=== PATIENT | male | born 1965 | race Caucasian/White ===

== ENCOUNTER → 2016-11-12 | Outpatient (CLI) | payer MEDICARE, MEDICAID ==
[2016-11-12 10:13] LABS: CHOLESTEROL 205.62 mg/dL (0-200); Direct HDL 66 mg/dL (>40); TRIGLYCERIDES 181 mg/dL (<150)
[2016-11-12 10:24] LABS: DIRECT LDL 100 mg/dL (<100)
[2016-11-12 10:28] LABS: VLDL CHOLESTEROL 36.2 mg/dL (10-31)
== END ==
LOC: OD 09:08
PROVIDERS: ATTEND Obstetrics & Gynecology
DX: E78.5 Hyperlipidemia, unspecified (principal)
CPT/HCPCS: 36415; 80061

== ENCOUNTER → 2017-02-04 | Outpatient (CLI) | payer MEDICARE, MEDICAID ==
[2017-02-04 09:42] LABS: ALANINE AMINOTRANSFERASE 53 U/L (21-72); ALBUMIN 3.6 g/dL (3.5-5.0); ALKALINE PHOSPHATASE 121 U/L (38-126); ANION GAP 9 (5-19); ASPARTATE AMINO TRANSFERASE 32 U/L (17-59); BILIRUBIN,DIRECT 0.4 mg/dL (0.0-0.4); BILIRUBIN,TOTAL 0.7 mg/dL (0.2-1.3); BLOOD UREA NITROGEN 11 mg/dL (7-20); CARBON DIOXIDE 28 mmol/L (22-30); CHLORIDE 101 mmol/L (98-107); CREATINE KINASE 86 U/L (55-170); CREATININE RESULT 0.68 mg/dL (0.52-1.25); Direct HDL 67 mg/dL (>40); GLUCOSE 136 mg/dL (75-110); POTASSIUM 4.2 mmol/L (3.6-5.0); SODIUM 138.4 mmol/L (137-145); TOTAL PROTEIN 6.5 g/dL (6.3-8.2); TRIGLYCERIDES 131 mg/dL (<150)
[2017-02-04 09:53] LABS: DIRECT LDL 135 mg/dL (<100)
== END ==
LOC: OD 08:15
PROVIDERS: ATTEND Obstetrics & Gynecology
DX: E11.40 Type 2 diabetes mellitus with diabetic neuropathy, unspecified (principal); E78.5 Hyperlipidemia, unspecified; I10 Essential (primary) hypertension; Z79.891 Long term (current) use of opiate analgesic; Z86.39 Personal history of other endocrine, nutritional and metabolic disease; J44.1 Chronic obstructive pulmonary disease with (acute) exacerbation
CPT/HCPCS: 36415; 80053; 80061; 82550; 83036

== ENCOUNTER → 2017-03-05 | Outpatient (CLI) | payer MEDICARE, MEDICAID ==
[2017-03-05 10:21] LABS: ALANINE AMINOTRANSFERASE 50 U/L (21-72); ALKALINE PHOSPHATASE 151 U/L (38-126); ANION GAP 13 (5-19); ASPARTATE AMINO TRANSFERASE 31 U/L (17-59); BILIRUBIN,DIRECT 0.5 mg/dL (0.0-0.4); BILIRUBIN,TOTAL 0.7 mg/dL (0.2-1.3); BLOOD UREA NITROGEN 13 mg/dL (7-20); CALCIUM 9.7 mg/dL (8.4-10.2); CARBON DIOXIDE 29 mmol/L (22-30); CHLORIDE 98 mmol/L (98-107); CHOLESTEROL 182.94 mg/dL (0-200); CREATINE KINASE 68 U/L (55-170); CREATININE RESULT 0.82 mg/dL (0.52-1.25); Direct HDL 55 mg/dL (>40); GLUCOSE 122 mg/dL (75-110); POTASSIUM 4.9 mmol/L (3.6-5.0); SODIUM 139.6 mmol/L (137-145); TOTAL PROTEIN 6.9 g/dL (6.3-8.2); TRIGLYCERIDES 145 mg/dL (<150)
[2017-03-05 10:34] LABS: DIRECT LDL 99 mg/dL (<100)
== END ==
LOC: OD 08:47
PROVIDERS: ATTEND Obstetrics & Gynecology
DX: E11.9 Type 2 diabetes mellitus without complications (principal); I10 Essential (primary) hypertension; E78.5 Hyperlipidemia, unspecified
CPT/HCPCS: 36415; 80053; 80061; 82550; 83036

== ENCOUNTER 2017-05-03 05:59 | Observation (INO) | payer MEDICARE, MEDICAID ==
[2017-04-30 09:06] LABS: ABSOLUTE EOSINOPHILS # (AUTO) 0.3 10^3/uL (0.0-0.6); ABSOLUTE LYMPHOCYTES (AUTO) 1.1 10^3/uL (0.5-4.7); ABSOLUTE MONOCYTES (AUTO) 0.6 10^3/uL (0.1-1.4); ABSOLUTE NEUT (AUTO) 7.2 10^3/uL (1.7-8.2); BASOPHILS % (AUTO) 0.4 % (0-2); HEMATOCRIT 38.4 % (37.9-51.0); HEMOGLOBIN 13.1 g/dL (13.5-17.0); HGB HCT DIFFERENCE 0.9; LYMPHOCYTES % (AUTO) 12.1 % (13-45); MEAN CORPUSCULAR HEMOGLOBIN 30.1 pg (27.0-33.4); MEAN CORPUSCULAR HGB CONC 34.2 g/dL (32.0-36.0); MEAN CORPUSCULAR VOLUME 88 fl (80-97); MONOCYTES % (AUTO) 6.7 % (3-13); RED BLOOD COUNT 4.35 10^6/uL (4.35-5.55); RED CELL DISTRIBUTION WIDTH 13.4 % (11.5-14.0); SEGMENTED NEUTROPHILS % (AUTO) 77.8 % (42-78); WHITE BLOOD COUNT 9.2 10^3/uL (4.0-10.5)
[2017-04-30 09:36] LABS: ANION GAP 11 (5-19); BLOOD UREA NITROGEN 13 mg/dL (7-20); CARBON DIOXIDE 30 mmol/L (22-30); CHLORIDE 99 mmol/L (98-107); CREATININE RESULT 0.76 mg/dL (0.52-1.25); GLUCOSE 119 mg/dL (75-110); POTASSIUM 4.1 mmol/L (3.6-5.0); SODIUM 139.8 mmol/L (137-145)
--- NOTE | 2017-04-30 09:48 | RADIOLOGY REPORT (SQ) ---
EXAM DESCRIPTION: CHEST PA/LATERAL COMPLETED DATE/TIME: 04/30/2017 9:31 am REASON FOR STUDY: PRE OP COMPARISON: Two-view chest 07/06/2014 EXAM PARAMETERS: NUMBER OF VIEWS: two views TECHNIQUE: Digital Frontal and Lateral radiographic views of the chest acquired. RADIATION DOSE: NA LIMITATIONS: none FINDINGS: LUNGS AND PLEURA: No opacities, masses or pneumothorax. No pleural effusion. MEDIASTINUM AND HILAR STRUCTURES: No masses or contour abnormalities. HEART AND VASCULAR STRUCTURES: Heart normal size. No evidence for failure. BONES: No acute findings. HARDWARE: None in the chest. OTHER: No other significant finding. IMPRESSION: NO SIGNIFICANT RADIOGRAPHIC FINDING IN THE CHEST. TECHNICAL DOCUMENTATION: JOB ID: [id number] [email or web address]- All Rights Reserved
[2017-04-30 10:11] LABS: APPEARANCE,URINE CLEAR; BILIRUBIN,URINE NEGATIVE (NEGATIVE); GLUCOSE, URINE NEGATIVE (NEGATIVE); KETONES,URINE NEGATIVE (NEGATIVE); LEUKOCYTE ESTERASE,URINE NEGATIVE (NEGATIVE); NITRITE,URINE NEGATIVE (NEGATIVE); PROTEIN,URINE NEGATIVE (NEGATIVE); URINE SPECIFIC GRAVITY 1.006; UROBILINOGEN,URINE NEGATIVE mg/dL (<2.0)
--- NOTE | 2017-04-30 13:02 | EKG REPORT ---
SEVERITY:- NORMAL ECG - SINUS RHYTHM : Confirmed by: Parviz Devi MD 30-Apr-2017 13:01:18
[~2017-05-03 05:59] MED LIST: CEFAZOLIN 2 GM/D5W RTU 2 GM/50 ML RTUPB IV PRN; LACTATED RINGERS 1000 ML IV PRN; LIDOCAINE 0.5% INJ-PF (5 MG/ML) 50 ML SDV SUBCUT PRN
[2017-05-03] MEDS ORDERED: BUPIVACAINE HCL 0.5 % INJ/PF 30 ML SDV ONE (07:46)
[2017-05-03] MEDS ORDERED: FENTANYL CITRATE INJ/PF 100 MCG/2 ML AMPUL ONE (09:20)
[2017-05-03] MEDS ORDERED: TRANEXAMIC ACID INJ/PF 1,000 MG/10 ML SDV IV ONE (09:21)
[2017-05-03] MEDS ORDERED: PROPOFOL INJ 200 MG/20 ML VIAL IV ONE (09:21)
[2017-05-03] MEDS ORDERED: MIDAZOLAM 2 MG/2 ML INJ ONE (09:21)
[2017-05-03] MEDS ORDERED: IBUPROFEN INJ 800 MG/8 ML VIAL IV ONE (09:50)
[2017-05-03] MEDS ORDERED: HYDROMORPHONE HCL INJ/PF 2 MG/ML AMPULE ONE (09:50)
[2017-05-03] MEDS ORDERED: BUPIVACAINE HCL 0.5%-EPI 1:200000 INJ/PF 30 ML VIAL ONE (10:31)
[2017-05-03] MEDS ORDERED: DIPHENHYDRAMINE HCL 50 MG/ML VIAL IV PRN ×2 (10:38→11:16)
[2017-05-03] MEDS ORDERED: OXYCODONE-ACETAMINOPHEN 5-325 MG TABLET PO PRN ×2 (10:38)
[2017-05-03] MEDS ORDERED: FENTANYL CITRATE INJ/PF 100 MCG/2 ML AMPUL IV PRN ×3 (10:38)
[2017-05-03] MEDS ORDERED: MEPERIDINE HCL/PF INJ 25 MG/1 ML DISP.SYRIN IV PRN (10:38)
[2017-05-03] MEDS ORDERED: MORPHINE SULFATE 10 MG/ML INJ IV PRN ×4 (10:38→11:16)
[2017-05-03] MEDS ORDERED: PROMETHAZINE HCL INJ 25 MG/1 ML VIAL IV PRN ×2 (10:38)
--- NOTE | 2017-05-03 10:59 | Operative Report ---
Operative Report DATE OF SURGERY: 05/03/17 PREOPERATIVE DIAGNOSIS: Right quadriceps tear OPERATION: Scar revision. Right quadriceps tendon repair SURGEON: MINOO BLANCO 1ST ANIMAL TRAINER: FLORENCIA CM ANESTHESIA: Spinal TISSUE REMOVED OR ALTERED: Cultures to microbiology ESTIMATED BLOOD LOSS: Minimal PROCEDURE: With the patient supine the operating table the right lower extremities prepped and draped in sterile fashion. The limb was elevated but for exsanguination tourniquet inflated to 350 torr. The existing incision which was serpentine to avoid previous tattoos has spread considerably. The patient's request revision of the scar. This is elliptically excised. Sent to pathology for gross description. The incision and carried down to the quadriceps tendon. The quadriceps tendon disruption right at the proximal pole of the patella. The superior aspect of the patellar polyethylene is visible. Cultures are taken. My initial surgical plan was to use a bone anchor. However is concerned about the anterior posterior dimensions of the existing patella and whether or not this would disrupt the underlying patella cement mantle. Therefore I opted to put 2 tunnels through the proximal patella using a drill and then a #5 FiberWire was passed through each of these holes. The tendon disruption was then repaired using the FiberWire in a Krakw pattern. The tourniquet was deflated. Hemostasis obtained. The wound was then reapproximated with interrupted Vicryl followed by mg. A sterile compressive dressing was applied and the patient's return to the PACU in satisfactory condition.
[2017-05-03] MEDS ORDERED: (PENDING PHARMACY ID) (Diclofenac Sodium [Voltaren] 4 GM) TOP PRN (11:15)
[2017-05-03] MEDS ORDERED: DIAZEPAM 5 MG TABLET PO PRN (11:15)
[2017-05-03] MEDS ORDERED: ALBUTEROL SULFATE HFA (90 MCG/PUFF) 200 PUFF/8.5 GM MDI IH PRN (11:15)
[2017-05-03] MEDS ORDERED: ONDANSETRON 4 MG TAB.RAPDIS PO PRN ×2 (11:16→12:30)
[2017-05-03] MEDS ORDERED: ZOLPIDEM TARTRATE 5 MG TABLET PO PRN ×2 (11:17→12:30)
[2017-05-03] MEDS ORDERED: ACETAMINOPHEN 325 MG TABLET PO PRN (11:17)
[2017-05-03] MEDS ORDERED: EPHEDRINE SULFATE INJ 50 MG/1 ML AMPULE ONE (11:29)
--- NOTE | 2017-05-03 12:58 | RADIOLOGY REPORT (SQ) ---
EXAM DESCRIPTION: KNEE RIGHT 2 VIEWS COMPLETED DATE/TIME: 05/03/2017 12:44 pm REASON FOR STUDY: Post OP -Long Cassette in PACU S76.191A INJ RIGHT QUADRICEPS MUSCLE, FASCIA AND T ENDON, INI COMPARISON: None. NUMBER OF VIEWS: Four views. TECHNIQUE: AP, lateral, and both oblique radiographic images acquired of the right knee. LIMITATIONS: None. FINDINGS: MINERALIZATION: Normal. BONES: Right knee arthroplasty in good position. JOINT: See above. SOFT TISSUES: No soft tissue swelling. No radio-opaque foreign body. OTHER: No other significant finding. IMPRESSION: Right knee arthroplasty. TECHNICAL DOCUMENTATION: JOB ID: [id number] [employer]- All Rights Reserved
[2017-05-03] MEDS: GABAPENTIN 300 MG CAPSULE PO SCH ×2 (13:22→19:33)
[2017-05-03] MEDS: BACLOFEN 10 MG TABLET PO SCH ×2 (13:22→16:14)
[2017-05-03] MEDS: OXYCODONE HCL IR 5 MG TABLET PO PRN ×2 (13:23→19:33)
[2017-05-03] MEDS: MORPHINE SULFATE 10 MG/ML INJ IM PRN ×3 (16:10→22:39)
[2017-05-03] MEDS: METFORMIN HCL 500 MG TABLET PO SCH (16:13)
[2017-05-03] MEDS ORDERED: ACETAMINOPHEN 100 ML IV ONE (17:00)
[2017-05-03] MEDS ORDERED: IBUPROFEN 800 MG in NORMAL SALINE 250 ML IV SCH (18:00)
[2017-05-03] MEDS: SENNOSIDES/DOCUSATE 8.6-50 MG 1 EACH TABLET PO SCH (18:02)
[2017-05-03] MEDS: OXYCODONE HCL SR 10 MG TABLET PO SCH (21:31)
[2017-05-03] MEDS: TOLTERODINE TARTRATE 1 MG TABLET PO SCH (21:31)
[2017-05-03] MEDS ORDERED: ATORVASTATIN CALCIUM 80 MG TABLET PO SCH (22:00)
[2017-05-03] MEDS ORDERED: RIVAROXABAN 10 MG TABLET PO SCH (22:00)
[2017-05-03] MEDS ORDERED: MONTELUKAST SODIUM 10 MG TABLET PO SCH (22:00)
[2017-05-03] MEDS ORDERED: VANCOMYCIN HCL 1,000 MG in DEXTROSE 5%-WATER 250 ML IV ONE (23:00)
[2017-05-04] MEDS: MORPHINE SULFATE 10 MG/ML INJ IM PRN ×3 (04:39→14:12)
[2017-05-04] MEDS: OXYCODONE HCL IR 5 MG TABLET PO PRN ×2 (05:00→12:14)
[2017-05-04] MEDS: GABAPENTIN 300 MG CAPSULE PO SCH ×2 (05:00→14:13)
[2017-05-04] MEDS ORDERED: LANSOPRAZOLE 15 MG TAB.RAP.DR PO SCH (06:00)
[2017-05-04] MEDS ORDERED: LANSOPRAZOLE 30 MG TAB.RAP.DR PO SCH (06:00)
[2017-05-04 06:53] LABS: HEMATOCRIT 40.5 % (37.9-51.0); HEMOGLOBIN 13.7 g/dL (13.5-17.0); HGB HCT DIFFERENCE 0.6; MEAN CORPUSCULAR HGB CONC 33.9 g/dL (32.0-36.0); MEAN CORPUSCULAR VOLUME 89 fl (80-97); RED BLOOD COUNT 4.58 10^6/uL (4.35-5.55); RED CELL DISTRIBUTION WIDTH 13.3 % (11.5-14.0); WHITE BLOOD COUNT 10.3 10^3/uL (4.0-10.5)
--- NOTE | 2017-05-04 07:06 | PDOC DISCHARGE SUMMARY ---
Discharge Summary (SDC) - Discharge Final Diagnosis: Right quadriceps tendon tear Date of Surgery: 05/03/17 Condition: Good Referrals: MINOO BLANCO MD [ACTIVE STAFF] - 05/18/17 10:50 am Discharge Diet: As Tolerated, Regular Respiratory Treatments at Home: Deep Breathing/Coughing, Incentive Spirometer Discharge Activity: Activity As Tolerated, Balance Activity w/Rest, No Driving, No tub bath Home Care Assistance: None Needed Report the Following to Your Physician Immediately: Shortness of Breath, Fever over 101 Degrees, Drainage-Foul Smelling - Patient under pain management consult preoperatively. He is going to return to his pain medicine facility for ongoing prescriptions. Return to see Dr. Blanco in 2 weeks for staple removal.
[2017-05-04] MEDS: BACLOFEN 10 MG TABLET PO SCH ×2 (07:19→12:14)
[2017-05-04] MEDS: METFORMIN HCL 500 MG TABLET PO SCH (07:19)
[2017-05-04 07:27] LABS: ANION GAP 12 (5-19); BLOOD UREA NITROGEN 8 mg/dL (7-20); CALCIUM 9.5 mg/dL (8.4-10.2); CARBON DIOXIDE 28 mmol/L (22-30); CHLORIDE 96 mmol/L (98-107); CREATININE RESULT 0.76 mg/dL (0.52-1.25); GLUCOSE 151 mg/dL (75-110); POTASSIUM 5.4 mmol/L (3.6-5.0)
[2017-05-04] MEDS: TOLTERODINE TARTRATE 1 MG TABLET PO SCH (09:07)
[2017-05-04] MEDS: OXYCODONE HCL SR 10 MG TABLET PO SCH (09:07)
[2017-05-04] MEDS: SENNOSIDES/DOCUSATE 8.6-50 MG 1 EACH TABLET PO SCH (09:08)
[2017-05-04] MEDS ORDERED: (PENDING PHARMACY ID) (Telmisartan [Micardis 80 Mg Tablet] 80 MG) PO SCH (10:00)
[2017-05-04] MEDS ORDERED: (PENDING PHARMACY ID) (Metformin Hcl [Metformin Hcl Er] 500 MG) PO SCH (10:00)
[2017-05-04] MEDS ORDERED: (PENDING PHARMACY ID) (Solifenacin Succinate [Vesicare] 10 MG) PO SCH (10:00)
[2017-05-04] MEDS ORDERED: LOSARTAN POTASSIUM 50 MG TABLET PO SCH (10:00)
--- NOTE | 2017-05-04 11:56 | Physician Advisory Note ---
Physician Advisor ProgressNote .: [facility] medical [facility] for this patient. Physician Advisor Statement: Please document: 1. "obesity with BMI 48.4" 2. "traumatic Rt quad tendon tear" (vs nontraumatic), - & state whether a "laceration" (vs. "strain") 3. DCSummary needs info on pt's history of present illness, chronic co- morbidities, and hospital course. 4. H&P Status: Not an Inpt only procedure per certified medical records coder. Severity of illness/intensity of service not high enough for Inpatient status. Appropriate for Obs status. Co-morbidities: COPD, DM type 2, HTN, sleep apnea, opioid dependence (morphine ER 30mg q12h at baseline), obesity CK
[2017-05-04 13:13] VITALS: BP 146/83
== END 2017-05-04 15:55 | disposition home health service (06) ==
LOC: INTOOBSV 05:59 → INOR 05:59 → 4S 12:59
PROVIDERS: ADMIT Orthopaedic Surgery; ATTEND Orthopaedic Surgery
PROC: 0LQL0ZZ Repair Right Upper Leg Tendon, Open Approach (ICD-10-PCS; principal; 2017-05-03 10:00)
DX: S76.191A Other specified injury of right quadriceps muscle, fascia and tendon, initial encounter (principal); X58.XXXA Exposure to other specified factors, initial encounter; Z96.653 Presence of artificial knee joint, bilateral; E11.9 Type 2 diabetes mellitus without complications; Z79.899 Other long term (current) drug therapy; Z79.84 Long term (current) use of oral hypoglycemic drugs; Z86.14 Personal history of Methicillin resistant Staphylococcus aureus infection
CPT/HCPCS: 93005; 36415 ×2; 87070; 87205; 82962; 85025; 85027; 87075; 80048 ×2; 81001; 83036; 88304 ×2; 71020; 73560; 94799; 93010; 97163; 27385; G0378 ×2; J2250; A9270 ×18; J3490 ×2; J3010; J2270 ×2; J7060; J7050; J2704; J3370; J0690; J1741; G8978; G8979; G8980; 01320; J1170

== ENCOUNTER 2017-05-07 12:52 | Inpatient (IN) | payer MEDICARE, MEDICAID ==
[2017-05-07 13:41] LABS: ABSOLUTE LYMPHOCYTES (AUTO) 1.3 10^3/uL (0.5-4.7); ABSOLUTE MONOCYTES (AUTO) 1.7 10^3/uL (0.1-1.4); ABSOLUTE NEUT (AUTO) 11.9 10^3/uL (1.7-8.2); BASOPHILS % (AUTO) 0.1 % (0-2); EOSINOPHILS % (AUTO) 0.1 % (0-6); HEMATOCRIT 35.6 % (37.9-51.0); HEMOGLOBIN 12.2 g/dL (13.5-17.0); LYMPHOCYTES % (AUTO) 8.7 % (13-45); MEAN CORPUSCULAR HEMOGLOBIN 29.8 pg (27.0-33.4); MEAN CORPUSCULAR HGB CONC 34.2 g/dL (32.0-36.0); MEAN CORPUSCULAR VOLUME 87 fl (80-97); MONOCYTES % (AUTO) 11.2 % (3-13); RED BLOOD COUNT 4.08 10^6/uL (4.35-5.55); RED CELL DISTRIBUTION WIDTH 13.4 % (11.5-14.0); SEGMENTED NEUTROPHILS % (AUTO) 79.9 % (42-78); WHITE BLOOD COUNT 14.9 10^3/uL (4.0-10.5)
[2017-05-07 13:44] LABS: VENOUS BLOOD BASE EXCESS 0.4 mmol/L; VENOUS BLOOD HCO3 28.4 mmol/L (20-32); VENOUS BLOOD PCO2 59.9 mmHg (35-63); VENOUS BLOOD PH 7.29 (7.30-7.42)
[2017-05-07 14:09] LABS: ALANINE AMINOTRANSFERASE 54 U/L (21-72); ALBUMIN 3.7 g/dL (3.5-5.0); ALKALINE PHOSPHATASE 147 U/L (38-126); ANION GAP 13 (5-19); ASPARTATE AMINO TRANSFERASE 63 U/L (17-59); BILIRUBIN,DIRECT 0.4 mg/dL (0.0-0.4); BILIRUBIN,TOTAL 0.6 mg/dL (0.2-1.3); BLOOD UREA NITROGEN 76 mg/dL (7-20); CALCIUM 9.3 mg/dL (8.4-10.2); CARBON DIOXIDE 28 mmol/L (22-30); CHLORIDE 94 mmol/L (98-107); CREATININE RESULT 3.02 mg/dL (0.52-1.25); GLUCOSE 146 mg/dL (75-110); POTASSIUM 5.6 mmol/L (3.6-5.0); SODIUM 135.1 mmol/L (137-145); TOTAL PROTEIN 6.4 g/dL (6.3-8.2)
--- NOTE | 2017-05-07 14:09 | RADIOLOGY REPORT (SQ) ---
EXAM DESCRIPTION: CHEST SINGLE VIEW COMPLETED DATE/TIME: 05/07/2017 2:02 pm REASON FOR STUDY: Postop confusion COMPARISON: Two-view chest 04/30/2017, 07/06/2014 EXAM PARAMETERS: NUMBER OF VIEWS: One view. TECHNIQUE: Single frontal radiographic view of the chest acquired. RADIATION DOSE: NA LIMITATIONS: None. FINDINGS: LUNGS AND PLEURA: No opacities, masses or pneumothorax. No pleural effusion. MEDIASTINUM AND HILAR STRUCTURES: No masses. Contour normal. HEART AND VASCULAR STRUCTURES: Heart normal in size. Normal vasculature. BONES: No acute findings. HARDWARE: None in the chest. OTHER: No other significant finding. IMPRESSION: NO ACUTE RADIOGRAPHIC FINDING IN THE CHEST. TECHNICAL DOCUMENTATION: JOB ID: [id number] [employer]- All Rights Reserved
[2017-05-07 14:21] LABS: CREATINE KINASE MB 11.9 ng/mL (<4.55); TROPONIN I 0.102 ng/mL
--- NOTE | 2017-05-07 14:40 | RADIOLOGY REPORT (SQ) ---
EXAM DESCRIPTION: CT HEAD WITHOUT COMPLETED DATE/TIME: 05/07/2017 2:22 pm REASON FOR STUDY: Confused, altered mental status COMPARISON: None. TECHNIQUE: Axial images acquired through the brain without intravenous contrast. Images reviewed wi th bone, brain and subdural windows. Images stored on PACS. All CT scanners at this facility use dose modulation, iterative reconstruction, and/or weight based d osing when appropriate to reduce radiation dose to as low as reasonably achievable (ALARA). [facility]: Dose Right [facility]: CareDose [facility]: Dose Right [facility]: Teradose 4D [facility]: [employer] RADIATION DOSE: Up-to-date CT equipment and radiation dose reduction techniques were employed. CTDIv ol: 64.6 mGy. DLP: 1163 mGy-cm. mGy. LIMITATIONS: Motion artifact throughout the study FINDINGS: Motion artifact throughout the study. On images without motion artifact, no gross acute i ntracranial hemorrhage, mass effect or midline shift. No CT evidence of large territory infarct. No gross evidence of sinusitis or skull fracture. IMPRESSION: Very limited negative study EVIDENCE OF ACUTE STROKE: NO. COMMENT: Quality ID # [id number]: Final reports with documentation of one or more dose reduction techniques (e.g., Automated exposure control, adjustment of the mA and/or kV according to patient size, use of iterative reconstruction technique) TECHNICAL DOCUMENTATION: JOB ID: [id number] [employer]- All Rights Reserved
[2017-05-07] MEDS ORDERED: LIDOCAINE 2% URO-JET 5 ML KIT MM ONE (14:46)
[2017-05-07] MEDS ORDERED: RINGERS SOLUTION,LACTATED 1,000 ML IV ONE (14:47)
[2017-05-07 15:28] LABS: ADD ON TESTING BLD IN LAB ACKNOWLEDGE
[2017-05-07 15:34] LABS: APPEARANCE,URINE SLIGHTLY-CLOUDY; BILIRUBIN,URINE NEGATIVE (NEGATIVE); GLUCOSE, URINE NEGATIVE (NEGATIVE); KETONES,URINE NEGATIVE (NEGATIVE); LEUKOCYTE ESTERASE,URINE TRACE (NEGATIVE); NITRITE,URINE NEGATIVE (NEGATIVE); PROTEIN,URINE NEGATIVE (NEGATIVE); URINE SPECIFIC GRAVITY 1.015; UROBILINOGEN,URINE NEGATIVE mg/dL (<2.0)
--- NOTE | 2017-05-07 15:46 | ER Document Report ---
ED General - General Chief Complaint: General Weakness Stated Complaint: WEAKNESS Time Seen by Provider: 05/07/17 13:26 Notes: Patient was brought in by EMS for generalized weakness. He also has right knee pain. Patient is somewhat confused at times and the history is somewhat sketchy and also perhaps not very reliable. Patient apparently had knee surgery just 4 days ago here at this hospital. Patient says that he has previously had both knees replaced and this was a repair of the right knee. Patient surgery was on Wednesday, May 04, and he went home the next morning, Wednesday, the . Patient tells me that he lives alone and there is no one with him there at home and he has been unable to get up, fix any food or drink, etc. Patient says he has been having shaking episodes and feeling very dry, especially his mouth today. Patient denies vomiting or diarrhea. Has a history of chronic pain and has listed morphine, Percocet, and Valium medications. Patient also says that he has been a little bit short of breath and has a history of lung disease, asthma and COPD. Denies any significant cough. Unaware of any fever. No UTI symptoms. Says he has had some chest pressure, but no pain. Denies abdominal pain. Patient's brother is visiting the patient at this time and he says that the patient's not acting his usual self. He seems confused. He verifies that there apparently were no healthcare workers her home nurses to check on the patient after he was sent home Wednesday. TRAVEL OUTSIDE OF THE [place] IN LAST 30 DAYS: No - Related Data Allergies/Adverse Reactions: No Known Allergies Allergy (Unverified 04/06/14 09:16) Past Medical History - Social History Smoking Status: Former Smoker Cigarette use (# per day): No Chew tobacco use (# tins/day): No Frequency of alcohol use: Occasional Drug Abuse: None Family History: Reviewed & Not Pertinent Patient has suicidal ideation: No Patient has homicidal ideation: No - Past Medical History Cardiac Medical History: Reports: Hx Hypercholesterolemia, Hx Hypertension Pulmonary Medical History: Reports: Hx Asthma, Hx COPD, Hx Pneumonia, Hx Sleep Apnea Endocrine Medical History: Reports: Hx Diabetes Mellitus Type 2 Renal/ Medical History: Reports: Hx Benign Prostatic Hyperplasia - nocturia x 2-3/night GI Medical History: Reports: Hx Gastroesophageal Reflux Disease Musculoskeltal Medical History: Reports Hx Arthritis Infectious Medical History: Denies: Hx HIV Past Surgical History: Reports: Hx Abdominal Surgery - hernia, Hx Orthopedic Surgery - Bilateral knee replacements. Recent repair of right knee - Immunizations Hx Diphtheria, Pertussis, Tetanus Vaccination: Yes Review of Systems - Review of Systems -: Yes ROS unobtainable due to patient's medical condition - Patient is intermittently too confused to give a reliable ROS Constitutional: denies: Fever Cardiovascular: denies: Chest pain Gastrointestinal: denies: Abdominal pain, Diarrhea, Vomiting Neurological/Psychological: Confusion Physical Exam - Vital signs Vitals: Pulse Ox 83 L 05/07/17 13:07 Interpretation: Normal - Notes Notes: PHYSICAL EXAMINATION: GENERAL: Well-appearing, in no acute distress. Head and face diaphoretic. Seems confused at times. Grunting respirations and her mentally. HEAD: Atraumatic, normocephalic. EYES: Pupils equal round and reactive to light, extraocular movements intact. ENT: oropharynx clear without exudates. Moist mucous membranes. NECK: Normal range of motion, supple. LUNGS: Breath sounds clear and equal bilaterally. HEART: Regular rate and rhythm without murmurs. ABDOMEN: Soft, nontender. No guarding or rebound. BACK: No tenderness throughout entire back. EXTREMITIES: Right knee with recent surgery and mg. Does not appear to be infected. A small amount of bleeding has been noted. Normal range of motion without pain. NEUROLOGICAL: Normal speech, normal gait. Normal sensory, motor, and reflex exams. Awake, alert, and oriented x3. Cranial nerves normal. PSYCH: Normal mood, normal affect. SKIN: Warm, dry, no rashes. Course - Re-evaluation Re-evalutation: 05/07/17 16:09 Lab studies show patient to have significant elevation of his creatinine and BUN , 3.02 and 76, compared to the values just 3 days ago before his surgery when those functions were normal. His CPK was 1093. White count was 14,300. Discussed patient with hospitalist on-call, who will admit the patient for hydration and further evaluation. - Vital Signs Vital signs: Temp Pulse Resp BP Pulse Ox 97.7 F 14 106/68 96 05/07/17 13:28 05/07/17 14:08 05/07/17 15:25 05/07/17 15:25 - Laboratory Result Diagrams: 05/07/17 13:20 05/07/17 13:20 Laboratory results interpreted by me: 05/07/17 05/07/17 05/07/17 13:20 13:20 13:20 WBC 14.9 H RBC 4.08 L Hgb 12.2 L Hct 35.6 L Seg Neutrophils % 79.9 H Lymphocytes % 8.7 L Absolute Neutrophils 11.9 H Absolute Monocytes 1.7 H VBG pH Sodium 135.1 L Potassium 5.6 H Chloride 94 L BUN 76 H Creatinine 3.02 H Est GFR ( Amer) 26 L Est GFR (Non-Af Amer) 22 L Glucose 146 H AST 63 H Alkaline Phosphatase 147 H Creatine Kinase CK-MB (CK-2) 11.90 H Urine Blood Ur Leukocyte Esterase 05/07/17 05/07/17 05/07/17 13:20 15:01 15:10 WBC RBC Hgb Hct Seg Neutrophils % Lymphocytes % Absolute Neutrophils Absolute Monocytes VBG pH 7.29 L Sodium Potassium Chloride BUN Creatinine Est GFR ( Amer) Est GFR (Non-Af Amer) Glucose AST Alkaline Phosphatase Creatine Kinase 1093 H CK-MB (CK-2) Urine Blood SMALL H Ur Leukocyte Esterase TRACE H - Diagnostic Test Radiology reviewed: Image reviewed, Reports reviewed - CT scan of the patient's brain shows no abnormality. Radiology results interpreted by me: 05/07/17 16:09 Chest x-ray is normal. - EKG Interpretation by Ms EKG shows normal: Sinus rhythm Rate: Normal Rhythm: NSR - At 73 Additional EKG results interpreted by me: 05/07/17 16:12 EKG is without any acute changes. Critical Care Note - Critical Care Note Total time excluding time spent on procedures (mins): 45 Discharge - Discharge Clinical Impression: Acute prerenal azotemia Condition: Stable Disposition: ADMITTED INPATIENT Admitting Provider: Hospitalist Unit Admitted: [facility]
[2017-05-07 15:58] LABS: CREATINE KINASE 1093 U/L (55-170)
[2017-05-07] MEDS ORDERED: ALBUTEROL SULFATE 0.083% NEB 2.5 MG/3 ML AMPUL NEB PRN (17:11)
[2017-05-07] MEDS ORDERED: ONDANSETRON HCL INJ/PF 4 MG/2 ML SDV IV PRN (17:11)
[2017-05-07] MEDS ORDERED: OXYCODONE-ACETAMINOPHEN 5-325 MG TABLET PO PRN (17:11)
[2017-05-07] MEDS ORDERED: LORAZEPAM INJ 2 MG/1 ML VIAL IV ONE (17:28)
[2017-05-07] MEDS ORDERED: DEXTROSE 40% GEL 15 GM TUBE PO PRN ×2 (17:32)
[2017-05-07] MEDS ORDERED: DEXTROSE 50%-WATER 25 GM/50 ML DISP.SYRIN IV PRN ×2 (17:32)
[2017-05-07] MEDS ORDERED: INSULIN REG, HUMAN 100 UNIT/ML 3 ML VIAL (PYX) SUBCUT PRN (17:32)
[2017-05-07] MEDS ORDERED: GLUCAGON,HUMAN RECOMB 1 MG INJ IM PRN (17:32)
[2017-05-07 17:42] LABS: ARTERIAL BLOOD BASE EXCESS 1.2 mmol/L; ARTERIAL BLOOD O2 SATURATION 97.8 % (94-98)
[2017-05-07] MEDS: NORMAL SALINE 1000 ML 1,000 ML IV PRN ×2 (17:55→21:05)
[2017-05-07] MEDS ORDERED: SODIUM POLYSTYRENE SULFONATE 15 GM/60 ML PO ONE (18:22)
[2017-05-07] MEDS ORDERED: HALOPERIDOL LACTATE INJ 5 MG/1 ML VIAL IV PRN (18:28)
--- NOTE | 2017-05-07 18:29 | PDOC H&P ---
History of Present Illness Admission Date/PCP: 05/07/17 16:50 Patient complains of: Confusion and agitation. Pt found down at home. History of Present Illness: DONNIE LEE SR is a 52 year old male presents from home after being found down. Pt was brought to the ER. Pt best friend states that he drinks about 10 beers a day and on a light day 6-8 beers. Pt's friend states that he does not think pt is withdrawing from Alcohol because he has never withdrawn. Pt states that the drink everyday but sometimes may miss a day or two. Pt states that pt is aggressive normally but not this aggressive. Past Medical History Cardiac Medical History: Reports: Hyperlipidema, Hypertension Denies: Atrial Fibrillation, Congestive Heart Failure, Coronary Artery Disease, Myocardial Infarction, Peripheral Vascular Disease, Pulmonary Embolism , Heart Murmur Pulmonary Medical History: Reports: Asthma, Chronic Obstructive Pulmonary Disease (COPD), Pneumonia, Sleep Apnea Denies: Bronchitis, Respiratory Failure, Tuberculosis Neurological Medical History: Denies: Seizures Endocrine Medical History: Reports: Diabetes Mellitus Type 2 Denies: Hyperthyroidism, Hypothyroidism Renal/ Medical History: Denies: End Stage Renal Disease Malignancy Medical History: Denies: Breast Cancer, Cervical Cancer, Leukemia, Lung Cancer, Ovarian Cancer GI Medical History: Reports: Gastroesophageal Reflux Disease Denies: Crohn's Disease, Hiatal Hernia Musculoskeltal Medical History: Reports: Arthritis Denies: Fibromyalgia Psychiatric Medical History: Reports: Alcohol Dependency Denies: Bipolar Disorder, Dementia, Depression, Post Traumatic Stress Disorder Hematology: Denies: Anemia, Hemophilia, Sickle Cell Disease Infectious Medical History: Denies: HIV Past Surgical History Past Surgical History: Reports: Orthopedic Surgery - Bilateral knee replacements. Recent repair of right knee Denies: Appendectomy, Cholecystectomy, Colostomy, Coronary Artery Bypass Graft, Gastric Bypass Surgery, Herniorrhaphy, Pacemaker, Tonsillectomy Social History Smoking Status: Former Smoker Frequency of Alcohol Use: Occasional Hx Recreational Drug Use: No Hx Prescription Drug Abuse: No - Advance Directive Resuscitation Status: Full Code Family History Family History: Reviewed & Not Pertinent Parental Family History Reviewed: Yes Children Family History Reviewed: Yes Sibling(s) Family History Reviewed.: Yes Medication/Allergy Home Medications: Albuterol Sulfate [Proair Hfa Inhalation Aerosol 8.5 gm Mdi] 2 puff IH Q4 PRN Atorvastatin Calcium [Lipitor] 80 mg PO QHS 05/07/17 Baclofen [Baclofen 10 mg Tablet] 10 mg PO MEALS 05/07/17 Diazepam [Valium 5 mg Tablet] 5 mg PO TIDP PRN 05/07/17 Diclofenac Sodium [Voltaren] 1 applic TP DAILYP PRN 05/07/17 Gabapentin [Neurontin] 600 mg PO Q8 05/07/17 Metformin HCl [Metformin HCl ER] 500 mg PO DAILY 05/07/17 Montelukast Sodium [Singulair 10 mg Tablet] 10 mg PO QHS 05/07/17 Morphine Sulfate [Morphine Sulfate ER] 30 mg PO Q12 05/07/17 Omeprazole 20 mg PO DAILY 05/07/17 Oxycodone HCl 15 mg PO Q6HP PRN 05/07/17 Solifenacin Succinate [Vesicare] 10 mg PO DAILY 05/07/17 Telmisartan [Micardis 80 mg Tablet] 80 mg PO DAILY 05/07/17 Allergies/Adverse Reactions: No Known Allergies Allergy (Unverified 04/06/14 09:16) Review of Systems ROS unobtainable: Other - Limited due to mental status Constitutional: ABSENT: chills, fever(s), headache(s), weight gain, weight loss Eyes: ABSENT: visual disturbances Ears: ABSENT: hearing changes Respiratory: ABSENT: cough, hemoptysis Gastrointestinal: ABSENT: abdominal pain, constipation, diarrhea, hematemesis, hematochezia, nausea, vomiting Physical Exam Vital Signs: Temp Pulse Resp BP Pulse Ox 97.7 F 82 18 110/62 93 05/07/17 13:28 05/07/17 17:16 05/07/17 17:16 05/07/17 17:32 05/07/17 17:26 General appearance: PRESENT: well-developed, well-nourished, other - agitated, Pt keep saying what are you talking about. Head exam: PRESENT: atraumatic, normocephalic Eye exam: PRESENT: conjunctiva pink, EOMI, PERRLA. ABSENT: scleral icterus Ear exam: PRESENT: normal external ear exam Mouth exam: PRESENT: dry mucosa, tongue midline Neck exam: ABSENT: carotid bruit, JVD, lymphadenopathy, thyromegaly Respiratory exam: PRESENT: clear to auscultation savita, other - diminished at bases. ABSENT: rales, rhonchi, wheezes Cardiovascular exam: PRESENT: RRR. ABSENT: diastolic murmur, rubs, systolic murmur Pulses: PRESENT: normal dorsalis pedis pul Vascular exam: PRESENT: normal capillary refill GI/Abdominal exam: PRESENT: normal bowel sounds, soft, other - obese. ABSENT: distended, guarding, mass, organolmegaly, rebound, tenderness Rectal exam: PRESENT: deferred Extremities exam: PRESENT: other - right knee with closed incision. No signs of infection Neurological exam: PRESENT: alert, awake, oriented to person, oriented to time, other - tremous hand Psychiatric exam: PRESENT: agitated, anxious, other - + paranoid Focused psych exam: PRESENT: paranoid, psychomotor agitation, restlessness Skin exam: PRESENT: other - right knee closed incision Results Laboratory Results: 05/07/17 17:20 Carbonic Acid 1.44 H HCO3/H2CO3 Ratio 18:1 ABG pH 7.37 ABG pCO2 47.8 H ABG pO2 107.7 H ABG HCO3 27.0 H ABG O2 Saturation 97.8 ABG Base Excess 1.2 FiO2 3L Impressions: Chest X-Ray 05/07/17 13:29 IMPRESSION: NO ACUTE RADIOGRAPHIC FINDING IN THE CHEST. Head CT 05/07/17 14:08 IMPRESSION: Very limited negative study EVIDENCE OF ACUTE STROKE: NO. Assessment & Plan - Diagnosis (1) Acute renal failure Is this a current diagnosis for this admission?: Yes Plan: Secondary to Dehydration and Rhabdomylosis: Will continue IVFs. Will have yip. (2) Delirium Is this a current diagnosis for this admission?: Yes Plan: Most likely secondary to ETOH withdrawal: Will place on Ativan and klonopin. Will check V/Q scan for PE and U/S of lower ext. Pt just had surgery. (3) Rhabdomyolysis Is this a current diagnosis for this admission?: Yes Plan: Will give IVFs. Will check CPK. (4) EtOH dependence Qualifiers: Substance use status: in withdrawal Is this a current diagnosis for this admission?: Yes Plan: Will give Folate, Thiamine, and MVI. Will place on scheduled Klonopin and PRN ativan. (5) Hyponatremia Is this a current diagnosis for this admission?: Yes Plan: in setting of Hypovolemia: Will place on IVFs. Will check BMP in am (6) ETOH withdrawal Is this a current diagnosis for this admission?: Yes Plan: Will place on Klonopin and PRN Ativan. Will write for PRN Haldol. (7) Morbid obesity Is this a current diagnosis for this admission?: Yes Plan: Encourage dietary changes. (8) Elevated troponin Is this a current diagnosis for this admission?: Yes Plan: In setting of Acute Renal Failure: Supportive care. (9) Hyperkalemia Is this a current diagnosis for this admission?: Yes Plan: will give Kayexlate X 1 (10) DM type 2 (diabetes mellitus, type 2) Is this a current diagnosis for this admission?: Yes Plan: HbgA1c 6.8. Will place on SSI (11) DVT prophylaxis Is this a current diagnosis for this admission?: Yes Plan: Heparin
--- NOTE | 2017-05-07 19:53 | RADIOLOGY REPORT (SQ) ---
EXAM DESCRIPTION: [employer] COMPLETED DATE/TIME: 05/07/2017 7:45 pm REASON FOR STUDY: acute renal failure. COMPARISON: None. TECHNIQUE: Dynamic and static grayscale images acquired of the kidneys and recorded on PACS. Additio nal selected color Doppler and spectral images recorded. LIMITATIONS: None. FINDINGS: RIGHT KIDNEY: Normal size. Normal echogenicity. No solid or suspicious masses. No h ydronephrosis. No calcifications. LEFT KIDNEY: Normal size. Normal echogenicity. No solid or suspicious masses. No hydronephrosi s. No calcifications. BLADDER: NOT IMAGED. OTHER FINDINGS: No other significant finding. IMPRESSION: NORMAL RENAL ULTRASOUND. TECHNICAL DOCUMENTATION: JOB ID: [id number] [employer]- All Rights Reserved
[2017-05-07] MEDS ORDERED: THIAMINE HCL 100 MG TABLET PO ONE (20:00)
[2017-05-07] MEDS ORDERED: NORMAL SALINE 1000 ML 1,000 ML IV ONE (20:15)
[2017-05-07] MEDS ORDERED: HALOPERIDOL LACTATE INJ 5 MG/1 ML VIAL ONE (20:37)
[2017-05-07] MEDS ORDERED: NALOXONE HCL INJ/PF 0.4 MG/1 ML SDV IV ONE (20:40)
[2017-05-07] MEDS: HALOPERIDOL LACTATE INJ 5 MG/1 ML VIAL IV PRN (20:42)
[2017-05-07] MEDS: LORAZEPAM INJ 2 MG/1 ML VIAL IV PRN ×2 (21:03→23:12)
[2017-05-07] MEDS ORDERED: HEPARIN SOD (PORCINE) 5,000 UNIT/ML 1 ML SYRINGE SUBCUT SCH (22:00)
[2017-05-07 22:13] LABS: VENOUS BLOOD BASE EXCESS -0.2 mmol/L; VENOUS BLOOD HCO3 27.5 mmol/L (20-32); VENOUS BLOOD PCO2 58.4 mmHg (35-63); VENOUS BLOOD PH 7.29 (7.30-7.42)
[2017-05-07] MEDS: HEPARIN SOD (PORCINE) 5,000 UNIT/ML 1 ML SYRINGE SUBCUT SCH (22:26)
[2017-05-07] MEDS: CLONAZEPAM 1 MG TABLET PO SCH (22:27)
--- NOTE | 2017-05-07 22:52 | EKG REPORT ---
SEVERITY:- NORMAL ECG - SINUS RHYTHM : Confirmed by: Zheng Martinez 07-May-2017 22:51:53
--- NOTE | 2017-05-07 22:52 | EKG REPORT ---
SEVERITY:- BORDERLINE ECG - SINUS RHYTHM BORDERLINE INFERIOR Q WAVES : Confirmed by: Zheng Martinez 07-May-2017 22:52:10
[2017-05-08] MEDS: NORMAL SALINE 1000 ML 1,000 ML IV PRN (02:53)
[2017-05-08] MEDS: LORAZEPAM INJ 2 MG/1 ML VIAL IV PRN ×6 (03:35→20:34)
[2017-05-08] MEDS: HALOPERIDOL LACTATE INJ 5 MG/1 ML VIAL IV PRN ×3 (04:38→23:35)
[2017-05-08] MEDS: LANSOPRAZOLE 30 MG TAB.RAP.DR PO SCH (05:05)
[2017-05-08] MEDS: CLONAZEPAM 1 MG TABLET PO SCH ×3 (05:05→21:07)
[2017-05-08 06:28] LABS: ABSOLUTE MONOCYTES (AUTO) 1.2 10^3/uL (0.1-1.4); ABSOLUTE NEUT (AUTO) 8.1 10^3/uL (1.7-8.2); BASOPHILS % (AUTO) 0.2 % (0-2); EOSINOPHILS % (AUTO) 0.2 % (0-6); HEMOGLOBIN 11.4 g/dL (13.5-17.0); HGB HCT DIFFERENCE 0.2; LYMPHOCYTES % (AUTO) 9.6 % (13-45); MEAN CORPUSCULAR HEMOGLOBIN 29.8 pg (27.0-33.4); MEAN CORPUSCULAR HGB CONC 33.6 g/dL (32.0-36.0); MEAN CORPUSCULAR VOLUME 89 fl (80-97); MONOCYTES % (AUTO) 11.6 % (3-13); RED BLOOD COUNT 3.84 10^6/uL (4.35-5.55); RED CELL DISTRIBUTION WIDTH 13.5 % (11.5-14.0); SEGMENTED NEUTROPHILS % (AUTO) 78.4 % (42-78); WHITE BLOOD COUNT 10.3 10^3/uL (4.0-10.5)
[2017-05-08 07:11] LABS: ANION GAP 9 (5-19); CALCIUM 8.9 mg/dL (8.4-10.2); CARBON DIOXIDE 26 mmol/L (22-30); CHLORIDE 105 mmol/L (98-107); CREATINE KINASE 873 U/L (55-170); CREATININE RESULT 1.16 mg/dL (0.52-1.25); GLUCOSE 128 mg/dL (75-110); SODIUM 140.4 mmol/L (137-145)
[2017-05-08 07:18] LABS: BLOOD UREA NITROGEN 56 mg/dL (7-20)
[2017-05-08 07:36] LABS: THYROID STIMULATING HORMONE 1.47 uIU/mL (0.47-4.68)
[2017-05-08] MEDS: FOLIC ACID 1 MG TABLET PO SCH (11:28)
[2017-05-08] MEDS: THIAMINE HCL 100 MG TABLET PO SCH (11:29)
[2017-05-08] MEDS: MULTIVITAMIN TABLET PO SCH (11:29)
[2017-05-08] MEDS: HEPARIN SOD (PORCINE) 5,000 UNIT/ML 1 ML SYRINGE SUBCUT SCH ×2 (11:30→21:06)
[2017-05-08] MEDS ORDERED: NORMAL SALINE 1000 ML 1,000 ML IV PRN (14:44)
--- NOTE | 2017-05-08 14:55 | PDOC PROGRESS REPORT ---
Subjective Progress Note for:: 05/08/17 Subjective:: Nursing states that pt did ok overnight. Nursing states that pt was given haldol overnight. Physical Exam Vital Signs: Temp Pulse Resp BP Pulse Ox 99.6 F 105 H 20 104/62 91 L 05/08/17 11:28 05/08/17 11:28 05/08/17 11:28 05/08/17 11:28 05/08/17 11:28 Intake & Output 05/07/17 05/08/17 05/09/17 06:59 06:59 06:59 Intake Total 2941 Output Total 2700 Balance 241 Weight 135.5 kg 135.5 kg General appearance: PRESENT: no acute distress, well-developed, well-nourished Head exam: PRESENT: atraumatic, normocephalic Eye exam: PRESENT: conjunctiva pink, EOMI. ABSENT: scleral icterus Ear exam: PRESENT: normal external ear exam Mouth exam: PRESENT: moist, tongue midline Neck exam: ABSENT: carotid bruit, JVD, lymphadenopathy, thyromegaly Respiratory exam: PRESENT: clear to auscultation savita. ABSENT: rales, rhonchi, wheezes Cardiovascular exam: PRESENT: RRR. ABSENT: diastolic murmur, rubs, systolic murmur Pulses: PRESENT: normal dorsalis pedis pul Vascular exam: PRESENT: normal capillary refill GI/Abdominal exam: PRESENT: normal bowel sounds, soft. ABSENT: distended, guarding, mass, organolmegaly, rebound, tenderness Rectal exam: PRESENT: deferred Extremities exam: PRESENT: full ROM. ABSENT: calf tenderness, clubbing, pedal edema Neurological exam: PRESENT: other - sleeping Psychiatric exam: PRESENT: other - sleeping. ABSENT: homicidal ideation, suicidal ideation Skin exam: PRESENT: dry, intact, warm. ABSENT: cyanosis, rash Results Laboratory Results: 05/08/17 05:49 05/08/17 05:49 05/07/17 05/07/17 05/08/17 17:20 21:12 05:49 WBC RBC Hgb Hct MCV MCH MCHC RDW Plt Count Seg Neutrophils % Lymphocytes % Monocytes % Eosinophils % Basophils % Absolute Neutrophils Absolute Lymphocytes Absolute Monocytes Absolute Eosinophils Absolute Basophils Carbonic Acid 1.44 H HCO3/H2CO3 Ratio 18:1 ABG pH 7.37 ABG pCO2 47.8 H ABG pO2 107.7 H ABG HCO3 27.0 H ABG O2 Saturation 97.8 ABG Base Excess 1.2 VBG pH 7.29 L VBG pCO2 58.4 VBG HCO3 27.5 VBG Base Excess -0.2 FiO2 3L Sodium 140.4 Potassium 5.0 Chloride 105 Carbon Dioxide 26 Anion Gap 9 BUN 56 H D Creatinine 1.16 Est GFR ( Amer) > 60 Est GFR (Non-Af Amer) > 60 Glucose 128 H Calcium 8.9 TSH Free T4 05/08/17 05/08/17 05:49 05:49 WBC 10.3 RBC 3.84 L Hgb 11.4 L Hct 34.0 L MCV 89 MCH 29.8 MCHC 33.6 RDW 13.5 Plt Count 386 Seg Neutrophils % 78.4 H Lymphocytes % 9.6 L Monocytes % 11.6 Eosinophils % 0.2 Basophils % 0.2 Absolute Neutrophils 8.1 Absolute Lymphocytes 1.0 Absolute Monocytes 1.2 Absolute Eosinophils 0.0 Absolute Basophils 0.0 Carbonic Acid HCO3/H2CO3 Ratio ABG pH ABG pCO2 ABG pO2 ABG HCO3 ABG O2 Saturation ABG Base Excess VBG pH VBG pCO2 VBG HCO3 VBG Base Excess FiO2 Sodium Potassium Chloride Carbon Dioxide Anion Gap BUN Creatinine Est GFR ( Amer) Est GFR (Non-Af Amer) Glucose Calcium TSH 1.47 Free T4 1.43 05/07/17 05/07/17 05/07/17 17:25 17:25 23:36 Creatine Kinase 1142 H 928 H Troponin I 0.114 05/07/17 05/08/17 05/08/17 23:36 05:49 05:49 Creatine Kinase 873 H Troponin I 0.092 0.062 Impressions: Renal Ultrasound 05/07/17 00:00 IMPRESSION: NORMAL RENAL ULTRASOUND. Chest X-Ray 05/07/17 13:29 IMPRESSION: NO ACUTE RADIOGRAPHIC FINDING IN THE CHEST. Head CT 05/07/17 14:08 IMPRESSION: Very limited negative study EVIDENCE OF ACUTE STROKE: NO. Assessment & Plan - Diagnosis (1) Acute renal failure Is this a current diagnosis for this admission?: Yes Plan: Secondary to Dehydration and Rhabdomylosis: Resolved. (2) Delirium Is this a current diagnosis for this admission?: Yes Plan: Most likely secondary to ETOH withdrawal: Will place on Ativan and klonopin. Will continue to monitor. Pt was never unresponsive or sedated. Pt was agitated with tremors. (3) Rhabdomyolysis Is this a current diagnosis for this admission?: Yes Plan: Will give IVFs. Improving. Will check CPK in am. (4) EtOH dependence Qualifiers: Substance use status: in withdrawal Is this a current diagnosis for this admission?: Yes Plan: Will give banana bag. Pt drinks 10 to 12 beers a day. Will place on scheduled Klonopin and PRN ativan. (5) Hyponatremia Is this a current diagnosis for this admission?: Yes Plan: in setting of Hypovolemia: Resolved. (6) ETOH withdrawal Is this a current diagnosis for this admission?: Yes Plan: Will place on Klonopin and PRN Ativan. Will write for PRN Haldol. (7) Morbid obesity Is this a current diagnosis for this admission?: Yes Plan: Encourage dietary changes. (8) Elevated troponin Is this a current diagnosis for this admission?: Yes Plan: In setting of Acute Renal Failure: Supportive care. (9) Hyperkalemia Is this a current diagnosis for this admission?: Yes Plan: Resolved. (10) DM type 2 (diabetes mellitus, type 2) Is this a current diagnosis for this admission?: Yes Plan: HbgA1c 6.8. Will place on SSI (11) DVT prophylaxis Is this a current diagnosis for this admission?: Yes Plan: Heparin
[2017-05-08] MEDS: NORMAL SALINE 1000 ML 1,000 ML with POTASSIUM CHLORIDE 20 MEQ, MAGNESIUM SULFATE 8 MEQ,... IV SCH ×5 (17:01)
[2017-05-08] MEDS ORDERED: LORAZEPAM INJ 2 MG/1 ML VIAL IV ONE (21:28)
[2017-05-08] MEDS ORDERED: MORPHINE SULFATE 10 MG/ML INJ IV ONE (21:32)
[2017-05-08] MEDS ORDERED: CLONIDINE 0.1 MG/24 HR PATCH.TDWK TD ONE (21:34)
[2017-05-08] MEDS ORDERED: LIDOCAINE 2% URO-JET 5 ML KIT MM ONE (21:35)
--- NOTE | 2017-05-08 21:43 | Progress Note ---
Provider Note Provider Note: Called by nursing staff for agitation and left eye swelling. Patient pulled out his yip with an intact balloon. Patient is unable to answer any questions and is thrashing around agitated, diaphoretic, hypertensive and tachycardic. Review of patient on NCCSRS reveals regular fills of oxycodone 15mg and Morphine extended release 30mg. Patient apparently drink excessively as well. VSS Gen: agitation, diaphoresis, awake and not oriented HEENT: Left eye with abrasion, erythema, and periorbital swelling Neck: No JVD Chest: Tachypnea, CTAB CV: tachycardic, RRR, nl s1, s2 Abd: soft, NTTP, ND, active bowel sounds Ext: No c/c/e; RLE with waffle dressing intact A/P: 1. Concern for preseptal cellulitis: initiate patient on unasyn 2. AMS: give additional dose of ativan and one time dose of morphine. Concern for hypercapnea. Obtain abg and place on bipap. 3. Morbid obesity 4. Continue to monitor and expectant management
[2017-05-08] MEDS ORDERED: AMPICILLIN SODIUM/SULBACTAM NA 3 GM in NORMAL SALINE 100 ML IV ONE (22:00)
[2017-05-08] MEDS ORDERED: AMPICILLIN SOD/SULBACTAM 3 GM VIAL ONE (22:36)
[2017-05-08] MEDS ORDERED: CLONIDINE 0.1 MG/24 HR PATCH.TDWK ONE (22:36)
[2017-05-08] MEDS ORDERED: LIDOCAINE 2% URO-JET 5 ML KIT ONE (22:37)
[2017-05-08 22:48] LABS: ARTERIAL BLOOD BASE EXCESS 5.5 mmol/L; ARTERIAL BLOOD O2 SATURATION 95.6 % (94-98)
[2017-05-09] MEDS: LORAZEPAM INJ 2 MG/1 ML VIAL IV PRN ×8 (00:07→22:51)
[2017-05-09] MEDS ORDERED: MORPHINE SULFATE 10 MG/ML INJ IV ONE ×2 (01:02→13:54)
[2017-05-09] MEDS: LANSOPRAZOLE 30 MG TAB.RAP.DR PO SCH (05:06)
[2017-05-09] MEDS: CLONAZEPAM 1 MG TABLET PO SCH ×3 (05:06→21:11)
[2017-05-09] MEDS ORDERED: AMPICILLIN SOD/SULBACTAM 3 GM VIAL ONE (05:09)
[2017-05-09] MEDS: AMPICILLIN SODIUM/SULBACTAM NA 3 GM in NORMAL SALINE 100 ML IV SCH ×2 (05:24→11:59)
[2017-05-09] MEDS: HALOPERIDOL LACTATE INJ 5 MG/1 ML VIAL IV PRN ×2 (06:10→20:48)
[2017-05-09 08:09] LABS: ANION GAP 10 (5-19); BLOOD UREA NITROGEN 18 mg/dL (7-20); CALCIUM 9.5 mg/dL (8.4-10.2); CARBON DIOXIDE 32 mmol/L (22-30); CHLORIDE 107 mmol/L (98-107); GLUCOSE 127 mg/dL (75-110); POTASSIUM 5.2 mmol/L (3.6-5.0); SODIUM 148.9 mmol/L (137-145)
[2017-05-09 08:17] LABS: CREATINE KINASE 2165 U/L (55-170)
[2017-05-09 09:21] LABS: ALANINE AMINOTRANSFERASE 71 U/L (21-72); ALBUMIN 3.2 g/dL (3.5-5.0); ALKALINE PHOSPHATASE 137 U/L (38-126); ASPARTATE AMINO TRANSFERASE 122 U/L (17-59); BILIRUBIN,DIRECT 0.7 mg/dL (0.0-0.4); BILIRUBIN,TOTAL 0.7 mg/dL (0.2-1.3); TOTAL PROTEIN 6.1 g/dL (6.3-8.2)
[2017-05-09] MEDS: HEPARIN SOD (PORCINE) 5,000 UNIT/ML 1 ML SYRINGE SUBCUT SCH ×2 (10:25→21:10)
[2017-05-09] MEDS: FOLIC ACID 1 MG TABLET PO SCH (10:34)
[2017-05-09] MEDS: THIAMINE HCL 100 MG TABLET PO SCH (10:34)
[2017-05-09] MEDS: MULTIVITAMIN TABLET PO SCH (10:34)
--- NOTE | 2017-05-09 16:01 | PDOC PROGRESS REPORT ---
Subjective Progress Note for:: 05/09/17 Subjective:: Pt still agitated and requiring haldol. Family once again states that pt drinks a lot of beer but reports that he has never gone though withdrawal. Family reports that pt did not drink for 3 days. Nursing states that pt is constantly fight against the restraints. Nursing states that left eye is bruised but does not appear to be infected. Physical Exam Vital Signs: Temp Pulse Resp BP Pulse Ox 99.6 F 87 33 H 130/107 H 97 05/09/17 11:04 05/09/17 14:00 05/09/17 12:35 05/09/17 11:04 05/09/17 12:35 Intake & Output 05/08/17 05/09/17 05/10/17 06:59 06:59 06:59 Intake Total 2941 3030 Output Total 2700 4200 Balance 241 -1170 Weight 135.5 kg 131.8 kg General appearance: PRESENT: disheveled, morbidly obese, other - in restraints Head exam: PRESENT: other - left eye with abrasion no signs of infection. Eye exam: PRESENT: conjunctiva pink, EOMI. ABSENT: scleral icterus Ear exam: PRESENT: normal external ear exam Mouth exam: PRESENT: moist, tongue midline Neck exam: ABSENT: carotid bruit, JVD, lymphadenopathy, thyromegaly Respiratory exam: PRESENT: clear to auscultation savita. ABSENT: rales, rhonchi, wheezes Cardiovascular exam: PRESENT: tachycardia Pulses: PRESENT: normal dorsalis pedis pul Vascular exam: PRESENT: normal capillary refill GI/Abdominal exam: PRESENT: normal bowel sounds, soft, other - obese. ABSENT: distended, guarding, mass, organolmegaly, rebound, tenderness Rectal exam: PRESENT: deferred Extremities exam: PRESENT: full ROM. ABSENT: calf tenderness, clubbing, pedal edema Neurological exam: PRESENT: altered, oriented to person Psychiatric exam: PRESENT: agitated, other - aggressive, restraints in place. Skin exam: PRESENT: other - left eyelid with abrasion no signs of infection Results Laboratory Results: 05/08/17 05:49 05/09/17 07:35 05/08/17 05/09/17 05/09/17 22:30 07:35 07:35 Carbonic Acid 1.41 H HCO3/H2CO3 Ratio 21:1 ABG pH 7.43 ABG pCO2 47.0 H ABG pO2 77.2 L ABG HCO3 30.6 H ABG O2 Saturation 95.6 ABG Base Excess 5.5 FiO2 FLOW RATE 2 Sodium 148.9 H Cancelled Potassium 5.2 H Cancelled Chloride 107 Cancelled Carbon Dioxide 32 H Cancelled Anion Gap 10 Cancelled BUN 18 Cancelled Creatinine 0.70 Cancelled Est GFR ( Amer) > 60 Cancelled Est GFR (Non-Af Amer) > 60 Cancelled Glucose 127 H Cancelled Calcium 9.5 Cancelled Total Bilirubin Cancelled AST Cancelled ALT Cancelled Alkaline Phosphatase Cancelled Total Protein Cancelled Albumin Cancelled 05/09/17 07:35 Carbonic Acid HCO3/H2CO3 Ratio ABG pH ABG pCO2 ABG pO2 ABG HCO3 ABG O2 Saturation ABG Base Excess FiO2 Sodium Potassium Chloride Carbon Dioxide Anion Gap BUN Creatinine Est GFR ( Amer) Est GFR (Non-Af Amer) Glucose Calcium Total Bilirubin 0.7 AST 122 H ALT 71 Alkaline Phosphatase 137 H Total Protein 6.1 L Albumin 3.2 L 05/07/17 05/07/17 05/07/17 17:25 17:25 23:36 Creatine Kinase 1142 H 928 H Troponin I 0.114 05/07/17 05/08/17 05/08/17 23:36 05:49 05:49 Creatine Kinase 873 H Troponin I 0.092 0.062 05/09/17 07:35 Creatine Kinase 2165 H Troponin I Impressions: Renal Ultrasound 05/07/17 00:00 IMPRESSION: NORMAL RENAL ULTRASOUND. Chest X-Ray 05/07/17 13:29 IMPRESSION: NO ACUTE RADIOGRAPHIC FINDING IN THE CHEST. Head CT 05/07/17 14:08 IMPRESSION: Very limited negative study EVIDENCE OF ACUTE STROKE: NO. Assessment & Plan - Diagnosis (1) Aspiration pneumonia Is this a current diagnosis for this admission?: Yes Plan: Will check CXR. Concern for possible aspiration due to presentation and fever of 100.2. Will place on Doxycycline for now. Will escalate if necessary. (2) Acute renal failure Is this a current diagnosis for this admission?: Yes Plan: Secondary to Dehydration and Rhabdomylosis: Resolved. (3) Delirium Is this a current diagnosis for this admission?: Yes Plan: Most likely secondary to ETOH withdrawal: Will continue Ativan and Haldol. Will continue to monitor. Pt was never unresponsive or sedated. Pt was agitated with tremors. (4) Rhabdomyolysis Is this a current diagnosis for this admission?: Yes Plan: Will give IVFs. Improving. CPK elevated to due pt fight restraints. Will continue IVFs (5) EtOH dependence Qualifiers: Substance use status: in withdrawal Is this a current diagnosis for this admission?: Yes (6) Hyponatremia Is this a current diagnosis for this admission?: Yes (7) ETOH withdrawal Is this a current diagnosis for this admission?: Yes (8) Opioid dependence Is this a current diagnosis for this admission?: Yes Plan: Nursing reports that pt's family reports that pt used pain medication on regular bases. (9) Morbid obesity Is this a current diagnosis for this admission?: Yes Plan: Encourage dietary changes. (10) Elevated troponin Is this a current diagnosis for this admission?: Yes Plan: In setting of Acute Renal Failure: Supportive care. (11) Fall Is this a current diagnosis for this admission?: Yes Plan: Most likely related to withdrawal: Will obtain CTA with contrast tomorrow if behavior has improved. Due to lack of information feel that this should be evaluated do not expect that pt has PE resulting in pt having to be admitted. (12) Acute hypernatremia Is this a current diagnosis for this admission?: Yes Plan: Will place on D51/2 at 100cc/hour. BMP in am. (13) Hyperkalemia Is this a current diagnosis for this admission?: Yes Plan: Resolved. (14) DM type 2 (diabetes mellitus, type 2) Is this a current diagnosis for this admission?: Yes Plan: HbgA1c 6.8. Will place on SSI (15) DVT prophylaxis Is this a current diagnosis for this admission?: Yes Plan: Heparin - Time Time Spent with patient: 15-24 minutes Anticipated discharge: Home
[2017-05-09] MEDS: MUPIROCIN 2% OINTMENT 22 GM TP SCH (17:39)
[2017-05-09] MEDS: NORMAL SALINE 1000 ML 1,000 ML with POTASSIUM CHLORIDE 20 MEQ, MAGNESIUM SULFATE 8 MEQ,... IV SCH ×5 (17:41)
[2017-05-09] MEDS: MORPHINE SULFATE 10 MG/ML INJ IV PRN (20:20)
[2017-05-09] MEDS: DOXYCYCLINE HYCLATE 100 MG in DEXTROSE 5%-WATER 250 ML IV SCH (21:08)
[2017-05-10] MEDS: MORPHINE SULFATE 10 MG/ML INJ IV PRN ×4 (01:23→20:07)
[2017-05-10] MEDS: LORAZEPAM INJ 2 MG/1 ML VIAL IV PRN ×9 (02:45→23:57)
[2017-05-10] MEDS: DEXTROSE 5%-1/2 NORMAL SALINE 1,000 ML IV PRN ×2 (04:25→15:37)
[2017-05-10] MEDS: HALOPERIDOL LACTATE INJ 5 MG/1 ML VIAL IV PRN ×2 (04:57→22:27)
[2017-05-10] MEDS: LANSOPRAZOLE 30 MG TAB.RAP.DR PO SCH (05:12)
[2017-05-10] MEDS: CLONAZEPAM 1 MG TABLET PO SCH ×3 (05:12→21:52)
[2017-05-10 07:04] LABS: ABSOLUTE EOSINOPHILS # (AUTO) 0.1 10^3/uL (0.0-0.6); ABSOLUTE LYMPHOCYTES (AUTO) 1.3 10^3/uL (0.5-4.7); ABSOLUTE MONOCYTES (AUTO) 0.9 10^3/uL (0.1-1.4); ABSOLUTE NEUT (AUTO) 6.7 10^3/uL (1.7-8.2); BASOPHILS % (AUTO) 0.3 % (0-2); EOSINOPHILS % (AUTO) 0.7 % (0-6); HEMATOCRIT 33.4 % (37.9-51.0); HEMOGLOBIN 11.1 g/dL (13.5-17.0); HGB HCT DIFFERENCE -0.1; LYMPHOCYTES % (AUTO) 14.4 % (13-45); MEAN CORPUSCULAR HEMOGLOBIN 29.5 pg (27.0-33.4); MEAN CORPUSCULAR HGB CONC 33.2 g/dL (32.0-36.0); MEAN CORPUSCULAR VOLUME 89 fl (80-97); MONOCYTES % (AUTO) 9.8 % (3-13); RED BLOOD COUNT 3.76 10^6/uL (4.35-5.55); RED CELL DISTRIBUTION WIDTH 13.6 % (11.5-14.0); SEGMENTED NEUTROPHILS % (AUTO) 74.8 % (42-78)
[2017-05-10 07:30] LABS: ANION GAP 10 (5-19); BLOOD UREA NITROGEN 17 mg/dL (7-20); CALCIUM 9.5 mg/dL (8.4-10.2); CARBON DIOXIDE 30 mmol/L (22-30); CHLORIDE 108 mmol/L (98-107); GLUCOSE 126 mg/dL (75-110); POTASSIUM 4.9 mmol/L (3.6-5.0); SODIUM 148.2 mmol/L (137-145)
--- NOTE | 2017-05-10 09:17 | EKG REPORT ---
SEVERITY:- BORDERLINE ECG - SINUS RHYTHM BORDERLINE T ABNORMALITIES, ANT-LAT LEADS : Confirmed by: Zheng Martinez 10-May-2017 09:17:06
[2017-05-10] MEDS: HEPARIN SOD (PORCINE) 5,000 UNIT/ML 1 ML SYRINGE SUBCUT SCH ×2 (11:12→21:35)
[2017-05-10] MEDS: DOXYCYCLINE HYCLATE 100 MG in DEXTROSE 5%-WATER 250 ML IV SCH ×2 (11:14→21:36)
[2017-05-10] MEDS: MULTIVITAMIN TABLET PO SCH (11:27)
[2017-05-10] MEDS: MUPIROCIN 2% OINTMENT 22 GM TP SCH ×2 (11:28→18:25)
[2017-05-10] MEDS: THIAMINE HCL 100 MG TABLET PO SCH (11:28)
[2017-05-10] MEDS: FOLIC ACID 1 MG TABLET PO SCH (11:28)
[2017-05-10] MEDS ORDERED: ERYTHROMYCIN 0.5% OPH OINT 1 GM UNIT DOSE OU ONE (13:04)
--- NOTE | 2017-05-10 13:40 | PDOC PROGRESS REPORT ---
Subjective Progress Note for:: 05/10/17 Subjective:: Nursing state that pt is requiring ativan almost Q2 hours. Nursing states that pt is scoring high. Pt this morning able to follow commands and answer simple questions. Physical Exam Vital Signs: Temp Pulse Resp BP Pulse Ox 98.3 F 61 21 H 177/79 H 100 05/10/17 07:28 05/10/17 07:28 05/10/17 12:00 05/10/17 07:28 05/10/17 12:00 Intake & Output 05/09/17 05/10/17 05/11/17 06:59 06:59 06:59 Intake Total 3030 3690 Output Total 4200 3100 Balance -1170 590 Weight 131.8 kg 134.2 kg General appearance: PRESENT: no acute distress, disheveled, well-developed, well -nourished Head exam: PRESENT: normocephalic, other - left upper eyelid with abrasion. Eye exam: PRESENT: conjunctiva pink, EOMI, PERRLA, other - Pt with greenish discharge from both eyes. ABSENT: scleral icterus Ear exam: PRESENT: normal external ear exam Mouth exam: PRESENT: moist, tongue midline Neck exam: ABSENT: carotid bruit, JVD, lymphadenopathy, thyromegaly Respiratory exam: PRESENT: clear to auscultation savita, other - +diminished at base. ABSENT: rales, rhonchi, wheezes Cardiovascular exam: PRESENT: RRR. ABSENT: diastolic murmur, rubs, systolic murmur Pulses: PRESENT: normal dorsalis pedis pul Vascular exam: PRESENT: normal capillary refill GI/Abdominal exam: PRESENT: normal bowel sounds, soft. ABSENT: distended, guarding, mass, organolmegaly, rebound, tenderness Rectal exam: PRESENT: deferred Extremities exam: PRESENT: full ROM. ABSENT: calf tenderness, clubbing, pedal edema Neurological exam: PRESENT: other - lightly sedated pt able to answer questions. Psychiatric exam: PRESENT: agitated Skin exam: PRESENT: other - +left upper eyelid abrasion Results Laboratory Results: 05/10/17 06:45 05/10/17 06:45 05/10/17 05/10/17 06:45 06:45 WBC 9.0 RBC 3.76 L Hgb 11.1 L Hct 33.4 L MCV 89 MCH 29.5 MCHC 33.2 RDW 13.6 Plt Count 398 Seg Neutrophils % 74.8 Lymphocytes % 14.4 Monocytes % 9.8 Eosinophils % 0.7 Basophils % 0.3 Absolute Neutrophils 6.7 Absolute Lymphocytes 1.3 Absolute Monocytes 0.9 Absolute Eosinophils 0.1 Absolute Basophils 0.0 Sodium 148.2 H Potassium 4.9 Chloride 108 H Carbon Dioxide 30 Anion Gap 10 BUN 17 Creatinine 0.70 Est GFR ( Amer) > 60 Est GFR (Non-Af Amer) > 60 Glucose 126 H Calcium 9.5 05/07/17 05/07/17 05/07/17 17:25 17:25 23:36 Creatine Kinase 1142 H 928 H Troponin I 0.114 05/07/17 05/08/17 05/08/17 23:36 05:49 05:49 Creatine Kinase 873 H Troponin I 0.092 0.062 05/09/17 07:35 Creatine Kinase 2165 H Troponin I Impressions: Renal Ultrasound 05/07/17 00:00 IMPRESSION: NORMAL RENAL ULTRASOUND. Chest X-Ray 05/07/17 13:29 IMPRESSION: NO ACUTE RADIOGRAPHIC FINDING IN THE CHEST. Head CT 05/07/17 14:08 IMPRESSION: Very limited negative study EVIDENCE OF ACUTE STROKE: NO. Assessment & Plan - Diagnosis (1) Aspiration pneumonia Is this a current diagnosis for this admission?: Yes Plan: Will order for CT of chest today. Concern for possible aspiration due to presentation and fever of 100.2. Will continue Doxycycline for now. Will escalate if necessary. (2) Acute renal failure Is this a current diagnosis for this admission?: Yes Plan: Secondary to Dehydration and Rhabdomylosis: Resolved. (3) Delirium Is this a current diagnosis for this admission?: Yes Plan: Most likely secondary to ETOH withdrawal: Will continue Ativan and Haldol. Will continue to monitor. Pt was never unresponsive or sedated. Pt was agitated with tremors. (4) Rhabdomyolysis Is this a current diagnosis for this admission?: Yes Plan: Will give IVFs. Improving. CPK elevated to due pt fight restraints. Will continue IVFs (5) EtOH dependence Qualifiers: Substance use status: in withdrawal Is this a current diagnosis for this admission?: Yes Plan: Pt drinks 10 to 12 beers a day. Will continue scheduled Klonopin and PRN ativan. (6) Hyponatremia Is this a current diagnosis for this admission?: Yes Plan: in setting of Hypovolemia: Resolved. (7) ETOH withdrawal Is this a current diagnosis for this admission?: Yes Plan: Will continue Klonopin and PRN Ativan. Will continue PRN Haldol. (8) Opioid dependence Is this a current diagnosis for this admission?: Yes Plan: Nursing reports that pt's family reports that pt used pain medication on regular bases. (9) Morbid obesity Is this a current diagnosis for this admission?: Yes Plan: Encourage dietary changes. (10) Elevated troponin Is this a current diagnosis for this admission?: Yes Plan: In setting of Acute Renal Failure: Supportive care. (11) Fall Is this a current diagnosis for this admission?: Yes Plan: Most likely related to withdrawal: Will obtain CTA with contrast tomorrow. Due to lack of information feel that this should be evaluated do not expect that pt has PE resulting in pt having to be admitted. (12) Acute hypernatremia Is this a current diagnosis for this admission?: Yes Plan: Will continue D51/2 at 100cc/hour. Will give D5W 500 cc bolus. BMP in am. (13) Hyperkalemia Is this a current diagnosis for this admission?: Yes Plan: Resolved. (14) DM type 2 (diabetes mellitus, type 2) Is this a current diagnosis for this admission?: Yes Plan: HbgA1c 6.8. Will place on SSI (15) DVT prophylaxis Is this a current diagnosis for this admission?: Yes Plan: Heparin - Time Time Spent with patient: 15-24 minutes
[2017-05-10] MEDS ORDERED: DEXTROSE 5%-WATER 500 ML IV ONE (14:00)
[2017-05-10] MEDS: ERYTHROMYCIN 0.5% OPH OINTMENT 3.5 GM TUBE OD SCH ×3 (15:06→21:35)
[2017-05-10] MEDS ORDERED: AMIODARONE HCL INJ 150 MG/3 ML VIAL IV ONE ×2 (16:35→16:41)
[2017-05-10 17:57] LABS: CREATINE KINASE MB 0.82 ng/mL (<4.55); TROPONIN I 0.053 ng/mL
[2017-05-10 18:01] LABS: ARTERIAL BLOOD O2 SATURATION 97.4 % (94-98)
[2017-05-10 18:30] LABS: MAGNESIUM 1.9 mg/dL (1.6-2.3); POTASSIUM 4.5 mmol/L (3.6-5.0)
[2017-05-10] MEDS ORDERED: ENALAPRILAT DIHYDRATE INJ/PF 1.25 MG/1 ML SDV IV PRN (21:08)
--- NOTE | 2017-05-10 21:33 | CONSULTATION REPORT E ---
Consultation Report NAME: DONNIE LEE : 1965 AGE: 52Y DATE: 605 A TO: VALERY NEWELL M.D. FROM: MIKEY BUTT M.D. Requesting Physician DATE OF ADMISSION: 05/07/2017 DATE OF CONSULTATION: 05/10/2017 REASON FOR CONSULTATION: Wide-complex tachycardia, most likely Vtach. HISTORY OF PRESENT ILLNESS: Patient is a 52-year-old man who was admitted on 05/07/17 with agitation and confusion. Was found down at home. The patient has a history of chronic alcohol use. Initially, he had rhabdomyolysis, acute renal failure, hyperkalemia and hypernatremia. These have improved. The patient also required Ativan every 2 hours to keep him sedated. He is also very combative and he is in 3-point restraints. Unable to get any history from him, but today, he was found to have runs of wide-complex tachycardia, most likely ventricular tachycardia. He was transferred to the ICU and was given a bolus of amiodarone and was buspirone 0.5 mL/min later on. Also, there was suspicion that the patient has aspiration pneumonia and will be needing a CT scan of the chest. No other information is available from the patient. PAST MEDICAL HISTORY: As per the chart, his past medical history is positive for hyperlipidemia and hypertension. He also has a history of asthma, COPD, history of pneumonia and sleep apnea. He has no history of TIA, CVA or seizures. He has diabetes mellitus type 2. He has no thyroid disease. No prior renal failure. The patient is moderately obese and has sleep apnea. It is not known whether he uses CPAP or not. He does have a history of alcohol dependency. There is no history of anemia, hemophilia or sickle cell disease. PAST SURGICAL HISTORY: Positive for orthopedic surgery, bilateral knee replacements and recent repair of right knee. SOCIAL HISTORY: He is a former smoker. CODE STATUS: The patient is a FULL CODE, but he is not able to say who his surrogate medical power of commonwealth attorney is. FAMILY HISTORY: Negative for hypertension or COPD. MEDICATIONS: Include: 1. Albuterol 2.5 mg per nebulizer q.3 to 6 hours p.r.n. 2. Amiodarone 160 mg IV x1. 3. Clonazepam 1 p.o. q.8 hours. 4. Dextrose; he is on hypoglycemic protocol with glucose 15 grams p.o. and 30 grams p.o. p.r.n. hypoglycemia. 5. Dextrose 50% 12.5 grams IV and *------* grams IV p.r.n. hypoglycemia. 6. Erythromycin paste 1 application to right eye q.4 hours because of an eye infection. 7. Folic acid 1 mg p.o. daily. 8. Glucagon 1 mg IM p.r.n. hypoglycemia. 9. Haldol 5 mg IV q.6 hours p.r.n. 10. Heparin 5000 units subcutaneously q.8 hours. 11. Accu-Cheks q.6 hours. Will try Regular insulin, as the patient is confused and cannot take by mouth. 12. Doxycycline 100 mg IV q.12 hours. 13. Dextrose 5% IV continuous at 150 mL/hr/L. 14. Liter of D5 half-normal saline at 100 mL/hr. 15. Prevacid 30 mg p.o. q.6 hours. 16. Ativan 2 mg IV q.2 hours p.r.n. 17. Morphine sulfate 3 mg IV q.4 hours p.r.n. 18. Multivitamin tablets 1 tablet p.o. daily. 19. Bactroban 1 application topically b.i.d. 20. Zofran 4 mg IV q.6 hours p.r.n. 21. Oxycodone 1 tablet p.o. q.6 hours p.r.n. 22. Thiamine hydrochloride 100 mg daily. ALLERGIES: NO KNOWN ALLERGIES. REVIEW OF SYSTEMS: Not obtainable because of patient's state. PHYSICAL EXAMINATION: VITAL SIGNS: Earlier, he had a temperature of 100.2, but now he is afebrile. His pulse is 65 beats per minute. Blood pressure 125/97, respirations 18 per minute. O2 sats are 94% on BiPAP. GENERAL: The patient is moderately obese. He is very confused and agitated. HEAD: Head is atraumatic, normocephalic. EYES: Pupils are equal, round, regular, reactive to light and accommodation. Extraocular movements are normal. There is no conjunctival pallor. There is no scleral icterus. EARS: Tympanic membranes are intact. External auditory canals are clear. NOSE: There is no deviated nasal septum. There is no inflammation of the nasal mucosa. MOUTH: Mucous membranes of the mouth are moist. Tongue is moist. There are no ulcers in the mouth. THROAT: Not examined since the patient is not cooperative. SKIN: The patient has a lot of scratches on his skin, but no petechiae or ecchymosis. LUNGS: Show a few crackles at the bases. HEART: S1, S2 heard. There is no S3 gallop. There is no S4 gallop. There is a systolic murmur at the left sternal border at the apex. There is no rub. ABDOMEN: Soft. Morbidly obese. There is no hepatosplenomegaly. Bowel sounds are heard. There are no tender areas or masses. EXTREMITIES: There is no pedal edema. Femorals were deep and diminished. Leg pulses were diminished. There is no cyanosis or clubbing. PSYCHIATRIC: Not examined, since the patient is not cooperative. He is leather restraints and is very agitated and confused. LABORATORY DATA: The patient's sodium is 148.2, potassium 4.9, chloride is 108, CO2 is 30. The patient's BUN is 17, creatinine is 0.70. GFR is greater than 60. When he came in on the , his sodium was 135.1, potassium 5.6, chloride 94, CO2 is 28. The patient's BUN was 76, creatinine was 3.02 and GFR reduced to 22 mL. His CPK and CK-MB were elevated, and the troponin I was marginally elevated at 0.102, and subsequently went up to 0.114. His CPK was 1093 and went up to 11,142. His CK-MB was elevated at 11.9. Subsequently, his troponin I has come down to 0.092. Patient's CPK came down to 928 and 873, and subsequently 0.62. His TSH is 1.47 and free T4 1.3. His hemoglobin A1c is 6.7. His glucose was 126 and 143. His potassium was 9.5. His CPK came down then subsequently went up to 2195. His total bilirubin was 0.7. Direct bilirubin was high at 0.7. His AST was elevated at 172. His ALT was 71. Alk phos was 137. Total protein was 6.1, albumin was 3.2. His ABGs showed a pH of 7.49, pCO2 of 43.4, pO2 of 9.8, and his O2 sats were 94% on flow rate of 30 via BiPAP. His white count is 9000; when he came in, it was 14,900. His WBC is 11.1 and his hematocrit is 33.4. His platelet count is 398,000. IMPRESSION: 1. Acute renal failure, resolved. The patient's renal function is back to normal. The reason most likely is alcohol withdrawal, and the patient is in restraints. The patient is also on Ativan and Klonopin. 2. Rhabdomyolysis. The CPK has gone up a little; that is because of the patient is fighting his restraints. 3. Elevated troponin I, most likely secondary to acute renal failure and probably aspiration pneumonia; it now has come down. 4. ETOH dependence. 5. Alcohol withdrawal. 6. Morbid obesity. 7. COPD. 8. Sleep apnea. 9. Hyperkalemia, resolved. Potassium now normal. 10. Diabetes mellitus, type 2. Patient on sliding scale insulin. 11. Wide complex tachycardia, most likely ventricular tachycardia. 12. Abnormal liver function tests. RECOMMENDATIONS: Patient has received a bolus of amiodarone. Since his heart rate is 65, I would put him on 0.5 mL/min of amiodarone infusion drip. Continue alcohol withdrawal treatment. Will watch for any further renal failure. Would recheck the patient's CPKs, since it has gone up, and recheck the patient's liver function tests. Dr. Thompson will follow the patient in the a.m. Note that the patient was seen around 6:00 p.m., and 40 minutes were spent on this patient, with more than 50% of the time spent on direct patient care and reviewing the patient's record, although the patient was not able to give a history. His medications were reviewed and suggestions made to alter them, to add amiodarone. Decision-making on this case was of high complexity, since the patient had Vtach and the patient is having alcohol withdrawal. DICTATING PHYSICIAN: VALERY NEWELL M.D. [id number] PHY#: [id number] ID: [id number] JOB#: [id number] ACCT: [id number] cc:VALERY NEWELL M.D. >
[2017-05-11] MEDS ORDERED: HYDRALAZINE HCL INJ/PF 20 MG/1 ML SDV ONE (01:28)
[2017-05-11] MEDS: ERYTHROMYCIN 0.5% OPH OINTMENT 3.5 GM TUBE OD SCH ×5 (01:32→17:04)
[2017-05-11] MEDS ORDERED: HYDRALAZINE HCL INJ/PF 20 MG/1 ML SDV IV ONE (01:45)
--- NOTE | 2017-05-11 02:05 | RADIOLOGY REPORT (SQ) ---
EXAM DESCRIPTION: CTA CHEST COMPLETED DATE/TIME: 05/10/2017 8:56 pm REASON FOR STUDY: found down and recent surgery COMPARISON: None. TECHNIQUE: CT scan of the chest performed using helical scanning technique with dynamic intravenous contrast injection. Images reviewed with lung, soft tissue and bone windows. Reconstructed coronal and sagittal MPR images reviewed. Additional 3 dimensional post-processing performed to develop Maximal Intensity Projection images (MA P). All images stored on PACS. All CT scanners at this facility use dose modulation, iterative reconstruction, and/or weight based d osing when appropriate to reduce radiation dose to as low as reasonably achievable (ALARA). [facility]: Dose Right [facility]: CareDose [facility]: Dose Right [facility]: Teradose 4D [facility]: [employer] Software CONTRAST TYPE AND DOSE: contrast/concentration: Isovue 370.00 mg/ml; Total Contrast Delivered: 80.0 ml; Total Saline Delivered: 45.0 ml Contrast bolus optimized for the pulmonary arteries. Not diagnostic for the aorta. RENAL FUNCTION: Creatinine 0.7 RADIATION DOSE: Up-to-date CT equipment and radiation dose reduction techniques were employed. CTDIv ol: 15.6 - 37.6 mGy. DLP: 670 mGy-cm. . LIMITATIONS: None. FINDINGS: LUNGS AND PLEURA: No masses, infiltrates, pneumothorax. No pleural effusions, calcificati ons. Small bibasilar atelectasis or scar. AORTA AND GREAT VESSELS: No aneurysm. Contrast bolus not optimized for the aorta. HEART: No pericardial effusion. No significant coronary artery calcifications. Mild cardiac enlargem ent. PULMONARY ARTERIES: No emboli visualized in the main pulmonary arteries or the segmental branches. 3 .3 cm diameter of the right main pulmonary artery. 2.7 cm diameter the left main pulmonary artery. HILAR AND MEDIASTINAL STRUCTURES: No identified masses or abnormal nodes. HARDWARE: None in the chest. UPPER ABDOMEN: No significant findings. Limited exam. THYROID AND OTHER SOFT TISSUES: No masses. No adenopathy. BONES: No acute or significant finding. 3D MIPS: Confirm above findings. OTHER: No other significant finding. IMPRESSION: Mild pulmonary arterial hypertension pattern. Otherwise, no acute cardiopulmonary findi ngs. No pulmonary emboli. COMMENT: Quality ID # [id number]: Final reports with documentation of one or more dose reduction techniques (e.g., Automated exposure control, adjustment of the mA and/or kV according to patient size, use of iterative reconstruction technique) TECHNICAL DOCUMENTATION: JOB ID: [id number] [employer]- All Rights Reserved
[2017-05-11] MEDS: LORAZEPAM INJ 2 MG/1 ML VIAL IV PRN ×5 (03:07→15:46)
[2017-05-11] MEDS: MORPHINE SULFATE 10 MG/ML INJ IV PRN (03:25)
[2017-05-11 04:19] LABS: ABSOLUTE BASOPHILS # (AUTO) 0.1 10^3/uL (0.0-0.2); ABSOLUTE EOSINOPHILS # (AUTO) 0.2 10^3/uL (0.0-0.6); ABSOLUTE LYMPHOCYTES (AUTO) 1.3 10^3/uL (0.5-4.7); ABSOLUTE MONOCYTES (AUTO) 0.8 10^3/uL (0.1-1.4); ABSOLUTE NEUT (AUTO) 8.5 10^3/uL (1.7-8.2); BASOPHILS % (AUTO) 0.5 % (0-2); EOSINOPHILS % (AUTO) 1.7 % (0-6); HEMATOCRIT 34.2 % (37.9-51.0); HEMOGLOBIN 11.5 g/dL (13.5-17.0); HGB HCT DIFFERENCE 0.3; LYMPHOCYTES % (AUTO) 11.6 % (13-45); MEAN CORPUSCULAR HEMOGLOBIN 29.5 pg (27.0-33.4); MEAN CORPUSCULAR HGB CONC 33.6 g/dL (32.0-36.0); MEAN CORPUSCULAR VOLUME 88 fl (80-97); MONOCYTES % (AUTO) 7.7 % (3-13); RED CELL DISTRIBUTION WIDTH 13.6 % (11.5-14.0); SEGMENTED NEUTROPHILS % (AUTO) 78.5 % (42-78); WHITE BLOOD COUNT 10.8 10^3/uL (4.0-10.5)
[2017-05-11 04:36] LABS: ANION GAP 8 (5-19); BLOOD UREA NITROGEN 13 mg/dL (7-20); CALCIUM 9.5 mg/dL (8.4-10.2); CARBON DIOXIDE 32 mmol/L (22-30); CHLORIDE 104 mmol/L (98-107); CREATINE KINASE 325 U/L (55-170); CREATININE RESULT 0.67 mg/dL (0.52-1.25); GLUCOSE 136 mg/dL (75-110); MAGNESIUM 1.7 mg/dL (1.6-2.3); POTASSIUM 4.1 mmol/L (3.6-5.0); SODIUM 143.8 mmol/L (137-145)
[2017-05-11] MEDS: DEXTROSE 5%-1/2 NORMAL SALINE 1,000 ML IV PRN ×2 (05:18→12:46)
[2017-05-11] MEDS: CLONAZEPAM 1 MG TABLET PO SCH ×2 (05:19→12:46)
[2017-05-11] MEDS: LANSOPRAZOLE 30 MG TAB.RAP.DR PO SCH (05:19)
[2017-05-11] MEDS ORDERED: SUCCINYLCHOLINE CHLORIDE INJ 200 MG/10 ML VIAL ONE (07:52)
--- NOTE | 2017-05-11 08:18 | XCELERA REPORT ---
[address] [address] Lower Extremity Venous Evaluation Name: DONNIE LEE SR Age: 52 yrs Gender: Male : 1965 Patient Status: Inpatient Patient Location: [address] [place] [address] Study Date: 05/10/2017 11:40 AM Procedure: Color flow and duplex imaging bilaterally of the veins of the lower extremities as well as the Common Femoral veins. Reason For Study: concern for DVT Ordering Physician: MIKEY BUTT Performed By: Bailee Zaldivar Right Sided Venous Evaluation Normal vessel filling wall to wall, compression and augmentation as well as Colour flow down to the infrageniculate veins. Left Sided Venous Evaluation Normal vessel filling wall to wall, compression and augmentation as well as Colour flow down to the infrageniculate veins. Interpretation Summary No duplex evidence of DVT or obstruction in the bilateral lower extremities. : MIKEY BUTT [place]
[2017-05-11] MEDS: MULTIVITAMIN TABLET PO SCH (09:23)
[2017-05-11] MEDS: HALOPERIDOL LACTATE INJ 5 MG/1 ML VIAL IV PRN ×2 (09:23→15:46)
[2017-05-11] MEDS: THIAMINE HCL 100 MG TABLET PO SCH (09:23)
[2017-05-11] MEDS: MUPIROCIN 2% OINTMENT 22 GM TP SCH ×2 (09:24→17:04)
[2017-05-11] MEDS: DOXYCYCLINE HYCLATE 100 MG in DEXTROSE 5%-WATER 250 ML IV SCH (09:24)
[2017-05-11] MEDS: FOLIC ACID 1 MG TABLET PO SCH (09:24)
[2017-05-11] MEDS: HEPARIN SOD (PORCINE) 5,000 UNIT/ML 1 ML SYRINGE SUBCUT SCH ×2 (09:25→22:18)
[2017-05-11] MEDS ORDERED: ATROPINE SULFATE INJ 1 MG/1 ML VIAL IV ONE (17:49)
[2017-05-11] MEDS ORDERED: PHARMACY COMMUNICATION ORDER MC NR ×2 (18:00)
[2017-05-11] MEDS ORDERED: PROPOFOL 100 ML IV ONE (18:02)
[2017-05-11] MEDS ORDERED: ALBUTEROL SULFATE 0.042% NEB (1.25 MG/3 ML) AMPUL NEB PRN (18:08)
[2017-05-11 18:12] LABS: ARTERIAL BLOOD BASE EXCESS 4.4 mmol/L; ARTERIAL BLOOD O2 SATURATION 97.2 % (94-98)
[2017-05-11] MEDS ORDERED: VANCOMYCIN HCL 0 MG in DEXTROSE 5%-WATER 250 ML IV NR (18:15)
[2017-05-11] MEDS ORDERED: PROPOFOL INJ 200 MG/20 ML VIAL IV ONE (18:16)
[2017-05-11 19:00] LABS: ANION GAP 9 (5-19); BLOOD UREA NITROGEN 10 mg/dL (7-20); CALCIUM 9.4 mg/dL (8.4-10.2); CARBON DIOXIDE 32 mmol/L (22-30); CHLORIDE 100 mmol/L (98-107); CREATININE RESULT 0.69 mg/dL (0.52-1.25); GLUCOSE 187 mg/dL (75-110); MAGNESIUM 1.6 mg/dL (1.6-2.3); SODIUM 141.2 mmol/L (137-145)
[2017-05-11 19:11] LABS: ABSOLUTE EOSINOPHILS # (AUTO) 0.2 10^3/uL (0.0-0.6); ABSOLUTE MONOCYTES (AUTO) 0.5 10^3/uL (0.1-1.4); ABSOLUTE NEUT (AUTO) 11.1 10^3/uL (1.7-8.2); BASOPHILS % (AUTO) 0.3 % (0-2); EOSINOPHILS % (AUTO) 1.6 % (0-6); HEMATOCRIT 35.5 % (37.9-51.0); HEMOGLOBIN 12.1 g/dL (13.5-17.0); HGB HCT DIFFERENCE 0.8; LYMPHOCYTES % (AUTO) 7.9 % (13-45); MEAN CORPUSCULAR HEMOGLOBIN 29.9 pg (27.0-33.4); MEAN CORPUSCULAR VOLUME 88 fl (80-97); RED BLOOD COUNT 4.03 10^6/uL (4.35-5.55); RED CELL DISTRIBUTION WIDTH 13.4 % (11.5-14.0); SEGMENTED NEUTROPHILS % (AUTO) 86.2 % (42-78); WHITE BLOOD COUNT 12.8 10^3/uL (4.0-10.5)
--- NOTE | 2017-05-11 19:23 | RADIOLOGY REPORT (SQ) ---
EXAM DESCRIPTION: CHEST SINGLE VIEW COMPLETED DATE/TIME: 05/11/2017 7:15 pm REASON FOR STUDY: intubation COMPARISON: 05/07/2017 EXAM PARAMETERS: NUMBER OF VIEWS: One view. TECHNIQUE: Single frontal radiographic view of the chest acquired. RADIATION DOSE: NA LIMITATIONS: None. FINDINGS: LUNGS AND PLEURA: No opacities, masses or pneumothorax. No pleural effusion. MEDIASTINUM AND HILAR STRUCTURES: No masses. Contour normal. HEART AND VASCULAR STRUCTURES: The configuration of the heart mediastinal structures is unchanged. BONES: No acute findings. HARDWARE: Endotracheal tube is seen with its tip just above the level of the aortic arch in good posi tion. NG tube is seen in course to the abdomen. OTHER: No other significant finding. IMPRESSION: No acute consolidations or pleural effusions. Support apparatus is noted above. Other findings as noted above TECHNICAL DOCUMENTATION: JOB ID: [id number] [employer]- All Rights Reserved
--- NOTE | 2017-05-11 19:27 | XCELERA REPORT ---
[address] [address] Transthoracic Echocardiogram Report Name: DONNIE LEE SR Age: 52 yrs Gender: Male : 1965 Patient Status: Inpatient Patient Location: ICU^605^A Study Date: 05/11/2017 02:00 PM Height: 66 in Weight: 285 lb BSA: 2.3 m2 Procedure: A complete two-dimensional transthoracic echocardiogram was performed (2D, M-mode, spectral and color flow Doppler). The study was technically limited with all images being suboptimal in quality. The study was technically difficult with many images being suboptimal in quality. Reason For Study: V-Tach Ordering Physician: ZHENG VALERIO Performed By: Bailee Zaldivar Interpretation Summary The study was technically difficult with many images being suboptimal in quality. The study was technically limited with all images being suboptimal in quality. The left ventricular ejection fraction is normal. There is mild concentric left ventricular hypertrophy. The left ventricle is grossly normal size. LV diastolic function could not be adequately assessed. Regional wall motion abnormalities cannot be excluded due to limited visualization. The right ventricle is moderately dilated. The left atrium is mildly dilated. The right atrium is mildly dilated. There is a trace amount of mitral regurgitation There is no mitral valve stenosis. No aortic regurgitation is present. There is no aortic valve stenosis There is a trace or physiologic amount of tricuspid regurgitation Tricuspid regurgitation jet envelope not well defined to measure RV systolic pressure accurately. The aortic root is not well visualized but is probably normal size. The inferior vena cava was not well visualized There is no pericardial effusion. MMode/2D Measurements & Calculations RVDd: 3.8 cm LVIDd: 5.9 cm FS: 49.5 % Ao root diam: 3.7 cm IVSd: 1.1 cm LVIDs: 3.0 cm EDV(Teich): 170.9 ml LVPWd: 1.1 cm ESV(Teich): 34.0 ml Ao root area: 11.0 cm2 EF(Teich): 80.1 % LA dimension: 3.5 cm Doppler Measurements & Calculations MV E max randy: MV P1/2t max randy: Ao V2 max: LV V1 max P.6 cm/sec 71.6 cm/sec 147.8 cm/sec 4.8 mmHg MV A max randy: MV P1/2t: 49.1 msec Ao max PG: LV V1 max: 75.0 cm/sec 8.7 mmHg 109.1 cm/sec MV E/A: 0.97 MVA(P1/2t): 4.5 cm2 MV dec slope: 426.5 cm/sec2 PA V2 max: TR max randy: 113.0 cm/sec 262.8 cm/sec PA max PG: TR max P.6 mmHg 5.1 mmHg Left Ventricle The left ventricle is grossly normal size. There is mild concentric left ventricular hypertrophy. The left ventricular ejection fraction is normal. LV diastolic function could not be adequately assessed. Regional wall motion abnormalities cannot be excluded due to limited visualization. Right Ventricle The right ventricle is moderately dilated. Right ventricular function cannot be assessed due to poor image quality. Atria The right atrium is mildly dilated. The left atrium is mildly dilated. Interarterial septum not well visualized and not well dopplered. Cannot comment on ASD/PFO presence. Mitral Valve The mitral valve is grossly normal. There is no mitral valve stenosis. There is a trace amount of mitral regurgitation. Aortic Valve The aortic valve is grossly normal. There is no aortic valve stenosis. No aortic regurgitation is present. Tricuspid Valve The tricuspid valve is not well visualized, but is grossly normal. There is no tricuspid stenosis. There is a trace or physiologic amount of tricuspid regurgitation. Tricuspid regurgitation jet envelope not well defined to measure RV systolic pressure accurately. Pulmonic Valve The pulmonic valve is not well visualized. Great Vessels The aortic root is not well visualized but is probably normal size. The inferior vena cava was not well visualized. Effusions There is no pericardial effusion. : ZHENG VALERIO > Zheng Valerio
[2017-05-11 19:40] LABS: ARTERIAL BLOOD BASE EXCESS 4.4 mmol/L; ARTERIAL BLOOD O2 SATURATION 99.3 % (94-98)
--- NOTE | 2017-05-11 19:50 | PDOC PROGRESS REPORT ---
Subjective Progress Note for:: 05/11/17 Subjective:: Patient seen in the morning. Telemetry strips were reviewed. It seems patient was seen by Dr. Vick but I could not find a consult report. I believe this is pending. Patient was monitored overnight and no significant arrhythmias were noted. On my review, patient felt to have artifacts rather than any significant arrhythmias. However would recommend a 2D echo.. Physical Exam Vital Signs: Temp Pulse Resp BP Pulse Ox 98.2 F 87 20 120/74 98 05/11/17 18:00 05/11/17 19:39 05/11/17 18:19 05/11/17 18:19 05/11/17 18:19 Intake & Output 05/10/17 05/11/17 05/12/17 06:59 06:59 06:59 Intake Total 3690 1229 1319 Output Total 3100 2560 1505 Balance 590 -0861 -186 Weight 134.2 kg 129.6 kg Exam: GENERAL: well-nourished and in no acute distress. Alert and oriented x3 HEAD: Atraumatic, normocephalic. EYES: Pupils equal round and reactive to light, extraocular movements intact, sclera anicteric, conjunctiva are normal. ENT: TMs normal, nares patent, oropharynx clear without exudates. Moist mucous membranes. No oral ulcerations or bleeding gums noted NECK: supple without lymphadenopathy. Trachea is central. No cervical or axillary lymphadenopathy noted. Carotids are 2+, JVD WNL LUNGS: Respiration seems nonlabored, no significant accessory muscle action noted. Breath sounds clear to auscultation bilaterally and equal noted. No wheezes rales or rhonchi noted. No significant dullness noted on percussion. CHEST: Palpation of the chest wall shows no significant chest wall tenderness. No other significant abnormalities noted. HEART: Anita [employer] DEVELOPMENT CONSULTANT, No PSH, 1/6 LISBET aortic area, 1/6 phelps systolic murmur mitral area, no rubs, no gallops. ABDOMEN: Soft, no significant tenderness appreciated, normoactive bowel sounds. No guarding, no rebound. No rigidity noted . No masses appreciated. EXTREMITIES: Pedal pulses are 1-2+, no calf tenderness noted. No clubbing or cyanosis.trace to 1+ pedal edema noted NEUROLOGICAL: Focused neurological exam showed no significant neurologic deficit. Normal speech, no focal weakness appreciated. PSYCH: Normal mood, normal affect. Judgment and insight within normal limits. SKIN: No significant ecchymosis, rash, ulcerations or signs of pruritus noted. MUSCULOSKELETAL EXAM: No significant joint swelling noted. Results Laboratory Results: 05/11/17 18:56 05/11/17 18:17 05/11/17 05/11/17 05/11/17 04:03 04:03 17:55 WBC 10.8 H RBC 3.90 L Hgb 11.5 L Hct 34.2 L MCV 88 MCH 29.5 MCHC 33.6 RDW 13.6 Plt Count 410 Seg Neutrophils % 78.5 H Lymphocytes % 11.6 L Monocytes % 7.7 Eosinophils % 1.7 Basophils % 0.5 Absolute Neutrophils 8.5 H Absolute Lymphocytes 1.3 Absolute Monocytes 0.8 Absolute Eosinophils 0.2 Absolute Basophils 0.1 Carbonic Acid 3.77 H HCO3/H2CO3 Ratio 10:1 ABG pH 7.11 L* ABG pCO2 125.3 H* ABG pO2 131.2 H ABG HCO3 38.5 H ABG O2 Saturation 97.2 ABG Base Excess 4.4 FiO2 100% Sodium 143.8 Potassium 4.1 Chloride 104 Carbon Dioxide 32 H Anion Gap 8 BUN 13 Creatinine 0.67 Est GFR ( Amer) > 60 Est GFR (Non-Af Amer) > 60 Glucose 136 H Calcium 9.5 Magnesium 1.7 05/11/17 05/11/17 05/11/17 18:17 18:56 19:25 WBC 12.8 H RBC 4.03 L Hgb 12.1 L Hct 35.5 L MCV 88 MCH 29.9 MCHC 34.0 RDW 13.4 Plt Count 461 H Seg Neutrophils % 86.2 H Lymphocytes % 7.9 L Monocytes % 4.0 Eosinophils % 1.6 Basophils % 0.3 Absolute Neutrophils 11.1 H Absolute Lymphocytes 1.0 Absolute Monocytes 0.5 Absolute Eosinophils 0.2 Absolute Basophils 0.0 Carbonic Acid 1.48 H HCO3/H2CO3 Ratio 20:1 ABG pH 7.40 ABG pCO2 49.2 H ABG pO2 191.8 H ABG HCO3 30.1 H ABG O2 Saturation 99.3 H ABG Base Excess 4.4 FiO2 80% Sodium 141.2 Potassium 5.0 Chloride 100 Carbon Dioxide 32 H Anion Gap 9 BUN 10 Creatinine 0.69 Est GFR ( Amer) > 60 Est GFR (Non-Af Amer) > 60 Glucose 187 H Calcium 9.4 Magnesium 1.6 05/07/17 05/07/17 05/07/17 17:25 17:25 23:36 Creatine Kinase 1142 H 928 H CK-MB (CK-2) Troponin I 0.114 05/07/17 05/08/17 05/08/17 23:36 05:49 05:49 Creatine Kinase 873 H CK-MB (CK-2) Troponin I 0.092 0.062 05/09/17 05/10/17 05/10/17 07:35 17:12 17:12 Creatine Kinase 2165 H 524 H CK-MB (CK-2) 0.82 Troponin I 0.053 05/11/17 05/11/17 04:03 18:17 Creatine Kinase 325 H CK-MB (CK-2) Troponin I 0.014 Impressions: Renal Ultrasound 05/07/17 00:00 IMPRESSION: NORMAL RENAL ULTRASOUND. Head CT 05/07/17 14:08 IMPRESSION: Very limited negative study EVIDENCE OF ACUTE STROKE: NO. Chest/Abdomen CTA 05/10/17 13:03 IMPRESSION: Mild pulmonary arterial hypertension pattern. Otherwise, no acute cardiopulmonary findings. No pulmonary emboli. Chest X-Ray 05/11/17 00:00 IMPRESSION: No acute consolidations or pleural effusions. Support apparatus is noted above. Other findings as noted above Assessment & Plan - Diagnosis (1) Cardiac dysrhythmia Qualifiers: Arrhythmia type: unspecified cardiac arrhythmia Qualified Code(s): I49.9 - Cardiac arrhythmia, unspecified Is this a current diagnosis for this admission?: Yes (2) Morbid obesity Is this a current diagnosis for this admission?: Yes (3) Aspiration pneumonia Qualifiers: Laterality: unspecified laterality Lung location: unspecified part of lung Is this a current diagnosis for this admission?: Yes (4) Elevated troponin Is this a current diagnosis for this admission?: Yes (5) EtOH dependence Qualifiers: Substance use status: in withdrawal Is this a current diagnosis for this admission?: Yes (6) Opioid dependence Qualifiers: Complication of substance-induced condition: with unspecified complication Is this a current diagnosis for this admission?: Yes - Notes Notes: Review of rhythm strip shows that patient had artifact rather true ventricular tachycardia. I could march out the QRSs to some extent. 2D echo was obtained. It showed LVEF to be relatively well preserved. RV seems dilated and enlarged. RV EF could not be calculated.A lot of the echo is to me because the floor was asking for the results Troponin I level was noted to be elevated. I feel this is related to metabolic problem rather than acute coronary syndrome. It may be worthwhile to consider a nuclear stress test prior to discharge when patient's other metabolic disorder has subsided on has been under good control. At this point other problems are relatively stable. Will continue to follow as there is increased risk of deterioration. At this point will recommend maintaining electrolytes and maintaining oxygenation within normal limits. Will continue to follow patient. - Time Time with patient: Greater than 35 minutes - More than 50% of the time spent coordinating care, discussing management plans with involved caregivers. Management plans discussed with involved personnels. Medical decision making was of moderate to high complexity, patient's has multiple comorbidities. Medications reviewed and adjusted accordingly: Yes
[2017-05-11] MEDS: PROPOFOL 100 ML IV PRN ×2 (20:04→22:17)
[2017-05-11] MEDS: CEFEPIME 2 GM/D5W RTU 2 GM/50 ML RTUPB IV SCH (20:04)
[2017-05-11] MEDS: IPRATROPIUM/ALBUTEROL 0.5-2.5 MG/3 ML AMPUL NEB SCH (20:10)
[2017-05-11] MEDS ORDERED: MAGNESIUM SULFATE/D5W 1 GM/100 ML RTUPB IV ONE (20:30)
[2017-05-11] MEDS ORDERED: METHYLPREDNISOLONE INJ 40 MG/1 ML SDV IV SCH (22:00)
[2017-05-11] MEDS: VANCOMYCIN HCL 1,500 MG in DEXTROSE 5%-WATER 250 ML IV SCH (22:17)
[2017-05-11] MEDS: METHYLPREDNISOLONE INJ 125 MG/2 ML SDV IV SCH (22:18)
[2017-05-12 00:38] LABS: ARTERIAL BLOOD BASE EXCESS 6.7 mmol/L; ARTERIAL BLOOD O2 SATURATION 95.6 % (94-98)
[2017-05-12] MEDS: LORAZEPAM INJ 2 MG/1 ML VIAL IV PRN ×2 (00:38→22:10)
[2017-05-12] MEDS: IPRATROPIUM/ALBUTEROL 0.5-2.5 MG/3 ML AMPUL NEB SCH ×4 (01:25→20:37)
[2017-05-12] MEDS: PROPOFOL 100 ML IV PRN ×8 (01:50→22:15)
[2017-05-12 04:54] LABS: ARTERIAL BLOOD BASE EXCESS 5.2 mmol/L; ARTERIAL BLOOD O2 SATURATION 94.9 % (94-98)
[2017-05-12] MEDS: DEXTROSE 5%-1/2 NORMAL SALINE 1,000 ML IV PRN ×2 (04:56→17:16)
[2017-05-12] MEDS: METHYLPREDNISOLONE INJ 125 MG/2 ML SDV IV SCH ×3 (05:28→21:13)
[2017-05-12] MEDS: LANSOPRAZOLE 30 MG TAB.RAP.DR NG SCH (05:28)
[2017-05-12] MEDS: CEFEPIME 2 GM/D5W RTU 2 GM/50 ML RTUPB IV SCH ×2 (05:28→17:13)
[2017-05-12 06:02] LABS: ABSOLUTE LYMPHOCYTES (AUTO) 0.7 10^3/uL (0.5-4.7); ABSOLUTE MONOCYTES (AUTO) 0.1 10^3/uL (0.1-1.4); ABSOLUTE NEUT (AUTO) 9.2 10^3/uL (1.7-8.2); BASOPHILS % (AUTO) 0.2 % (0-2); HEMATOCRIT 36.2 % (37.9-51.0); HEMOGLOBIN 12.3 g/dL (13.5-17.0); HGB HCT DIFFERENCE 0.7; LYMPHOCYTES % (AUTO) 6.6 % (13-45); MEAN CORPUSCULAR HEMOGLOBIN 29.6 pg (27.0-33.4); MEAN CORPUSCULAR HGB CONC 34.1 g/dL (32.0-36.0); MEAN CORPUSCULAR VOLUME 87 fl (80-97); MONOCYTES % (AUTO) 1.4 % (3-13); RED BLOOD COUNT 4.16 10^6/uL (4.35-5.55); RED CELL DISTRIBUTION WIDTH 13.2 % (11.5-14.0); SEGMENTED NEUTROPHILS % (AUTO) 91.8 % (42-78)
[2017-05-12] MEDS: VANCOMYCIN HCL 1,500 MG in DEXTROSE 5%-WATER 250 ML IV SCH ×3 (06:09→22:10)
[2017-05-12 06:19] LABS: ALANINE AMINOTRANSFERASE 86 U/L (21-72); ALBUMIN 3.2 g/dL (3.5-5.0); ALKALINE PHOSPHATASE 141 U/L (38-126); ANION GAP 11 (5-19); ASPARTATE AMINO TRANSFERASE 72 U/L (17-59); BILIRUBIN,DIRECT 0.5 mg/dL (0.0-0.4); BILIRUBIN,TOTAL 0.5 mg/dL (0.2-1.3); BLOOD UREA NITROGEN 12 mg/dL (7-20); CALCIUM 9.6 mg/dL (8.4-10.2); CARBON DIOXIDE 26 mmol/L (22-30); CHLORIDE 102 mmol/L (98-107); CREATININE RESULT 0.61 mg/dL (0.52-1.25); GLUCOSE 203 mg/dL (75-110); SODIUM 138.6 mmol/L (137-145); TOTAL PROTEIN 6.1 g/dL (6.3-8.2)
--- NOTE | 2017-05-12 07:49 | RADIOLOGY REPORT (SQ) ---
EXAM DESCRIPTION: CHEST SINGLE VIEW COMPLETED DATE/TIME: 05/12/2017 6:13 am REASON FOR STUDY: intubation COMPARISON: 05/11/2017. EXAM PARAMETERS: NUMBER OF VIEWS: One view. TECHNIQUE: Single frontal radiographic view of the chest acquired. RADIATION DOSE: NA LIMITATIONS: None. FINDINGS: LUNGS AND PLEURA: Small left lower lobar consolidate with. Small left basilar opacity -ef fusion. Mild interstitial markings. MEDIASTINUM AND HILAR STRUCTURES: No masses. Contour normal. HEART AND VASCULAR STRUCTURES: Heart normal in size. Normal vasculature. BONES: No acute findings. HARDWARE: Adequate appearing endotracheal tube tip 1.7 cm from the sigrid ; consider 1.5 cm retractio n. Likely adequate NG tube obscured distally. OTHER: No other significant finding. IMPRESSION: 1. New small left basilar pneumonia/atelectasis. 2. Adequate appearing endotracheal t ube tip 1.7 cm from the sigrid ; consider 1.5 cm retraction. TECHNICAL DOCUMENTATION: JOB ID: [id number] [employer]- All Rights Reserved
[2017-05-12] MEDS: THIAMINE HCL 100 MG TABLET NG SCH (09:14)
[2017-05-12] MEDS: FOLIC ACID 1 MG TABLET NG SCH (09:14)
[2017-05-12] MEDS: LEVOFLOXACIN 750 MG/D5W RTU 750 MG/150 ML RTUPB IV SCH (09:14)
[2017-05-12] MEDS: MULTIVITAMIN TABLET PO SCH (09:14)
[2017-05-12] MEDS: HEPARIN SOD (PORCINE) 5,000 UNIT/ML 1 ML SYRINGE SUBCUT SCH ×2 (09:14→21:13)
[2017-05-12] MEDS: MUPIROCIN 2% OINTMENT 22 GM TP SCH ×2 (09:14→17:13)
--- NOTE | 2017-05-12 13:21 | PDOC CONSULTATION ---
Consultation Consult Date: 05/11/17 Attending physician:: HALINA OVERTON Consult reason:: acute/chronic resp failure History of Present Illness Admission Date/PCP: 05/07/17 16:50 History of Present Illness: DONNIE LEE SR is a 52 year old male Presented to the emergency room with confusion states that he has not eaten in approximately a week since he was discharged from the hospital on May 05 complains of pain myalgias and arthralgias per chart he currently is intubated and sedated and no family members are at the bedside is a long history of tobacco and alcohol abuse. Patient appear to be slightly improved however he acutely decompensated became hypotensive and hypoxic he was subsequently intubated as stated above. Past Medical History Cardiac Medical History: Reports: Hyperlipidema, Hypertension Denies: Atrial Fibrillation, Congestive Heart Failure, Coronary Artery Disease, Myocardial Infarction, Peripheral Vascular Disease, Pulmonary Embolism , Heart Murmur Pulmonary Medical History: Reports: Asthma, Chronic Obstructive Pulmonary Disease (COPD), Pneumonia, Sleep Apnea Denies: Bronchitis, Respiratory Failure, Tuberculosis EENT Medical History: Denies: Ears, Throat Neurological Medical History: Denies: Seizures Endocrine Medical History: Reports: Diabetes Mellitus Type 2 Denies: Hyperthyroidism, Hypothyroidism Renal/ Medical History: Denies: End Stage Renal Disease Malignancy Medical History: Denies: Breast Cancer, Cervical Cancer, Leukemia, Lung Cancer, Ovarian Cancer GI Medical History: Reports: Gastroesophageal Reflux Disease Denies: Crohn's Disease, Hiatal Hernia Musculoskeltal Medical History: Reports: Arthritis Denies: Fibromyalgia Skin Medical History: Reports: Other - Multiple tattoos over entire body Psychiatric Medical History: Reports: Alcohol Dependency, Tobacco Dependency Denies: Bipolar Disorder, Dementia, Depression, Post Traumatic Stress Disorder Hematology: Denies: Anemia, Hemophilia, Sickle Cell Disease Infectious Medical History: Denies: HIV Past Surgical History Past Surgical History: Reports: Orthopedic Surgery - Bilateral knee replacements. Recent repair of right knee Denies: Appendectomy, Cholecystectomy, Colostomy, Coronary Artery Bypass Graft, Gastric Bypass Surgery, Herniorrhaphy, Pacemaker, Tonsillectomy Social History Information Source: [facility] Records Lives with: Alone Smoking Status: Former Smoker Cigarettes Packs Per Day: 1.5 Passive smoke exposure as: Both Frequency of Alcohol Use: Occasional Hx Recreational Drug Use: No Hx Prescription Drug Abuse: No Do you have pets?: No Have you had any respiratory illnesses as a child?: No Have you been exposed to any sick contacts recently?: No Have you had any recent respiratory illnesses?: No Have you travelled outside of [place] in the past 12 months?: No - Advance Directive Resuscitation Status: Full Code Family History Parental Family History Reviewed: No Children Family History Reviewed: No Sibling(s) Family History Reviewed.: No Medication/Allergy Home Medications: Albuterol Sulfate [Proair Hfa Inhalation Aerosol 8.5 gm Mdi] 2 puff IH Q4 PRN Atorvastatin Calcium [Lipitor] 80 mg PO QHS 05/07/17 Baclofen [Baclofen 10 mg Tablet] 10 mg PO MEALS 05/07/17 Diazepam [Valium 5 mg Tablet] 5 mg PO TIDP PRN 05/07/17 Diclofenac Sodium [Voltaren] 1 applic TP DAILYP PRN 05/07/17 Gabapentin [Neurontin] 600 mg PO Q8 05/07/17 Metformin HCl [Metformin HCl ER] 500 mg PO DAILY 05/07/17 Montelukast Sodium [Singulair 10 mg Tablet] 10 mg PO QHS 05/07/17 Morphine Sulfate [Morphine Sulfate ER] 30 mg PO Q12 05/07/17 Omeprazole 20 mg PO DAILY 05/07/17 Oxycodone HCl 15 mg PO Q6HP PRN 05/07/17 Solifenacin Succinate [Vesicare] 10 mg PO DAILY 05/07/17 Telmisartan [Micardis 80 mg Tablet] 80 mg PO DAILY 05/07/17 Allergies/Adverse Reactions: No Known Allergies Allergy (Unverified 04/06/14 09:16) Review of Systems ROS unobtainable: Due to endotracheal tube, Due to mental status Physical Exam Vital Signs: Temp Pulse Resp BP Pulse Ox 98.8 F 53 L 20 140/82 H 92 05/12/17 05:41 05/12/17 08:00 05/12/17 06:00 05/12/17 05:51 05/12/17 06:00 Intake & Output 05/11/17 05/12/17 05/13/17 06:59 06:59 06:59 Intake Total 1229 3079 Output Total 8020 2240 Balance -1331 839 Weight 129.6 kg 128.8 kg General appearance: PRESENT: no acute distress, disheveled, morbidly obese, well -developed Head exam: PRESENT: atraumatic, normocephalic Eye exam: PRESENT: conjunctiva pale, EOMI Mouth exam: PRESENT: dry mucosa, neck supple, tongue midline, other - ET tube in place Teeth exam: PRESENT: poor dentation Neck exam: ABSENT: carotid bruit, JVD, lymphadenopathy, thyromegaly Respiratory exam: PRESENT: decreased breath sounds, prolonged expiratory phas, rales, rhonchi, symmetrical, unlabored. ABSENT: accessory muscle use, chest wall tenderness, clear to auscultation savita, crackles, retraction, stridor, tachypnea, wheezes Cardiovascular exam: PRESENT: RRR, +S1, +S2. ABSENT: irregular rhythm Pulses: PRESENT: normal radial pulses GI/Abdominal exam: PRESENT: normal bowel sounds, soft. ABSENT: distended, guarding, mass, organolmegaly, rebound, tenderness Gentrourinary exam: PRESENT: indwelling catheter Extremities exam: ABSENT: calf tenderness, clubbing, joint swelling, pedal edema Musculoskeletal exam: ABSENT: deformity, dislocation Neurological exam: PRESENT: altered Skin exam: PRESENT: dry, pallor, warm Results Laboratory Results: 05/12/17 05:39 05/12/17 05:39 05/11/17 05/11/17 05/11/17 17:55 18:17 18:56 WBC 12.8 H RBC 4.03 L Hgb 12.1 L Hct 35.5 L MCV 88 MCH 29.9 MCHC 34.0 RDW 13.4 Plt Count 461 H Seg Neutrophils % 86.2 H Lymphocytes % 7.9 L Monocytes % 4.0 Eosinophils % 1.6 Basophils % 0.3 Absolute Neutrophils 11.1 H Absolute Lymphocytes 1.0 Absolute Monocytes 0.5 Absolute Eosinophils 0.2 Absolute Basophils 0.0 Carbonic Acid 3.77 H HCO3/H2CO3 Ratio 10:1 ABG pH 7.11 L* ABG pCO2 125.3 H* ABG pO2 131.2 H ABG HCO3 38.5 H ABG O2 Saturation 97.2 ABG Base Excess 4.4 FiO2 100% Sodium 141.2 Potassium 5.0 Chloride 100 Carbon Dioxide 32 H Anion Gap 9 BUN 10 Creatinine 0.69 Est GFR ( Amer) > 60 Est GFR (Non-Af Amer) > 60 Glucose 187 H Calcium 9.4 Magnesium 1.6 Total Bilirubin AST ALT Alkaline Phosphatase Total Protein Albumin 05/11/17 05/12/17 05/12/17 19:25 00:25 04:35 WBC RBC Hgb Hct MCV MCH MCHC RDW Plt Count Seg Neutrophils % Lymphocytes % Monocytes % Eosinophils % Basophils % Absolute Neutrophils Absolute Lymphocytes Absolute Monocytes Absolute Eosinophils Absolute Basophils Carbonic Acid 1.48 H 1.22 1.18 HCO3/H2CO3 Ratio 20:1 25:1 24:1 ABG pH 7.40 7.50 H 7.49 H ABG pCO2 49.2 H 40.4 39.2 ABG pO2 191.8 H 71.8 L 68.6 L ABG HCO3 30.1 H 30.5 H 28.9 H ABG O2 Saturation 99.3 H 95.6 94.9 ABG Base Excess 4.4 6.7 5.2 FiO2 80% 40% 40% Sodium Potassium Chloride Carbon Dioxide Anion Gap BUN Creatinine Est GFR ( Amer) Est GFR (Non-Af Amer) Glucose Calcium Magnesium Total Bilirubin AST ALT Alkaline Phosphatase Total Protein Albumin 05/12/17 05/12/17 05/12/17 05:39 05:39 05:39 WBC 10.0 RBC 4.16 L Hgb 12.3 L Hct 36.2 L MCV 87 MCH 29.6 MCHC 34.1 RDW 13.2 Plt Count 420 Seg Neutrophils % 91.8 H Lymphocytes % 6.6 L Monocytes % 1.4 L Eosinophils % 0.0 Basophils % 0.2 Absolute Neutrophils 9.2 H Absolute Lymphocytes 0.7 Absolute Monocytes 0.1 Absolute Eosinophils 0.0 Absolute Basophils 0.0 Carbonic Acid HCO3/H2CO3 Ratio ABG pH ABG pCO2 ABG pO2 ABG HCO3 ABG O2 Saturation ABG Base Excess FiO2 Sodium 138.6 Potassium 5.0 Chloride 102 Carbon Dioxide 26 Anion Gap 11 BUN 12 Creatinine 0.61 Est GFR ( Amer) > 60 Est GFR (Non-Af Amer) > 60 Glucose 203 H Calcium 9.6 Magnesium 1.9 Total Bilirubin 0.5 AST 72 H ALT 86 H Alkaline Phosphatase 141 H Total Protein 6.1 L Albumin 3.2 L 05/07/17 05/07/17 05/07/17 17:25 17:25 23:36 Creatine Kinase 1142 H 928 H CK-MB (CK-2) Troponin I 0.114 1105/08/17 05/08/17 23:36 05:49 05:49 Creatine Kinase 873 H CK-MB (CK-2) Troponin I 0.092 0.062 05/09/17 05/10/17 05/10/17 07:35 17:12 17:12 Creatine Kinase 2165 H 524 H CK-MB (CK-2) 0.82 Troponin I 0.053 05/11/17 05/11/17 05/12/17 04:03 18:17 00:19 Creatine Kinase 325 H CK-MB (CK-2) Troponin I 0.014 0.036 Impressions: Renal Ultrasound 05/07/17 00:00 IMPRESSION: NORMAL RENAL ULTRASOUND. Head CT 05/07/17 14:08 IMPRESSION: Very limited negative study EVIDENCE OF ACUTE STROKE: NO. Chest/Abdomen CTA 05/10/17 13:03 IMPRESSION: Mild pulmonary arterial hypertension pattern. Otherwise, no acute cardiopulmonary findings. No pulmonary emboli. Chest X-Ray 05/12/17 06:00 IMPRESSION: 1. New small left basilar pneumonia/atelectasis. 2. Adequate appearing endotracheal tube tip 1.7 cm from the sigrid ; consider 1.5 cm retraction. Assessment & Plan - Diagnosis (1) Respiratory failure Qualifiers: Chronicity: acute Is this a current diagnosis for this admission?: Yes Plan: Lethargic aspirated subsequently intubated requirement mechanical ventilation ventilatory to maintain pH oxygenation to keep saturation above 90% (2) Aspiration pneumonia Is this a current diagnosis for this admission?: Yes Plan: Sputum sent for Gram stain C&S (3) Delirium Is this a current diagnosis for this admission?: Yes (4) ETOH withdrawal Is this a current diagnosis for this admission?: Yes (5) Morbid obesity Is this a current diagnosis for this admission?: Yes Plan: consider DALILA or obesity hypoventilation,Nutritional consult - Time Time Spent with patient: 50 minutes ICU time
--- NOTE | 2017-05-12 19:42 | PDOC PROGRESS REPORT ---
Subjective Progress Note for:: 05/12/17 Subjective:: Patient seen in the morning. Telemetry strips were reviewed. Patient got sedated and intubated yesterday after he was noted to have shortness of breath and the diaphoretic spells. Patient had cardiac enzymes drawn which were noted to be negative. Physical Exam Vital Signs: Temp Pulse Resp BP Pulse Ox 98.6 F 72 20 148/78 H 96 05/12/17 16:00 05/12/17 18:00 05/12/17 18:21 05/12/17 18:21 05/12/17 18:21 Intake & Output 05/11/17 05/12/17 05/13/17 06:59 06:59 06:59 Intake Total 1229 3079 1786 Output Total 2560 2240 1175 Balance -1331 839 611 Weight 129.6 kg 128.8 kg Exam: GENERAL: well-nourished and in no acute distress. Patient is intubated and sedated. Orientation cannot be checked HEAD: Atraumatic, normocephalic. EYES: Pupils equal round and reactive to light, extraocular movements could not be checked, sclera anicteric, conjunctiva are normal. ENT: TMs normal, nares patent, oropharynx clear without exudates. Moist mucous membranes. No oral ulcerations or bleeding gums noted NECK: supple without lymphadenopathy or JVD. Trachea is central. No cervical or axillary lymphadenopathy noted. Carotids are 2+ LUNGS: Breath sounds mostly clear to auscultation patient is noted to have bibasal crackles at the extreme bases CHEST: Palpation of the chest wall shows no significant chest wall tenderness or abnormalities. 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 ABDOMEN: Soft, no significant tenderness appreciated, normoactive bowel sounds. No guarding, no rebound. No rigidity noted . No masses appreciated. EXTREMITIES: Pedal pulses are 1-2+, no calf tenderness noted, 1+ pedal edema noted. No clubbing or cyanosis. NEUROLOGICAL: The patient cannot participate in the neurological exam but no facial asymmetry noted. Extremities slightly hypotonic PSYCH: This cannot be evaluated. Patient cannot participate. SKIN: No significant ecchymosis, rash, or signs of pruritus noted. MUSCULOSKELETAL EXAM: No significant joint swelling noted. Patient cannot participate in musculoskeletal exam. There is scar of recent knee surgery noted on the right knee side. Results Laboratory Results: 05/12/17 05:39 05/12/17 05:39 05/11/17 05/12/17 05/12/17 19:25 00:25 04:35 WBC RBC Hgb Hct MCV MCH MCHC RDW Plt Count Seg Neutrophils % Lymphocytes % Monocytes % Eosinophils % Basophils % Absolute Neutrophils Absolute Lymphocytes Absolute Monocytes Absolute Eosinophils Absolute Basophils Carbonic Acid 1.48 H 1.22 1.18 HCO3/H2CO3 Ratio 20:1 25:1 24:1 ABG pH 7.40 7.50 H 7.49 H ABG pCO2 49.2 H 40.4 39.2 ABG pO2 191.8 H 71.8 L 68.6 L ABG HCO3 30.1 H 30.5 H 28.9 H ABG O2 Saturation 99.3 H 95.6 94.9 ABG Base Excess 4.4 6.7 5.2 FiO2 80% 40% 40% Sodium Potassium Chloride Carbon Dioxide Anion Gap BUN Creatinine Est GFR ( Amer) Est GFR (Non-Af Amer) Glucose Calcium Magnesium Total Bilirubin AST ALT Alkaline Phosphatase Total Protein Albumin 05/12/17 05/12/17 05/12/17 05:39 05:39 05:39 WBC 10.0 RBC 4.16 L Hgb 12.3 L Hct 36.2 L MCV 87 MCH 29.6 MCHC 34.1 RDW 13.2 Plt Count 420 Seg Neutrophils % 91.8 H Lymphocytes % 6.6 L Monocytes % 1.4 L Eosinophils % 0.0 Basophils % 0.2 Absolute Neutrophils 9.2 H Absolute Lymphocytes 0.7 Absolute Monocytes 0.1 Absolute Eosinophils 0.0 Absolute Basophils 0.0 Carbonic Acid HCO3/H2CO3 Ratio ABG pH ABG pCO2 ABG pO2 ABG HCO3 ABG O2 Saturation ABG Base Excess FiO2 Sodium 138.6 Potassium 5.0 Chloride 102 Carbon Dioxide 26 Anion Gap 11 BUN 12 Creatinine 0.61 Est GFR ( Amer) > 60 Est GFR (Non-Af Amer) > 60 Glucose 203 H Calcium 9.6 Magnesium 1.9 Total Bilirubin 0.5 AST 72 H ALT 86 H Alkaline Phosphatase 141 H Total Protein 6.1 L Albumin 3.2 L 05/07/17 05/07/17 05/07/17 17:25 17:25 23:36 Creatine Kinase 1142 H 928 H CK-MB (CK-2) Troponin I 0.114 05/07/17 05/08/17 05/08/17 23:36 05:49 05:49 Creatine Kinase 873 H CK-MB (CK-2) Troponin I 0.092 0.062 05/09/17 05/10/17 05/10/17 07:35 17:12 17:12 Creatine Kinase 2165 H 524 H CK-MB (CK-2) 0.82 Troponin I 0.053 05/11/17 05/11/17 05/12/17 04:03 18:17 00:19 Creatine Kinase 325 H CK-MB (CK-2) Troponin I 0.014 0.036 Impressions: Renal Ultrasound 05/07/17 00:00 IMPRESSION: NORMAL RENAL ULTRASOUND. Head CT 05/07/17 14:08 IMPRESSION: Very limited negative study EVIDENCE OF ACUTE STROKE: NO. Chest/Abdomen CTA 05/10/17 13:03 IMPRESSION: Mild pulmonary arterial hypertension pattern. Otherwise, no acute cardiopulmonary findings. No pulmonary emboli. Chest X-Ray 05/12/17 06:00 IMPRESSION: 1. New small left basilar pneumonia/atelectasis. 2. Adequate appearing endotracheal tube tip 1.7 cm from the sigrid ; consider 1.5 cm retraction. Assessment & Plan - Diagnosis (1) Cardiac dysrhythmia Qualifiers: Arrhythmia type: unspecified cardiac arrhythmia Qualified Code(s): I49.9 - Cardiac arrhythmia, unspecified Is this a current diagnosis for this admission?: Yes (2) Morbid obesity Is this a current diagnosis for this admission?: Yes (3) Aspiration pneumonia Qualifiers: Laterality: unspecified laterality Lung location: unspecified part of lung Is this a current diagnosis for this admission?: Yes (4) DM type 2 (diabetes mellitus, type 2) Qualifiers: Diabetes mellitus complication status: with unspecified complications Diabetes mellitus [facility] insulin use: 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 Most likely related to acute respiratory distress. Possible aspiration. Cannot rule out pulmonary embolism but I am told is recent CTA was negative. At this point will continue to monitor patient for any cardiac dysrhythmia or any myocardial ischemia. Patient otherwise seemed generally stable from cardiac standpoint. 2D echo was reviewed. - Time Time with patient: 15-25 minutes - More than 50% of the time spent coordinating care, discussing management plans with involved caregivers. Management plans discussed with involved personnels. Medical decision making was of moderate to high complexity, patient's has multiple comorbidities. Medications reviewed and adjusted accordingly: Yes
[2017-05-12] MEDS: MORPHINE SULFATE 10 MG/ML INJ IV PRN (19:50)
[2017-05-13] MEDS: PROPOFOL 100 ML IV PRN ×10 (01:19→23:20)
[2017-05-13] MEDS: IPRATROPIUM/ALBUTEROL 0.5-2.5 MG/3 ML AMPUL NEB SCH ×4 (02:18→19:50)
[2017-05-13 04:19] LABS: ABSOLUTE LYMPHOCYTES (AUTO) 0.8 10^3/uL (0.5-4.7); ABSOLUTE MONOCYTES (AUTO) 0.4 10^3/uL (0.1-1.4); ABSOLUTE NEUT (AUTO) 12.8 10^3/uL (1.7-8.2); BASOPHILS % (AUTO) 0.2 % (0-2); HEMATOCRIT 36.3 % (37.9-51.0); HEMOGLOBIN 12.2 g/dL (13.5-17.0); HGB HCT DIFFERENCE 0.3; LYMPHOCYTES % (AUTO) 5.6 % (13-45); MEAN CORPUSCULAR HGB CONC 33.6 g/dL (32.0-36.0); MEAN CORPUSCULAR VOLUME 86 fl (80-97); MONOCYTES % (AUTO) 3.1 % (3-13); RED CELL DISTRIBUTION WIDTH 13.2 % (11.5-14.0); SEGMENTED NEUTROPHILS % (AUTO) 91.1 % (42-78); WHITE BLOOD COUNT 14.1 10^3/uL (4.0-10.5)
[2017-05-13 04:39] LABS: ANION GAP 9 (5-19); BLOOD UREA NITROGEN 16 mg/dL (7-20); CALCIUM 9.4 mg/dL (8.4-10.2); CARBON DIOXIDE 26 mmol/L (22-30); CHLORIDE 103 mmol/L (98-107); CREATININE RESULT 0.63 mg/dL (0.52-1.25); GLUCOSE 241 mg/dL (75-110); POTASSIUM 4.7 mmol/L (3.6-5.0); SODIUM 137.6 mmol/L (137-145)
[2017-05-13 04:52] LABS: ARTERIAL BLOOD BASE EXCESS 4.5 mmol/L; ARTERIAL BLOOD O2 SATURATION 97.1 % (94-98)
[2017-05-13] MEDS: CEFEPIME 2 GM/D5W RTU 2 GM/50 ML RTUPB IV SCH ×2 (05:08→17:36)
[2017-05-13] MEDS: LANSOPRAZOLE 30 MG TAB.RAP.DR NG SCH (05:09)
[2017-05-13] MEDS: METHYLPREDNISOLONE INJ 125 MG/2 ML SDV IV SCH ×3 (05:09→21:39)
[2017-05-13] MEDS: VANCOMYCIN HCL 1,500 MG in DEXTROSE 5%-WATER 250 ML IV SCH ×3 (05:09→21:39)
[2017-05-13] MEDS: DEXTROSE 5%-1/2 NORMAL SALINE 1,000 ML IV PRN (05:27)
--- NOTE | 2017-05-13 07:56 | RADIOLOGY REPORT (SQ) ---
EXAM DESCRIPTION: CHEST SINGLE VIEW COMPLETED DATE/TIME: 05/13/2017 6:09 am REASON FOR STUDY: resp failure/pna COMPARISON: 05/12/2017. EXAM PARAMETERS: NUMBER OF VIEWS: One view. TECHNIQUE: Single frontal radiographic view of the chest acquired. RADIATION DOSE: NA LIMITATIONS: None. FINDINGS: LUNGS AND PLEURA: Small to moderate left lower lobar opacity-effusion. Moderate lung volu me. MEDIASTINUM AND HILAR STRUCTURES: No masses. Contour normal. HEART AND VASCULAR STRUCTURES: Heart normal in size. Normal vasculature. BONES: No acute findings. HARDWARE: Adequate appearing endotracheal tube. Likely adequate enteric tube obscured distally. OTHER: No other significant finding. IMPRESSION: No significant interval change. TECHNICAL DOCUMENTATION: JOB ID: [id number] [employer]- All Rights Reserved
[2017-05-13] MEDS: MULTIVITAMIN TABLET PO SCH (09:51)
[2017-05-13] MEDS: LEVOFLOXACIN 750 MG/D5W RTU 750 MG/150 ML RTUPB IV SCH (09:54)
[2017-05-13] MEDS: FOLIC ACID 1 MG TABLET NG SCH (09:54)
[2017-05-13] MEDS: THIAMINE HCL 100 MG TABLET NG SCH (09:54)
[2017-05-13] MEDS: MUPIROCIN 2% OINTMENT 22 GM TP SCH ×2 (09:55→17:37)
[2017-05-13] MEDS: HEPARIN SOD (PORCINE) 5,000 UNIT/ML 1 ML SYRINGE SUBCUT SCH ×2 (09:55→21:38)
[2017-05-13] MEDS: INSULIN REG, HUMAN 100 UNIT/ML 3 ML VIAL (PYX) SUBCUT PRN ×2 (13:46→17:45)
--- NOTE | 2017-05-13 13:54 | PDOC PROGRESS REPORT ---
Subjective Progress Note for:: 05/13/17 Subjective:: Patient seen in the morning. Telemetry strips were reviewed. Patient remains intubated and sedated. Telemetry strips shows no significant arrhythmias. Patient remains in sinus rhythm. Physical Exam Vital Signs: Temp Pulse Resp BP Pulse Ox 99.5 F 65 18 150/87 H 95 05/13/17 12:00 05/13/17 12:00 05/13/17 12:00 05/13/17 12:00 05/13/17 12:00 Intake & Output 05/12/17 05/13/17 05/14/17 06:59 06:59 06:59 Intake Total 3079 5291 Output Total 2240 2750 1050 Balance 839 2541 -1050 Weight 128.8 kg 127.9 kg Exam: GENERAL: well-nourished and in no acute distress. Patient is intubated and sedated. Orientation cannot be checked HEAD: Atraumatic, normocephalic. EYES: Pupils equal round and reactive to light, extraocular movements could not be checked, sclera anicteric, conjunctiva are normal. ENT: TMs normal, nares patent, oropharynx clear without exudates. Moist mucous membranes. No oral ulcerations or bleeding gums noted NECK: supple without lymphadenopathy or JVD. Trachea is central. No cervical or axillary lymphadenopathy noted. Carotids are 2+ LUNGS: Breath sounds mostly clear to auscultation patient is noted to have bibasal crackles at the extreme bases CHEST: Palpation of the chest wall shows no significant chest wall tenderness or abnormalities. 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 ABDOMEN: Soft, no significant tenderness appreciated, normoactive bowel sounds. No guarding, no rebound. No rigidity noted . No masses appreciated. EXTREMITIES: Pedal pulses are 1-2+, no calf tenderness noted, 1+ pedal edema noted. No clubbing or cyanosis. NEUROLOGICAL: The patient cannot participate in the neurological exam but no facial asymmetry noted. Extremities slightly hypotonic PSYCH: This cannot be evaluated. Patient cannot participate. SKIN: No significant ecchymosis, rash, or signs of pruritus noted. MUSCULOSKELETAL EXAM: No significant joint swelling noted. Patient cannot participate in musculoskeletal exam. Scar of recent knee surgery noted on the right side. Results Laboratory Results: 05/13/17 04:10 05/13/17 04:10 05/13/17 05/13/17 05/13/17 04:10 04:10 04:35 WBC 14.1 H RBC 4.20 L Hgb 12.2 L Hct 36.3 L MCV 86 MCH 29.0 MCHC 33.6 RDW 13.2 Plt Count 430 Seg Neutrophils % 91.1 H Lymphocytes % 5.6 L Monocytes % 3.1 Eosinophils % 0.0 Basophils % 0.2 Absolute Neutrophils 12.8 H Absolute Lymphocytes 0.8 Absolute Monocytes 0.4 Absolute Eosinophils 0.0 Absolute Basophils 0.0 Carbonic Acid 1.17 HCO3/H2CO3 Ratio 24:1 ABG pH 7.48 H ABG pCO2 38.8 ABG pO2 85.6 ABG HCO3 28.2 H ABG O2 Saturation 97.1 ABG Base Excess 4.5 FiO2 50% Sodium 137.6 Potassium 4.7 Chloride 103 Carbon Dioxide 26 Anion Gap 9 BUN 16 Creatinine 0.63 Est GFR ( Amer) > 60 Est GFR (Non-Af Amer) > 60 Glucose 241 H Calcium 9.4 Magnesium 2.0 05/11/17 18:35 Tracheal Aspirate Gram Stain - Final 05/07/17 05/07/17 05/07/17 17:25 17:25 23:36 Creatine Kinase 1142 H 928 H CK-MB (CK-2) Troponin I 0.114 05/07/17 05/08/17 05/08/17 23:36 05:49 05:49 Creatine Kinase 873 H CK-MB (CK-2) Troponin I 0.092 0.062 05/09/17 05/10/17 05/10/17 07:35 17:12 17:12 Creatine Kinase 2165 H 524 H CK-MB (CK-2) 0.82 Troponin I 0.053 05/11/17 05/11/17 05/12/17 04:03 18:17 00:19 Creatine Kinase 325 H CK-MB (CK-2) Troponin I 0.014 0.036 EKG Comments: Telemetry strips shows sinus rhythm. No sustained tachycardia or bradycardia arrhythmias noted. Impressions: Renal Ultrasound 05/07/17 00:00 IMPRESSION: NORMAL RENAL ULTRASOUND. Head CT 05/07/17 14:08 IMPRESSION: Very limited negative study EVIDENCE OF ACUTE STROKE: NO. Chest/Abdomen CTA 05/10/17 13:03 IMPRESSION: Mild pulmonary arterial hypertension pattern. Otherwise, no acute cardiopulmonary findings. No pulmonary emboli. Chest X-Ray 05/13/17 06:00 IMPRESSION: No significant interval change. Assessment & Plan - Diagnosis (1) Cardiac dysrhythmia Qualifiers: Arrhythmia type: unspecified cardiac arrhythmia Qualified Code(s): I49.9 - Cardiac arrhythmia, unspecified Is this a current diagnosis for this admission?: Yes (2) Morbid obesity Is this a current diagnosis for this admission?: Yes (3) Aspiration pneumonia Qualifiers: Laterality: unspecified laterality Lung location: unspecified part of lung Is this a current diagnosis for this admission?: Yes (4) DM type 2 (diabetes mellitus, type 2) Qualifiers: Diabetes mellitus complication status: with unspecified complications Diabetes mellitus senior care insulin use: unspecified senior care insulin use status Qualified Code(s): E11.8 - Type 2 diabetes mellitus with unspecified complications Is this a current diagnosis for this admission?: Yes (5) ETOH withdrawal Is this a current diagnosis for this admission?: Yes (6) Respiratory failure Qualifiers: Chronicity: acute Is this a current diagnosis for this admission?: Yes - Notes Notes: Patient remains intubated and sedated but in stable cardiac status. At this point continue to maintain respiratory status. Cardiac harris he seems stable and maintaining a stable rhythm and blood pressure. This seems to be adequate peripheral perfusion. Will continue to follow patient. Please call if there are any further changes in cardiac status. - Time Time with patient: 15-25 minutes
[2017-05-13] MEDS: LORAZEPAM INJ 2 MG/1 ML VIAL IV PRN (14:06)
[2017-05-13] MEDS: MORPHINE SULFATE 10 MG/ML INJ IV PRN ×2 (15:40→20:41)
[2017-05-14] MEDS: INSULIN REG, HUMAN 100 UNIT/ML 3 ML VIAL (PYX) SUBCUT PRN ×3 (00:30→18:00)
[2017-05-14] MEDS: LORAZEPAM INJ 2 MG/1 ML VIAL IV PRN ×3 (00:33→08:59)
[2017-05-14] MEDS: IPRATROPIUM/ALBUTEROL 0.5-2.5 MG/3 ML AMPUL NEB SCH ×4 (01:10→19:11)
[2017-05-14] MEDS: MORPHINE SULFATE 10 MG/ML INJ IV PRN (01:48)
[2017-05-14] MEDS: PROPOFOL 100 ML IV PRN ×8 (02:58→22:36)
[2017-05-14] MEDS: NORMAL SALINE 1000 ML 1,000 ML IV PRN ×2 (02:58→18:50)
[2017-05-14] MEDS: VANCOMYCIN HCL 1,500 MG in DEXTROSE 5%-WATER 250 ML IV SCH ×2 (02:59→08:59)
[2017-05-14 04:19] LABS: WHITE BLOOD COUNT 14.9 10^3/uL (4.0-10.5)
[2017-05-14 04:20] LABS: ABSOLUTE LYMPHOCYTES (AUTO) 0.8 10^3/uL (0.5-4.7); ABSOLUTE MONOCYTES (AUTO) 0.4 10^3/uL (0.1-1.4); ABSOLUTE NEUT (AUTO) 13.7 10^3/uL (1.7-8.2); HEMATOCRIT 35.3 % (37.9-51.0); HEMOGLOBIN 11.9 g/dL (13.5-17.0); HGB HCT DIFFERENCE 0.4; LYMPHOCYTES % (AUTO) 5.1 % (13-45); MEAN CORPUSCULAR HEMOGLOBIN 29.5 pg (27.0-33.4); MEAN CORPUSCULAR HGB CONC 33.7 g/dL (32.0-36.0); MEAN CORPUSCULAR VOLUME 88 fl (80-97); MONOCYTES % (AUTO) 2.9 % (3-13); RED BLOOD COUNT 4.04 10^6/uL (4.35-5.55); RED CELL DISTRIBUTION WIDTH 13.4 % (11.5-14.0)
[2017-05-14 04:41] LABS: ANION GAP 10 (5-19); BLOOD UREA NITROGEN 22 mg/dL (7-20); CALCIUM 9.3 mg/dL (8.4-10.2); CARBON DIOXIDE 24 mmol/L (22-30); CHLORIDE 103 mmol/L (98-107); GLUCOSE 259 mg/dL (75-110); MAGNESIUM 1.9 mg/dL (1.6-2.3); POTASSIUM 5.1 mmol/L (3.6-5.0); SODIUM 136.5 mmol/L (137-145)
[2017-05-14] MEDS ORDERED: METHYLPREDNISOLONE INJ 125 MG/2 ML SDV IV SCH (04:56)
[2017-05-14 05:05] LABS: ARTERIAL BLOOD BASE EXCESS 0.1 mmol/L; ARTERIAL BLOOD O2 SATURATION 97.3 % (94-98)
[2017-05-14] MEDS: LANSOPRAZOLE 30 MG TAB.RAP.DR NG SCH (05:08)
[2017-05-14] MEDS: CEFEPIME 2 GM/D5W RTU 2 GM/50 ML RTUPB IV SCH (05:08)
--- NOTE | 2017-05-14 05:16 | PDOC PROGRESS REPORT ---
Subjective Progress Note for:: 05/11/17 Subjective:: Patient admitted for DTs and possible aspiration. Patient was transferred to the ICU for possible V tach now thought to be artifact. Cardiology still following. Patient was still very agitated all day on bipap. Patient would desat into the 80s whenever the mast was removed. Patient later on in the afternoon was found to be singh and not breathing well. Patient began to [place] down. Patient was bagged and intubated. Antibiotic coverage broadened and patient started on steroids. ABG shows hypercapnea. Patient now sedated and intubated. Pulmonary consulted. Physical Exam Vital Signs: Temp Pulse Resp BP Pulse Ox 98.2 F 87 20 120/74 98 05/11/17 18:00 05/11/17 19:39 05/11/17 18:19 05/11/17 18:19 05/11/17 18:19 Intake & Output 05/10/17 05/11/17 05/12/17 06:59 06:59 06:59 Intake Total 3690 1229 1319 Output Total 3100 2560 1505 Balance 590 -1331 -186 Weight 134.2 kg 129.6 kg General appearance: PRESENT: no acute distress, morbidly obese Head exam: PRESENT: normocephalic Eye exam: PRESENT: other - laceration on left eye lid Throat exam: PRESENT: other - ET tube in place Respiratory exam: PRESENT: decreased breath sounds, unlabored. ABSENT: wheezes Cardiovascular exam: PRESENT: RRR GI/Abdominal exam: PRESENT: normal bowel sounds - protuberant, other Rectal exam: PRESENT: deferred Gentrourinary exam: PRESENT: indwelling catheter Extremities exam: PRESENT: pedal edema, other - right knee wound mg Neurological exam: PRESENT: other - sedated Skin exam: PRESENT: warm, other - diaphoretic Results Laboratory Results: 05/11/17 18:56 05/11/17 18:17 05/11/17 05/11/17 05/11/17 04:03 04:03 17:55 WBC 10.8 H RBC 3.90 L Hgb 11.5 L Hct 34.2 L MCV 88 MCH 29.5 MCHC 33.6 RDW 13.6 Plt Count 410 Seg Neutrophils % 78.5 H Lymphocytes % 11.6 L Monocytes % 7.7 Eosinophils % 1.7 Basophils % 0.5 Absolute Neutrophils 8.5 H Absolute Lymphocytes 1.3 Absolute Monocytes 0.8 Absolute Eosinophils 0.2 Absolute Basophils 0.1 Carbonic Acid 3.77 H HCO3/H2CO3 Ratio 10:1 ABG pH 7.11 L* ABG pCO2 125.3 H* ABG pO2 131.2 H ABG HCO3 38.5 H ABG O2 Saturation 97.2 ABG Base Excess 4.4 FiO2 100% Sodium 143.8 Potassium 4.1 Chloride 104 Carbon Dioxide 32 H Anion Gap 8 BUN 13 Creatinine 0.67 Est GFR ( Amer) > 60 Est GFR (Non-Af Amer) > 60 Glucose 136 H Calcium 9.5 Magnesium 1.7 05/11/17 05/11/17 05/11/17 18:17 18:56 19:25 WBC 12.8 H RBC 4.03 L Hgb 12.1 L Hct 35.5 L MCV 88 MCH 29.9 MCHC 34.0 RDW 13.4 Plt Count 461 H Seg Neutrophils % 86.2 H Lymphocytes % 7.9 L Monocytes % 4.0 Eosinophils % 1.6 Basophils % 0.3 Absolute Neutrophils 11.1 H Absolute Lymphocytes 1.0 Absolute Monocytes 0.5 Absolute Eosinophils 0.2 Absolute Basophils 0.0 Carbonic Acid 1.48 H HCO3/H2CO3 Ratio 20:1 ABG pH 7.40 ABG pCO2 49.2 H ABG pO2 191.8 H ABG HCO3 30.1 H ABG O2 Saturation 99.3 H ABG Base Excess 4.4 FiO2 80% Sodium 141.2 Potassium 5.0 Chloride 100 Carbon Dioxide 32 H Anion Gap 9 BUN 10 Creatinine 0.69 Est GFR ( Amer) > 60 Est GFR (Non-Af Amer) > 60 Glucose 187 H Calcium 9.4 Magnesium 1.6 05/07/17 05/07/17 05/07/17 17:25 17:25 23:36 Creatine Kinase 1142 H 928 H CK-MB (CK-2) Troponin I 0.114 05/07/17 05/08/17 05/08/17 23:36 05:49 05:49 Creatine Kinase 873 H CK-MB (CK-2) Troponin I 0.092 0.062 05/09/17 05/10/17 05/10/17 07:35 17:12 17:12 Creatine Kinase 2165 H 524 H CK-MB (CK-2) 0.82 Troponin I 0.053 05/11/17 05/11/17 04:03 18:17 Creatine Kinase 325 H CK-MB (CK-2) Troponin I 0.014 Impressions: Renal Ultrasound 05/07/17 00:00 IMPRESSION: NORMAL RENAL ULTRASOUND. Head CT 05/07/17 14:08 IMPRESSION: Very limited negative study EVIDENCE OF ACUTE STROKE: NO. Chest/Abdomen CTA 05/10/17 13:03 IMPRESSION: Mild pulmonary arterial hypertension pattern. Otherwise, no acute cardiopulmonary findings. No pulmonary emboli. Chest X-Ray 05/11/17 00:00 IMPRESSION: No acute consolidations or pleural effusions. Support apparatus is noted above. Other findings as noted above Assessment & Plan - Diagnosis (1) Aspiration pneumonia Qualifiers: Laterality: unspecified laterality Lung location: unspecified part of lung Is this a current diagnosis for this admission?: Yes Plan: Now that patient is intubated and sedated, antibiotic coverage was broadened. Patient currently on vancomycin, levaquin and cefepime. ET tube aspirate ordered. Pulmonary consulted. Chest XR ordered for the am. (2) DM type 2 (diabetes mellitus, type 2) Qualifiers: Diabetes mellitus complication status: with unspecified complications Diabetes mellitus lobsterman insulin use: unspecified lobsterman insulin use status Qualified Code(s): E11.8 - Type 2 diabetes mellitus with unspecified complications Is this a current diagnosis for this admission?: Yes Plan: Continue SSI. (3) ETOH withdrawal Is this a current diagnosis for this admission?: Yes Plan: Patient currently going through DTs. Patient now intubated and sedated. (4) EtOH dependence Qualifiers: Substance use status: in withdrawal Is this a current diagnosis for this admission?: Yes (5) Respiratory failure Qualifiers: Chronicity: acute Respiratory failure complication: hypercapnia Qualified Code(s): J96.02 - Acute respiratory failure with hypercapnia Is this a current diagnosis for this admission?: Yes Plan: Patient CO2 >100 on original ABG. Will repeat in 1 hour. CO2 on morning abg and normal. Patient may have become cover sedated with benzos given for DTs as patient was very agitated all morning. Not that patient had recent surgery. CTA negative for PE. Patient on broad spectrum antibiotics. Blood culture and respiratory cultures collected. Patient no scheduled nebs and IV steroids. Pulmonary consulted. (6) Rhabdomyolysis Is this a current diagnosis for this admission?: Yes Plan: Resolved. (7) Morbid obesity Is this a current diagnosis for this admission?: Yes Plan: When patient is no longer in DTs will discuss the importance of weight loss. (8) Acute renal failure Is this a current diagnosis for this admission?: Yes Plan: Due to rhabdo and dehydration. Was 3.02 on admission. Now significantly improved with hydration. - Time Time Spent with patient: 35 or more minutes - Inpatient Certification Medical Necessity: Significant Comorbidiites Make Outpatient Treatment Too Risky , Need Close Monitoring Due to Risk of Patient Decompensation
--- NOTE | 2017-05-14 05:31 | PDOC PROGRESS REPORT ---
Subjective Progress Note for:: 05/12/17 Subjective:: Patient admitted for DTs and possible aspiration. Patient was transferred to the ICU for possible V tach now thought to be artifact. Cardiology still following. Patient intubated on 05/11 for hypercapneic respiratory failure. Patient blood gasses improved. Patient very agitated although sedated. He is pulling up on wrist restraints. Physical Exam Vital Signs: Temp Pulse Resp BP Pulse Ox 100.1 F 74 20 154/87 H 97 05/12/17 20:00 05/12/17 20:00 05/12/17 20:00 05/12/17 20:00 05/12/17 20:00 Intake & Output 05/11/17 05/12/17 05/13/17 06:59 06:59 06:59 Intake Total 1229 3079 1786 Output Total 2560 2240 1500 Balance -1331 839 286 Weight 129.6 kg 128.8 kg General appearance: PRESENT: disheveled, mild distress, morbidly obese Head exam: PRESENT: normocephalic Eye exam: PRESENT: other - lacteration of left eye lid. ABSENT: scleral icterus Throat exam: PRESENT: other - ET tube in place. Neck exam: ABSENT: carotid bruit, JVD, lymphadenopathy, thyromegaly Respiratory exam: PRESENT: clear to auscultation savita, unlabored, other - Patient coughing and turrning red. Nurse suctioning now.. ABSENT: rales, rhonchi, wheezes Cardiovascular exam: PRESENT: RRR. ABSENT: diastolic murmur, rubs, systolic murmur Pulses: PRESENT: normal dorsalis pedis pul Vascular exam: PRESENT: normal capillary refill GI/Abdominal exam: PRESENT: normal bowel sounds, soft. ABSENT: distended, guarding, mass, organolmegaly, rebound, tenderness Rectal exam: PRESENT: deferred Gentrourinary exam: PRESENT: indwelling catheter Extremities exam: PRESENT: full ROM. ABSENT: calf tenderness, clubbing, pedal edema Musculoskeletal exam: PRESENT: other - right knee mg site clean and dry Neurological exam: PRESENT: altered. ABSENT: motor sensory deficit Psychiatric exam: PRESENT: agitated. ABSENT: homicidal ideation, suicidal ideation Skin exam: PRESENT: dry, intact, warm. ABSENT: cyanosis, rash Results Laboratory Results: 05/12/17 05:39 05/12/17 05:39 05/12/17 05/12/17 05/12/17 00:25 04:35 05:39 WBC 10.0 RBC 4.16 L Hgb 12.3 L Hct 36.2 L MCV 87 MCH 29.6 MCHC 34.1 RDW 13.2 Plt Count 420 Seg Neutrophils % 91.8 H Lymphocytes % 6.6 L Monocytes % 1.4 L Eosinophils % 0.0 Basophils % 0.2 Absolute Neutrophils 9.2 H Absolute Lymphocytes 0.7 Absolute Monocytes 0.1 Absolute Eosinophils 0.0 Absolute Basophils 0.0 Carbonic Acid 1.22 1.18 HCO3/H2CO3 Ratio 25:1 24:1 ABG pH 7.50 H 7.49 H ABG pCO2 40.4 39.2 ABG pO2 71.8 L 68.6 L ABG HCO3 30.5 H 28.9 H ABG O2 Saturation 95.6 94.9 ABG Base Excess 6.7 5.2 FiO2 40% 40% Sodium Potassium Chloride Carbon Dioxide Anion Gap BUN Creatinine Est GFR ( Amer) Est GFR (Non-Af Amer) Glucose Calcium Magnesium Total Bilirubin AST ALT Alkaline Phosphatase Total Protein Albumin 05/12/17 05/12/17 05:39 05:39 WBC RBC Hgb Hct MCV MCH MCHC RDW Plt Count Seg Neutrophils % Lymphocytes % Monocytes % Eosinophils % Basophils % Absolute Neutrophils Absolute Lymphocytes Absolute Monocytes Absolute Eosinophils Absolute Basophils Carbonic Acid HCO3/H2CO3 Ratio ABG pH ABG pCO2 ABG pO2 ABG HCO3 ABG O2 Saturation ABG Base Excess FiO2 Sodium 138.6 Potassium 5.0 Chloride 102 Carbon Dioxide 26 Anion Gap 11 BUN 12 Creatinine 0.61 Est GFR ( Amer) > 60 Est GFR (Non-Af Amer) > 60 Glucose 203 H Calcium 9.6 Magnesium 1.9 Total Bilirubin 0.5 AST 72 H ALT 86 H Alkaline Phosphatase 141 H Total Protein 6.1 L Albumin 3.2 L 05/07/17 05/07/17 05/07/17 17:25 17:25 23:36 Creatine Kinase 1142 H 928 H CK-MB (CK-2) Troponin I 0.114 05/07/17 05/08/17 05/08/17 23:36 05:49 05:49 Creatine Kinase 873 H CK-MB (CK-2) Troponin I 0.092 0.062 05/09/17 05/10/17 05/10/17 07:35 17:12 17:12 Creatine Kinase 2165 H 524 H CK-MB (CK-2) 0.82 Troponin I 0.053 05/11/17 05/11/17 05/12/17 04:03 18:17 00:19 Creatine Kinase 325 H CK-MB (CK-2) Troponin I 0.014 0.036 Impressions: Renal Ultrasound 05/07/17 00:00 IMPRESSION: NORMAL RENAL ULTRASOUND. Head CT 05/07/17 14:08 IMPRESSION: Very limited negative study EVIDENCE OF ACUTE STROKE: NO. Chest/Abdomen CTA 05/10/17 13:03 IMPRESSION: Mild pulmonary arterial hypertension pattern. Otherwise, no acute cardiopulmonary findings. No pulmonary emboli. Chest X-Ray 05/12/17 06:00 IMPRESSION: 1. New small left basilar pneumonia/atelectasis. 2. Adequate appearing endotracheal tube tip 1.7 cm from the sigrid ; consider 1.5 cm retraction. Assessment & Plan - Diagnosis (1) Respiratory failure Qualifiers: Chronicity: acute Respiratory failure complication: hypercapnia Qualified Code(s): J96.02 - Acute respiratory failure with hypercapnia Is this a current diagnosis for this admission?: Yes Plan: Concerned that patient respiratory failure resulted from over sedation. Patient intubated 05/11. Patient blood gases improved. No longer hypercapneic. Vent being managed by pulmonary. Patient on nebs, steriods and vancomycin, levaquin and cefepime. Aspirate growing GPC, Group C beta strep and normal stefano. Pulmonary assistance appreciated. (2) Acute renal failure Is this a current diagnosis for this admission?: Yes Plan: Due to rhabdo and dehydration. Was 3.02 on admission. Now resolved following hydration. (3) Aspiration pneumonia Qualifiers: Laterality: unspecified laterality Lung location: unspecified part of lung Is this a current diagnosis for this admission?: Yes Plan: With patient going through DTs and being confused, aspiration highly likely. Continue vancomycin, cefepime and levaquin now that patient is intubated. Aspirate grownt normal stefano, GPC and Group C beta strep. (4) DM type 2 (diabetes mellitus, type 2) Qualifiers: Diabetes mellitus complication status: with unspecified complications Diabetes mellitus usp insulin use: unspecified terminal computer operator insulin use status Qualified Code(s): E11.8 - Type 2 diabetes mellitus with unspecified complications Is this a current diagnosis for this admission?: Yes Plan: Patient may require more aggressive coverage now that he is on systemic steroids. Will consider weaning steroids. (5) ETOH withdrawal Is this a current diagnosis for this admission?: Yes Plan: Patient has history of chronic alcohol use. Patient currently going through DTs. Patient now intubated and sedated as of 05/11 (6) Morbid obesity Is this a current diagnosis for this admission?: Yes Plan: When patient is no longer in DTs will discuss the importance of weight loss. (7) Rhabdomyolysis Is this a current diagnosis for this admission?: Yes Plan: Resolved. - Time Time Spent with patient: Less than 15 minutes - Inpatient Certification Medical Necessity: Significant Comorbidiites Make Outpatient Treatment Too Risky - Patient currently intubabed., Need Close Monitoring Due to Risk of Patient Decompensation
--- NOTE | 2017-05-14 05:42 | PDOC PROGRESS REPORT ---
Subjective Progress Note for:: 05/13/17 Subjective:: Patient admitted for DTs and possible aspiration. Patient was transferred to the ICU for possible V tach now thought to be artifact. Cardiology still following. Patient intubated on 05/11 for hypercapneic respiratory failure. Patient calm this morning. Vent setting are being weaning. Patient to be started on NG feeds today. Physical Exam Vital Signs: Temp Pulse Resp BP Pulse Ox 98.3 F 63 18 144/80 H 95 05/13/17 20:00 05/13/17 20:00 05/13/17 22:00 05/13/17 21:22 05/13/17 22:00 Intake & Output 05/12/17 05/13/17 05/14/17 06:59 06:59 06:59 Intake Total 3079 5291 1754 Output Total 2240 2750 1999 Balance 839 1951 -863 Weight 128.8 kg 127.9 kg General appearance: PRESENT: no acute distress, obese Head exam: PRESENT: normocephalic Eye exam: PRESENT: other - laceration on left eye lid healing.. ABSENT: scleral icterus Ear exam: PRESENT: normal external ear exam Mouth exam: PRESENT: other - ET tube in place Neck exam: ABSENT: carotid bruit, JVD, lymphadenopathy, thyromegaly Respiratory exam: PRESENT: clear to auscultation savita. ABSENT: rales, rhonchi, wheezes Cardiovascular exam: PRESENT: RRR. ABSENT: diastolic murmur, rubs, systolic murmur Pulses: PRESENT: normal dorsalis pedis pul GI/Abdominal exam: PRESENT: normal bowel sounds, soft. ABSENT: distended, guarding, mass, organolmegaly, rebound, tenderness Rectal exam: PRESENT: deferred Gentrourinary exam: PRESENT: indwelling catheter Extremities exam: PRESENT: full ROM. ABSENT: calf tenderness, clubbing, pedal edema Musculoskeletal exam: PRESENT: other - staple right knee clean and dry Neurological exam: PRESENT: other - sedated. ABSENT: motor sensory deficit Psychiatric exam: ABSENT: homicidal ideation, suicidal ideation Skin exam: PRESENT: dry, intact, warm. ABSENT: cyanosis, rash Results Laboratory Results: 05/13/17 04:10 05/13/17 04:10 05/13/17 05/13/17 05/13/17 04:10 04:10 04:35 WBC 14.1 H RBC 4.20 L Hgb 12.2 L Hct 36.3 L MCV 86 MCH 29.0 MCHC 33.6 RDW 13.2 Plt Count 430 Seg Neutrophils % 91.1 H Lymphocytes % 5.6 L Monocytes % 3.1 Eosinophils % 0.0 Basophils % 0.2 Absolute Neutrophils 12.8 H Absolute Lymphocytes 0.8 Absolute Monocytes 0.4 Absolute Eosinophils 0.0 Absolute Basophils 0.0 Carbonic Acid 1.17 HCO3/H2CO3 Ratio 24:1 ABG pH 7.48 H ABG pCO2 38.8 ABG pO2 85.6 ABG HCO3 28.2 H ABG O2 Saturation 97.1 ABG Base Excess 4.5 FiO2 50% Sodium 137.6 Potassium 4.7 Chloride 103 Carbon Dioxide 26 Anion Gap 9 BUN 16 Creatinine 0.63 Est GFR ( Amer) > 60 Est GFR (Non-Af Amer) > 60 Glucose 241 H Calcium 9.4 Magnesium 2.0 05/11/17 18:35 Tracheal Aspirate Gram Stain - Final 05/07/17 05/07/17 05/07/17 17:25 17:25 23:36 Creatine Kinase 1142 H 928 H CK-MB (CK-2) Troponin I 0.114 05/07/17 05/08/17 05/08/17 23:36 05:49 05:49 Creatine Kinase 873 H CK-MB (CK-2) Troponin I 0.092 0.062 05/09/17 05/10/17 05/10/17 07:35 17:12 17:12 Creatine Kinase 2165 H 524 H CK-MB (CK-2) 0.82 Troponin I 0.053 05/11/17 05/11/17 05/12/17 04:03 18:17 00:19 Creatine Kinase 325 H CK-MB (CK-2) Troponin I 0.014 0.036 Impressions: Renal Ultrasound 05/07/17 00:00 IMPRESSION: NORMAL RENAL ULTRASOUND. Head CT 05/07/17 14:08 IMPRESSION: Very limited negative study EVIDENCE OF ACUTE STROKE: NO. Chest/Abdomen CTA 05/10/17 13:03 IMPRESSION: Mild pulmonary arterial hypertension pattern. Otherwise, no acute cardiopulmonary findings. No pulmonary emboli. Chest X-Ray 05/13/17 06:00 IMPRESSION: No significant interval change. Assessment & Plan - Diagnosis (1) Respiratory failure Qualifiers: Chronicity: acute Respiratory failure complication: hypercapnia Qualified Code(s): J96.02 - Acute respiratory failure with hypercapnia Is this a current diagnosis for this admission?: Yes Plan: Concerned that patient respiratory failure resulted from over sedation. Patient intubated 05/11. Patient blood gases improved. No longer hypercapneic. Vent being managed by pulmonary. Patient on nebs, steriods (now weaning)and vancomycin, levaquin and cefepime. Aspirate growing GPC, Group C beta strep and normal stefano. Pulmonary assistance appreciated. Continue current management. (2) Aspiration pneumonia Qualifiers: Laterality: unspecified laterality Lung location: unspecified part of lung Is this a current diagnosis for this admission?: Yes Plan: With patient going through DTs and being confused, aspiration highly likely. Continue vancomycin, cefepime and levaquin now that patient is intubated. Aspirate grownt normal stefano, GPC and Group C beta strep. Continue current management. (3) Acute renal failure Is this a current diagnosis for this admission?: Yes Plan: Due to rhabdo and dehydration. Renal US normal. 3.02 on admission. Now resolved following hydration. (4) DM type 2 (diabetes mellitus, type 2) Qualifiers: Diabetes mellitus complication status: with unspecified complications Diabetes mellitus custodial insulin use: unspecified ocean transportation intermediary insulin use status Qualified Code(s): E11.8 - Type 2 diabetes mellitus with unspecified complications Is this a current diagnosis for this admission?: Yes Plan: Titration are being made as patient will be started on NG feeds and may become more hyperglycemic. Will wean IV steriods. Continue with SSI Q6 accuchecks. (5) ETOH withdrawal Is this a current diagnosis for this admission?: Yes Plan: Patient has history of chronic alcohol use. Patient currently going through DTs. Patient now intubated and sedated as of 05/11. Patient will benefit from rehab once condition improves. CT head was done to rule out any other acute process. (6) Morbid obesity Is this a current diagnosis for this admission?: Yes Plan: When patient is no longer in DTs will discuss the importance of weight loss. (7) Rhabdomyolysis Is this a current diagnosis for this admission?: Yes Plan: Resolved. - Time Time Spent with patient: Less than 15 minutes - Inpatient Certification Medical Necessity: Significant Comorbidiites Make Outpatient Treatment Too Risky , Need Close Monitoring Due to Risk of Patient Decompensation - Patient still intubated.
[2017-05-14] MEDS: METHYLPREDNISOLONE INJ 40 MG/1 ML SDV IV SCH ×3 (06:30→21:19)
--- NOTE | 2017-05-14 08:04 | RADIOLOGY REPORT (SQ) ---
EXAM DESCRIPTION: CHEST SINGLE VIEW COMPLETED DATE/TIME: 05/14/2017 6:27 am REASON FOR STUDY: resp failure/pna COMPARISON: None. EXAM PARAMETERS: NUMBER OF VIEWS: One view. TECHNIQUE: Single frontal radiographic view of the chest acquired. RADIATION DOSE: NA LIMITATIONS: None. FINDINGS: LUNGS AND PLEURA: Moderate opacity of the left lower lobe. MEDIASTINUM AND HILAR STRUCTURES: No masses. Contour normal. HEART AND VASCULAR STRUCTURES: Heart normal in size. Normal vasculature. BONES: No acute findings. HARDWARE: Adequate appearing endotracheal tube. Likely adequate NG tube obscured distally. OTHER: No other significant finding. IMPRESSION: No significant interval change. TECHNICAL DOCUMENTATION: JOB ID: [id number] [employer]- All Rights Reserved
[2017-05-14] MEDS: THIAMINE HCL 100 MG TABLET NG SCH (09:46)
[2017-05-14] MEDS: HEPARIN SOD (PORCINE) 5,000 UNIT/ML 1 ML SYRINGE SUBCUT SCH ×2 (09:46→21:20)
[2017-05-14] MEDS: LEVOFLOXACIN 750 MG/D5W RTU 750 MG/150 ML RTUPB IV SCH (09:46)
[2017-05-14] MEDS: MULTIVITAMIN TABLET PO SCH (09:46)
[2017-05-14] MEDS: FOLIC ACID 1 MG TABLET NG SCH (09:46)
[2017-05-14] MEDS: MUPIROCIN 2% OINTMENT 22 GM TP SCH ×2 (09:46→17:11)
[2017-05-14] MEDS: MIDAZOLAM HCL 100 ML IV PRN ×4 (10:59→23:51)
--- NOTE | 2017-05-14 11:27 | PDOC PROGRESS REPORT ---
Subjective Progress Note for:: 05/13/17 - Acute respiratory failure/PNA Subjective:: Intubated and sedated Physical Exam Vital Signs: Temp Pulse Resp BP Pulse Ox 98.5 F 73 18 110/60 96 05/14/17 07:59 05/14/17 08:00 05/14/17 07:59 05/14/17 07:59 05/14/17 07:59 Intake & Output 05/13/17 05/14/17 05/15/17 06:59 06:59 06:59 Intake Total 5291 4256 Output Total 2750 2775 300 Balance 2541 1481 -300 Weight 127.9 kg 129.8 kg General appearance: PRESENT: no acute distress, disheveled, morbidly obese, well -developed Head exam: PRESENT: atraumatic, normocephalic Eye exam: PRESENT: conjunctiva pale Mouth exam: PRESENT: dry mucosa, neck supple, tongue midline, other - ET tube in place Neck exam: ABSENT: carotid bruit, JVD, lymphadenopathy, thyromegaly Respiratory exam: PRESENT: decreased breath sounds, prolonged expiratory phas, rales, rhonchi, symmetrical, unlabored, wheezes. ABSENT: accessory muscle use, chest wall tenderness, clear to auscultation savita, crackles, retraction, stridor , tachypnea Cardiovascular exam: PRESENT: RRR, +S1, +S2. ABSENT: irregular rhythm Pulses: PRESENT: normal radial pulses GI/Abdominal exam: PRESENT: normal bowel sounds, soft. ABSENT: distended, guarding, mass, organolmegaly, rebound, tenderness Gentrourinary exam: PRESENT: indwelling catheter Extremities exam: ABSENT: clubbing, joint swelling, pedal edema, +1 edema, +2 edema Musculoskeletal exam: ABSENT: ambulatory, deformity, dislocation Neurological exam: ABSENT: altered Skin exam: PRESENT: dry, warm Results Laboratory Results: 05/14/17 04:04 05/14/17 04:04 05/14/17 05/14/17 05/14/17 04:04 04:04 04:50 WBC 14.9 H RBC 4.04 L Hgb 11.9 L Hct 35.3 L MCV 88 MCH 29.5 MCHC 33.7 RDW 13.4 Plt Count 418 Seg Neutrophils % 92.0 H Lymphocytes % 5.1 L Monocytes % 2.9 L Eosinophils % 0.0 Basophils % 0.0 Absolute Neutrophils 13.7 H Absolute Lymphocytes 0.8 Absolute Monocytes 0.4 Absolute Eosinophils 0.0 Absolute Basophils 0.0 Carbonic Acid 1.20 HCO3/H2CO3 Ratio 20:1 ABG pH 7.41 ABG pCO2 40.0 ABG pO2 94.7 ABG HCO3 24.7 ABG O2 Saturation 97.3 ABG Base Excess 0.1 FiO2 40% Sodium 136.5 L Potassium 5.1 H Chloride 103 Carbon Dioxide 24 Anion Gap 10 BUN 22 H Creatinine 0.70 Est GFR ( Amer) > 60 Est GFR (Non-Af Amer) > 60 Glucose 259 H Calcium 9.3 Phosphorus 4.0 Magnesium 1.9 05/11/17 18:35 Tracheal Aspirate Gram Stain - Final 05/11/17 18:35 Tracheal Aspirate Sputum Culture - Final Staphylococcus Aureus Group C Beta Streptococcus Normal Roxanne 05/07/17 05/07/17 05/07/17 17:25 17:25 23:36 Creatine Kinase 1142 H 928 H CK-MB (CK-2) Troponin I 0.114 05/07/17 05/08/17 05/08/17 23:36 05:49 05:49 Creatine Kinase 873 H CK-MB (CK-2) Troponin I 0.092 0.062 05/09/17 05/10/17 05/10/17 07:35 17:12 17:12 Creatine Kinase 2165 H 524 H CK-MB (CK-2) 0.82 Troponin I 0.053 05/11/17 05/11/17 05/12/17 04:03 18:17 00:19 Creatine Kinase 325 H CK-MB (CK-2) Troponin I 0.014 0.036 Impressions: Renal Ultrasound 05/07/17 00:00 IMPRESSION: NORMAL RENAL ULTRASOUND. Head CT 05/07/17 14:08 IMPRESSION: Very limited negative study EVIDENCE OF ACUTE STROKE: NO. Chest/Abdomen CTA 05/10/17 13:03 IMPRESSION: Mild pulmonary arterial hypertension pattern. Otherwise, no acute cardiopulmonary findings. No pulmonary emboli. Chest X-Ray 05/14/17 06:00 IMPRESSION: No significant interval change. Assessment & Plan - Diagnosis (1) Respiratory failure Qualifiers: Chronicity: acute Respiratory failure complication: hypercapnia Qualified Code(s): J96.02 - Acute respiratory failure with hypercapnia Is this a current diagnosis for this admission?: Yes Plan: Lethargic aspirated subsequently intubated requirement mechanical ventilation ventilatory to maintain pH oxygenation to keep saturation above 90% (2) Aspiration pneumonia Qualifiers: Laterality: unspecified laterality Lung location: unspecified part of lung Is this a current diagnosis for this admission?: Yes Plan: Sputum sent for Gram stain C&S (3) Delirium Is this a current diagnosis for this admission?: Yes (4) ETOH withdrawal Is this a current diagnosis for this admission?: Yes Plan: Benzodiazepines (5) Morbid obesity Is this a current diagnosis for this admission?: Yes - Time Time Spent with patient: 45 minutes ICU time
--- NOTE | 2017-05-14 11:31 | PDOC PROGRESS REPORT ---
Subjective Progress Note for:: 05/14/17 - Acute respiratory failure/PNA Subjective:: Intubated and sedated Physical Exam Vital Signs: Temp Pulse Resp BP Pulse Ox 98.5 F 73 18 110/60 96 05/14/17 07:59 05/14/17 08:00 05/14/17 07:59 05/14/17 07:59 05/14/17 07:59 Intake & Output 05/13/17 05/14/17 05/15/17 06:59 06:59 06:59 Intake Total 5291 4256 Output Total 2750 2775 300 Balance 2541 1481 -300 Weight 127.9 kg 129.8 kg General appearance: PRESENT: no acute distress, disheveled, obese. ABSENT: cooperative, mild distress, severe distress Head exam: PRESENT: atraumatic, normocephalic Eye exam: PRESENT: conjunctiva pale Mouth exam: PRESENT: dry mucosa, neck supple, tongue midline, other - ET tube in place Neck exam: ABSENT: carotid bruit, JVD, lymphadenopathy, thyromegaly Respiratory exam: PRESENT: decreased breath sounds, prolonged expiratory phas, rhonchi, symmetrical, unlabored. ABSENT: accessory muscle use, chest wall tenderness, clear to auscultation savita, crackles, rales, retraction, stridor, tachypnea Cardiovascular exam: PRESENT: RRR, +S1, +S2. ABSENT: irregular rhythm Pulses: PRESENT: normal radial pulses GI/Abdominal exam: PRESENT: ascites Gentrourinary exam: PRESENT: indwelling catheter Extremities exam: ABSENT: clubbing, joint swelling, pedal edema Musculoskeletal exam: ABSENT: ambulatory, deformity, dislocation Neurological exam: ABSENT: altered Skin exam: PRESENT: dry, warm Results Laboratory Results: 05/14/17 04:04 05/14/17 04:04 05/14/17 05/14/17 05/14/17 04:04 04:04 04:50 WBC 14.9 H RBC 4.04 L Hgb 11.9 L Hct 35.3 L MCV 88 MCH 29.5 MCHC 33.7 RDW 13.4 Plt Count 418 Seg Neutrophils % 92.0 H Lymphocytes % 5.1 L Monocytes % 2.9 L Eosinophils % 0.0 Basophils % 0.0 Absolute Neutrophils 13.7 H Absolute Lymphocytes 0.8 Absolute Monocytes 0.4 Absolute Eosinophils 0.0 Absolute Basophils 0.0 Carbonic Acid 1.20 HCO3/H2CO3 Ratio 20:1 ABG pH 7.41 ABG pCO2 40.0 ABG pO2 94.7 ABG HCO3 24.7 ABG O2 Saturation 97.3 ABG Base Excess 0.1 FiO2 40% Sodium 136.5 L Potassium 5.1 H Chloride 103 Carbon Dioxide 24 Anion Gap 10 BUN 22 H Creatinine 0.70 Est GFR ( Amer) > 60 Est GFR (Non-Af Amer) > 60 Glucose 259 H Calcium 9.3 Phosphorus 4.0 Magnesium 1.9 05/11/17 18:35 Tracheal Aspirate Gram Stain - Final 05/11/17 18:35 Tracheal Aspirate Sputum Culture - Final Staphylococcus Aureus Group C Beta Streptococcus Normal Roxanne 05/07/17 05/07/17 05/07/17 17:25 17:25 23:36 Creatine Kinase 1142 H 928 H CK-MB (CK-2) Troponin I 0.114 05/07/17 05/08/17 05/08/17 23:36 05:49 05:49 Creatine Kinase 873 H CK-MB (CK-2) Troponin I 0.092 0.062 05/09/17 05/10/17 05/10/17 07:35 17:12 17:12 Creatine Kinase 2165 H 524 H CK-MB (CK-2) 0.82 Troponin I 0.053 05/11/17 05/11/17 05/12/17 04:03 18:17 00:19 Creatine Kinase 325 H CK-MB (CK-2) Troponin I 0.014 0.036 Impressions: Renal Ultrasound 05/07/17 00:00 IMPRESSION: NORMAL RENAL ULTRASOUND. Head CT 05/07/17 14:08 IMPRESSION: Very limited negative study EVIDENCE OF ACUTE STROKE: NO. Chest/Abdomen CTA 05/10/17 13:03 IMPRESSION: Mild pulmonary arterial hypertension pattern. Otherwise, no acute cardiopulmonary findings. No pulmonary emboli. Chest X-Ray 05/14/17 06:00 IMPRESSION: No significant interval change. Assessment & Plan - Diagnosis (1) Respiratory failure Qualifiers: Chronicity: acute Respiratory failure complication: hypercapnia Qualified Code(s): J96.02 - Acute respiratory failure with hypercapnia Is this a current diagnosis for this admission?: Yes Plan: desats rapidly during sedation vacation continues to produce copious amounts of sputum (2) Aspiration pneumonia Qualifiers: Laterality: unspecified laterality Lung location: unspecified part of lung Is this a current diagnosis for this admission?: Yes Plan: Labs- All tests 24 hr 05/07/17 05/08/17 05/10/17 13:20 05:49 06:45 WBC 14.9 H 10.3 9.0 ABG pH ABG pCO2 ABG pO2 FiO2 05/11/17 05/11/17 05/12/17 04:03 18:56 05:39 WBC 10.8 H 12.8 H 10.0 ABG pH ABG pCO2 ABG pO2 FiO2 05/13/17 05/13/17 05/14/17 04:10 04:35 04:04 WBC 14.1 H 14.9 H ABG pH 7.48 H ABG pCO2 38.8 ABG pO2 85.6 FiO2 50% 05/14/17 04:50 WBC ABG pH 7.41 ABG pCO2 40.0 ABG pO2 94.7 FiO2 40% 05/11/17 18:35 Gram Stain - Final Tracheal Aspirate Sputum Culture - Final Staphylococcus Aureus Group C Beta Streptococcus Normal Roxanne 05/10/17 17:50 Gram Stain - Preliminary Eye - Not Specified Eye Culture - Preliminary Staphylococcus Aureus Skin Roxanne 05/10/17 17:50 Gram Stain - Final Eye - Not Specified Eye Culture - Final Staphylococcus Aureus Skin Roxanne 05/10/17 17:50 Gram Stain - Preliminary Eye - Drainage Eye Culture - Preliminary Staphylococcus Aureus Skin Roxanne 05/10/17 17:50 Gram Stain - Final Eye - Drainage Eye Culture - Final Staphylococcus Aureus Skin Roxanne (3) Delirium Is this a current diagnosis for this admission?: Yes (4) ETOH withdrawal Is this a current diagnosis for this admission?: Yes Plan: Benzodiazepines (5) Morbid obesity Is this a current diagnosis for this admission?: Yes - Time Time Spent with patient: 40 minutes ICU time
--- NOTE | 2017-05-14 14:24 | PDOC PROGRESS REPORT ---
Subjective Progress Note for:: 05/14/17 Subjective:: The patient is currently in the intensive care unit intubated. He was intubated on 1121 for hypercarbic respiratory failure. The patient has a history of alcohol abuse and his present course has been complicated by delirium tremens. The patient was initially transferred to the ICU because of the possibility of ventricular tachycardia. This is now felt to be artifact, but, cardiology is following. Pulmonary, critical care is following. Apparently, the patient quickly desaturated during his weaning trial today. Physical Exam Vital Signs: Temp Pulse Resp BP Pulse Ox 99.0 F 60 18 163/92 H 95 05/14/17 14:00 05/14/17 14:01 05/14/17 14:01 05/14/17 14:00 05/14/17 14:00 Intake & Output 05/13/17 05/14/17 05/15/17 06:59 06:59 06:59 Intake Total 5291 4256 Output Total 2750 2775 1250 Balance 2541 1481 -1250 Weight 127.9 kg 129.8 kg Additional comments: Patient appeared to be very calm this morning. He was intubated but he was able to follow commands and open his eyes to verbal stimuli. His lungs were clear anteriorly and in the mid axillary lines. His cardiac exam is regular. I did not appreciate any murmurs, gallops or rubs. The abdomen is obese but soft. Bowel sounds are noted. He does not have guarding or rebound noted and there are no hernias or masses present. The lower extremities demonstrate trace to 1+ edema which is symmetrical. The skin is clean warm dry and intact. Results Laboratory Results: 05/14/17 04:04 05/14/17 04:04 05/14/17 05/14/17 05/14/17 04:04 04:04 04:50 WBC 14.9 H RBC 4.04 L Hgb 11.9 L Hct 35.3 L MCV 88 MCH 29.5 MCHC 33.7 RDW 13.4 Plt Count 418 Seg Neutrophils % 92.0 H Lymphocytes % 5.1 L Monocytes % 2.9 L Eosinophils % 0.0 Basophils % 0.0 Absolute Neutrophils 13.7 H Absolute Lymphocytes 0.8 Absolute Monocytes 0.4 Absolute Eosinophils 0.0 Absolute Basophils 0.0 Carbonic Acid 1.20 HCO3/H2CO3 Ratio 20:1 ABG pH 7.41 ABG pCO2 40.0 ABG pO2 94.7 ABG HCO3 24.7 ABG O2 Saturation 97.3 ABG Base Excess 0.1 FiO2 40% Sodium 136.5 L Potassium 5.1 H Chloride 103 Carbon Dioxide 24 Anion Gap 10 BUN 22 H Creatinine 0.70 Est GFR ( Amer) > 60 Est GFR (Non-Af Amer) > 60 Glucose 259 H Calcium 9.3 Phosphorus 4.0 Magnesium 1.9 05/10/17 17:50 Eye - Not Specified Gram Stain - Final 05/10/17 17:50 Eye - Not Specified Eye Culture - Final Staphylococcus Aureus Skin Roxanne 05/10/17 17:50 Eye - Drainage Gram Stain - Final 05/10/17 17:50 Eye - Drainage Eye Culture - Final Staphylococcus Aureus Skin Roxanne 05/11/17 18:35 Tracheal Aspirate Gram Stain - Final 05/11/17 18:35 Tracheal Aspirate Sputum Culture - Final Staphylococcus Aureus Group C Beta Streptococcus Normal Roxanne 05/07/17 05/07/17 05/07/17 17:25 17:25 23:36 Creatine Kinase 1142 H 928 H CK-MB (CK-2) Troponin I 0.114 05/07/17 05/08/17 05/08/17 23:36 05:49 05:49 Creatine Kinase 873 H CK-MB (CK-2) Troponin I 0.092 0.062 05/09/17 05/10/17 05/10/17 07:35 17:12 17:12 Creatine Kinase 2165 H 524 H CK-MB (CK-2) 0.82 Troponin I 0.053 05/11/17 05/11/17 05/12/17 04:03 18:17 00:19 Creatine Kinase 325 H CK-MB (CK-2) Troponin I 0.014 0.036 Impressions: Renal Ultrasound 05/07/17 00:00 IMPRESSION: NORMAL RENAL ULTRASOUND. Head CT 05/07/17 14:08 IMPRESSION: Very limited negative study EVIDENCE OF ACUTE STROKE: NO. Chest/Abdomen CTA 05/10/17 13:03 IMPRESSION: Mild pulmonary arterial hypertension pattern. Otherwise, no acute cardiopulmonary findings. No pulmonary emboli. Chest X-Ray 05/14/17 06:00 IMPRESSION: No significant interval change. Assessment & Plan - Diagnosis (1) Acute renal failure Is this a current diagnosis for this admission?: Yes Plan: This appears to be resolved. However, potassium is in the high normal range. We need to make sure he is not receiving supplements and monitor. (2) Aspiration pneumonia Qualifiers: Laterality: unspecified laterality Lung location: unspecified part of lung Is this a current diagnosis for this admission?: Yes Plan: Patient is currently on broad-spectrum antibiotics with vancomycin, cefepime and Levaquin. We will check cultures. Patient failed his weaning trial. (3) DM type 2 (diabetes mellitus, type 2) Qualifiers: Diabetes mellitus complication status: with unspecified complications Diabetes mellitus correction insulin use: unspecified correction insulin use status Qualified Code(s): E11.8 - Type 2 diabetes mellitus with unspecified complications Is this a current diagnosis for this admission?: Yes Plan: Despite corticosteroids, blood sugars are currently in excellent range. Will follow. Currently, patient is receiving sliding scale. (4) ETOH withdrawal Is this a current diagnosis for this admission?: Yes (5) EtOH dependence Qualifiers: Substance use status: in withdrawal Is this a current diagnosis for this admission?: Yes Plan: Will ensure patient is on thiamine. (6) Morbid obesity Is this a current diagnosis for this admission?: Yes (7) Respiratory failure Qualifiers: Chronicity: acute Respiratory failure complication: hypercapnia Qualified Code(s): J96.02 - Acute respiratory failure with hypercapnia Is this a current diagnosis for this admission?: Yes Plan: Patient failed weaning trial today. We will continue mechanical ventilation. (8) Rhabdomyolysis Is this a current diagnosis for this admission?: Yes Plan: Resolving. - Time Time Spent with patient: 25-34 minutes - Inpatient Certification Medical Necessity: Need for IV Antibiotics, Risk of Complication if Not Cared For in Hospital - Patient is intubated. He is currently receiving ICU care.
--- NOTE | 2017-05-14 15:47 | PDOC PROGRESS REPORT ---
Subjective Progress Note for:: 05/14/17 Subjective:: Patient seen in the morning. Telemetry strips were reviewed. Patient remains intubated and sedated. Telemetry strips shows no significant arrhythmias. Patient remains in sinus rhythm. Patient had a attempted trial at extubation but he failed. Physical Exam Vital Signs: Temp Pulse Resp BP Pulse Ox 99.0 F 60 18 163/92 H 95 05/14/17 14:00 05/14/17 14:01 05/14/17 14:01 05/14/17 14:00 05/14/17 14:00 Intake & Output 05/13/17 05/14/17 05/15/17 06:59 06:59 06:59 Intake Total 5291 4256 Output Total 2750 2775 1250 Balance 2541 1481 -1250 Weight 127.9 kg 129.8 kg Exam: GENERAL: well-nourished and in no acute distress. Patient is intubated and sedated. Orientation cannot be checked HEAD: Atraumatic, normocephalic. EYES: Pupils equal round and reactive to light, extraocular movements could not be checked, sclera anicteric, conjunctiva are normal. ENT: TMs normal, nares patent, oropharynx clear without exudates. Moist mucous membranes. No oral ulcerations or bleeding gums noted NECK: supple without lymphadenopathy or JVD. Trachea is central. No cervical or axillary lymphadenopathy noted. Carotids are 2+ LUNGS: Breath sounds mostly clear to auscultation patient is noted to have bibasal crackles at the extreme bases CHEST: Palpation of the chest wall shows no significant chest wall tenderness or abnormalities. HEART: Flynn SAP BASIS, No PSH, 2/6 LISBET aortic area, 1/6 phelps systolic murmur mitral area , no rubs or gallops. ABDOMEN: Soft, no significant tenderness appreciated, normoactive bowel sounds. No guarding, no rebound. No rigidity noted . No masses appreciated. EXTREMITIES: Pedal pulses are 1-2+, no calf tenderness noted, 1+ pedal edema noted. No clubbing or cyanosis. NEUROLOGICAL: The patient cannot participate in the neurological exam but no facial asymmetry noted. Extremities slightly hypotonic PSYCH: This cannot be evaluated. Patient cannot participate. SKIN: No significant ecchymosis, rash, or signs of pruritus noted. MUSCULOSKELETAL EXAM: No significant joint swelling noted. Patient cannot participate in musculoskeletal exam. Scar of recent right knee surgery noted Results Laboratory Results: 05/14/17 04:04 05/14/17 04:04 05/14/17 05/14/17 05/14/17 04:04 04:04 04:50 WBC 14.9 H RBC 4.04 L Hgb 11.9 L Hct 35.3 L MCV 88 MCH 29.5 MCHC 33.7 RDW 13.4 Plt Count 418 Seg Neutrophils % 92.0 H Lymphocytes % 5.1 L Monocytes % 2.9 L Eosinophils % 0.0 Basophils % 0.0 Absolute Neutrophils 13.7 H Absolute Lymphocytes 0.8 Absolute Monocytes 0.4 Absolute Eosinophils 0.0 Absolute Basophils 0.0 Carbonic Acid 1.20 HCO3/H2CO3 Ratio 20:1 ABG pH 7.41 ABG pCO2 40.0 ABG pO2 94.7 ABG HCO3 24.7 ABG O2 Saturation 97.3 ABG Base Excess 0.1 FiO2 40% Sodium 136.5 L Potassium 5.1 H Chloride 103 Carbon Dioxide 24 Anion Gap 10 BUN 22 H Creatinine 0.70 Est GFR ( Amer) > 60 Est GFR (Non-Af Amer) > 60 Glucose 259 H Calcium 9.3 Phosphorus 4.0 Magnesium 1.9 05/10/17 17:50 Eye - Not Specified Gram Stain - Final 05/10/17 17:50 Eye - Not Specified Eye Culture - Final Staphylococcus Aureus Skin Roxanne 05/10/17 17:50 Eye - Drainage Gram Stain - Final 05/10/17 17:50 Eye - Drainage Eye Culture - Final Staphylococcus Aureus Skin Roxanne 05/11/17 18:35 Tracheal Aspirate Gram Stain - Final 05/11/17 18:35 Tracheal Aspirate Sputum Culture - Final Staphylococcus Aureus Group C Beta Streptococcus Normal Roxanne 05/07/17 05/07/17 05/07/17 17:25 17:25 23:36 Creatine Kinase 1142 H 928 H CK-MB (CK-2) Troponin I 0.114 05/07/17 05/08/17 05/08/17 23:36 05:49 05:49 Creatine Kinase 873 H CK-MB (CK-2) Troponin I 0.092 0.062 05/09/17 05/10/17 05/10/17 07:35 17:12 17:12 Creatine Kinase 2165 H 524 H CK-MB (CK-2) 0.82 Troponin I 0.053 05/11/17 05/11/17 05/12/17 04:03 18:17 00:19 Creatine Kinase 325 H CK-MB (CK-2) Troponin I 0.014 0.036 EKG Comments: Shows sinus rhythm without any sustained tachycardia or bradycardia arrhythmias. Impressions: Renal Ultrasound 05/07/17 00:00 IMPRESSION: NORMAL RENAL ULTRASOUND. Head CT 05/07/17 14:08 IMPRESSION: Very limited negative study EVIDENCE OF ACUTE STROKE: NO. Chest/Abdomen CTA 05/10/17 13:03 IMPRESSION: Mild pulmonary arterial hypertension pattern. Otherwise, no acute cardiopulmonary findings. No pulmonary emboli. Chest X-Ray 05/14/17 06:00 IMPRESSION: No significant interval change. Assessment & Plan - Diagnosis (1) Cardiac dysrhythmia Qualifiers: Arrhythmia type: unspecified cardiac arrhythmia Qualified Code(s): I49.9 - Cardiac arrhythmia, unspecified Is this a current diagnosis for this admission?: Yes (2) Morbid obesity Is this a current diagnosis for this admission?: Yes (3) Aspiration pneumonia Qualifiers: Laterality: unspecified laterality Lung location: unspecified part of lung Is this a current diagnosis for this admission?: Yes (4) DM type 2 (diabetes mellitus, type 2) Qualifiers: Diabetes mellitus complication status: with unspecified complications Diabetes mellitus long-term insulin use: unspecified long-term insulin use status Qualified Code(s): E11.8 - Type 2 diabetes mellitus with unspecified complications Is this a current diagnosis for this admission?: Yes (5) ETOH withdrawal Is this a current diagnosis for this admission?: Yes (6) Respiratory failure Qualifiers: Chronicity: acute Respiratory failure complication: hypercapnia Qualified Code(s): J96.02 - Acute respiratory failure with hypercapnia Is this a current diagnosis for this admission?: Yes - Notes Notes: Patient remains intubated and sedated but in stable cardiac status. At this point continue to maintain respiratory status. Cardiac harris he seems stable and maintaining a stable rhythm and blood pressure. This seems to be adequate peripheral perfusion. Will continue to follow patient. Please call if there are any further changes in cardiac status. Beta-blockers/and or clonidine are good for preventing withdrawal from alcohol. - Time Time with patient: 15-25 minutes - More than 50% of the time spent coordinating care, discussing management plans with involved caregivers. Management plans discussed with involved personnels. Medical decision making was of moderate to high complexity, patient's has multiple comorbidities. Medications reviewed and adjusted accordingly: Yes
[2017-05-14] MEDS: CEFTRIAXONE 1 GM/D5W RTU 1 GM/50 ML RTUPB IV SCH (17:11)
[2017-05-15] MEDS: IPRATROPIUM/ALBUTEROL 0.5-2.5 MG/3 ML AMPUL NEB SCH ×4 (02:24→19:43)
[2017-05-15] MEDS: PROPOFOL 100 ML IV PRN ×8 (03:03→21:53)
[2017-05-15 04:02] LABS: ABSOLUTE LYMPHOCYTES (AUTO) 0.8 10^3/uL (0.5-4.7); ABSOLUTE MONOCYTES (AUTO) 0.5 10^3/uL (0.1-1.4); ABSOLUTE NEUT (AUTO) 10.3 10^3/uL (1.7-8.2); BASOPHILS % (AUTO) 0.2 % (0-2); EOSINOPHILS % (AUTO) 0.1 % (0-6); HEMATOCRIT 35.5 % (37.9-51.0); HEMOGLOBIN 11.8 g/dL (13.5-17.0); HGB HCT DIFFERENCE -0.1; LYMPHOCYTES % (AUTO) 6.9 % (13-45); MEAN CORPUSCULAR HEMOGLOBIN 29.2 pg (27.0-33.4); MEAN CORPUSCULAR HGB CONC 33.4 g/dL (32.0-36.0); MEAN CORPUSCULAR VOLUME 88 fl (80-97); MONOCYTES % (AUTO) 4.1 % (3-13); RED BLOOD COUNT 4.06 10^6/uL (4.35-5.55); RED CELL DISTRIBUTION WIDTH 13.5 % (11.5-14.0); SEGMENTED NEUTROPHILS % (AUTO) 88.7 % (42-78); WHITE BLOOD COUNT 11.6 10^3/uL (4.0-10.5)
[2017-05-15 04:02] LABS: ARTERIAL BLOOD BASE EXCESS -0.9 mmol/L; ARTERIAL BLOOD O2 SATURATION 97.6 % (94-98)
[2017-05-15 04:29] LABS: ALANINE AMINOTRANSFERASE 100 U/L (21-72); ALKALINE PHOSPHATASE 104 U/L (38-126); ANION GAP 11 (5-19); ASPARTATE AMINO TRANSFERASE 40 U/L (17-59); BILIRUBIN,DIRECT 0.3 mg/dL (0.0-0.4); BILIRUBIN,TOTAL 0.4 mg/dL (0.2-1.3); BLOOD UREA NITROGEN 24 mg/dL (7-20); CALCIUM 9.4 mg/dL (8.4-10.2); CARBON DIOXIDE 23 mmol/L (22-30); CHLORIDE 104 mmol/L (98-107); CREATININE RESULT 0.61 mg/dL (0.52-1.25); GLUCOSE 258 mg/dL (75-110); MAGNESIUM 2.1 mg/dL (1.6-2.3); POTASSIUM 5.2 mmol/L (3.6-5.0); SODIUM 138.1 mmol/L (137-145); TOTAL PROTEIN 5.6 g/dL (6.3-8.2)
[2017-05-15] MEDS: NORMAL SALINE 1000 ML 1,000 ML IV PRN (05:11)
[2017-05-15] MEDS: METHYLPREDNISOLONE INJ 40 MG/1 ML SDV IV SCH ×3 (05:11→21:53)
[2017-05-15] MEDS: LANSOPRAZOLE 30 MG TAB.RAP.DR NG SCH (05:11)
[2017-05-15] MEDS: MIDAZOLAM HCL 100 ML IV PRN ×4 (05:11→21:53)
[2017-05-15] MEDS: INSULIN REG, HUMAN 100 UNIT/ML 3 ML VIAL (PYX) SUBCUT PRN ×3 (06:30→18:46)
--- NOTE | 2017-05-15 08:18 | RADIOLOGY REPORT (SQ) ---
EXAM DESCRIPTION: CHEST SINGLE VIEW COMPLETED DATE/TIME: 05/15/2017 6:29 am REASON FOR STUDY: pna COMPARISON: 05/14/2017. FINDINGS: Single-view chest AP portable upright 0621 hours. Nasogastric and endotracheal tubes remain in place. Unchanged density left base. Slightly progressive subsegmental volume loss right base. Low lung vol umes generally. No evidence of pneumothorax. IMPRESSION: Appropriate lines and tubes. Slight worsening basilar aeration on the right. Dejah waldron TECHNICAL DOCUMENTATION: JOB ID: [id number]
[2017-05-15] MEDS: FOLIC ACID 1 MG TABLET NG SCH (10:32)
[2017-05-15] MEDS: MULTIVITAMIN TABLET PO SCH (10:32)
[2017-05-15] MEDS: THIAMINE HCL 100 MG TABLET NG SCH (10:32)
[2017-05-15] MEDS: MUPIROCIN 2% OINTMENT 22 GM TP SCH ×2 (10:42→17:47)
[2017-05-15] MEDS: HEPARIN SOD (PORCINE) 5,000 UNIT/ML 1 ML SYRINGE SUBCUT SCH ×2 (10:43→17:47)
--- NOTE | 2017-05-15 11:59 | PDOC PROGRESS REPORT ---
Subjective Progress Note for:: 05/15/17 Subjective:: The patient is currently in the intensive care unit intubated. He was intubated on 05/11/17 for hypercarbic respiratory failure. The patient has a history of alcohol abuse and his present course has been complicated by delirium tremens. The patient was initially transferred to the ICU because of the possibility of ventricular tachycardia. This is now felt to be artifact, but, cardiology is following. Pulmonary, critical care is following. Apparently, the patient quickly desaturated during his weaning trial yesterday. Overnight, the patient had an episode of bradycardia. This was associated with the patient being unresponsive. However, he was on sedation at the time. The nurses just reported that his level of sedation was deeper than typical. This resolved on its own. Physical Exam Vital Signs: Temp Pulse Resp BP Pulse Ox 99.8 F 84 11 L 157/89 H 95 05/15/17 09:50 05/15/17 09:50 05/15/17 10:53 05/15/17 10:53 05/15/17 11:47 Intake & Output 05/14/17 05/15/17 05/16/17 06:59 06:59 06:59 Intake Total 4256 4201 Output Total 2775 3250 600 Balance 1481 951 -600 Weight 129.8 kg 130.8 kg Additional comments: The patient is a morbidly obese white male. He appears to be very comfortable. He was sedated this morning. He tries to open his eyes to commands but was not following commands this morning. His facial appearance is normal with the exception of the presence of the endotracheal tube. His lungs are noted to be clear both anteriorly and in the mid axillary lines bilaterally. His cardiac exam demonstrates a regular rate and rhythm. Does not have any murmurs, gallops or rubs. The abdomen is obese. Bowel sounds are noted. He does not have guarding or rebound and he does not have any hernias or masses present. The lower extremities demonstrate trace but symmetrical pedal edema. The skin is otherwise warm, dry and intact without lesions or rashes. Results Laboratory Results: 05/15/17 03:52 05/15/17 03:52 05/15/17 05/15/17 05/15/17 03:50 03:52 03:52 WBC 11.6 H RBC 4.06 L Hgb 11.8 L Hct 35.5 L MCV 88 MCH 29.2 MCHC 33.4 RDW 13.5 Plt Count 389 Seg Neutrophils % 88.7 H Lymphocytes % 6.9 L Monocytes % 4.1 Eosinophils % 0.1 Basophils % 0.2 Absolute Neutrophils 10.3 H Absolute Lymphocytes 0.8 Absolute Monocytes 0.5 Absolute Eosinophils 0.0 Absolute Basophils 0.0 Carbonic Acid 1.09 HCO3/H2CO3 Ratio 21:1 ABG pH 7.42 ABG pCO2 36.1 ABG pO2 98.7 ABG HCO3 23.1 ABG O2 Saturation 97.6 ABG Base Excess -0.9 FiO2 40% Sodium 138.1 Potassium 5.2 H Chloride 104 Carbon Dioxide 23 Anion Gap 11 BUN 24 H Creatinine 0.61 Est GFR ( Amer) > 60 Est GFR (Non-Af Amer) > 60 Glucose 258 H Calcium 9.4 Magnesium 2.1 Total Bilirubin 0.4 AST 40 ALT 100 H Alkaline Phosphatase 104 Total Protein 5.6 L Albumin 3.0 L 05/10/17 17:50 Eye - Not Specified Gram Stain - Final 05/10/17 17:50 Eye - Not Specified Eye Culture - Final Staphylococcus Aureus Skin Roxanne 05/10/17 17:50 Eye - Drainage Gram Stain - Final 05/10/17 17:50 Eye - Drainage Eye Culture - Final Staphylococcus Aureus Skin Roxanne 05/11/17 18:35 Tracheal Aspirate Gram Stain - Final 05/11/17 18:35 Tracheal Aspirate Sputum Culture - Final Staphylococcus Aureus Group C Beta Streptococcus Normal Roxanne 05/07/17 05/07/17 05/07/17 17:25 17:25 23:36 Creatine Kinase 1142 H 928 H CK-MB (CK-2) Troponin I 0.114 05/07/17 05/08/17 05/08/17 23:36 05:49 05:49 Creatine Kinase 873 H CK-MB (CK-2) Troponin I 0.092 0.062 05/09/17 05/10/17 05/10/17 07:35 17:12 17:12 Creatine Kinase 2165 H 524 H CK-MB (CK-2) 0.82 Troponin I 0.053 05/11/17 05/11/17 05/12/17 04:03 18:17 00:19 Creatine Kinase 325 H CK-MB (CK-2) Troponin I 0.014 0.036 Impressions: Renal Ultrasound 05/07/17 00:00 IMPRESSION: NORMAL RENAL ULTRASOUND. Head CT 05/07/17 14:08 IMPRESSION: Very limited negative study EVIDENCE OF ACUTE STROKE: NO. Chest/Abdomen CTA 05/10/17 13:03 IMPRESSION: Mild pulmonary arterial hypertension pattern. Otherwise, no acute cardiopulmonary findings. No pulmonary emboli. Chest X-Ray 05/15/17 06:00 IMPRESSION: Appropriate lines and tubes. Slight worsening basilar aeration on the right. Was stable. Assessment & Plan - Diagnosis (1) Acute renal failure Is this a current diagnosis for this admission?: Yes Plan: This appears to be resolved. However, potassium is in the high normal range. He is not receiving supplemental potassium. I will follow and change tube feeding if needed. No treatment is needed at this time as the level is only minimally elevated. (2) Aspiration pneumonia Qualifiers: Laterality: unspecified laterality Lung location: unspecified part of lung Is this a current diagnosis for this admission?: Yes Plan: Antibiotics were changed yesterday to ceftriaxone as the patient is growing a sensitive staph aureus species and a sensitive group C streptococcus species. Patient failed his weaning trial yesterday. The plan will be to reattempt a weaning trial today. (3) DM type 2 (diabetes mellitus, type 2) Qualifiers: Diabetes mellitus complication status: with unspecified complications Diabetes mellitus usp insulin use: unspecified usp insulin use status Qualified Code(s): E11.8 - Type 2 diabetes mellitus with unspecified complications Is this a current diagnosis for this admission?: Yes Plan: Will follow. Currently, patient is receiving sliding scale. Sugars were a little bit higher today than yesterday. This could be tube feeds. I did decrease the dose of methylprednisolone which should help. (4) ETOH withdrawal Is this a current diagnosis for this admission?: Yes Plan: Patient is receiving benzodiazepines and drip form. (5) EtOH dependence Qualifiers: Substance use status: in withdrawal Is this a current diagnosis for this admission?: Yes Plan: Patient is on thiamine. (6) Morbid obesity Is this a current diagnosis for this admission?: Yes Plan: Calorie restriction is not appropriate at this time. (7) Respiratory failure Qualifiers: Chronicity: acute Respiratory failure complication: hypercapnia Qualified Code(s): J96.02 - Acute respiratory failure with hypercapnia Is this a current diagnosis for this admission?: Yes Plan: Continue attempts at weaning. (8) Rhabdomyolysis Is this a current diagnosis for this admission?: Yes Plan: Resolving.
--- NOTE | 2017-05-15 12:06 | PDOC PROGRESS REPORT ---
Subjective Progress Note for:: 05/15/17 - resp failure/pna/unable to protect airway Subjective:: Intubated and sedated Physical Exam Vital Signs: Temp Pulse Resp BP Pulse Ox 98.3 F 58 L 18 143/81 H 94 05/15/17 08:00 05/15/17 08:31 05/15/17 08:31 05/15/17 08:00 05/15/17 08:31 Intake & Output 05/14/17 05/15/17 05/16/17 06:59 06:59 06:59 Intake Total 4256 4201 Output Total 2775 3250 250 Balance 1481 951 -250 Weight 129.8 kg 130.8 kg General appearance: PRESENT: no acute distress, disheveled, morbidly obese, well -developed. ABSENT: cooperative, mild distress, obese, severe distress, thin Head exam: PRESENT: atraumatic, normocephalic Eye exam: PRESENT: conjunctiva pale. ABSENT: conjunctival injection, conjunctiva pink, periorbital swelling, scleral icterus Mouth exam: PRESENT: dry mucosa, neck supple, tongue midline, other - ET tube in place Neck exam: ABSENT: carotid bruit, JVD, lymphadenopathy, thyromegaly Respiratory exam: PRESENT: decreased breath sounds, prolonged expiratory phas, rhonchi, symmetrical, unlabored, wheezes. ABSENT: accessory muscle use, chest wall tenderness, clear to auscultation savita, crackles, rales, retraction, stridor , tachypnea Cardiovascular exam: PRESENT: RRR, +S1, +S2. ABSENT: clicks, gallop, irregular rhythm, rubs Pulses: PRESENT: normal radial pulses GI/Abdominal exam: PRESENT: normal bowel sounds, soft. ABSENT: distended, guarding, mass, organolmegaly, rebound, tenderness Gentrourinary exam: PRESENT: indwelling catheter Extremities exam: ABSENT: clubbing, joint swelling, pedal edema, +1 edema, +2 edema Musculoskeletal exam: ABSENT: ambulatory, deformity, dislocation Neurological exam: PRESENT: altered. ABSENT: alert, awake Skin exam: PRESENT: dry, warm Results Laboratory Results: 05/15/17 03:52 05/15/17 03:52 05/15/17 05/15/17 05/15/17 03:50 03:52 03:52 WBC 11.6 H RBC 4.06 L Hgb 11.8 L Hct 35.5 L MCV 88 MCH 29.2 MCHC 33.4 RDW 13.5 Plt Count 389 Seg Neutrophils % 88.7 H Lymphocytes % 6.9 L Monocytes % 4.1 Eosinophils % 0.1 Basophils % 0.2 Absolute Neutrophils 10.3 H Absolute Lymphocytes 0.8 Absolute Monocytes 0.5 Absolute Eosinophils 0.0 Absolute Basophils 0.0 Carbonic Acid 1.09 HCO3/H2CO3 Ratio 21:1 ABG pH 7.42 ABG pCO2 36.1 ABG pO2 98.7 ABG HCO3 23.1 ABG O2 Saturation 97.6 ABG Base Excess -0.9 FiO2 40% Sodium 138.1 Potassium 5.2 H Chloride 104 Carbon Dioxide 23 Anion Gap 11 BUN 24 H Creatinine 0.61 Est GFR ( Amer) > 60 Est GFR (Non-Af Amer) > 60 Glucose 258 H Calcium 9.4 Magnesium 2.1 Total Bilirubin 0.4 AST 40 ALT 100 H Alkaline Phosphatase 104 Total Protein 5.6 L Albumin 3.0 L 05/10/17 17:50 Eye - Not Specified Gram Stain - Final 05/10/17 17:50 Eye - Not Specified Eye Culture - Final Staphylococcus Aureus Skin Roxanne 05/10/17 17:50 Eye - Drainage Gram Stain - Final 05/10/17 17:50 Eye - Drainage Eye Culture - Final Staphylococcus Aureus Skin Roxanne 05/11/17 18:35 Tracheal Aspirate Gram Stain - Final 05/11/17 18:35 Tracheal Aspirate Sputum Culture - Final Staphylococcus Aureus Group C Beta Streptococcus Normal Roxanne 05/07/17 05/07/17 05/07/17 17:25 17:25 23:36 Creatine Kinase 1142 H 928 H CK-MB (CK-2) Troponin I 0.114 05/07/17 05/08/17 05/08/17 23:36 05:49 05:49 Creatine Kinase 873 H CK-MB (CK-2) Troponin I 0.092 0.062 05/09/17 05/10/17 05/10/17 07:35 17:12 17:12 Creatine Kinase 2165 H 524 H CK-MB (CK-2) 0.82 Troponin I 0.053 05/11/17 05/11/17 05/12/17 04:03 18:17 00:19 Creatine Kinase 325 H CK-MB (CK-2) Troponin I 0.014 0.036 Impressions: Renal Ultrasound 05/07/17 00:00 IMPRESSION: NORMAL RENAL ULTRASOUND. Head CT 05/07/17 14:08 IMPRESSION: Very limited negative study EVIDENCE OF ACUTE STROKE: NO. Chest/Abdomen CTA 05/10/17 13:03 IMPRESSION: Mild pulmonary arterial hypertension pattern. Otherwise, no acute cardiopulmonary findings. No pulmonary emboli. Chest X-Ray 05/15/17 06:00 IMPRESSION: Appropriate lines and tubes. Slight worsening basilar aeration on the right. Was stable. Assessment & Plan - Diagnosis (1) Respiratory failure Qualifiers: Chronicity: acute Respiratory failure complication: hypercapnia Qualified Code(s): J96.02 - Acute respiratory failure with hypercapnia Is this a current diagnosis for this admission?: Yes Plan: Oxygenation and ventilation improved (2) Aspiration pneumonia Qualifiers: Laterality: unspecified laterality Lung location: unspecified part of lung Is this a current diagnosis for this admission?: Yes Plan: Labs- All tests 24 hr 05/07/17 05/08/17 05/10/17 13:20 05:49 06:45 WBC 14.9 H 10.3 9.0 ABG pH ABG pCO2 ABG pO2 FiO2 05/11/17 05/11/17 05/12/17 04:03 18:56 05:39 WBC 10.8 H 12.8 H 10.0 ABG pH ABG pCO2 ABG pO2 FiO2 05/13/17 05/13/17 05/14/17 04:10 04:35 04:04 WBC 14.1 H 14.9 H ABG pH 7.48 H ABG pCO2 38.8 ABG pO2 85.6 FiO2 50% 05/14/17 04:50 WBC ABG pH 7.41 ABG pCO2 40.0 ABG pO2 94.7 FiO2 40% 05/11/17 18:35 Gram Stain - Final Tracheal Aspirate Sputum Culture - Final Staphylococcus Aureus Group C Beta Streptococcus Normal Roxanne 05/10/17 17:50 Gram Stain - Preliminary Eye - Not Specified Eye Culture - Preliminary Staphylococcus Aureus Skin Roxanne 05/10/17 17:50 Gram Stain - Final Eye - Not Specified Eye Culture - Final Staphylococcus Aureus Skin Roxanne 05/10/17 17:50 Gram Stain - Preliminary Eye - Drainage Eye Culture - Preliminary Staphylococcus Aureus Skin Roxanne 05/10/17 17:50 Gram Stain - Final Eye - Drainage Eye Culture - Final Staphylococcus Aureus Skin Roxanne (3) Delirium Is this a current diagnosis for this admission?: Yes Plan: Dramatically failed attempts at sedation vacation (4) ETOH withdrawal Is this a current diagnosis for this admission?: Yes Plan: Benzodiazepines (5) Morbid obesity Is this a current diagnosis for this admission?: Yes Plan: consider DALILA or obesity hypoventilation,Nutritional consult - Time Time Spent with patient: 40 minutes ICU
--- NOTE | 2017-05-15 14:09 | EKG REPORT ---
SEVERITY:- ABNORMAL ECG - SINUS RHYTHM ABNORMAL T, CONSIDER ISCHEMIA, ANTERIOR LEADS : Confirmed by: Amaris Vick MD 15-May-2017 14:08:59
--- NOTE | 2017-05-15 17:02 | PDOC PROGRESS REPORT ---
Subjective Progress Note for:: 05/15/17 Subjective:: Patient seen in the morning. Telemetry strips were reviewed. Patient remains intubated and sedated. Telemetry strips shows no significant arrhythmias. Patient remains in sinus rhythm. No significant change in patient's condition since yesterday. Physical Exam Vital Signs: Temp Pulse Resp BP Pulse Ox 99.3 F 74 18 129/75 H 94 05/15/17 15:57 05/15/17 15:57 05/15/17 15:57 05/15/17 15:57 05/15/17 16:19 Intake & Output 05/14/17 05/15/17 05/16/17 06:59 06:59 06:59 Intake Total 4256 4201 Output Total 2775 3250 1515 Balance 1481 951 -1515 Weight 129.8 kg 130.8 kg Exam: GENERAL: well-nourished and in no acute distress. Patient is intubated and sedated. Orientation cannot be checked HEAD: Atraumatic, normocephalic. EYES: Pupils equal round and reactive to light, extraocular movements could not be checked, sclera anicteric, conjunctiva are normal. ENT: TMs normal, nares patent, oropharynx clear without exudates. Moist mucous membranes. No oral ulcerations or bleeding gums noted NECK: supple without lymphadenopathy or JVD. Trachea is central. No cervical or axillary lymphadenopathy noted. Carotids are 2+ LUNGS: Breath sounds mostly clear to auscultation patient is noted to have bibasal crackles at the extreme bases CHEST: Palpation of the chest wall shows no significant chest wall tenderness or abnormalities. 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 ABDOMEN: Soft, no significant tenderness appreciated, normoactive bowel sounds. No guarding, no rebound. No rigidity noted . No masses appreciated. EXTREMITIES: Pedal pulses are 1-2+, no calf tenderness noted, 1+ pedal edema noted. No clubbing or cyanosis. NEUROLOGICAL: The patient cannot participate in the neurological exam but no facial asymmetry noted. Extremities slightly hypotonic PSYCH: This cannot be evaluated. Patient cannot participate. SKIN: No significant ecchymosis, rash, or signs of pruritus noted. MUSCULOSKELETAL EXAM: No significant joint swelling noted. Patient cannot participate in musculoskeletal exam Results Laboratory Results: 05/15/17 03:52 05/15/17 03:52 05/15/17 05/15/17 05/15/17 03:50 03:52 03:52 WBC 11.6 H RBC 4.06 L Hgb 11.8 L Hct 35.5 L MCV 88 MCH 29.2 MCHC 33.4 RDW 13.5 Plt Count 389 Seg Neutrophils % 88.7 H Lymphocytes % 6.9 L Monocytes % 4.1 Eosinophils % 0.1 Basophils % 0.2 Absolute Neutrophils 10.3 H Absolute Lymphocytes 0.8 Absolute Monocytes 0.5 Absolute Eosinophils 0.0 Absolute Basophils 0.0 Carbonic Acid 1.09 HCO3/H2CO3 Ratio 21:1 ABG pH 7.42 ABG pCO2 36.1 ABG pO2 98.7 ABG HCO3 23.1 ABG O2 Saturation 97.6 ABG Base Excess -0.9 FiO2 40% Sodium 138.1 Potassium 5.2 H Chloride 104 Carbon Dioxide 23 Anion Gap 11 BUN 24 H Creatinine 0.61 Est GFR ( Amer) > 60 Est GFR (Non-Af Amer) > 60 Glucose 258 H Calcium 9.4 Magnesium 2.1 Total Bilirubin 0.4 AST 40 ALT 100 H Alkaline Phosphatase 104 Total Protein 5.6 L Albumin 3.0 L 05/07/17 05/07/17 05/07/17 17:25 17:25 23:36 Creatine Kinase 1142 H 928 H CK-MB (CK-2) Troponin I 0.114 05/07/17 05/08/17 05/08/17 23:36 05:49 05:49 Creatine Kinase 873 H CK-MB (CK-2) Troponin I 0.092 0.062 05/09/17 05/10/17 05/10/17 07:35 17:12 17:12 Creatine Kinase 2165 H 524 H CK-MB (CK-2) 0.82 Troponin I 0.053 05/11/17 05/11/17 05/12/17 04:03 18:17 00:19 Creatine Kinase 325 H CK-MB (CK-2) Troponin I 0.014 0.036 EKG Comments: Telemetry strips shows sinus rhythm without any sustained tachycardia or bradycardia arrhythmias. Impressions: Renal Ultrasound 05/07/17 00:00 IMPRESSION: NORMAL RENAL ULTRASOUND. Head CT 05/07/17 14:08 IMPRESSION: Very limited negative study EVIDENCE OF ACUTE STROKE: NO. Chest/Abdomen CTA 05/10/17 13:03 IMPRESSION: Mild pulmonary arterial hypertension pattern. Otherwise, no acute cardiopulmonary findings. No pulmonary emboli. Chest X-Ray 05/15/17 06:00 IMPRESSION: Appropriate lines and tubes. Slight worsening basilar aeration on the right. Was stable. Assessment & Plan - Diagnosis (1) Cardiac dysrhythmia Qualifiers: Arrhythmia type: unspecified cardiac arrhythmia Qualified Code(s): I49.9 - Cardiac arrhythmia, unspecified Is this a current diagnosis for this admission?: Yes (2) Morbid obesity Is this a current diagnosis for this admission?: Yes (3) Aspiration pneumonia Qualifiers: Laterality: unspecified laterality Lung location: unspecified part of lung Is this a current diagnosis for this admission?: Yes (4) DM type 2 (diabetes mellitus, type 2) Qualifiers: Diabetes mellitus complication status: with unspecified complications Diabetes mellitus fci insulin use: unspecified fci insulin use status Qualified Code(s): E11.8 - Type 2 diabetes mellitus with unspecified complications Is this a current diagnosis for this admission?: Yes (5) ETOH withdrawal Is this a current diagnosis for this admission?: Yes (6) Respiratory failure Qualifiers: Chronicity: acute Respiratory failure complication: hypercapnia Qualified Code(s): J96.02 - Acute respiratory failure with hypercapnia Is this a current diagnosis for this admission?: Yes - Notes Notes: atient remains intubated and sedated but in stable cardiac status. At this point continue to maintain respiratory status. Cardiac harris he seems stable and maintaining a stable rhythm and blood pressure. This seems to be adequate peripheral perfusion. Will continue to follow patient. Please call if there are any further changes in cardiac status. So far patient has remained stable from cardiac standpoint. Agree with management plans by the hospitalist and pc support specialist.. - Time Time with patient: 15-25 minutes - More than 50% of the time spent coordinating care, discussing management plans with involved caregivers. Management plans discussed with involved personnels. Medical decision making was of moderate to high complexity, patient's has multiple comorbidities. Medications reviewed and adjusted accordingly: Yes
[2017-05-15] MEDS: CEFTRIAXONE 1 GM/D5W RTU 1 GM/50 ML RTUPB IV SCH (17:48)
[2017-05-16] MEDS: PROPOFOL 100 ML IV PRN ×8 (00:35→21:54)
[2017-05-16] MEDS: INSULIN REG, HUMAN 100 UNIT/ML 3 ML VIAL (PYX) SUBCUT PRN ×4 (01:06→17:21)
[2017-05-16] MEDS: HEPARIN SOD (PORCINE) 5,000 UNIT/ML 1 ML SYRINGE SUBCUT SCH ×3 (01:06→17:20)
[2017-05-16] MEDS: IPRATROPIUM/ALBUTEROL 0.5-2.5 MG/3 ML AMPUL NEB SCH ×4 (01:14→19:37)
[2017-05-16 04:10] LABS: ABSOLUTE LYMPHOCYTES (AUTO) 0.8 10^3/uL (0.5-4.7); ABSOLUTE MONOCYTES (AUTO) 0.5 10^3/uL (0.1-1.4); ABSOLUTE NEUT (AUTO) 8.3 10^3/uL (1.7-8.2); HEMATOCRIT 36.6 % (37.9-51.0); HEMOGLOBIN 12.6 g/dL (13.5-17.0); HGB HCT DIFFERENCE 1.2; LYMPHOCYTES % (AUTO) 8.6 % (13-45); MEAN CORPUSCULAR HEMOGLOBIN 29.7 pg (27.0-33.4); MEAN CORPUSCULAR HGB CONC 34.4 g/dL (32.0-36.0); MEAN CORPUSCULAR VOLUME 86 fl (80-97); MONOCYTES % (AUTO) 5.2 % (3-13); RED BLOOD COUNT 4.24 10^6/uL (4.35-5.55); RED CELL DISTRIBUTION WIDTH 13.6 % (11.5-14.0); SEGMENTED NEUTROPHILS % (AUTO) 86.2 % (42-78); WHITE BLOOD COUNT 9.7 10^3/uL (4.0-10.5)
[2017-05-16] MEDS: MIDAZOLAM HCL 100 ML IV PRN ×4 (04:20→21:46)
[2017-05-16] MEDS: MORPHINE SULFATE 10 MG/ML INJ IV PRN ×2 (04:20→13:09)
[2017-05-16 04:48] LABS: ALANINE AMINOTRANSFERASE 92 U/L (21-72); ALBUMIN 3.1 g/dL (3.5-5.0); ALKALINE PHOSPHATASE 103 U/L (38-126); ANION GAP 8 (5-19); ASPARTATE AMINO TRANSFERASE 33 U/L (17-59); BILIRUBIN,DIRECT 0.3 mg/dL (0.0-0.4); BILIRUBIN,TOTAL 0.4 mg/dL (0.2-1.3); BLOOD UREA NITROGEN 25 mg/dL (7-20); CALCIUM 9.2 mg/dL (8.4-10.2); CARBON DIOXIDE 27 mmol/L (22-30); CHLORIDE 101 mmol/L (98-107); CREATININE RESULT 0.63 mg/dL (0.52-1.25); GLUCOSE 263 mg/dL (75-110); SODIUM 136.3 mmol/L (137-145); TOTAL PROTEIN 5.6 g/dL (6.3-8.2)
[2017-05-16 04:49] LABS: POTASSIUM 5.3 mmol/L (3.6-5.0)
[2017-05-16] MEDS: LANSOPRAZOLE 30 MG TAB.RAP.DR NG SCH (05:47)
[2017-05-16 06:05] LABS: ARTERIAL BLOOD BASE EXCESS 0.1 mmol/L; ARTERIAL BLOOD O2 SATURATION 98.1 % (94-98)
--- NOTE | 2017-05-16 08:02 | RADIOLOGY REPORT (SQ) ---
EXAM DESCRIPTION: CHEST SINGLE VIEW COMPLETED DATE/TIME: 05/16/2017 7:49 am REASON FOR STUDY: pna COMPARISON: 05/15/2017. EXAM PARAMETERS: NUMBER OF VIEWS: One view. TECHNIQUE: Single frontal radiographic view of the chest acquired. RADIATION DOSE: NA LIMITATIONS: None. FINDINGS: LUNGS AND PLEURA: Small-moderate opacity-layered effusion of bilateral lung bases. Modera te lung aeration. MEDIASTINUM AND HILAR STRUCTURES: No masses. Contour normal. HEART AND VASCULAR STRUCTURES: Heart normal in size. Normal vasculature. BONES: No acute findings. HARDWARE: Adequate appearing endotracheal tube and likely adequate NG tube obscured distally. OTHER: No other significant finding. IMPRESSION: No significant interval change. TECHNICAL DOCUMENTATION: JOB ID: [id number] [employer]- All Rights Reserved
[2017-05-16] MEDS: METHYLPREDNISOLONE INJ 40 MG/1 ML SDV IV SCH ×2 (09:17→21:55)
[2017-05-16] MEDS: THIAMINE HCL 100 MG TABLET NG SCH (09:17)
[2017-05-16] MEDS: MUPIROCIN 2% OINTMENT 22 GM TP SCH ×2 (09:18→17:27)
[2017-05-16] MEDS: MULTIVITAMIN TABLET PO SCH (09:18)
[2017-05-16] MEDS: FOLIC ACID 1 MG TABLET NG SCH (09:18)
--- NOTE | 2017-05-16 15:03 | PDOC PROGRESS REPORT ---
Subjective Progress Note for:: 05/16/17 Subjective:: The patient is currently in the intensive care unit intubated. He was intubated on 05/11/17 for hypercarbic respiratory failure. The patient has a history of alcohol abuse and his present course has been complicated by delirium tremens. The patient was initially transferred to the ICU because of the possibility of ventricular tachycardia. This is now felt to be artifact, but, cardiology is following. Pulmonary, critical care is following. On 2016 the patient had an episode of bradycardia. This occurred at night. The patient did not drop his blood pressure. This has not recurred. The patient is undergoing weaning trials on a daily basis. He does become quite tachypneic and distressed during weaning trials but maintains his saturations. He has shown progressive improvement. The plan may be to attempt extubation tomorrow morning. Physical Exam Vital Signs: Temp Pulse Resp BP Pulse Ox 98.8 F 63 18 149/89 H 93 05/16/17 12:00 05/16/17 14:02 05/16/17 14:02 05/16/17 10:10 05/16/17 14:02 Intake & Output 05/15/17 05/16/17 05/17/17 06:59 06:59 06:59 Intake Total 4201 1725 100 Output Total 3250 3640 1050 Balance 951 -1685 -950 Weight 130.8 kg 129.7 kg Additional comments: The patient is an obese white male. He is currently intubated and sedated. He wakes up fairly easily when sedation is held. His facial appearance is unremarkable with the exception of placement of the endotracheal tube. His lungs are clear both anteriorly and in the mid axillary lines. His cardiac exam is regular without murmurs, gallops or rubs. The abdomen is obese but soft. Bowel sounds are present. He does not have any guarding or rebound present and there are no hernias or masses present. The lower extremities are unremarkable. The feet are warm. There is no pitting edema. The skin is warm , dry and intact without lesions or rashes. Results Laboratory Results: 05/16/17 03:53 05/16/17 03:53 05/16/17 05/16/17 05/16/17 03:53 03:53 05:38 WBC 9.7 RBC 4.24 L Hgb 12.6 L Hct 36.6 L MCV 86 MCH 29.7 MCHC 34.4 RDW 13.6 Plt Count 378 Seg Neutrophils % 86.2 H Lymphocytes % 8.6 L Monocytes % 5.2 Eosinophils % 0.0 Basophils % 0.0 Absolute Neutrophils 8.3 H Absolute Lymphocytes 0.8 Absolute Monocytes 0.5 Absolute Eosinophils 0.0 Absolute Basophils 0.0 Carbonic Acid 1.12 HCO3/H2CO3 Ratio 21:1 ABG pH 7.43 ABG pCO2 37.1 ABG pO2 107.1 H ABG HCO3 24.1 ABG O2 Saturation 98.1 H ABG Base Excess 0.1 FiO2 40% Sodium 136.3 L Potassium 5.3 H Chloride 101 Carbon Dioxide 27 Anion Gap 8 BUN 25 H Creatinine 0.63 Est GFR ( Amer) > 60 Est GFR (Non-Af Amer) > 60 Glucose 263 H Calcium 9.2 Magnesium 2.0 Total Bilirubin 0.4 AST 33 ALT 92 H Alkaline Phosphatase 103 Total Protein 5.6 L Albumin 3.1 L 05/07/17 05/07/17 05/07/17 17:25 17:25 23:36 Creatine Kinase 1142 H 928 H CK-MB (CK-2) Troponin I 0.114 05/07/17 05/08/17 05/08/17 23:36 05:49 05:49 Creatine Kinase 873 H CK-MB (CK-2) Troponin I 0.092 0.062 05/09/17 05/10/17 05/10/17 07:35 17:12 17:12 Creatine Kinase 2165 H 524 H CK-MB (CK-2) 0.82 Troponin I 0.053 05/11/17 05/11/17 05/12/17 04:03 18:17 00:19 Creatine Kinase 325 H CK-MB (CK-2) Troponin I 0.014 0.036 Impressions: Renal Ultrasound 05/07/17 00:00 IMPRESSION: NORMAL RENAL ULTRASOUND. Head CT 05/07/17 14:08 IMPRESSION: Very limited negative study EVIDENCE OF ACUTE STROKE: NO. Chest/Abdomen CTA 05/10/17 13:03 IMPRESSION: Mild pulmonary arterial hypertension pattern. Otherwise, no acute cardiopulmonary findings. No pulmonary emboli. Chest X-Ray 05/16/17 06:00 IMPRESSION: No significant interval change. Assessment & Plan - Diagnosis (1) Acute renal failure Is this a current diagnosis for this admission?: Yes Plan: This appears to be resolved. However, potassium is in the high normal range. He is not receiving supplemental potassium Septra for an tube feeds. I have stopped tube feeds. I will repeat a level later this afternoon. (2) Aspiration pneumonia Qualifiers: Laterality: unspecified laterality Lung location: unspecified part of lung Is this a current diagnosis for this admission?: Yes Plan: Antibiotics were changed 05/14/17 to ceftriaxone as the patient is growing a sensitive staph aureus species and a sensitive group C streptococcus species. The patient has been receiving weaning trials on a daily basis. He does not pass his breathing trials due to tachypnea, however, this could be associated with anxiety. The plan may be to attempt extubation tomorrow morning. Dr. Collier is following. (3) DM type 2 (diabetes mellitus, type 2) Qualifiers: Diabetes mellitus complication status: with unspecified complications Diabetes mellitus longterm insulin use: unspecified emt intermediate insulin use status Qualified Code(s): E11.8 - Type 2 diabetes mellitus with unspecified complications Is this a current diagnosis for this admission?: Yes Plan: Will follow. Currently, patient is receiving sliding scale. Sugars were in excellent range until tube feeds were started. They are slightly high again today. Due to the fact that I have stopped tube feeds I am not going to increase the dose of the sliding scale.. (4) ETOH withdrawal Is this a current diagnosis for this admission?: Yes Plan: Patient is receiving benzodiazepine drip. (5) EtOH dependence Qualifiers: Substance use status: in withdrawal Is this a current diagnosis for this admission?: Yes Plan: Patient is on thiamine. (6) Morbid obesity Is this a current diagnosis for this admission?: Yes Plan: Calorie restriction is not appropriate at this time. (7) Respiratory failure Qualifiers: Chronicity: acute Respiratory failure complication: unspecified whether with hypoxia or hypercapnia Qualified Code(s): J96.00 - Acute respiratory failure, unspecified whether with hypoxia or hypercapnia Is this a current diagnosis for this admission?: Yes Plan: Continue attempts at weaning. Dr. Collier of the pulmonary and critical care is following. He feels that the patient will be appropriate for extubation possibly tomorrow. (8) Rhabdomyolysis Is this a current diagnosis for this admission?: Yes Plan: Resolving. - Time Time Spent with patient: 25-34 minutes - Inpatient Certification Medical Necessity: Risk of Complication if Not Cared For in Hospital - Patient remains intubated in the intensive care unit.
--- NOTE | 2017-05-16 15:40 | PDOC PROGRESS REPORT ---
Subjective Progress Note for:: 05/16/17 - pna/unable to protect airway Subjective:: Intubated and sedated Physical Exam Vital Signs: Temp Pulse Resp BP Pulse Ox 99 F 69 8 L 149/89 H 95 05/16/17 08:00 05/16/17 08:12 05/16/17 10:10 05/16/17 10:10 05/16/17 10:10 Intake & Output 05/15/17 05/16/17 05/17/17 06:59 06:59 06:59 Intake Total 4201 1725 100 Output Total 3250 3640 600 Balance 771 -5848 -602 Weight 130.8 kg 129.7 kg General appearance: PRESENT: disheveled, obese, well-developed. ABSENT: no acute distress, cooperative, mild distress, morbidly obese, severe distress Head exam: PRESENT: atraumatic, normocephalic Eye exam: PRESENT: conjunctiva pale. ABSENT: conjunctival injection, conjunctiva pink, nystagmus, periorbital swelling, scleral icterus Mouth exam: PRESENT: dry mucosa, neck supple, tongue midline, other - ET tube. ABSENT: laceration, moist Neck exam: ABSENT: carotid bruit, JVD, lymphadenopathy, thyromegaly, tracheal deviation, tracheostomy Respiratory exam: PRESENT: decreased breath sounds, prolonged expiratory phas, rales, symmetrical, unlabored. ABSENT: accessory muscle use, chest wall tenderness, clear to auscultation savita, crackles, retraction, stridor, tachypnea Cardiovascular exam: PRESENT: RRR, +S1, +S2. ABSENT: clicks, gallop, irregular rhythm, rubs Pulses: PRESENT: normal radial pulses GI/Abdominal exam: PRESENT: normal bowel sounds, soft. ABSENT: distended, guarding, mass, organolmegaly, rebound, tenderness Gentrourinary exam: PRESENT: indwelling catheter Extremities exam: ABSENT: clubbing, full ROM, joint swelling, +1 edema, +2 edema Musculoskeletal exam: ABSENT: ambulatory, deformity, dislocation Skin exam: PRESENT: dry, warm Results Laboratory Results: 05/16/17 03:53 05/16/17 03:53 05/16/17 05/16/17 05/16/17 03:53 03:53 05:38 WBC 9.7 RBC 4.24 L Hgb 12.6 L Hct 36.6 L MCV 86 MCH 29.7 MCHC 34.4 RDW 13.6 Plt Count 378 Seg Neutrophils % 86.2 H Lymphocytes % 8.6 L Monocytes % 5.2 Eosinophils % 0.0 Basophils % 0.0 Absolute Neutrophils 8.3 H Absolute Lymphocytes 0.8 Absolute Monocytes 0.5 Absolute Eosinophils 0.0 Absolute Basophils 0.0 Carbonic Acid 1.12 HCO3/H2CO3 Ratio 21:1 ABG pH 7.43 ABG pCO2 37.1 ABG pO2 107.1 H ABG HCO3 24.1 ABG O2 Saturation 98.1 H ABG Base Excess 0.1 FiO2 40% Sodium 136.3 L Potassium 5.3 H Chloride 101 Carbon Dioxide 27 Anion Gap 8 BUN 25 H Creatinine 0.63 Est GFR ( Amer) > 60 Est GFR (Non-Af Amer) > 60 Glucose 263 H Calcium 9.2 Magnesium 2.0 Total Bilirubin 0.4 AST 33 ALT 92 H Alkaline Phosphatase 103 Total Protein 5.6 L Albumin 3.1 L 05/07/17 05/07/17 05/07/17 17:25 17:25 23:36 Creatine Kinase 1142 H 928 H CK-MB (CK-2) Troponin I 0.114 05/07/17 05/08/17 05/08/17 23:36 05:49 05:49 Creatine Kinase 873 H CK-MB (CK-2) Troponin I 0.092 0.062 05/09/17 05/10/17 05/10/17 07:35 17:12 17:12 Creatine Kinase 2165 H 524 H CK-MB (CK-2) 0.82 Troponin I 0.053 05/11/17 05/11/17 05/12/17 04:03 18:17 00:19 Creatine Kinase 325 H CK-MB (CK-2) Troponin I 0.014 0.036 Impressions: Renal Ultrasound 05/07/17 00:00 IMPRESSION: NORMAL RENAL ULTRASOUND. Head CT 05/07/17 14:08 IMPRESSION: Very limited negative study EVIDENCE OF ACUTE STROKE: NO. Chest/Abdomen CTA 05/10/17 13:03 IMPRESSION: Mild pulmonary arterial hypertension pattern. Otherwise, no acute cardiopulmonary findings. No pulmonary emboli. Chest X-Ray 05/16/17 06:00 IMPRESSION: No significant interval change. Assessment & Plan - Diagnosis (1) Respiratory failure Qualifiers: Chronicity: acute Respiratory failure complication: unspecified whether with hypoxia or hypercapnia Qualified Code(s): J96.00 - Acute respiratory failure, unspecified whether with hypoxia or hypercapnia Is this a current diagnosis for this admission?: Yes Plan: improving ventilation and oxygenation (2) Aspiration pneumonia Qualifiers: Laterality: unspecified laterality Lung location: unspecified part of lung Is this a current diagnosis for this admission?: Yes Plan: radiograph unchanged otherwise improved (3) Delirium Is this a current diagnosis for this admission?: Yes Plan: very agitated during sedation vacation (4) ETOH withdrawal Is this a current diagnosis for this admission?: Yes Plan: supplemental benzodiazapams (5) Morbid obesity Is this a current diagnosis for this admission?: Yes - Time Time Spent with patient: 40 min icu
[2017-05-16] MEDS: CEFTRIAXONE 1 GM/D5W RTU 1 GM/50 ML RTUPB IV SCH (17:26)
--- NOTE | 2017-05-16 20:27 | PDOC PROGRESS REPORT ---
Subjective Progress Note for:: 05/16/17 Subjective:: The patient is currently in the intensive care unit intubated. He was intubated on 05/11/17 for hypercarbic respiratory failure. The patient has a history of alcohol abuse and his present course has been complicated by delirium tremens. The patient was initially transferred to the ICU because of the possibility of ventricular tachycardia. This is now felt to be artifact, but, cardiology is following. Pulmonary, critical care is following. On 2016 the patient had an episode of bradycardia. This occurred at night. The patient did not drop his blood pressure. This has not recurred. The patient is undergoing weaning trials on a daily basis. He does become quite tachypneic and distressed during weaning trials but maintains his saturations. He has shown progressive improvement. The plan may be to attempt extubation tomorrow morning. This history was reviewed and agree with that. Patient chest x-ray reviewed and may have a small amount of bilateral pleural effusion but no evidence of pulmonary venous congestion. Physical Exam Vital Signs: Temp Pulse Resp BP Pulse Ox 98.8 F 63 18 150/86 H 95 05/16/17 15:50 05/16/17 14:02 05/16/17 18:11 05/16/17 18:11 05/16/17 18:11 Intake & Output 05/15/17 05/16/17 05/17/17 06:59 06:59 06:59 Intake Total 4201 1725 959 Output Total 3250 3640 1850 Balance 951 -1915 -891 Weight 130.8 kg 129.7 kg Exam: GENERAL: well-nourished and in no acute distress. Patient is intubated and sedated. Orientation cannot be checked HEAD: Atraumatic, normocephalic. EYES: Pupils equal round and reactive to light, extraocular movements could not be checked, sclera anicteric, conjunctiva are normal. ENT: TMs normal, nares patent, oropharynx clear without exudates. Moist mucous membranes. No oral ulcerations or bleeding gums noted NECK: supple without lymphadenopathy or JVD. Trachea is central. No cervical or axillary lymphadenopathy noted. Carotids are 2+ LUNGS: Breath sounds mostly clear to auscultation patient is noted to have bibasal crackles at the extreme bases CHEST: Palpation of the chest wall shows no significant chest wall tenderness or abnormalities. HEART: [place] [employer], No PSH, 2/6 LISBET aortic area, 1/6 phelps systolic murmur mitral area , no rubs or gallops. ABDOMEN: Soft, no significant tenderness appreciated, normoactive bowel sounds. No guarding, no rebound. No rigidity noted . No masses appreciated. EXTREMITIES: Pedal pulses are 1-2+, no calf tenderness noted, 1+ pedal edema noted. No clubbing or cyanosis. NEUROLOGICAL: The patient cannot participate in the neurological exam but no facial asymmetry noted. Extremities slightly hypotonic PSYCH: This cannot be evaluated. Patient cannot participate. SKIN: No significant ecchymosis, rash, or signs of pruritus noted. MUSCULOSKELETAL EXAM: No significant joint swelling noted. Patient cannot participate in musculoskeletal exam Results Laboratory Results: 05/16/17 03:53 05/16/17 15:40 05/16/17 05/16/17 05/16/17 03:53 03:53 05:38 WBC 9.7 RBC 4.24 L Hgb 12.6 L Hct 36.6 L MCV 86 MCH 29.7 MCHC 34.4 RDW 13.6 Plt Count 378 Seg Neutrophils % 86.2 H Lymphocytes % 8.6 L Monocytes % 5.2 Eosinophils % 0.0 Basophils % 0.0 Absolute Neutrophils 8.3 H Absolute Lymphocytes 0.8 Absolute Monocytes 0.5 Absolute Eosinophils 0.0 Absolute Basophils 0.0 Carbonic Acid 1.12 HCO3/H2CO3 Ratio 21:1 ABG pH 7.43 ABG pCO2 37.1 ABG pO2 107.1 H ABG HCO3 24.1 ABG O2 Saturation 98.1 H ABG Base Excess 0.1 FiO2 40% Sodium 136.3 L Potassium 5.3 H Chloride 101 Carbon Dioxide 27 Anion Gap 8 BUN 25 H Creatinine 0.63 Est GFR ( Amer) > 60 Est GFR (Non-Af Amer) > 60 Glucose 263 H Calcium 9.2 Magnesium 2.0 Total Bilirubin 0.4 AST 33 ALT 92 H Alkaline Phosphatase 103 Total Protein 5.6 L Albumin 3.1 L 05/16/17 15:40 WBC RBC Hgb Hct MCV MCH MCHC RDW Plt Count Seg Neutrophils % Lymphocytes % Monocytes % Eosinophils % Basophils % Absolute Neutrophils Absolute Lymphocytes Absolute Monocytes Absolute Eosinophils Absolute Basophils Carbonic Acid HCO3/H2CO3 Ratio ABG pH ABG pCO2 ABG pO2 ABG HCO3 ABG O2 Saturation ABG Base Excess FiO2 Sodium Potassium 5.1 H Chloride Carbon Dioxide Anion Gap BUN Creatinine Est GFR ( Amer) Est GFR (Non-Af Amer) Glucose Calcium Magnesium Total Bilirubin AST ALT Alkaline Phosphatase Total Protein Albumin 05/11/17 19:57 Blood Blood Culture - Final NO GROWTH IN 5 DAYS 05/11/17 18:56 Blood Blood Culture - Final NO GROWTH IN 5 DAYS 05/07/17 05/07/17 05/07/17 17:25 17:25 23:36 Creatine Kinase 1142 H 928 H CK-MB (CK-2) Troponin I 0.114 05/07/17 05/08/17 05/08/17 23:36 05:49 05:49 Creatine Kinase 873 H CK-MB (CK-2) Troponin I 0.092 0.062 05/09/17 05/10/17 05/10/17 07:35 17:12 17:12 Creatine Kinase 2165 H 524 H CK-MB (CK-2) 0.82 Troponin I 0.053 05/11/17 05/11/17 05/12/17 04:03 18:17 00:19 Creatine Kinase 325 H CK-MB (CK-2) Troponin I 0.014 0.036 Impressions: Renal Ultrasound 05/07/17 00:00 IMPRESSION: NORMAL RENAL ULTRASOUND. Head CT 05/07/17 14:08 IMPRESSION: Very limited negative study EVIDENCE OF ACUTE STROKE: NO. Chest/Abdomen CTA 05/10/17 13:03 IMPRESSION: Mild pulmonary arterial hypertension pattern. Otherwise, no acute cardiopulmonary findings. No pulmonary emboli. Chest X-Ray 05/16/17 06:00 IMPRESSION: No significant interval change. Assessment & Plan - Diagnosis (1) Cardiac dysrhythmia Qualifiers: Arrhythmia type: unspecified cardiac arrhythmia Qualified Code(s): I49.9 - Cardiac arrhythmia, unspecified Is this a current diagnosis for this admission?: Yes (2) Morbid obesity Is this a current diagnosis for this admission?: Yes (3) Aspiration pneumonia Qualifiers: Laterality: unspecified laterality Lung location: unspecified part of lung Is this a current diagnosis for this admission?: Yes (4) DM type 2 (diabetes mellitus, type 2) Qualifiers: Diabetes mellitus complication status: with unspecified complications Diabetes mellitus fci insulin use: unspecified fci insulin use status Qualified Code(s): E11.8 - Type 2 diabetes mellitus with unspecified complications Is this a current diagnosis for this admission?: Yes (5) Respiratory failure Qualifiers: Chronicity: acute Respiratory failure complication: unspecified whether with hypoxia or hypercapnia Qualified Code(s): J96.00 - Acute respiratory failure, unspecified whether with hypoxia or hypercapnia Is this a current diagnosis for this admission?: Yes - Notes Notes: Cardiac dysrhythmia was actually artifactual. Patient had an episode of bradycardia but felt to be increased vagal tone. Patient had no drop in blood pressure and the bradycardia was transient. Patient does have aspiration pneumonia, diabetes, respiratory failure secondary to COPD, severe obesity hypoventilation syndrome, aspiration pneumonia combined. 2D echo results were reviewed. May consider low-dose diuretic therapy his BNP level is high. Patient to have another trial for extubation tomorrow. Will sign off. Please reconsult if needed. - Time Time with patient: 15-25 minutes - More than 50% of the time spent coordinating care, discussing management plans with involved caregivers. Management plans discussed with involved personnels. Medical decision making was of moderate to high complexity, patient's has multiple comorbidities. Medications reviewed and adjusted accordingly: Yes
[2017-05-17] MEDS: PROPOFOL 100 ML IV PRN ×3 (00:25→05:30)
[2017-05-17] MEDS: IPRATROPIUM/ALBUTEROL 0.5-2.5 MG/3 ML AMPUL NEB SCH ×4 (02:00→20:28)
[2017-05-17] MEDS: MIDAZOLAM HCL 100 ML IV PRN ×2 (02:29→07:50)
[2017-05-17] MEDS: HEPARIN SOD (PORCINE) 5,000 UNIT/ML 1 ML SYRINGE SUBCUT SCH ×3 (02:29→17:06)
[2017-05-17 04:13] LABS: ABSOLUTE MONOCYTES (AUTO) 0.9 10^3/uL (0.1-1.4); ABSOLUTE NEUT (AUTO) 7.9 10^3/uL (1.7-8.2); BASOPHILS % (AUTO) 0.1 % (0-2); EOSINOPHILS % (AUTO) 0.4 % (0-6); HEMATOCRIT 37.8 % (37.9-51.0); HEMOGLOBIN 12.9 g/dL (13.5-17.0); HGB HCT DIFFERENCE 0.9; LYMPHOCYTES % (AUTO) 18.3 % (13-45); MEAN CORPUSCULAR HEMOGLOBIN 29.7 pg (27.0-33.4); MEAN CORPUSCULAR HGB CONC 34.1 g/dL (32.0-36.0); MEAN CORPUSCULAR VOLUME 87 fl (80-97); MONOCYTES % (AUTO) 8.1 % (3-13); RED BLOOD COUNT 4.34 10^6/uL (4.35-5.55); RED CELL DISTRIBUTION WIDTH 13.7 % (11.5-14.0); SEGMENTED NEUTROPHILS % (AUTO) 73.1 % (42-78); WHITE BLOOD COUNT 10.8 10^3/uL (4.0-10.5)
[2017-05-17 04:34] LABS: ALANINE AMINOTRANSFERASE 84 U/L (21-72); ALBUMIN 3.1 g/dL (3.5-5.0); ALKALINE PHOSPHATASE 94 U/L (38-126); ANION GAP 10 (5-19); ASPARTATE AMINO TRANSFERASE 22 U/L (17-59); BILIRUBIN,DIRECT 0.3 mg/dL (0.0-0.4); BILIRUBIN,TOTAL 0.4 mg/dL (0.2-1.3); BLOOD UREA NITROGEN 23 mg/dL (7-20); CARBON DIOXIDE 27 mmol/L (22-30); CHLORIDE 100 mmol/L (98-107); CREATININE RESULT 0.56 mg/dL (0.52-1.25); GLUCOSE 172 mg/dL (75-110); MAGNESIUM 1.9 mg/dL (1.6-2.3); POTASSIUM 4.5 mmol/L (3.6-5.0); SODIUM 136.5 mmol/L (137-145); TOTAL PROTEIN 5.6 g/dL (6.3-8.2)
[2017-05-17] MEDS: LANSOPRAZOLE 30 MG TAB.RAP.DR NG SCH (05:30)
[2017-05-17 05:37] LABS: ARTERIAL BLOOD BASE EXCESS 2.6 mmol/L; ARTERIAL BLOOD O2 SATURATION 95.8 % (94-98)
--- NOTE | 2017-05-17 07:27 | RADIOLOGY REPORT (SQ) ---
EXAM DESCRIPTION: CHEST SINGLE VIEW COMPLETED DATE/TIME: 05/17/2017 6:56 am REASON FOR STUDY: pna/resp failure COMPARISON: 05/16/2017. EXAM PARAMETERS: NUMBER OF VIEWS: One view. TECHNIQUE: Single frontal radiographic view of the chest acquired. RADIATION DOSE: NA LIMITATIONS: None. FINDINGS: LUNGS AND PLEURA: Moderate bilateral lower lobar opacity -layered effusion. Moderate lung volume. MEDIASTINUM AND HILAR STRUCTURES: No masses. Contour normal. HEART AND VASCULAR STRUCTURES: Mild enlargement of the cardiac silhouette. BONES: No acute findings. HARDWARE: Adequate appearing endotracheal tube. Likely adequate enteric tube obscured distally. OTHER: No other significant finding. IMPRESSION: No significant interval change. TECHNICAL DOCUMENTATION: JOB ID: [id number] [employer]- All Rights Reserved
[2017-05-17] MEDS: FOLIC ACID 1 MG TABLET NG SCH (08:19)
[2017-05-17] MEDS: MULTIVITAMIN TABLET PO SCH (08:19)
[2017-05-17] MEDS: THIAMINE HCL 100 MG TABLET NG SCH (08:21)
[2017-05-17] MEDS ORDERED: MULTIVITAMINS W-IRON TABLET, CHEWABLE NG SCH (10:00)
[2017-05-17] MEDS: METHYLPREDNISOLONE INJ 40 MG/1 ML SDV IV SCH ×2 (10:01→21:55)
--- NOTE | 2017-05-17 11:14 | PDOC PROGRESS REPORT ---
Subjective Progress Note for:: 05/17/17 Subjective:: Patient was seen in morning rounds. He remains orally intubated on sedation. Paralytics have been discontinued this morning he is moving all extremities. Nursing reports Dr. Collier, central supply clerkJean Marie to attempt ventilator weaning today. Patient is presently not following any commands. Nursing reports no issues overnight. The presently has no family at the bedside Physical Exam Vital Signs: Temp Pulse Resp BP Pulse Ox 98.1 F 74 15 139/88 H 91 L 05/17/17 08:00 05/17/17 10:00 05/17/17 10:12 05/17/17 10:12 05/17/17 10:12 Intake & Output 05/16/17 05/17/17 05/18/17 06:59 06:59 06:59 Intake Total 1725 1624 147 Output Total 3640 3065 325 Balance -1915 -1441 -178 Weight 129.7 kg 127.9 kg General appearance: PRESENT: no acute distress, morbidly obese, well-developed, well-nourished, other - orally intubated and sedated Head exam: PRESENT: atraumatic, normocephalic Eye exam: PRESENT: conjunctiva pink, EOMI, PERRLA. ABSENT: scleral icterus Ear exam: PRESENT: normal external ear exam Mouth exam: PRESENT: moist, tongue midline Neck exam: ABSENT: carotid bruit, JVD, lymphadenopathy, thyromegaly Respiratory exam: PRESENT: rhonchi, symmetrical, unlabored. ABSENT: rales, wheezes Cardiovascular exam: PRESENT: RRR. ABSENT: diastolic murmur, rubs, systolic murmur Pulses: PRESENT: normal carotid pulses Vascular exam: PRESENT: normal capillary refill GI/Abdominal exam: PRESENT: normal bowel sounds, soft. ABSENT: distended, guarding, mass, organolmegaly, rebound, tenderness Rectal exam: PRESENT: deferred Extremities exam: PRESENT: full ROM. ABSENT: calf tenderness, clubbing, pedal edema Neurological exam: PRESENT: CN II-XII grossly intact, other - Orally intubated and sedated. ABSENT: motor sensory deficit Psychiatric exam: PRESENT: appropriate affect, normal mood. ABSENT: homicidal ideation, suicidal ideation Skin exam: PRESENT: dry, intact, warm, other - multiple tattoos. ABSENT: cyanosis, rash Results Laboratory Results: 05/17/17 03:44 05/17/17 03:44 05/16/17 05/17/17 05/17/17 15:40 03:44 03:44 WBC 10.8 H RBC 4.34 L Hgb 12.9 L Hct 37.8 L MCV 87 MCH 29.7 MCHC 34.1 RDW 13.7 Plt Count 387 Seg Neutrophils % 73.1 Lymphocytes % 18.3 Monocytes % 8.1 Eosinophils % 0.4 Basophils % 0.1 Absolute Neutrophils 7.9 Absolute Lymphocytes 2.0 Absolute Monocytes 0.9 Absolute Eosinophils 0.0 Absolute Basophils 0.0 Carbonic Acid HCO3/H2CO3 Ratio ABG pH ABG pCO2 ABG pO2 ABG HCO3 ABG O2 Saturation ABG Base Excess FiO2 Sodium 136.5 L Potassium 5.1 H 4.5 Chloride 100 Carbon Dioxide 27 Anion Gap 10 BUN 23 H Creatinine 0.56 Est GFR ( Amer) > 60 Est GFR (Non-Af Amer) > 60 Glucose 172 H Calcium 9.0 Magnesium 1.9 Total Bilirubin 0.4 AST 22 ALT 84 H Alkaline Phosphatase 94 Total Protein 5.6 L Albumin 3.1 L 05/17/17 05:23 WBC RBC Hgb Hct MCV MCH MCHC RDW Plt Count Seg Neutrophils % Lymphocytes % Monocytes % Eosinophils % Basophils % Absolute Neutrophils Absolute Lymphocytes Absolute Monocytes Absolute Eosinophils Absolute Basophils Carbonic Acid 1.12 HCO3/H2CO3 Ratio 23:1 ABG pH 7.47 H ABG pCO2 37.3 ABG pO2 75.1 L ABG HCO3 26.2 H ABG O2 Saturation 95.8 ABG Base Excess 2.6 FiO2 40% Sodium Potassium Chloride Carbon Dioxide Anion Gap BUN Creatinine Est GFR ( Amer) Est GFR (Non-Af Amer) Glucose Calcium Magnesium Total Bilirubin AST ALT Alkaline Phosphatase Total Protein Albumin 05/11/17 19:57 Blood Blood Culture - Final NO GROWTH IN 5 DAYS 05/11/17 18:56 Blood Blood Culture - Final NO GROWTH IN 5 DAYS 05/07/17 05/07/17 05/07/17 17:25 17:25 23:36 Creatine Kinase 1142 H 928 H CK-MB (CK-2) Troponin I 0.114 05/07/17 05/08/17 05/08/17 23:36 05:49 05:49 Creatine Kinase 873 H CK-MB (CK-2) Troponin I 0.092 0.062 05/09/17 05/10/17 05/10/17 07:35 17:12 17:12 Creatine Kinase 2165 H 524 H CK-MB (CK-2) 0.82 Troponin I 0.053 05/11/17 05/11/17 05/12/17 04:03 18:17 00:19 Creatine Kinase 325 H CK-MB (CK-2) Troponin I 0.014 0.036 Impressions: Renal Ultrasound 05/07/17 00:00 IMPRESSION: NORMAL RENAL ULTRASOUND. Head CT 05/07/17 14:08 IMPRESSION: Very limited negative study EVIDENCE OF ACUTE STROKE: NO. Chest/Abdomen CTA 05/10/17 13:03 IMPRESSION: Mild pulmonary arterial hypertension pattern. Otherwise, no acute cardiopulmonary findings. No pulmonary emboli. Chest X-Ray 05/17/17 06:00 IMPRESSION: No significant interval change. Assessment & Plan - Diagnosis (1) Respiratory failure Qualifiers: Chronicity: acute Respiratory failure complication: unspecified whether with hypoxia or hypercapnia Qualified Code(s): J96.00 - Acute respiratory failure, unspecified whether with hypoxia or hypercapnia Is this a current diagnosis for this admission?: Yes Plan: Patient remains orally intubated and sedated. He has completed antibiotic therapy. Pulmonary is managing ventilator and plans to attempt to wean and extubate today. (2) Aspiration pneumonia Qualifiers: Laterality: unspecified laterality Lung location: unspecified part of lung Is this a current diagnosis for this admission?: Yes Plan: As above. (3) Delirium Is this a current diagnosis for this admission?: Yes Plan: Patient has been sedated on propofol. Alcohol withdrawal were responsible for delirium tremens. (4) ETOH withdrawal Is this a current diagnosis for this admission?: Yes Plan: Patient has detox protocol in place (5) EtOH dependence Qualifiers: Substance use status: in withdrawal Is this a current diagnosis for this admission?: Yes Plan: Patient is on thiamine and folic acid. Psych is following (6) Morbid obesity Is this a current diagnosis for this admission?: Yes (7) Opioid dependence Qualifiers: Complication of substance-induced condition: with unspecified complication Is this a current diagnosis for this admission?: Yes (8) Rhabdomyolysis Is this a current diagnosis for this admission?: Yes Plan: This has resolved. - Time Time Spent with patient: 35 or more minutes Critical Time spent with patient: 25-34 minutes Within: Other - Psych is following he may need inpatient rehab
[2017-05-17] MEDS: MUPIROCIN 2% OINTMENT 22 GM TP SCH ×2 (12:17→17:08)
--- NOTE | 2017-05-17 13:14 | PDOC PROGRESS REPORT ---
Subjective Progress Note for:: 05/17/17 - Acute respiratory failure/PNA Subjective:: Intubated and sedated Physical Exam Vital Signs: Temp Pulse Resp BP Pulse Ox 98.1 F 66 9 L 136/87 H 94 05/17/17 08:00 05/17/17 08:17 05/17/17 08:17 05/17/17 08:00 05/17/17 08:17 Intake & Output 05/16/17 05/17/17 05/18/17 06:59 06:59 06:59 Intake Total 1725 1624 Output Total 3640 3065 125 Balance -1915 -1441 -125 Weight 129.7 kg 127.9 kg General appearance: PRESENT: no acute distress, disheveled, morbidly obese, well -developed, well-nourished. ABSENT: cooperative, mild distress, obese, severe distress, thin Head exam: PRESENT: atraumatic, normocephalic Eye exam: PRESENT: conjunctiva pale. ABSENT: conjunctival injection, conjunctiva pink, EOMI, nystagmus, periorbital swelling, scleral icterus Mouth exam: PRESENT: dry mucosa, neck supple, tongue midline, other - ET tube Neck exam: ABSENT: carotid bruit, JVD, lymphadenopathy, meningismus, thyromegaly , tracheal deviation, tracheostomy Respiratory exam: PRESENT: decreased breath sounds, prolonged expiratory phas, rhonchi, symmetrical, unlabored, wheezes. ABSENT: accessory muscle use, chest wall tenderness, clear to auscultation savita, crackles, rales, retraction, stridor , tachypnea Cardiovascular exam: PRESENT: RRR, +S1, +S2. ABSENT: clicks, gallop, irregular rhythm, rubs Pulses: PRESENT: normal radial pulses GI/Abdominal exam: PRESENT: normal bowel sounds, soft. ABSENT: ascites, distended, guarding, mass, organolmegaly, rebound, tenderness Gentrourinary exam: PRESENT: indwelling catheter Extremities exam: ABSENT: clubbing, joint swelling, pedal edema Musculoskeletal exam: ABSENT: ambulatory, deformity, dislocation, tenderness Neurological exam: PRESENT: alert, awake Psychiatric exam: PRESENT: flat affect Skin exam: PRESENT: dry, warm Results Laboratory Results: 05/17/17 03:44 05/17/17 03:44 05/16/17 05/17/17 05/17/17 15:40 03:44 03:44 WBC 10.8 H RBC 4.34 L Hgb 12.9 L Hct 37.8 L MCV 87 MCH 29.7 MCHC 34.1 RDW 13.7 Plt Count 387 Seg Neutrophils % 73.1 Lymphocytes % 18.3 Monocytes % 8.1 Eosinophils % 0.4 Basophils % 0.1 Absolute Neutrophils 7.9 Absolute Lymphocytes 2.0 Absolute Monocytes 0.9 Absolute Eosinophils 0.0 Absolute Basophils 0.0 Carbonic Acid HCO3/H2CO3 Ratio ABG pH ABG pCO2 ABG pO2 ABG HCO3 ABG O2 Saturation ABG Base Excess FiO2 Sodium 136.5 L Potassium 5.1 H 4.5 Chloride 100 Carbon Dioxide 27 Anion Gap 10 BUN 23 H Creatinine 0.56 Est GFR ( Amer) > 60 Est GFR (Non-Af Amer) > 60 Glucose 172 H Calcium 9.0 Magnesium 1.9 Total Bilirubin 0.4 AST 22 ALT 84 H Alkaline Phosphatase 94 Total Protein 5.6 L Albumin 3.1 L 05/17/17 05:23 WBC RBC Hgb Hct MCV MCH MCHC RDW Plt Count Seg Neutrophils % Lymphocytes % Monocytes % Eosinophils % Basophils % Absolute Neutrophils Absolute Lymphocytes Absolute Monocytes Absolute Eosinophils Absolute Basophils Carbonic Acid 1.12 HCO3/H2CO3 Ratio 23:1 ABG pH 7.47 H ABG pCO2 37.3 ABG pO2 75.1 L ABG HCO3 26.2 H ABG O2 Saturation 95.8 ABG Base Excess 2.6 FiO2 40% Sodium Potassium Chloride Carbon Dioxide Anion Gap BUN Creatinine Est GFR ( Amer) Est GFR (Non-Af Amer) Glucose Calcium Magnesium Total Bilirubin AST ALT Alkaline Phosphatase Total Protein Albumin 05/11/17 19:57 Blood Blood Culture - Final NO GROWTH IN 5 DAYS 05/11/17 18:56 Blood Blood Culture - Final NO GROWTH IN 5 DAYS 05/07/17 05/07/17 05/07/17 17:25 17:25 23:36 Creatine Kinase 1142 H 928 H CK-MB (CK-2) Troponin I 0.114 05/07/17 05/08/17 05/08/17 23:36 05:49 05:49 Creatine Kinase 873 H CK-MB (CK-2) Troponin I 0.092 0.062 05/09/17 05/10/17 05/10/17 07:35 17:12 17:12 Creatine Kinase 2165 H 524 H CK-MB (CK-2) 0.82 Troponin I 0.053 05/11/17 05/11/17 05/12/17 04:03 18:17 00:19 Creatine Kinase 325 H CK-MB (CK-2) Troponin I 0.014 0.036 Impressions: Renal Ultrasound 05/07/17 00:00 IMPRESSION: NORMAL RENAL ULTRASOUND. Head CT 05/07/17 14:08 IMPRESSION: Very limited negative study EVIDENCE OF ACUTE STROKE: NO. Chest/Abdomen CTA 05/10/17 13:03 IMPRESSION: Mild pulmonary arterial hypertension pattern. Otherwise, no acute cardiopulmonary findings. No pulmonary emboli. Chest X-Ray 05/17/17 06:00 IMPRESSION: No significant interval change. Assessment & Plan - Diagnosis (1) Respiratory failure Qualifiers: Chronicity: acute Respiratory failure complication: unspecified whether with hypoxia or hypercapnia Qualified Code(s): J96.00 - Acute respiratory failure, unspecified whether with hypoxia or hypercapnia Is this a current diagnosis for this admission?: Yes Plan: min Vol ;rr;FIO2;airway pressures and mental status suggest extubation (2) Aspiration pneumonia Qualifiers: Laterality: unspecified laterality Lung location: unspecified part of lung Is this a current diagnosis for this admission?: Yes (3) Delirium Is this a current diagnosis for this admission?: No (4) ETOH withdrawal Is this a current diagnosis for this admission?: No (5) Morbid obesity Is this a current diagnosis for this admission?: Yes - Time Time Spent with patient: icu 50 min extubation
[2017-05-17] MEDS: CEFTRIAXONE 1 GM/D5W RTU 1 GM/50 ML RTUPB IV SCH (17:07)
[2017-05-17 23:24] LABS: AMORPHOUS SEDIMENT,URINE TRACE /HPF; APPEARANCE,URINE CLOUDY; BILIRUBIN,URINE NEGATIVE (NEGATIVE); GLUCOSE, URINE 150 mg/dL (NEGATIVE); KETONES,URINE NEGATIVE (NEGATIVE); LEUKOCYTE ESTERASE,URINE NEGATIVE (NEGATIVE); NITRITE,URINE NEGATIVE (NEGATIVE); PROTEIN,URINE NEGATIVE (NEGATIVE); URINE SPECIFIC GRAVITY 1.024; UROBILINOGEN,URINE NEGATIVE mg/dL (<2.0)
[2017-05-18] MEDS: IPRATROPIUM/ALBUTEROL 0.5-2.5 MG/3 ML AMPUL NEB SCH ×4 (01:30→20:04)
[2017-05-18] MEDS: HEPARIN SOD (PORCINE) 5,000 UNIT/ML 1 ML SYRINGE SUBCUT SCH ×3 (01:38→17:07)
[2017-05-18 04:28] LABS: ABSOLUTE LYMPHOCYTES (AUTO) 0.9 10^3/uL (0.5-4.7); ABSOLUTE MONOCYTES (AUTO) 0.4 10^3/uL (0.1-1.4); ABSOLUTE NEUT (AUTO) 14.4 10^3/uL (1.7-8.2); BASOPHILS % (AUTO) 0.2 % (0-2); EOSINOPHILS % (AUTO) 0.1 % (0-6); HEMATOCRIT 40.5 % (37.9-51.0); HEMOGLOBIN 13.7 g/dL (13.5-17.0); HGB HCT DIFFERENCE 0.6; MEAN CORPUSCULAR HEMOGLOBIN 29.4 pg (27.0-33.4); MEAN CORPUSCULAR HGB CONC 33.9 g/dL (32.0-36.0); MEAN CORPUSCULAR VOLUME 87 fl (80-97); MONOCYTES % (AUTO) 2.4 % (3-13); RED BLOOD COUNT 4.67 10^6/uL (4.35-5.55); RED CELL DISTRIBUTION WIDTH 13.9 % (11.5-14.0); SEGMENTED NEUTROPHILS % (AUTO) 91.3 % (42-78); WHITE BLOOD COUNT 15.7 10^3/uL (4.0-10.5)
[2017-05-18 04:43] LABS: ALANINE AMINOTRANSFERASE 81 U/L (21-72); ALBUMIN 3.7 g/dL (3.5-5.0); ALKALINE PHOSPHATASE 106 U/L (38-126); ANION GAP 12 (5-19); ASPARTATE AMINO TRANSFERASE 29 U/L (17-59); BILIRUBIN,DIRECT 0.5 mg/dL (0.0-0.4); BILIRUBIN,TOTAL 0.9 mg/dL (0.2-1.3); BLOOD UREA NITROGEN 23 mg/dL (7-20); CALCIUM 9.6 mg/dL (8.4-10.2); CARBON DIOXIDE 26 mmol/L (22-30); CHLORIDE 99 mmol/L (98-107); CREATININE RESULT 0.56 mg/dL (0.52-1.25); GLUCOSE 220 mg/dL (75-110); MAGNESIUM 1.9 mg/dL (1.6-2.3); PHOSPHORUS 4.1 mg/dL (2.5-4.5); POTASSIUM 4.9 mmol/L (3.6-5.0); SODIUM 136.5 mmol/L (137-145); TOTAL PROTEIN 6.3 g/dL (6.3-8.2)
[2017-05-18 05:51] LABS: ARTERIAL BLOOD BASE EXCESS 3.1 mmol/L; ARTERIAL BLOOD O2 SATURATION 98.7 % (94-98)
[2017-05-18] MEDS: LANSOPRAZOLE 30 MG TAB.RAP.DR NG SCH (06:08)
--- NOTE | 2017-05-18 08:02 | RADIOLOGY REPORT (SQ) ---
EXAM DESCRIPTION: CHEST SINGLE VIEW COMPLETED DATE/TIME: 05/18/2017 7:03 am REASON FOR STUDY: pna/resp failure COMPARISON: Chest x-ray 05/17/2017. EXAM PARAMETERS: NUMBER OF VIEWS: One view. TECHNIQUE: Single frontal radiographic view of the chest acquired. RADIATION DOSE: NA LIMITATIONS: None. FINDINGS: LUNGS AND PLEURA: Interval improvement in the aeration of the lungs with resolution of the right-sided pleural effusion and airspace opacity. Interval decrease in the small left pleural effus ion and mild left basilar atelectasis. No pneumothorax. MEDIASTINUM AND HILAR STRUCTURES: No masses. Contour normal. HEART AND VASCULAR STRUCTURES: The heart is upper normal limit in size. No overt vascular congestion . BONES: No acute findings. HARDWARE: The endotracheal tube and the enteric tube have been removed. IMPRESSION: Interval improvement in the aeration of the lungs. Small left pleural effusion and mild left basilar atelectasis. TECHNICAL DOCUMENTATION: JOB ID: [id number] [employer]- All Rights Reserved
[2017-05-18] MEDS ORDERED: HYDRALAZINE HCL INJ/PF 20 MG/1 ML SDV IV PRN (08:36)
--- NOTE | 2017-05-18 09:09 | PDOC PROGRESS REPORT ---
Subjective Progress Note for:: 05/18/17 Subjective:: Patient admitted for DTs and possible aspiration. Patient was transferred to the ICU for possible V tach now thought to be artifact. Patient intubated on for hypercapneic respiratory failure. Patient extubated on 05/17. Patient now on bipap. Antibiotics de esculated now on ceftriaxone. Patient calm and wanting to eat. Nurse reports him being hypertensive. Will restart no medications. Reason For Visit: ACUTE RENAL FAILURE Physical Exam Vital Signs: Temp Pulse Resp BP Pulse Ox 98.5 F 73 12 155/106 H 99 05/18/17 07:52 05/18/17 08:15 05/18/17 08:15 05/18/17 07:52 05/18/17 08:15 Intake & Output 05/17/17 05/18/17 05/19/17 06:59 06:59 06:59 Intake Total 1624 207 Output Total 3065 3675 175 Balance -1441 -3468 -175 Weight 127.9 kg General appearance: PRESENT: no acute distress, morbidly obese Eye exam: PRESENT: EOMI, other - eye watering. ABSENT: scleral icterus Mouth exam: PRESENT: other - bipap mask in place Neck exam: ABSENT: carotid bruit, JVD, lymphadenopathy, thyromegaly Respiratory exam: PRESENT: clear to auscultation savita. ABSENT: rales, rhonchi, wheezes Cardiovascular exam: PRESENT: RRR. ABSENT: diastolic murmur, rubs, systolic murmur Pulses: PRESENT: normal dorsalis pedis pul Vascular exam: PRESENT: normal capillary refill GI/Abdominal exam: PRESENT: normal bowel sounds, soft - protuberant. ABSENT: distended, guarding, mass, organolmegaly, rebound, tenderness Rectal exam: PRESENT: deferred Extremities exam: PRESENT: full ROM. ABSENT: calf tenderness, clubbing, pedal edema Neurological exam: PRESENT: alert, awake, oriented to person, oriented to place , oriented to time, oriented to situation, CN II-XII grossly intact. ABSENT: motor sensory deficit Psychiatric exam: PRESENT: appropriate affect, normal mood. ABSENT: homicidal ideation, suicidal ideation Skin exam: PRESENT: dry, intact, warm, other - multiple tatoos. ABSENT: cyanosis, rash Results Laboratory Results: 05/18/17 03:53 05/18/17 03:53 05/17/17 05/18/17 05/18/17 22:55 03:53 03:53 WBC 15.7 H RBC 4.67 Hgb 13.7 Hct 40.5 MCV 87 MCH 29.4 MCHC 33.9 RDW 13.9 Plt Count 413 Seg Neutrophils % 91.3 H Lymphocytes % 6.0 L Monocytes % 2.4 L Eosinophils % 0.1 Basophils % 0.2 Absolute Neutrophils 14.4 H Absolute Lymphocytes 0.9 Absolute Monocytes 0.4 Absolute Eosinophils 0.0 Absolute Basophils 0.0 Carbonic Acid HCO3/H2CO3 Ratio ABG pH ABG pCO2 ABG pO2 ABG HCO3 ABG O2 Saturation ABG Base Excess FiO2 Sodium 136.5 L Potassium 4.9 Chloride 99 Carbon Dioxide 26 Anion Gap 12 BUN 23 H Creatinine 0.56 Est GFR ( Amer) > 60 Est GFR (Non-Af Amer) > 60 Glucose 220 H Calcium 9.6 Phosphorus 4.1 Magnesium 1.9 Total Bilirubin 0.9 AST 29 ALT 81 H Alkaline Phosphatase 106 Total Protein 6.3 Albumin 3.7 Urine Color YELLOW Urine Appearance CLOUDY Urine pH 6.0 Ur Specific [place] 1.024 Urine Protein NEGATIVE Urine Glucose (UA) 150 H Urine Ketones NEGATIVE Urine Blood MODERATE H Urine Nitrite NEGATIVE Ur Leukocyte Esterase NEGATIVE Urine WBC (Auto) 2 Urine RBC (Auto) 171 05/18/17 05:30 WBC RBC Hgb Hct MCV MCH MCHC RDW Plt Count Seg Neutrophils % Lymphocytes % Monocytes % Eosinophils % Basophils % Absolute Neutrophils Absolute Lymphocytes Absolute Monocytes Absolute Eosinophils Absolute Basophils Carbonic Acid 1.12 HCO3/H2CO3 Ratio 23:1 ABG pH 7.47 H ABG pCO2 37.2 ABG pO2 125.6 H ABG HCO3 26.6 H ABG O2 Saturation 98.7 H ABG Base Excess 3.1 FiO2 50% Sodium Potassium Chloride Carbon Dioxide Anion Gap BUN Creatinine Est GFR ( Amer) Est GFR (Non-Af Amer) Glucose Calcium Phosphorus Magnesium Total Bilirubin AST ALT Alkaline Phosphatase Total Protein Albumin Urine Color Urine Appearance Urine pH Ur Specific [place] Urine Protein Urine Glucose (UA) Urine Ketones Urine Blood Urine Nitrite Ur Leukocyte Esterase Urine WBC (Auto) Urine RBC (Auto) 05/07/17 05/07/17 05/07/17 17:25 17:25 23:36 Creatine Kinase 1142 H 928 H CK-MB (CK-2) Troponin I 0.114 11/17/17 11/18/17 11/18/17 23:36 05:49 05:49 Creatine Kinase 873 H CK-MB (CK-2) Troponin I 0.092 0.062 05/09/17 05/10/17 05/10/17 07:35 17:12 17:12 Creatine Kinase 2165 H 524 H CK-MB (CK-2) 0.82 Troponin I 0.053 05/11/17 05/11/17 05/12/17 04:03 18:17 00:19 Creatine Kinase 325 H CK-MB (CK-2) Troponin I 0.014 0.036 Impressions: Renal Ultrasound 05/07/17 00:00 IMPRESSION: NORMAL RENAL ULTRASOUND. Head CT 05/07/17 14:08 IMPRESSION: Very limited negative study EVIDENCE OF ACUTE STROKE: NO. Chest/Abdomen CTA 05/10/17 13:03 IMPRESSION: Mild pulmonary arterial hypertension pattern. Otherwise, no acute cardiopulmonary findings. No pulmonary emboli. Chest X-Ray 05/18/17 06:00 IMPRESSION: Interval improvement in the aeration of the lungs. Small left pleural effusion and mild left basilar atelectasis. Assessment & Plan - Diagnosis (1) Respiratory failure Qualifiers: Chronicity: acute Respiratory failure complication: unspecified whether with hypoxia or hypercapnia Qualified Code(s): J96.00 - Acute respiratory failure, unspecified whether with hypoxia or hypercapnia Is this a current diagnosis for this admission?: Yes Plan: Patient extubated on 05/17 currently on bipap. Patient destats with bipap off. Patient shows no signs of distress. Patient still on IV steroids, antibiotics and nebs. (2) Aspiration pneumonia Qualifiers: Laterality: unspecified laterality Lung location: unspecified part of lung Is this a current diagnosis for this admission?: Yes Plan: Patient currently on ceftriaxone. He appears to be improving. (3) Acute renal failure Is this a current diagnosis for this admission?: Yes Plan: Due to rhabdo and dehydration. Renal US normal. Resolved. Will restart ARB for hypertension. 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 (5) ETOH withdrawal Is this a current diagnosis for this admission?: No Plan: Patient has history of chronic alcohol use. Patient appears to be over his DTs. Patient doing well. Will monitor and treat accordingly, but cautiously with benzos since patient is prone to respiratory suppression and intubation. 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 (7) Rhabdomyolysis Is this a current diagnosis for this admission?: Yes Plan: Resolved. (8) Hypertension Qualifiers: Hypertension type: essential hypertension Qualified Code(s): I10 - Essential (primary) hypertension Is this a current diagnosis for this admission?: Yes Plan: May be due in part to DALILA. Patient will be restarted on is home medication along with PRN hydralazine. The will improve as solumedrol is weaned.
[2017-05-18] MEDS: LOSARTAN POTASSIUM 50 MG TABLET PO SCH (09:16)
[2017-05-18] MEDS: MUPIROCIN 2% OINTMENT 22 GM TP SCH ×2 (09:19→17:15)
[2017-05-18] MEDS: METHYLPREDNISOLONE INJ 40 MG/1 ML SDV IV SCH ×2 (09:19→21:30)
[2017-05-18] MEDS: INSULIN REG, HUMAN 100 UNIT/ML 3 ML VIAL (PYX) SUBCUT PRN ×2 (09:26→16:58)
[2017-05-18] MEDS ORDERED: (PENDING PHARMACY ID) (Telmisartan [Micardis 80 Mg Tablet] 80 MG) PO SCH (10:00)
[2017-05-18] MEDS ORDERED: MULTIVITAMINS W-IRON TABLET, CHEWABLE NG SCH (10:00)
[2017-05-18] MEDS ORDERED: INSULIN GLARGINE,HUM.REC.ANLOG 1,000 UNIT/10 ML UNIT SUBCUT SCH (10:00)
[2017-05-18] MEDS: MULTIVITAMINS W-IRON TABLET, CHEWABLE PO SCH (11:15)
[2017-05-18] MEDS: THIAMINE HCL 100 MG TABLET PO SCH (11:15)
[2017-05-18] MEDS: FOLIC ACID 1 MG TABLET PO SCH (11:15)
[2017-05-18] MEDS: INSULIN GLARGINE,HUM.REC.ANLOG 1,000 UNIT/10 ML UNIT SUBCUT SCH (16:58)
[2017-05-18] MEDS: CEFTRIAXONE 1 GM/D5W RTU 1 GM/50 ML RTUPB IV SCH (17:10)
[2017-05-18] MEDS ORDERED: ACETAMINOPHEN 325 MG TABLET ONE (21:26)
[2017-05-18] MEDS: ACETAMINOPHEN 325 MG TABLET PO PRN (21:30)
[2017-05-18] MEDS: ATORVASTATIN CALCIUM 80 MG TABLET PO SCH (21:31)
[2017-05-19] MEDS: IPRATROPIUM/ALBUTEROL 0.5-2.5 MG/3 ML AMPUL NEB SCH ×4 (01:39→19:58)
[2017-05-19] MEDS: HEPARIN SOD (PORCINE) 5,000 UNIT/ML 1 ML SYRINGE SUBCUT SCH ×3 (02:25→17:38)
[2017-05-19] MEDS: LANSOPRAZOLE 30 MG TAB.RAP.DR PO SCH (05:38)
[2017-05-19] MEDS: ACETAMINOPHEN 325 MG TABLET PO PRN (05:39)
--- NOTE | 2017-05-19 06:46 | PDOC PROGRESS REPORT ---
Subjective Progress Note for:: 05/18/17 Subjective:: improving Reason For Visit: ACUTE RENAL FAILURE Physical Exam Vital Signs: Temp Pulse Resp BP Pulse Ox 98.5 F 73 12 155/106 H 99 05/18/17 07:52 05/18/17 08:15 05/18/17 08:15 05/18/17 07:52 05/18/17 08:15 Intake & Output 05/17/17 05/18/17 05/19/17 06:59 06:59 06:59 Intake Total 1624 207 240 Output Total 3065 3675 175 Balance -5928 -7476 65 Weight 127.9 kg General appearance: PRESENT: morbidly obese. ABSENT: no acute distress, cooperative, disheveled, hard of hearing, mild distress, severe distress Head exam: PRESENT: normocephalic Eye exam: PRESENT: conjunctiva pale, EOMI. ABSENT: conjunctival injection, conjunctiva pink, nystagmus, periorbital swelling, scleral icterus Mouth exam: PRESENT: dry mucosa, neck supple, tongue midline Neck exam: ABSENT: carotid bruit, JVD, lymphadenopathy, thyromegaly Respiratory exam: PRESENT: decreased breath sounds, prolonged expiratory phas, rhonchi, symmetrical, unlabored Cardiovascular exam: PRESENT: RRR, +S1, +S2. ABSENT: irregular rhythm, rubs Pulses: PRESENT: normal radial pulses GI/Abdominal exam: PRESENT: normal bowel sounds, soft. ABSENT: distended, guarding, mass, organolmegaly, rebound, tenderness Skin exam: PRESENT: dry, warm Results Laboratory Results: 05/18/17 03:53 05/18/17 03:53 05/17/17 05/18/17 05/18/17 22:55 03:53 03:53 WBC 15.7 H RBC 4.67 Hgb 13.7 Hct 40.5 MCV 87 MCH 29.4 MCHC 33.9 RDW 13.9 Plt Count 413 Seg Neutrophils % 91.3 H Lymphocytes % 6.0 L Monocytes % 2.4 L Eosinophils % 0.1 Basophils % 0.2 Absolute Neutrophils 14.4 H Absolute Lymphocytes 0.9 Absolute Monocytes 0.4 Absolute Eosinophils 0.0 Absolute Basophils 0.0 Carbonic Acid HCO3/H2CO3 Ratio ABG pH ABG pCO2 ABG pO2 ABG HCO3 ABG O2 Saturation ABG Base Excess FiO2 Sodium 136.5 L Potassium 4.9 Chloride 99 Carbon Dioxide 26 Anion Gap 12 BUN 23 H Creatinine 0.56 Est GFR ( Amer) > 60 Est GFR (Non-Af Amer) > 60 Glucose 220 H Calcium 9.6 Phosphorus 4.1 Magnesium 1.9 Total Bilirubin 0.9 AST 29 ALT 81 H Alkaline Phosphatase 106 Total Protein 6.3 Albumin 3.7 Urine Color YELLOW Urine Appearance CLOUDY Urine pH 6.0 Ur Specific [place] 1.024 Urine Protein NEGATIVE Urine Glucose (UA) 150 H Urine Ketones NEGATIVE Urine Blood MODERATE H Urine Nitrite NEGATIVE Ur Leukocyte Esterase NEGATIVE Urine WBC (Auto) 2 Urine RBC (Auto) 171 05/18/17 05:30 WBC RBC Hgb Hct MCV MCH MCHC RDW Plt Count Seg Neutrophils % Lymphocytes % Monocytes % Eosinophils % Basophils % Absolute Neutrophils Absolute Lymphocytes Absolute Monocytes Absolute Eosinophils Absolute Basophils Carbonic Acid 1.12 HCO3/H2CO3 Ratio 23:1 ABG pH 7.47 H ABG pCO2 37.2 ABG pO2 125.6 H ABG HCO3 26.6 H ABG O2 Saturation 98.7 H ABG Base Excess 3.1 FiO2 50% Sodium Potassium Chloride Carbon Dioxide Anion Gap BUN Creatinine Est GFR ( Amer) Est GFR (Non-Af Amer) Glucose Calcium Phosphorus Magnesium Total Bilirubin AST ALT Alkaline Phosphatase Total Protein Albumin Urine Color Urine Appearance Urine pH Ur Specific [place] Urine Protein Urine Glucose (UA) Urine Ketones Urine Blood Urine Nitrite Ur Leukocyte Esterase Urine WBC (Auto) Urine RBC (Auto) 05/07/17 05/07/17 05/07/17 17:25 17:25 23:36 Creatine Kinase 1142 H 928 H CK-MB (CK-2) Troponin I 0.114 05/07/17 05/08/17 05/08/17 23:36 05:49 05:49 Creatine Kinase 873 H CK-MB (CK-2) Troponin I 0.092 0.062 05/09/17 05/10/17 05/10/17 07:35 17:12 17:12 Creatine Kinase 2165 H 524 H CK-MB (CK-2) 0.82 Troponin I 0.053 05/11/17 05/11/17 05/12/17 04:03 18:17 00:19 Creatine Kinase 325 H CK-MB (CK-2) Troponin I 0.014 0.036 Impressions: Renal Ultrasound 05/07/17 00:00 IMPRESSION: NORMAL RENAL ULTRASOUND. Head CT 05/07/17 14:08 IMPRESSION: Very limited negative study EVIDENCE OF ACUTE STROKE: NO. Chest/Abdomen CTA 05/10/17 13:03 IMPRESSION: Mild pulmonary arterial hypertension pattern. Otherwise, no acute cardiopulmonary findings. No pulmonary emboli. Chest X-Ray 05/18/17 06:00 IMPRESSION: Interval improvement in the aeration of the lungs. Small left pleural effusion and mild left basilar atelectasis. Assessment & Plan - Diagnosis (1) Respiratory failure Qualifiers: Chronicity: acute Respiratory failure complication: unspecified whether with hypoxia or hypercapnia Qualified Code(s): J96.00 - Acute respiratory failure, unspecified whether with hypoxia or hypercapnia Is this a current diagnosis for this admission?: No (2) Aspiration pneumonia Qualifiers: Laterality: unspecified laterality Lung location: unspecified part of lung Is this a current diagnosis for this admission?: Yes Plan: improved (3) Delirium Is this a current diagnosis for this admission?: No (4) ETOH withdrawal Is this a current diagnosis for this admission?: No (5) Morbid obesity Is this a current diagnosis for this admission?: Yes - Plan Summary Plan Summary: patient doing well will sign=off for now .Thank you for allowing me to participate in his care
[2017-05-19 06:49] LABS: ARTERIAL BLOOD BASE EXCESS 0.6 mmol/L; ARTERIAL BLOOD O2 SATURATION 96.9 % (94-98)
--- NOTE | 2017-05-19 07:57 | PDOC PROGRESS REPORT ---
Subjective Progress Note for:: 05/19/17 Subjective:: I do not know where I have been Reason For Visit: ACUTE RENAL FAILURE Physical Exam Vital Signs: Temp Pulse Resp BP Pulse Ox 36.4 C 86 16 142/84 H 96 05/19/17 05:01 05/19/17 07:45 05/19/17 07:45 05/19/17 05:01 05/19/17 07:45 Intake & Output 05/18/17 05/19/17 05/20/17 06:59 06:59 06:59 Intake Total 207 2489 Output Total 3675 3220 Balance -3468 -731 Weight 122.3 kg General appearance: PRESENT: mild distress Head exam: PRESENT: normocephalic Respiratory exam: PRESENT: unlabored Cardiovascular exam: PRESENT: RRR Pulses: PRESENT: +1 pedal pulses bilateral Musculoskeletal exam: PRESENT: other - Right knee wound well approximated with mg. Currently flexed 130. Right quad tendon repair restrictions have been ignored. Results Laboratory Results: 05/18/17 03:53 05/18/17 03:53 05/19/17 06:36 Carbonic Acid 1.06 HCO3/H2CO3 Ratio 22:1 ABG pH 7.45 ABG pCO2 35.2 ABG pO2 85.8 ABG HCO3 24.0 ABG O2 Saturation 96.9 ABG Base Excess 0.6 FiO2 38% 05/07/17 05/07/17 05/07/17 17:25 17:25 23:36 Creatine Kinase 1142 H 928 H CK-MB (CK-2) Troponin I 0.114 05/07/17 05/08/17 05/08/17 23:36 05:49 05:49 Creatine Kinase 873 H CK-MB (CK-2) Troponin I 0.092 0.062 05/09/17 05/10/17 05/10/17 07:35 17:12 17:12 Creatine Kinase 2165 H 524 H CK-MB (CK-2) 0.82 Troponin I 0.053 05/11/17 05/11/17 05/12/17 04:03 18:17 00:19 Creatine Kinase 325 H CK-MB (CK-2) Troponin I 0.014 0.036 Impressions: Renal Ultrasound 05/07/17 00:00 IMPRESSION: NORMAL RENAL ULTRASOUND. Head CT 05/07/17 14:08 IMPRESSION: Very limited negative study EVIDENCE OF ACUTE STROKE: NO. Chest/Abdomen CTA 05/10/17 13:03 IMPRESSION: Mild pulmonary arterial hypertension pattern. Otherwise, no acute cardiopulmonary findings. No pulmonary emboli. Chest X-Ray 05/18/17 06:00 IMPRESSION: Interval improvement in the aeration of the lungs. Small left pleural effusion and mild left basilar atelectasis. Status: Imported from PACS Assessment & Plan - Diagnosis (1) Rupture quadriceps tendon Is this a current diagnosis for this admission?: Yes Plan: 52-year-old white male known to me from 2 previous knee arthroplasties and more recently a right quad tendon tear. At this point mg can be removed from the right knee and Steri-Strips applied. Patient can follow-up with me as an outpatient. - Time Time Spent with patient: 15-24 minutes Anticipated discharge: Home with Homehealth Within: Other
[2017-05-19] MEDS: LOSARTAN POTASSIUM 50 MG TABLET PO SCH (09:15)
[2017-05-19] MEDS: METHYLPREDNISOLONE INJ 40 MG/1 ML SDV IV SCH (09:15)
[2017-05-19] MEDS: THIAMINE HCL 100 MG TABLET PO SCH (09:15)
[2017-05-19] MEDS: INSULIN GLARGINE,HUM.REC.ANLOG 1,000 UNIT/10 ML UNIT SUBCUT SCH ×2 (09:15→17:36)
[2017-05-19] MEDS: FOLIC ACID 1 MG TABLET PO SCH (09:16)
[2017-05-19] MEDS: MUPIROCIN 2% OINTMENT 22 GM TP SCH ×2 (09:16→17:43)
[2017-05-19] MEDS: MULTIVITAMINS W-IRON TABLET, CHEWABLE PO SCH (09:16)
[2017-05-19] MEDS: INSULIN REG, HUMAN 100 UNIT/ML 3 ML VIAL (PYX) SUBCUT PRN (13:31)
[2017-05-19] MEDS: OXYCODONE HCL IR 5 MG TABLET PO PRN (13:33)
[2017-05-19] MEDS: GABAPENTIN 300 MG CAPSULE PO SCH ×2 (13:35→21:45)
--- NOTE | 2017-05-19 15:39 | PDOC PROGRESS REPORT ---
Subjective Progress Note for:: 05/19/17 Subjective:: Patient admitted for DTs and possible aspiration. Patient was transferred to the ICU for possible V tach now thought to be artifact. Patient intubated on for hypercapneic respiratory failure. Patient extubated on 05/17. Patient sitting up in chair. He states his breathing is better but his legs are weak. Patient very sad and tearful today. Reason For Visit: ACUTE RENAL FAILURE Physical Exam Vital Signs: Temp Pulse Resp BP Pulse Ox 98.1 F 98 20 141/90 H 92 05/19/17 11:33 05/19/17 14:00 05/19/17 13:53 05/19/17 11:33 05/19/17 13:53 Intake & Output 05/18/17 05/19/17 05/20/17 06:59 06:59 06:59 Intake Total 207 2489 Output Total 3675 3220 Balance -3468 -731 Weight 122.3 kg General appearance: PRESENT: no acute distress, well-developed, well-nourished Head exam: PRESENT: normocephalic Eye exam: PRESENT: EOMI. ABSENT: scleral icterus Ear exam: PRESENT: normal external ear exam Mouth exam: PRESENT: moist Neck exam: ABSENT: carotid bruit, JVD, lymphadenopathy, thyromegaly Respiratory exam: PRESENT: clear to auscultation savita. ABSENT: rales, rhonchi, wheezes Cardiovascular exam: PRESENT: RRR. ABSENT: diastolic murmur, rubs, systolic murmur Pulses: PRESENT: normal dorsalis pedis pul Vascular exam: PRESENT: normal capillary refill GI/Abdominal exam: PRESENT: normal bowel sounds, soft. ABSENT: distended, guarding, mass, organolmegaly, rebound, tenderness Rectal exam: PRESENT: deferred Extremities exam: PRESENT: full ROM, other - mg on right knee. ABSENT: calf tenderness, clubbing, pedal edema Neurological exam: PRESENT: alert, awake, oriented to person, oriented to place , oriented to time, oriented to situation, CN II-XII grossly intact. ABSENT: motor sensory deficit Psychiatric exam: PRESENT: appropriate affect, normal mood. ABSENT: homicidal ideation, suicidal ideation Skin exam: PRESENT: dry, intact, warm. ABSENT: cyanosis, rash Results Laboratory Results: 05/18/17 03:53 05/18/17 03:53 05/19/17 06:36 Carbonic Acid 1.06 HCO3/H2CO3 Ratio 22:1 ABG pH 7.45 ABG pCO2 35.2 ABG pO2 85.8 ABG HCO3 24.0 ABG O2 Saturation 96.9 ABG Base Excess 0.6 FiO2 38% 05/07/17 05/07/17 05/07/17 17:25 17:25 23:36 Creatine Kinase 1142 H 928 H CK-MB (CK-2) Troponin I 0.114 05/07/17 05/08/17 05/08/17 23:36 05:49 05:49 Creatine Kinase 873 H CK-MB (CK-2) Troponin I 0.092 0.062 05/09/17 05/10/17 05/10/17 07:35 17:12 17:12 Creatine Kinase 2165 H 524 H CK-MB (CK-2) 0.82 Troponin I 0.053 05/11/17 05/11/17 05/12/17 04:03 18: 00:19 Creatine Kinase 325 H CK-MB (CK-2) Troponin I 0.014 0.036 Impressions: Renal Ultrasound 05/07/17 00:00 IMPRESSION: NORMAL RENAL ULTRASOUND. Head CT 05/07/17 14:08 IMPRESSION: Very limited negative study EVIDENCE OF ACUTE STROKE: NO. Chest/Abdomen CTA 05/10/17 13:03 IMPRESSION: Mild pulmonary arterial hypertension pattern. Otherwise, no acute cardiopulmonary findings. No pulmonary emboli. Chest X-Ray 05/18/17 06:00 IMPRESSION: Interval improvement in the aeration of the lungs. Small left pleural effusion and mild left basilar atelectasis. Assessment & Plan - Diagnosis (1) Respiratory failure Qualifiers: Chronicity: acute Respiratory failure complication: unspecified whether with hypoxia or hypercapnia Qualified Code(s): J96.00 - Acute respiratory failure, unspecified whether with hypoxia or hypercapnia Is this a current diagnosis for this admission?: No Plan: Patient intubated 05/11 and extubated on 05/17 currently on nasal canula. Continue with nebs. Currently weaning steroids. (2) Aspiration pneumonia Qualifiers: Laterality: unspecified laterality Lung location: unspecified part of lung Is this a current diagnosis for this admission?: Yes Plan: Patient currently on ceftriaxone. Much improved. (3) Acute renal failure Is this a current diagnosis for this admission?: Yes Plan: Due to rhabdo and dehydration. Renal US normal. Resolved. (4) DM type 2 (diabetes mellitus, type 2) Qualifiers: Diabetes mellitus complication status: with unspecified complications Diabetes mellitus detention insulin use: unspecified detention insulin use status Qualified Code(s): E11.8 - Type 2 diabetes mellitus with unspecified complications Is this a current diagnosis for this admission?: Yes Plan: Blood glucoses better however still elevated. Will increase long acting insulin to 15 units bid along with SSI. Currently weaning steroids which should help. (5) ETOH withdrawal Is this a current diagnosis for this admission?: No Plan: Resolved. (6) Morbid obesity Is this a current diagnosis for this admission?: Yes Plan: Chha on weight loss using physical activity and portion control. (7) Rhabdomyolysis Is this a current diagnosis for this admission?: Yes Plan: Resolved. (8) Hypertension Qualifiers: Hypertension type: essential hypertension Qualified Code(s): I10 - Essential (primary) hypertension Is this a current diagnosis for this admission?: Yes Plan: May be due in part to DALILA. Patient blood pressures improved now that he is on his home medications. - Time Time Spent with patient: 15-24 minutes Anticipated discharge: Home with Homehealth Within: within 36 hours
[2017-05-19] MEDS: CEFTRIAXONE 1 GM/D5W RTU 1 GM/50 ML RTUPB IV SCH (17:42)
[2017-05-19] MEDS: TOLTERODINE TARTRATE 1 MG TABLET PO SCH (21:46)
[2017-05-19] MEDS: DIAZEPAM 5 MG TABLET PO SCH (21:47)
[2017-05-19] MEDS: ATORVASTATIN CALCIUM 80 MG TABLET PO SCH (21:47)
[2017-05-19] MEDS: MONTELUKAST SODIUM 10 MG TABLET PO SCH (21:47)
[2017-05-20] MEDS: INSULIN REG, HUMAN 100 UNIT/ML 3 ML VIAL (PYX) SUBCUT PRN ×2 (00:30→17:25)
[2017-05-20] MEDS: HEPARIN SOD (PORCINE) 5,000 UNIT/ML 1 ML SYRINGE SUBCUT SCH ×3 (01:55→17:25)
[2017-05-20] MEDS: IPRATROPIUM/ALBUTEROL 0.5-2.5 MG/3 ML AMPUL NEB SCH ×4 (02:02→19:58)
[2017-05-20] MEDS: GABAPENTIN 300 MG CAPSULE PO SCH ×3 (05:57→23:15)
[2017-05-20] MEDS: OXYCODONE HCL IR 5 MG TABLET PO PRN ×3 (05:57→23:14)
[2017-05-20] MEDS: LANSOPRAZOLE 30 MG TAB.RAP.DR PO SCH (05:57)
--- NOTE | 2017-05-20 06:31 | PDOC PROGRESS REPORT ---
Subjective Progress Note for:: 05/19/17 Subjective:: improving Reason For Visit: ACUTE RENAL FAILURE Physical Exam Vital Signs: Temp Pulse Resp BP Pulse Ox 98.6 F 77 16 129/77 H 99 05/20/17 04:39 05/20/17 04:39 05/20/17 04:39 05/20/17 04:39 05/20/17 04:39 Intake & Output 05/18/17 05/19/17 05/20/17 06:59 06:59 06:59 Intake Total 207 2489 1222 Output Total 3675 3220 1550 Balance -3468 -731 -328 Weight 122.3 kg 119.2 kg General appearance: PRESENT: cooperative, disheveled, morbidly obese, well- developed, well-nourished. ABSENT: no acute distress, hard of hearing, mild distress, obese, severe distress Head exam: PRESENT: atraumatic, normocephalic Eye exam: PRESENT: conjunctiva pale, EOMI. ABSENT: conjunctival injection, conjunctiva pink, nystagmus, periorbital swelling, scleral icterus Mouth exam: PRESENT: dry mucosa, neck supple, tongue midline. ABSENT: laceration Neck exam: ABSENT: carotid bruit, JVD, lymphadenopathy, thyromegaly, tracheal deviation, tracheostomy Respiratory exam: PRESENT: decreased breath sounds, prolonged expiratory phas, rhonchi, symmetrical, unlabored. ABSENT: accessory muscle use, chest wall tenderness, clear to auscultation savita, crackles, rales, retraction, stridor, tachypnea Cardiovascular exam: PRESENT: RRR, +S1, +S2. ABSENT: rubs Pulses: PRESENT: normal radial pulses GI/Abdominal exam: PRESENT: normal bowel sounds, soft. ABSENT: distended, guarding, mass, organolmegaly, rebound, tenderness Extremities exam: ABSENT: calf tenderness, clubbing, joint swelling Musculoskeletal exam: ABSENT: deformity, dislocation Neurological exam: PRESENT: alert, awake Psychiatric exam: PRESENT: normal mood Skin exam: PRESENT: dry, warm Results Laboratory Results: 05/18/17 03:53 05/18/17 03:53 05/19/17 06:36 Carbonic Acid 1.06 HCO3/H2CO3 Ratio 22:1 ABG pH 7.45 ABG pCO2 35.2 ABG pO2 85.8 ABG HCO3 24.0 ABG O2 Saturation 96.9 ABG Base Excess 0.6 FiO2 38% 05/07/17 05/07/17 05/07/17 17:25 17:25 23:36 Creatine Kinase 1142 H 928 H CK-MB (CK-2) Troponin I 0.114 05/07/17 05/08/17 05/08/17 23:36 05:49 05:49 Creatine Kinase 873 H CK-MB (CK-2) Troponin I 0.092 0.062 05/09/17 05/10/17 05/10/17 07:35 17:12 17:12 Creatine Kinase 2165 H 524 H CK-MB (CK-2) 0.82 Troponin I 0.053 05/11/17 05/11/17 05/12/17 04:03 18:17 00:19 Creatine Kinase 325 H CK-MB (CK-2) Troponin I 0.014 0.036 Impressions: Renal Ultrasound 05/07/17 00:00 IMPRESSION: NORMAL RENAL ULTRASOUND. Head CT 05/07/17 14:08 IMPRESSION: Very limited negative study EVIDENCE OF ACUTE STROKE: NO. Chest/Abdomen CTA 05/10/17 13:03 IMPRESSION: Mild pulmonary arterial hypertension pattern. Otherwise, no acute cardiopulmonary findings. No pulmonary emboli. Chest X-Ray 05/18/17 06:00 IMPRESSION: Interval improvement in the aeration of the lungs. Small left pleural effusion and mild left basilar atelectasis. Assessment & Plan - Diagnosis (1) Respiratory failure Qualifiers: Chronicity: acute Respiratory failure complication: unspecified whether with hypoxia or hypercapnia Qualified Code(s): J96.00 - Acute respiratory failure, unspecified whether with hypoxia or hypercapnia Is this a current diagnosis for this admission?: No Plan: s/p extubation stable (2) Aspiration pneumonia Qualifiers: Laterality: unspecified laterality Lung location: unspecified part of lung Is this a current diagnosis for this admission?: Yes Plan: improved (3) Delirium Is this a current diagnosis for this admission?: No (4) ETOH withdrawal Is this a current diagnosis for this admission?: No (5) Morbid obesity Is this a current diagnosis for this admission?: Yes
[2017-05-20] MEDS ORDERED: (PENDING PHARMACY ID) (Solifenacin Succinate [Vesicare] 10 MG) PO SCH (10:00)
[2017-05-20] MEDS: INSULIN GLARGINE,HUM.REC.ANLOG 1,000 UNIT/10 ML UNIT SUBCUT SCH ×2 (12:22→17:25)
[2017-05-20] MEDS: PREDNISONE 20 MG TABLET PO SCH (12:23)
[2017-05-20] MEDS: THIAMINE HCL 100 MG TABLET PO SCH (12:23)
[2017-05-20] MEDS: LOSARTAN POTASSIUM 50 MG TABLET PO SCH (12:24)
[2017-05-20] MEDS: TOLTERODINE TARTRATE 1 MG TABLET PO SCH ×2 (12:24→23:15)
[2017-05-20] MEDS: FOLIC ACID 1 MG TABLET PO SCH (12:25)
[2017-05-20] MEDS: MUPIROCIN 2% OINTMENT 22 GM TP SCH ×2 (12:28→17:35)
[2017-05-20] MEDS: MULTIVITAMINS W-IRON TABLET, CHEWABLE PO SCH (12:29)
--- NOTE | 2017-05-20 13:41 | PDOC PROGRESS REPORT ---
Subjective Progress Note for:: 05/20/17 Subjective:: Patient admitted for DTs and possible aspiration. Patient was transferred to the ICU for possible V tach now thought to be artifact. Patient intubated on for hypercapneic respiratory failure. Patient extubated on 05/17. Patient sitting up in chair. Patient mg removed from his right knee. There is a area where patient states there was some drainage. Overall patient is doing well. Patient drinking plenty of fluid to help clear patient urine. Patient would like to walk around with physical therapy. Reason For Visit: ACUTE RENAL FAILURE Physical Exam Vital Signs: Temp Pulse Resp BP Pulse Ox 98.6 F 109 H 18 121/63 95 05/20/17 04:39 05/20/17 08:11 05/20/17 08:11 05/20/17 08:11 05/20/17 08:11 Intake & Output 05/19/17 05/20/17 05/21/17 06:59 06:59 06:59 Intake Total 2489 1342 Output Total 3220 2050 Balance -731 -708 Weight 122.3 kg 119.2 kg General appearance: PRESENT: no acute distress, obese Head exam: PRESENT: normocephalic Eye exam: PRESENT: EOMI. ABSENT: scleral icterus Ear exam: PRESENT: normal external ear exam Mouth exam: PRESENT: moist, tongue midline Neck exam: ABSENT: carotid bruit, JVD, lymphadenopathy, thyromegaly Respiratory exam: PRESENT: clear to auscultation savita. ABSENT: rales, rhonchi, wheezes Cardiovascular exam: PRESENT: RRR. ABSENT: diastolic murmur, rubs, systolic murmur Pulses: PRESENT: normal dorsalis pedis pul Vascular exam: PRESENT: normal capillary refill GI/Abdominal exam: PRESENT: normal bowel sounds, soft. ABSENT: distended, guarding, mass, organolmegaly, rebound, tenderness Rectal exam: PRESENT: deferred Extremities exam: PRESENT: full ROM, other - Steri-Strips on right knee. There is opening there with slight drainage.. ABSENT: calf tenderness, clubbing, pedal edema Neurological exam: PRESENT: alert, awake, oriented to person, oriented to place , oriented to time, oriented to situation, CN II-XII grossly intact. ABSENT: motor sensory deficit Psychiatric exam: PRESENT: appropriate affect, normal mood. ABSENT: homicidal ideation, suicidal ideation Skin exam: PRESENT: dry, intact, warm. ABSENT: cyanosis, rash Results Laboratory Results: 05/18/17 03:53 05/18/17 03:53 05/17/17 22:55 Lombardi Catheter Urine Culture - Final NO GROWTH 2 DAYS 05/07/17 05/07/17 05/07/17 17:25 17:25 23:36 Creatine Kinase 1142 H 928 H CK-MB (CK-2) Troponin I 0.114 05/07/17 05/08/17 05/08/17 23:36 05:49 05:49 Creatine Kinase 873 H CK-MB (CK-2) Troponin I 0.092 0.062 05/09/17 05/10/17 05/10/17 07:35 17:12 17:12 Creatine Kinase 2165 H 524 H CK-MB (CK-2) 0.82 Troponin I 0.053 05/11/17 05/11/17 05/12/17 04:03 18:17 00:19 Creatine Kinase 325 H CK-MB (CK-2) Troponin I 0.014 0.036 Impressions: Renal Ultrasound 05/07/17 00:00 IMPRESSION: NORMAL RENAL ULTRASOUND. Head CT 05/07/17 14:08 IMPRESSION: Very limited negative study EVIDENCE OF ACUTE STROKE: NO. Chest/Abdomen CTA 05/10/17 13:03 IMPRESSION: Mild pulmonary arterial hypertension pattern. Otherwise, no acute cardiopulmonary findings. No pulmonary emboli. Chest X-Ray 05/18/17 06:00 IMPRESSION: Interval improvement in the aeration of the lungs. Small left pleural effusion and mild left basilar atelectasis. Assessment & Plan - Diagnosis (1) Respiratory failure Qualifiers: Chronicity: acute Respiratory failure complication: unspecified whether with hypoxia or hypercapnia Qualified Code(s): J96.00 - Acute respiratory failure, unspecified whether with hypoxia or hypercapnia Is this a current diagnosis for this admission?: No Plan: Patient intubated 05/11 and extubated on 05/17 currently on nasal canula. Continue with nebs. Currently weaning steroids. He is on 5 L satting 95%. Advised to wean patient oxygen to maintain sats above 90. (2) Aspiration pneumonia Qualifiers: Laterality: unspecified laterality Lung location: unspecified part of lung Is this a current diagnosis for this admission?: Yes Plan: Patient currently on ceftriaxone. Improved. (3) Acute renal failure Is this a current diagnosis for this admission?: Yes Plan: Due to rhabdo and dehydration. Renal US normal. Resolved. Patient now with dark urine which may be myoglobinuria. 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 Continue long acting insulin to 15 units bid along with SSI. (5) ETOH withdrawal Is this a current diagnosis for this admission?: No Plan: Resolved. (6) Morbid obesity Is this a current diagnosis for this admission?: Yes Plan: [employer] on weight loss using physical activity and portion control. (7) Rhabdomyolysis Is this a current diagnosis for this admission?: Yes Plan: Resolved. (8) Hypertension Qualifiers: Hypertension type: essential hypertension Qualified Code(s): I10 - Essential (primary) hypertension Is this a current diagnosis for this admission?: Yes Plan: Continue home medications. - Time Time Spent with patient: Less than 15 minutes Anticipated discharge: Home with Homehealth Within: within 48 hours - Inpatient Certification Medical Necessity: Need Close Monitoring Due to Risk of Patient Decompensation - Patient oxygen being weaned down from 5 L. Also waiting for patient to ambulate with physical therapy. Patient was ambulating prior to coming here and has not ambulated since being admitted.
[2017-05-20] MEDS: CEFTRIAXONE 1 GM/D5W RTU 1 GM/50 ML RTUPB IV SCH (17:26)
[2017-05-20] MEDS: DIAZEPAM 5 MG TABLET PO SCH (23:13)
[2017-05-20] MEDS: ATORVASTATIN CALCIUM 80 MG TABLET PO SCH (23:14)
[2017-05-20] MEDS: MONTELUKAST SODIUM 10 MG TABLET PO SCH (23:14)
[2017-05-21] MEDS: HEPARIN SOD (PORCINE) 5,000 UNIT/ML 1 ML SYRINGE SUBCUT SCH ×2 (01:15→10:55)
[2017-05-21] MEDS: IPRATROPIUM/ALBUTEROL 0.5-2.5 MG/3 ML AMPUL NEB SCH ×3 (01:23→14:14)
[2017-05-21] MEDS: GABAPENTIN 300 MG CAPSULE PO SCH ×2 (06:00→14:06)
[2017-05-21] MEDS: LANSOPRAZOLE 30 MG TAB.RAP.DR PO SCH (06:00)
[2017-05-21] MEDS: OXYCODONE HCL IR 5 MG TABLET PO PRN (08:33)
[2017-05-21] MEDS: INSULIN REG, HUMAN 100 UNIT/ML 3 ML VIAL (PYX) SUBCUT PRN (08:34)
[2017-05-21] MEDS: LOSARTAN POTASSIUM 50 MG TABLET PO SCH (10:55)
[2017-05-21] MEDS: FOLIC ACID 1 MG TABLET PO SCH (10:55)
[2017-05-21] MEDS: TOLTERODINE TARTRATE 1 MG TABLET PO SCH (10:55)
[2017-05-21] MEDS: THIAMINE HCL 100 MG TABLET PO SCH (10:55)
[2017-05-21] MEDS: MULTIVITAMINS W-IRON TABLET, CHEWABLE PO SCH (10:55)
[2017-05-21] MEDS: PREDNISONE 20 MG TABLET PO SCH (10:55)
[2017-05-21] MEDS: INSULIN GLARGINE,HUM.REC.ANLOG 1,000 UNIT/10 ML UNIT SUBCUT SCH (10:55)
[2017-05-21] MEDS: MUPIROCIN 2% OINTMENT 22 GM TP SCH (10:56)
--- NOTE | 2017-05-21 10:59 | PDOC DISCHARGE SUMMARY ---
General - Admit/Disc Date/PCP Admission Date/Primary Care Provider: 05/07/17 16:50 Discharge Date: 05/21/17 - Discharge Diagnosis (1) Respiratory failure Is this a current diagnosis for this admission?: No (2) Aspiration pneumonia Is this a current diagnosis for this admission?: Yes (3) Acute renal failure Is this a current diagnosis for this admission?: Yes (4) DM type 2 (diabetes mellitus, type 2) Is this a current diagnosis for this admission?: Yes (5) ETOH withdrawal Is this a current diagnosis for this admission?: No (6) Morbid obesity Is this a current diagnosis for this admission?: Yes (7) Rhabdomyolysis Is this a current diagnosis for this admission?: Yes (8) Hypertension Is this a current diagnosis for this admission?: Yes - Additional Information Resuscitation Status: Full Code Home Medications: Albuterol Sulfate [Proair HFA Inhalation Aerosol 8.5 gm MDI] 2 puff IH Q4 PRN Atorvastatin Calcium [Lipitor] 80 mg PO QHS 05/07/17 Baclofen [Baclofen 10 mg Tablet] 10 mg PO MEALS 05/07/17 Diazepam [Valium 5 mg Tablet] 5 mg PO TIDP PRN 05/07/17 Diclofenac Sodium [Voltaren] 1 applic TP DAILYP PRN 05/07/17 Gabapentin [Neurontin] 600 mg PO Q8 05/07/17 Metformin HCl [Metformin HCl ER] 500 mg PO DAILY 05/07/17 Montelukast Sodium [Singulair 10 mg Tablet] 10 mg PO QHS 05/07/17 Morphine Sulfate [Morphine Sulfate ER] 30 mg PO Q12 05/07/17 Omeprazole 20 mg PO DAILY 05/07/17 Oxycodone HCl 15 mg PO Q6HP PRN 05/07/17 Solifenacin Succinate [Vesicare] 10 mg PO DAILY 05/07/17 Telmisartan [Micardis 80 mg Tablet] 80 mg PO DAILY 05/07/17 History of Present Illness History of Present Illness: DONNIE LEE SR is a 52 year old male with history of chronic alcohol abuse presenting with DTs. Hospital Course Hospital Course: Patient has history of chronic alcohol abuse who presented in DTs. There was also concern for aspiration pneumonia. Patient was also have hypercapneic respiratory failure and was placed on bipap. Patient was being treated for his DTs with benzos. Patient became respiratory suppressed and became hypercapneic. Patient required emergent intubation. Patient remained intubated and was eventually extubated. Patient antibiotics coverage broadened. Patient was started on IV steroids and continued on nebs. Patient antibiotics were eventually de esculated. Patient was continued on oxygen and then weaned to room air where he continued to maintain his saturations. Patient also had rhabdo with acute renal failure which resolved with hydration. Patient has right knee tendon repair by Dr. Raphael prior to this admission. Patient stable were removed and he walked 80 feet with PT. Patient will be discharged with home health. Physical Exam Vital Signs: Temp Pulse Resp BP Pulse Ox 97.7 F 91 16 115/75 93 05/21/17 08:31 05/21/17 08:39 05/21/17 08:39 05/21/17 08:31 05/21/17 08:39 Intake & Output 05/20/17 05/21/17 05/22/17 06:59 06:59 06:59 Intake Total 1342 480 Output Total 2050 875 Balance -708 -395 Weight 119.2 kg General appearance: PRESENT: no acute distress, morbidly obese Head exam: PRESENT: normocephalic Eye exam: PRESENT: EOMI, PERRLA. ABSENT: scleral icterus Ear exam: PRESENT: normal external ear exam Mouth exam: PRESENT: moist Neck exam: ABSENT: carotid bruit, JVD, lymphadenopathy, thyromegaly Respiratory exam: PRESENT: clear to auscultation savita. ABSENT: rales, rhonchi, wheezes Cardiovascular exam: PRESENT: RRR. ABSENT: diastolic murmur, rubs, systolic murmur GI/Abdominal exam: PRESENT: normal bowel sounds, soft. ABSENT: distended, guarding, mass, organolmegaly, rebound, tenderness Rectal exam: PRESENT: deferred Extremities exam: PRESENT: full ROM, other - wound on right knee healing. ABSENT: calf tenderness, clubbing, pedal edema Neurological exam: PRESENT: alert, awake, oriented to person, oriented to place , oriented to time, oriented to situation, CN II-XII grossly intact. ABSENT: motor sensory deficit Psychiatric exam: PRESENT: appropriate affect, normal mood. ABSENT: homicidal ideation, suicidal ideation Skin exam: PRESENT: dry, intact, warm. ABSENT: cyanosis, rash Results Laboratory Results: 11/28/17 03:53 05/18/17 03:53 05/17/17 22:55 Lombardi Catheter Urine Culture - Final NO GROWTH 2 DAYS 05/07/17 05/07/17 05/07/17 17:25 17:25 23:36 Creatine Kinase 1142 H 928 H CK-MB (CK-2) Troponin I 0.114 05/07/17 05/08/17 05/08/17 23:36 05:49 05:49 Creatine Kinase 873 H CK-MB (CK-2) Troponin I 0.092 0.062 05/09/17 05/10/17 05/10/17 07:35 17:12 17:12 Creatine Kinase 2165 H 524 H CK-MB (CK-2) 0.82 Troponin I 0.053 05/11/17 05/11/17 05/12/17 04:03 18:17 00:19 Creatine Kinase 325 H CK-MB (CK-2) Troponin I 0.014 0.036 Impressions: Renal Ultrasound 05/07/17 00:00 IMPRESSION: NORMAL RENAL ULTRASOUND. Head CT 05/07/17 14:08 IMPRESSION: Very limited negative study EVIDENCE OF ACUTE STROKE: NO. Chest/Abdomen CTA 05/10/17 13:03 IMPRESSION: Mild pulmonary arterial hypertension pattern. Otherwise, no acute cardiopulmonary findings. No pulmonary emboli. Chest X-Ray 05/18/17 06:00 IMPRESSION: Interval improvement in the aeration of the lungs. Small left pleural effusion and mild left basilar atelectasis. Qualifiers PATEINT BEING DISCHARGED WITH ANY OF THE FOLLOWING DIAGNOSIS?: No Plan Time Spent: Greater than 30 Minutes
[2017-05-21 13:45] VITALS: BP 171/99
== END 2017-05-21 14:52 | disposition home health service (06) | DRG 207 ==
LOC: ER 12:52 → EH 16:50 → 3S 19:26 → ICU 05-10 16:51 → 3W 05-18 15:35
PROVIDERS: ADMIT Emergency Medicine; ATTEND Emergency Medicine
PROC: 0BH17EZ Insertion of Endotracheal Airway into Trachea, Via Natural or Artificial Opening (ICD-10-PCS; principal; 2017-05-11)
PROC: 5A1955Z Respiratory Ventilation, Greater than 96 Consecutive Hours (ICD-10-PCS; 2017-05-11)
DX: J69.0 Pneumonitis due to inhalation of food and vomit (principal); J96.02 Acute respiratory failure with hypercapnia; N17.9 Acute kidney failure, unspecified; F10.231 Alcohol dependence with withdrawal delirium; M62.82 Rhabdomyolysis; I47.2 Ventricular tachycardia; Z68.42 Body mass index [BMI] 45.0-49.9, adult; E87.5 Hyperkalemia; E86.0 Dehydration; E11.9 Type 2 diabetes mellitus without complications; I10 Essential (primary) hypertension; E78.5 Hyperlipidemia, unspecified; K21.9 Gastro-esophageal reflux disease without esophagitis; M19.90 Unspecified osteoarthritis, unspecified site; E66.01 Morbid (severe) obesity due to excess calories; Z79.84 Long term (current) use of oral hypoglycemic drugs; Z79.899 Other long term (current) drug therapy; Z96.653 Presence of artificial knee joint, bilateral; Z87.891 Personal history of nicotine dependence; Z78.1 Physical restraint status
CPT/HCPCS: 31500; 36415; 36600; 51702; 70450; 71010; 71275; 76775; 80048; 80053; 80076; 80202; 81001; 82140; 82550; 82553; 82803; 82962; 83036; 83605; 83735; 83874; 84100; 84132; 84439; 84443; 84484; 85025; 87040; 87070; 87077; 87086; 87186; 87205; 87493; 93005; 93010; 93306; 93970; 94002; 94003; 94640; 94660; 96365; 99291; G8978-GP; G8979-GP; J0282; J0295; J0330; J0360; J0692; J0696; J1630; J1644; J1815; J1956; J2060; J2250; J2270; J2310; J2405; J2704; J2920; J2930; J3370; J3411; J3475; J3480; J3490; J7030; J7060; J7120; J7512; J7620

== ENCOUNTER 2017-11-08 13:49 | Inpatient (IN) | payer MEDICARE, MEDICAID ==
[2017-11-08] MEDS ORDERED: IPRATROPIUM/ALBUTEROL 0.5-2.5 MG/3 ML AMPUL NEB ONE (15:33)
[2017-11-08] MEDS ORDERED: AZITHROMYCIN INJ 500 MG VIAL IV ONE (15:34)
[2017-11-08] MEDS ORDERED: PREDNISONE 20 MG TABLET PO ONE (15:34)
[2017-11-08] MEDS ORDERED: CEFTRIAXONE INJ 1000 MG VIAL IM ONE (15:34)
[2017-11-08] MEDS ORDERED: BENZONATATE 100 MG CAPSULE PO ONE (15:36)
[2017-11-08] MEDS ORDERED: ASPIRIN 81 MG TABLET, CHEWABLE PO ONE (15:38)
--- NOTE | 2017-11-08 15:38 | ER Document Report ---
ED Medical Screen (RME) - General Chief Complaint: Cough Stated Complaint: COUGH Time Seen by Provider: 11/08/17 15:26 Notes: RAPID MEDICAL EVALUATION DISCLOSURE I have seen this patient as part of a Rapid Medical Evaluation and, if applicable, placed any initially appropriate orders. The patient will be seen and fully evaluated, including a full history and physical exam, by a provider ( in Main ED or Fast Track) when a room becomes available. 52-year-old male PMH pneumonia here with complaints of cough shortness of breath and chest tightness ongoing for the past few days. Cough productive of green sputum, fevers chills. States this feels like his previous pneumonia. He has inhaler and nebulizer treatment at home however did not help and advises he believes those medications are . He does not normally wear oxygen at home. EXAM Diaphoretic Mild end expiratory wheezes Mild to moderate decreased aeration NOTE Patient's SPO2 85% (room air) in triage Patient states he can only take aspirin for fever (not Tylenol), so aspirin ordered TRAVEL OUTSIDE OF THE [place] IN LAST 30 DAYS: No - Related Data Allergies/Adverse Reactions: No Known Allergies Allergy (Unverified 04/06/14 09:16) Past Medical History - Social History Chew tobacco use (# tins/day): No Frequency of alcohol use: Occasional Drug Abuse: Prescription drugs - Past Medical History Cardiac Medical History: Reports: Hx Hypercholesterolemia, Hx Hypertension Denies: Hx Atrial Fibrillation, Hx Congestive Heart Failure, Hx Coronary Artery Disease, Hx Heart Attack, Hx Peripheral Vascular Disease, Hx Pulmonary Embolism, Hx Heart Murmur Pulmonary Medical History: Reports: Hx Asthma, Hx COPD, Hx Pneumonia, Hx Sleep Apnea Denies: Hx Bronchitis, Hx Respiratory Failure, Hx Tuberculosis Neurological Medical History: Denies: Hx Cerebrovascular Accident, Hx Seizures Endocrine Medical History: Reports: Hx Diabetes Mellitus Type 2. Denies: Hx Graves' Disease, Hx Hyperthyroidism, Hx Hypothyroidism Renal/ Medical History: Reports: Hx Benign Prostatic Hyperplasia - nocturia x 2-3/night. Denies: Hx End Stage Renal Disease, Hx Kidney Stones, Hx Peritoneal Dialysis Malignancy Medical History: Denies Hx Leukemia, Denies Hx Lung Cancer GI Medical History: Reports: Hx Gastroesophageal Reflux Disease. Denies: Hx Crohn's Disease, Hx Hiatal Hernia, Hx Irritable Bowel, Hx Liver Failure, Hx Pancreatitis, Hx Ulcer Musculoskeltal Medical History: Reports Hx Arthritis, Denies Hx Fibromyalgia, Denies Hx Multiple Sclerosis, Denies Hx Muscular Dystrophy Psychiatric Medical History: Denies: Hx Bipolar Disorder, Hx Dementia, Hx Depression, Hx Post Traumatic Stress Disorder, Hx Schizophrenia Traumatic Medical History: Denies: Hx Fractures Infectious Medical History: Denies: Hx HIV Past Surgical History: Reports: Hx Abdominal Surgery - hernia, Hx Orthopedic Surgery - Bilateral knee replacements. Recent repair of right knee. Denies: Hx Appendectomy, Hx Bowel Surgery, Hx Cholecystectomy, Hx Colostomy, Hx Coronary Artery Bypass Graft, Hx Gastric Bypass Surgery, Hx Herniorrhaphy, Hx Pacemaker, Hx Tonsillectomy - Immunizations Hx Diphtheria, Pertussis, Tetanus Vaccination: Yes History of Influenza Vaccine for 03/2017 - 08/2017 Season: Yes Influenza Administration Date for 03/2017 - 08/2017 Season: 03/21/17 Physical Exam - Vital signs Vitals: Temp Pulse Resp BP Pulse Ox 100.7 F H 98 20 129/69 H 91 L 11/08/17 14:06 11/08/17 14:06 11/08/17 14:06 11/08/17 14:06 11/08/17 14:06 Course - Vital Signs Vital signs: Temp Pulse Resp BP Pulse Ox 100.7 F H 98 20 129/69 H 91 L 11/08/17 14:06 11/08/17 14:06 11/08/17 14:06 11/08/17 14:06 11/08/17 14:06
--- NOTE | 2017-11-08 16:03 | RADIOLOGY REPORT (SQ) ---
EXAM DESCRIPTION: CHEST 2 VIEWS COMPLETED DATE/TIME: 11/08/2017 3:50 pm REASON FOR STUDY: cough, hypoxia; eval pneumonia COMPARISON: CT chest 05/18/2017 Chest films 07/06/2014, 05/16/2017, 05/17/2017, 05/18/2017 EXAM PARAMETERS: NUMBER OF VIEWS: two views TECHNIQUE: Digital Frontal and Lateral radiographic views of the chest acquired. RADIATION DOSE: NA LIMITATIONS: none FINDINGS: LUNGS AND PLEURA: There are air bronchograms in the left posterior costophrenic sulcus wor risome for pneumonia at the left posterior lung base. Right lung grossly clear. No pleural effusions. No pneumothorax. MEDIASTINUM AND HILAR STRUCTURES: No masses or contour abnormalities. HEART AND VASCULAR STRUCTURES: Heart normal size. No evidence for failure. BONES: No acute findings. HARDWARE: None in the chest. OTHER: No other significant finding. IMPRESSION: Left basilar air bronchograms worrisome for airspace disease, atelectasis versus pneumon ia. TECHNICAL DOCUMENTATION: JOB ID: [id number] [employer]- All Rights Reserved Reading location - IP/workstation name: [facility]
[2017-11-08 16:33] LABS: ABSOLUTE EOSINOPHILS # (AUTO) 0.2 10^3/uL (0.0-0.6); ABSOLUTE LYMPHOCYTES (AUTO) 1.5 10^3/uL (0.5-4.7); ABSOLUTE MONOCYTES (AUTO) 1.2 10^3/uL (0.1-1.4); ABSOLUTE NEUT (AUTO) 15.3 10^3/uL (1.7-8.2); BASOPHILS % (AUTO) 0.3 % (0-2); EOSINOPHILS % (AUTO) 0.8 % (0-6); HEMATOCRIT 41.3 % (37.9-51.0); HEMOGLOBIN 13.4 g/dL (13.5-17.0); LYMPHOCYTES % (AUTO) 8.3 % (13-45); MEAN CORPUSCULAR HGB CONC 32.5 g/dL (32.0-36.0); MEAN CORPUSCULAR VOLUME 89 fl (80-97); MONOCYTES % (AUTO) 6.6 % (3-13); PLATELET COUNT 388 10^3/uL (150-450); RED BLOOD COUNT 4.62 10^6/uL (4.35-5.55); RED CELL DISTRIBUTION WIDTH 13.7 % (11.5-14.0); TOTAL CELLS COUNTED % (AUTO) 100 %; WHITE BLOOD COUNT 18.2 10^3/uL (4.0-10.5)
[2017-11-08 16:43] LABS: ANION GAP 15 (5-19); BLOOD UREA NITROGEN 20 mg/dL (7-20); CALCIUM 9.6 mg/dL (8.4-10.2); CARBON DIOXIDE 29 mmol/L (22-30); CHLORIDE 93 mmol/L (98-107); GLUCOSE 139 mg/dL (75-110); POTASSIUM 4.9 mmol/L (3.6-5.0); SODIUM 137.1 mmol/L (137-145)
[2017-11-08] MEDS ORDERED: FENTANYL CITRATE INJ/PF 100 MCG/2 ML AMPUL IV ONE (18:02)
--- NOTE | 2017-11-08 18:02 | ER Document Report ---
ED Respiratory Problem - General Mode of Arrival: Ambulatory Information source: Patient TRAVEL OUTSIDE OF THE [place] IN LAST 30 DAYS: No <AKI LORD - Last Filed: 11/08/17 23:41> <SAULO PEREIRA - Last Filed: 11/08/17 23:58> - General Chief Complaint: Cough Stated Complaint: COUGH Time Seen by Provider: 11/08/17 15:26 Notes: Patient is a 52-year-old male that presents to the emergency department today with complaints of shortness of breath with a cough for the last few days. Patient has a history of asthma and COPD. Patient states his primary care physician was worried about him having pneumonia. (AKI LORD) - Related Data Allergies/Adverse Reactions: No Known Allergies Allergy (Unverified 04/06/14 09:16) Past Medical History - General Information source: Patient - Social History Smoking Status: Never Smoker Cigarette use (# per day): No Chew tobacco use (# tins/day): No Frequency of alcohol use: Occasional Drug Abuse: Prescription drugs, Other - EtOH Lives with: Family Family History: Reviewed & Not Pertinent Patient has suicidal ideation: No Patient has homicidal ideation: No - Past Medical History Cardiac Medical History: Reports: Hx Hypercholesterolemia, Hx Hypertension Pulmonary Medical History: Reports: Hx Asthma, Hx COPD, Hx Pneumonia, Hx Sleep Apnea Endocrine Medical History: Reports: Hx Diabetes Mellitus Type 2 Renal/ Medical History: Reports: Hx Benign Prostatic Hyperplasia - nocturia x 2-3/night GI Medical History: Reports: Hx Gastroesophageal Reflux Disease Musculoskeltal Medical History: Reports Hx Arthritis Past Surgical History: Reports: Hx Abdominal Surgery - hernia, Hx Orthopedic Surgery - Bilateral knee replacements. Recent repair of right knee - Immunizations Hx Diphtheria, Pertussis, Tetanus Vaccination: Yes <AKI LORD - Last Filed: 11/08/17 23:41> Review of Systems - Review of Systems Constitutional: No symptoms reported EENT: No symptoms reported Cardiovascular: No symptoms reported Respiratory: See HPI, Cough, Short of breath Gastrointestinal: No symptoms reported Genitourinary: No symptoms reported Male Genitourinary: No symptoms reported Musculoskeletal: No symptoms reported Skin: No symptoms reported Hematologic/Lymphatic: No symptoms reported Neurological/Psychological: No symptoms reported -: Yes All other systems reviewed and negative <AKI LORD - Last Filed: 11/08/17 23:41> Physical Exam - Vital signs Interpretation: Tachycardic, Hypoxic, Febrile - General General appearance: Alert In distress: Mild - Respiratory Respiratory status: Respiratory distress Breath sounds: Productive cough, Rales - LLL, Wheezing - Cardiovascular Rhythm: Tachycardia - Abdominal Inspection: Normal Tenderness: Nontender - Extremities General upper extremity: Normal inspection General lower extremity: Normal inspection - Neurological Neuro grossly intact: Yes Cognition: Normal Orientation: AAOx4 - Psychological Associated symptoms: Agitated <SAULO PEREIRA - Last Filed: 11/08/17 23:58> - Vital signs Vitals: Temp Pulse Resp BP Pulse Ox 100.7 F H 98 20 129/69 H 91 L 11/08/17 14:06 11/08/17 14:06 11/08/17 14:06 11/08/17 14:06 11/08/17 14:06 Course - Laboratory Result Diagrams: 11/08/17 16:15 11/08/17 16:15 <AKI LORD - Last Filed: 11/08/17 23:41> - Laboratory Result Diagrams: 11/08/17 16:15 11/08/17 16:15 - Diagnostic Test Radiology reviewed: Reports reviewed <SAULO PEREIRA - Last Filed: 11/08/17 23:58> - Re-evaluation Re-evalutation: 11/08/17 Patient is a 52-year-old male who comes in with difficulty breathing and a cough as well as fever. He was sent in by his doctor. He has a history of COPD and is wheezing. Patient has been given steroids, nebulizer treatments, magnesium. His chest x-ray is consistent with pneumonia and he has been started on antibiotics with culture sent. Patient due to his respiratory distress will be admitted to the hospital. He is comfortable on nasal cannula and does not have an impending airway. Discussed with the hospitalist service. Stable at the time of admission. (SAULO PEREIRA) - Vital Signs Vital signs: Temp Pulse Resp BP Pulse Ox 97.7 F 89 12 129/84 H 95 11/08/17 22:00 11/08/17 20:12 11/08/17 21:14 11/08/17 21:15 11/08/17 22:00 - Laboratory Laboratory results interpreted by me: 11/08/17 11/08/17 11/08/17 16:15 16:15 16:15 WBC 18.2 H Hgb 13.4 L Seg Neutrophils % 84.0 H Lymphocytes % 8.3 L Absolute Neutrophils 15.3 H Chloride 93 L Glucose 139 H Lactic Acid 2.3 H Critical Care Note - Critical Care Note Total time excluding time spent on procedures (mins): 35 - Evaluation and management of respiratory distress, hypoxia, pneumonia, coordination of admission, counseling of patient, multiple re-evaluations <SAULO PEREIRA - Last Filed: 11/08/17 23:58> Discharge <AKI LORD - Last Filed: 11/08/17 23:41> - [facility] Unit Admitted: [facility] <SAULO PEREIRA - Last Filed: 11/08/17 23:58> - Discharge Clinical Impression: COPD exacerbation, Hypoxia, SIRS (systemic inflammatory response syndrome) Pneumonia Qualifiers: Pneumonia type: due to unspecified organism Laterality: left Lung location: lower lobe of lung Qualified Code(s): J18.1 - Lobar pneumonia, unspecified organism Condition: Stable Disposition: ADMITTED INPATIENT Scribe Attestation: 11/08/17 23:58 I personally performed the services described in the documentation, reviewed and edited the documentation which was dictated to the scribe in my presence, and it accurately records my words and actions. (SAULO PEREIRA) Scribe Documentation - Scribe Written by Jhone:: Eulalio Campa, 11/08/2017 [id number] acting as scribe for :: Сергей <AKI LORD - Last Filed: 11/08/17 23:41>
[2017-11-08] MEDS ORDERED: NORMAL SALINE 1000 ML 1,000 ML IV ONE (18:03)
[2017-11-08] MEDS ORDERED: IBUPROFEN 800 MG TABLET PO ONE (18:03)
[2017-11-08] MEDS ORDERED: CEFTRIAXONE 1 GM/D5W RTU 1 GM/50 ML RTUPB IV ONE (18:39)
[2017-11-08] MEDS ORDERED: ALBUTEROL SULFATE 0.083% NEB 2.5 MG/3 ML AMPUL NEB PRN (19:06)
[2017-11-08] MEDS ORDERED: ACETAMINOPHEN 325 MG TABLET PO PRN (19:06)
[2017-11-08] MEDS ORDERED: ONDANSETRON HCL INJ/PF 4 MG/2 ML SDV IV PRN (19:06)
[2017-11-08] MEDS ORDERED: ONDANSETRON 4 MG TAB.RAPDIS PO PRN (19:06)
[2017-11-08] MEDS ORDERED: GLUCAGON,HUMAN RECOMB 1 MG INJ IM PRN (19:07)
[2017-11-08] MEDS ORDERED: DEXTROSE 50%-WATER 25 GM/50 ML DISP.SYRIN IV PRN ×2 (19:07)
[2017-11-08] MEDS ORDERED: DEXTROSE 40% GEL 15 GM TUBE PO PRN ×2 (19:07)
[2017-11-08] MEDS ORDERED: LORAZEPAM 1 MG TABLET PO PRN (19:10)
--- NOTE | 2017-11-08 19:29 | PDOC H&P ---
History of Present Illness Admission Date/PCP: 11/08/17 18:13 Hollis Dorantes Patient complains of: Shortness of breath, cough History of Present Illness: DONNIE LEE SR is a 52 year old male with past medical history of Alcohol dependence COPD Hypertension Diabetes, not on insulin Arthritis Chronic back pain Opiate dependence, continuous use Hyperlipidemia Asthma GERD Outpatient meds:Morphine ER 30mg Q12h Oxycodone 15mg PO Q6H PRN Metformin 500mg Voltaren gel Atorvastatin 80mg Telmisartan 80mg daily Prilosec 20 mg daily Baclofen 10mg TID Albuterol MDI prn Vesicare 10mg daily The patient presented to the ER with a 5 day history of shortness of breath cough with greenish expectoration, chest x-ray in the emergency room revealed an infiltrate. He was treated with antibiotics and nebs. He was diagnosed with COPD exacerbation and pneumonia. He is a full code. Past Medical History Cardiac Medical History: Reports: Hyperlipidema, Hypertension Denies: Peripheral Vascular Disease, Pulmonary Embolism, Heart Murmur Pulmonary Medical History: Reports: Asthma, Chronic Obstructive Pulmonary Disease (COPD), Pneumonia, Sleep Apnea Endocrine Medical History: Reports: Diabetes Mellitus Type 2 GI Medical History: Reports: Gastroesophageal Reflux Disease Musculoskeltal Medical History: Reports: Arthritis Psychiatric Medical History: Reports: Alcohol Dependency Past Surgical History Past Surgical History: Reports: Orthopedic Surgery - Bilateral knee replacements. Recent repair of right knee Social History Smoking Status: Never Smoker Frequency of Alcohol Use: Heavy Hx Recreational Drug Use: No Hx Prescription Drug Abuse: No Family History Family History: DM, Hypertension Parental Family History Reviewed: Yes Children Family History Reviewed: Yes Sibling(s) Family History Reviewed.: Yes Medication/Allergy Allergies/Adverse Reactions: No Known Allergies Allergy (Unverified 04/06/14 09:16) Review of Systems Constitutional: PRESENT: fever(s) Eyes: ABSENT: visual disturbances Ears: ABSENT: hearing changes Nose, Mouth, and Throat: ABSENT: mouth pain Cardiovascular: ABSENT: chest pain, edema Respiratory: PRESENT: cough, dyspnea, sputum Gastrointestinal: ABSENT: abdominal pain, nausea, vomiting Genitourinary: ABSENT: dysuria Musculoskeletal: PRESENT: back pain. ABSENT: deformity Integumentary: ABSENT: rash Neurological: ABSENT: focal weakness Psychiatric: ABSENT: hallucinations Endocrine: ABSENT: heat intolerance Hematologic/Lymphatic: ABSENT: easy bleeding Physical Exam Vital Signs: Temp Pulse Resp BP Pulse Ox 100.7 F H 98 22 H 129/69 H 95 11/08/17 14:06 11/08/17 14:06 11/08/17 18:00 11/08/17 14:06 11/08/17 18:00 General appearance: PRESENT: well-developed, well-nourished Head exam: PRESENT: normocephalic Eye exam: ABSENT: scleral icterus Ear exam: PRESENT: normal external ear exam Mouth exam: PRESENT: moist Throat exam: ABSENT: tonsillar exudate Neck exam: ABSENT: tracheal deviation Respiratory exam: PRESENT: rhonchi, symmetrical, unlabored Cardiovascular exam: PRESENT: RRR GI/Abdominal exam: PRESENT: normal bowel sounds, soft. ABSENT: tenderness Rectal exam: PRESENT: deferred Gentrourinary exam: ABSENT: indwelling catheter Extremities exam: ABSENT: pedal edema Neurological exam: PRESENT: alert, awake, oriented to person, oriented to place , oriented to time, oriented to situation Psychiatric exam: PRESENT: appropriate affect Skin exam: ABSENT: rash Results Impressions: Chest X-Ray 11/08/17 15:27 IMPRESSION: Left basilar air bronchograms worrisome for airspace disease, atelectasis versus pneumonia. Assessment & Plan - Diagnosis (1) COPD exacerbation Is this a current diagnosis for this admission?: Yes Plan: Nebs, oxygen, steroids (2) Pneumonia Is this a current diagnosis for this admission?: Yes Plan: Sputum culture, antibiotics. 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 patient refuses to be on a diabetic diet (4) EtOH dependence Qualifiers: Substance use status: in withdrawal Is this a current diagnosis for this admission?: Yes Plan: Ativan prn (5) Opioid dependence Qualifiers: Complication of substance-induced condition: with unspecified complication Is this a current diagnosis for this admission?: Yes Plan: Continue outpatient regimen (6) Hypertension Is this a current diagnosis for this admission?: Yes Plan: Monitor continue Meds - Time Time Spent: 50 to 70 Minutes
[2017-11-08] MEDS ORDERED: MORPHINE SULFATE SR 30 MG TABLET PO ONE (19:30)
[2017-11-08] MEDS ORDERED: LACTOBACILLUS ACIDOPHILUS 250 MG TAB PO ONE (20:00)
[2017-11-08] MEDS: IPRATROPIUM/ALBUTEROL 0.5-2.5 MG/3 ML AMPUL NEB SCH (20:12)
[2017-11-08 20:51] LABS: APPEARANCE,URINE CLEAR; BILIRUBIN,URINE NEGATIVE (NEGATIVE); COLOR,URINE STRAW; GLUCOSE, URINE NEGATIVE (NEGATIVE); KETONES,URINE TRACE mg/dL (NEGATIVE); LEUKOCYTE ESTERASE,URINE NEGATIVE (NEGATIVE); NITRITE,URINE NEGATIVE (NEGATIVE); PROTEIN,URINE NEGATIVE (NEGATIVE); URINE SPECIFIC GRAVITY 1.006; UROBILINOGEN,URINE NEGATIVE mg/dL (<2.0)
[2017-11-08 21:09] LABS: URINE AMPHETAMINES SCREEN NEGATIVE; URINE BARBITURATES SCREEN NEGATIVE; URINE BENZODIAZEPINES SCREEN NEGATIVE; URINE COCAINE SCREEN NEGATIVE; URINE MARIJUANA (THC) SCREEN NEGATIVE; URINE METHADONE SCREEN NEGATIVE; URINE PHENCYCLIDINE SCREEN NEGATIVE
[2017-11-08] MEDS: GABAPENTIN 300 MG CAPSULE PO SCH (21:51)
[2017-11-08] MEDS: VALSARTAN 80 MG TABLET PO SCH (21:52)
[2017-11-08] MEDS: ATORVASTATIN CALCIUM 80 MG TABLET PO SCH (21:53)
[2017-11-08] MEDS: MONTELUKAST SODIUM 10 MG TABLET PO SCH (21:53)
[2017-11-08] MEDS ORDERED: GUAIFENESIN 600 MG TABLET.SA PO SCH (22:00)
[2017-11-08] MEDS: MAGNESIUM SULFATE/D5W 1 GM/100 ML RTUPB IV SCH ×2 (22:01→22:52)
[2017-11-09] MEDS ORDERED: DIAZEPAM 5 MG TABLET PO ONE (00:30)
[2017-11-09] MEDS ORDERED: GUAIFENESIN 600 MG TABLET.SA PO ONE (01:00)
[2017-11-09] MEDS: GABAPENTIN 300 MG CAPSULE PO SCH ×3 (06:26→22:30)
[2017-11-09] MEDS: MORPHINE SULFATE SR 30 MG TABLET PO SCH ×2 (06:27→17:34)
[2017-11-09] MEDS: LANSOPRAZOLE 30 MG TAB.RAP.DR PO SCH (06:27)
[2017-11-09] MEDS: IPRATROPIUM/ALBUTEROL 0.5-2.5 MG/3 ML AMPUL NEB SCH ×3 (07:45→19:55)
[2017-11-09] MEDS ORDERED: ALBUTEROL SULFATE HFA (90 MCG/PUFF) 200 PUFF/8.5 GM MDI IH PRN (09:26)
[2017-11-09] MEDS: AZITHROMYCIN 250 MG TABLET PO SCH (09:31)
[2017-11-09] MEDS: LACTOBACILLUS ACIDOPHILUS 250 MG TAB PO SCH ×2 (09:31→17:34)
[2017-11-09] MEDS: GUAIFENESIN 600 MG TABLET.SA PO SCH ×2 (09:31→17:34)
[2017-11-09] MEDS: PREDNISONE 20 MG TABLET PO SCH (09:31)
[2017-11-09] MEDS ORDERED: CEFTRIAXONE 1 GM/D5W RTU 1 GM/50 ML RTUPB IV SCH (10:00)
[2017-11-09] MEDS: INSULIN LISPRO 100 UNIT/ML 3 ML VIAL SUBCUT PRN ×3 (13:01→23:02)
--- NOTE | 2017-11-09 13:19 | PDOC PROGRESS REPORT ---
Subjective Progress Note for:: 11/09/17 Subjective:: Feels better. Appetite is improving Reason For Visit: PNEUMONIA Physical Exam Vital Signs: Temp Pulse Resp BP Pulse Ox 97.5 F 94 16 138/62 H 95 11/09/17 11:16 11/09/17 11:16 11/09/17 11:16 11/09/17 11:16 11/09/17 11:16 Intake & Output 11/08/17 11/09/17 11/10/17 06:59 06:59 06:59 Intake Total 323 10 Balance 323 10 Weight 118.7 kg General appearance: PRESENT: no acute distress, well-developed, well-nourished Head exam: PRESENT: normocephalic Eye exam: PRESENT: PERRLA Ear exam: PRESENT: normal external ear exam Mouth exam: PRESENT: moist Neck exam: ABSENT: tracheal deviation Respiratory exam: PRESENT: rhonchi, symmetrical, unlabored Cardiovascular exam: PRESENT: RRR GI/Abdominal exam: PRESENT: normal bowel sounds, soft. ABSENT: tenderness Rectal exam: PRESENT: deferred Extremities exam: ABSENT: pedal edema Neurological exam: PRESENT: alert, awake, oriented to person, oriented to place , oriented to time, oriented to situation Psychiatric exam: PRESENT: appropriate affect Results Laboratory Results: 11/08/17 11/08/17 20:32 21:31 Lactic Acid 1.3 Urine Color STRAW Urine Appearance CLEAR Urine pH 7.0 Ur Specific [place] 1.006 Urine Protein NEGATIVE Urine Glucose (UA) NEGATIVE Urine Ketones TRACE H Urine Blood NEGATIVE Urine Nitrite NEGATIVE Ur Leukocyte Esterase NEGATIVE Urine WBC (Auto) 0 Impressions: Chest X-Ray 11/08/17 15:27 IMPRESSION: Left basilar air bronchograms worrisome for airspace disease, atelectasis versus pneumonia. Assessment & Plan - Diagnosis (1) COPD exacerbation Is this a current diagnosis for this admission?: Yes Plan: Nebs, oxygen, steroids (2) Pneumonia Qualifiers: Pneumonia type: due to unspecified organism Laterality: left Lung location: lower lobe of lung Qualified Code(s): J18.1 - Lobar pneumonia, unspecified organism Is this a current diagnosis for this admission?: Yes Plan: Sputum culture, day 2 of antibiotics. (3) DM type 2 (diabetes mellitus, type 2) Qualifiers: Diabetes mellitus inside b2b sales insulin use: without shelter use Diabetes mellitus complication status: with unspecified complications Qualified Code(s) : E11.8 - Type 2 diabetes mellitus with unspecified complications Is this a current diagnosis for this admission?: Yes Plan: Insulin sliding scale. Refuses to be on a diabetic diet (4) EtOH dependence Qualifiers: Substance use status: in withdrawal Is this a current diagnosis for this admission?: Yes Plan: Ativan prn (5) Opioid dependence Qualifiers: Complication of substance-induced condition: with unspecified complication Is this a current diagnosis for this admission?: Yes Plan: Continue outpatient regimen (6) Hypertension Is this a current diagnosis for this admission?: Yes Plan: Monitor continue Meds - Time Time Spent with patient: 25-34 minutes
[2017-11-09] MEDS: OXYCODONE HCL IR 5 MG TABLET PO PRN (14:01)
[2017-11-09] MEDS ORDERED: CEFTRIAXONE SODIUM 1,000 MG in DEXTROSE 5%-WATER 50 ML IV SCH (18:00)
[2017-11-09] MEDS ORDERED: MAG HYDROX/AL HYDROX/SIMETH SUSP 30 ML UDCUP PO PRN (18:12)
[2017-11-09] MEDS ORDERED: CALCIUM CARBONATE 500 MG TAB.CHEW PO ONE (18:13)
--- NOTE | 2017-11-09 20:39 | EKG REPORT ---
SEVERITY:- BORDERLINE ECG - SINUS RHYTHM BORDERLINE INFERIOR Q WAVES : Confirmed by: Parviz Devi MD 09-Nov-2017 20:38:33
[2017-11-09] MEDS ORDERED: DIAZEPAM 5 MG TABLET PO SCH (22:00)
[2017-11-09] MEDS: VALSARTAN 80 MG TABLET PO SCH (22:29)
[2017-11-09] MEDS: ATORVASTATIN CALCIUM 80 MG TABLET PO SCH (22:30)
[2017-11-09] MEDS: MONTELUKAST SODIUM 10 MG TABLET PO SCH (22:31)
[2017-11-09] MEDS: BACLOFEN 10 MG TABLET PO PRN (23:02)
[2017-11-10] MEDS: GABAPENTIN 300 MG CAPSULE PO SCH ×2 (06:11→13:17)
[2017-11-10] MEDS: LANSOPRAZOLE 30 MG TAB.RAP.DR PO SCH (06:12)
[2017-11-10] MEDS: MORPHINE SULFATE SR 30 MG TABLET PO SCH (06:12)
[2017-11-10] MEDS: IPRATROPIUM/ALBUTEROL 0.5-2.5 MG/3 ML AMPUL NEB SCH ×2 (08:12→14:06)
[2017-11-10] MEDS: OXYCODONE HCL IR 5 MG TABLET PO PRN (10:43)
[2017-11-10] MEDS: BACLOFEN 10 MG TABLET PO PRN (10:43)
[2017-11-10] MEDS: AZITHROMYCIN 250 MG TABLET PO SCH (10:43)
[2017-11-10] MEDS: LACTOBACILLUS ACIDOPHILUS 250 MG TAB PO SCH (10:43)
[2017-11-10] MEDS: GUAIFENESIN 600 MG TABLET.SA PO SCH (10:44)
[2017-11-10] MEDS: PREDNISONE 20 MG TABLET PO SCH (10:44)
[2017-11-10 12:44] VITALS: BP 135/87
[2017-11-10] MEDS: INSULIN LISPRO 100 UNIT/ML 3 ML VIAL SUBCUT PRN (13:17)
--- NOTE | 2017-11-10 18:59 | PDOC DISCHARGE SUMMARY ---
General - Admit/Disc Date/PCP Admission Date/Primary Care Provider: 11/08/17 18:13 GILDA MELARA MD Discharge Date: 11/10/17 - Discharge Diagnosis (1) COPD exacerbation Is this a current diagnosis for this admission?: Yes Summary: Treated with steroids, nebulizers, empiric antibiotics, and oxygen per nasal cannula. When I saw him he was walking up and down the [place] on room air with saturation of 90%. So I think he can complete his convalescence at home. (2) DALILA (obstructive sleep apnea) Is this a current diagnosis for this admission?: Yes Summary: Noncompliant with CPAP. He was strongly counseled. I think this is a significant contributing factor to his recurrent respiratory failure. (3) DM type 2 (diabetes mellitus, type 2) Is this a current diagnosis for this admission?: Yes Summary: Home medications were continued and he was covered with sliding scale insulin. Patient refused a diabetic diet. (4) Hypertension Is this a current diagnosis for this admission?: Yes Summary: Home medications were continued (5) Morbid obesity Is this a current diagnosis for this admission?: Yes (6) Opioid dependence Is this a current diagnosis for this admission?: Yes Summary: Home medications were continued - Additional Information Resuscitation Status: Full Code Discharge Diet: Regular Discharge Activity: Activity As Tolerated Prescriptions: Azithromycin [Zithromax 250 mg Tablet] 250 mg PO DAILY #3 tablet Fluticasone/Salmeterol [Advair 500-50 Diskus 28 Dose] 1 inh IH Q12H #1 inhaler Prednisone [Deltasone 20 mg Tablet] 40 mg PO DAILY #10 tablet Home Medications: Albuterol Sulfate [Proair HFA] 2 puff IH Q4HP PRN 11/08/17 Atorvastatin Calcium [Lipitor 80 mg Tablet] 80 mg PO QHS 11/08/17 Baclofen [Baclofen 10 mg Tablet] 10 mg PO TID 11/08/17 Diazepam [Valium] 5 mg PO TIDP PRN 11/08/17 Diclofenac Sodium [Voltaren] 1 applic TP DAILYP PRN 11/08/17 Gabapentin [Neurontin] 600 mg PO Q8 11/08/17 Metformin HCl [Glucophage XR 500 mg Tablet] 500 mg PO BIDACBS 11/08/17 Montelukast Sodium [Singulair 10 mg Tablet] 10 mg PO QHS 11/08/17 Morphine Sulfate [Morphine Sulfate ER] 15 mg PO Q12 11/08/17 Omeprazole 20 mg PO QHS 11/08/17 Oxycodone HCl 15 mg PO Q6HP PRN 11/08/17 Solifenacin Succinate [Vesicare] 10 mg PO QHS 11/08/17 Telmisartan [Micardis 80 mg Tablet] 80 mg PO QHS 11/08/17 Azithromycin [Zithromax 250 mg Tablet] 250 mg PO DAILY #3 tablet 11/10/17 Fluticasone/Salmeterol [Advair 500-50 Diskus 28 Dose] 1 inh IH Q12H #1 inhaler 11/10/17 Prednisone [Deltasone 20 mg Tablet] 40 mg PO DAILY #10 tablet 11/10/17 History of Present Illness Patient complains of: Short of breath with a cough History of Present Illness: DONNIE LEE SR is a 52 year old male who presented to the ER with a 5 day history of shortness of breath cough with greenish expectoration, chest x-ray in the emergency room revealed an infiltrate. He was treated with antibiotics and nebs. This is his second similar episode in a month. He has a heavy drinker with a history of aspiration pneumonia. He has type 2 diabetes and does not adhere to his diet. He is morbidly obese with obstructive sleep apnea and refuses to wear CPAP. Hospital Course Hospital Course: His chest x-ray showed a left air bronchogram which may have been pneumonia or atelectasis. He had an elevated white count and a slight temperature on presentation to the ER. So we put him on empiric antibiotics, in addition to steroids, nebulizers, supplemental oxygen. He was weaned off the oxygen, is ambulatory in the halls on room air, so I think he can complete his convalescence at home. He picks and chooses what parts of his medical regimen he will adhere to with a predictably poor response. I counseled him on the importance of adhering to all parts of his medical regimen, and he did not appear to be very interested. Physical Exam Vital Signs: Temp Pulse Resp BP Pulse Ox 97.9 F 84 16 135/87 H 97 11/10/17 12:45 11/10/17 12:45 11/10/17 12:45 11/10/17 12:45 11/10/17 12:45 Intake & Output 11/09/17 11/10/17 11/11/17 05:59 05:59 05:59 Intake Total 1101 Balance 1101 Weight 261 lb 11.019 oz 261 lb 7.492 oz General appearance: PRESENT: no acute distress, morbidly obese Respiratory exam: PRESENT: clear to auscultation savita, decreased breath sounds Cardiovascular exam: PRESENT: RRR GI/Abdominal exam: PRESENT: soft Musculoskeletal exam: PRESENT: ambulatory, normal inspection Neurological exam: PRESENT: alert Psychiatric exam: PRESENT: appropriate affect Skin exam: PRESENT: warm Results Impressions: Chest X-Ray 11/08/17 15:27 IMPRESSION: Left basilar air bronchograms worrisome for airspace disease, atelectasis versus pneumonia. Qualifiers - * PATIENT BEING DISCHARGED WITH ANY OF THE FOLLOWING DIAGNOSIS: No
== END 2017-11-10 13:30 | disposition home or self-care (01) | DRG 190 ==
LOC: ER 13:49 → EH 18:13 → 5 23:30
PROVIDERS: ADMIT Internal Medicine; ATTEND Internal Medicine
PROC: 3E0F73Z Introduction of Anti-inflammatory into Respiratory Tract, Via Natural or Artificial Opening (ICD-10-PCS; principal; 2017-11-08)
DX: J44.1 Chronic obstructive pulmonary disease with (acute) exacerbation (principal); J18.1 Lobar pneumonia, unspecified organism; F11.20 Opioid dependence, uncomplicated; F10.239 Alcohol dependence with withdrawal, unspecified; Z68.41 Body mass index [BMI] 40.0-44.9, adult; J98.11 Atelectasis; J44.0 Chronic obstructive pulmonary disease with (acute) lower respiratory infection; I10 Essential (primary) hypertension; E11.9 Type 2 diabetes mellitus without complications; M19.90 Unspecified osteoarthritis, unspecified site; E66.01 Morbid (severe) obesity due to excess calories; M54.9 Dorsalgia, unspecified; G89.29 Other chronic pain; E78.5 Hyperlipidemia, unspecified; K21.9 Gastro-esophageal reflux disease without esophagitis; G47.33 Obstructive sleep apnea (adult) (pediatric); N40.0 Benign prostatic hyperplasia without lower urinary tract symptoms; Z79.84 Long term (current) use of oral hypoglycemic drugs; Z82.49 Family history of ischemic heart disease and other diseases of the circulatory system; Z83.3 Family history of diabetes mellitus; Z96.653 Presence of artificial knee joint, bilateral
CPT/HCPCS: 36415; 71046; 80048; 80307; 81001; 82962; 83605; 85025; 87040; 93005; 93010; 94640; 99291; J0456; J0696; J1815; J3010; J3475; J3490; J7030; J7512; J7620

== ENCOUNTER 2017-11-22 11:23 | Inpatient (IN) | payer MEDICARE, MEDICAID ==
[2017-11-22] MEDS ORDERED: IPRATROPIUM/ALBUTEROL 0.5-2.5 MG/3 ML AMPUL NEB ONE (12:18)
--- NOTE | 2017-11-22 12:21 | ER Document Report ---
ED Medical Screen (RME) - General Chief Complaint: Shortness Of Breath Stated Complaint: PROBLEMS BREATHING Time Seen by Provider: 11/22/17 12:14 TRAVEL OUTSIDE OF THE [place] IN LAST 30 DAYS: No - HPI Notes: 11/22/17 12:19 Patient sent in by his primary care doctor for further evaluation of decreased exercise tolerance shortness of breath. Patient was just recently inpatient for pneumonia. Patient states he thinks he was discharged to [facility] last . This week and is very difficult for him increased shortness of breath cough weakness generalized fatigue. Patient also has ringing in his ears that has been incredibly annoying. Patient does not know if he had a fever but is afebrile on presentation. Patient suffers from diabetes, hypertension. Systolic blood pressure usually 140-160. On presentation today systolic blood pressure 102. - Related Data Allergies/Adverse Reactions: No Known Allergies Allergy (Verified 11/22/17 11:25) Past Medical History - Social History Frequency of alcohol use: Occasional Drug Abuse: None - Past Medical History Cardiac Medical History: Reports: Hx Hypercholesterolemia, Hx Hypertension Denies: Hx Atrial Fibrillation, Hx Congestive Heart Failure, Hx Coronary Artery Disease, Hx Heart Attack, Hx Peripheral Vascular Disease, Hx Pulmonary Embolism, Hx Heart Murmur Pulmonary Medical History: Reports: Hx Asthma, Hx COPD, Hx Pneumonia, Hx Sleep Apnea Denies: Hx Bronchitis, Hx Respiratory Failure, Hx Tuberculosis Neurological Medical History: Denies: Hx Cerebrovascular Accident, Hx Seizures Endocrine Medical History: Reports: Hx Diabetes Mellitus Type 2. Denies: Hx Graves' Disease, Hx Hyperthyroidism, Hx Hypothyroidism Renal/ Medical History: Reports: Hx Benign Prostatic Hyperplasia - nocturia x 2-3/night. Denies: Hx End Stage Renal Disease, Hx Kidney Stones, Hx Peritoneal Dialysis Malignancy Medical History: Denies Hx Leukemia, Denies Hx Lung Cancer GI Medical History: Reports: Hx Gastroesophageal Reflux Disease. Denies: Hx Crohn's Disease, Hx Hiatal Hernia, Hx Irritable Bowel, Hx Liver Failure, Hx Pancreatitis, Hx Ulcer Musculoskeltal Medical History: Reports Hx Arthritis, Denies Hx Fibromyalgia, Denies Hx Multiple Sclerosis, Denies Hx Muscular Dystrophy Psychiatric Medical History: Denies: Hx Bipolar Disorder, Hx Dementia, Hx Depression, Hx Post Traumatic Stress Disorder, Hx Schizophrenia Traumatic Medical History: Denies: Hx Fractures Infectious Medical History: Denies: Hx HIV Past Surgical History: Reports: Hx Abdominal Surgery - hernia, Hx Orthopedic Surgery - Bilateral knee replacements. Recent repair of right knee. Denies: Hx Appendectomy, Hx Bowel Surgery, Hx Cholecystectomy, Hx Colostomy, Hx Coronary Artery Bypass Graft, Hx Gastric Bypass Surgery, Hx Herniorrhaphy, Hx Pacemaker, Hx Tonsillectomy - Immunizations Hx Diphtheria, Pertussis, Tetanus Vaccination: Yes History of Influenza Vaccine for 03/2017 - 08/2017 Season: Yes Influenza Administration Date for 03/2017 - 08/2017 Season: 03/21/17 Review of Systems - Review of Systems Notes: REVIEW OF SYSTEMS: CONSTITUTIONAL: -fevers, -chills EENT: -eye pain, -difficulty swallowing, -nasal congestion CARDIOVASCULAR: -chest pain, -syncope, decreased exercise tolerance RESPIRATORY: -cough, + SOB GASTROINTESTINAL: -abdominal pain, -nausea, -vomiting, -diarrhea GENITOURINARY: -dysuria, -hematuria MUSCULOSKELETAL: -back pain, -neck pain SKIN: -rash or skin lesions. HEMATOLOGIC: -easy bruising or bleeding. LYMPHATIC: -swollen, enlarged glands. NEUROLOGICAL: -altered mental status or loss of consciousness, -headache, - neurologic symptoms PSYCHIATRIC: -anxiety, -depression. ALL OTHER SYSTEMS REVIEWED AND NEGATIVE. Physical Exam - Vital signs Vitals: Temp Pulse Resp BP Pulse Ox 99.1 F 62 16 102/61 92 11/22/17 11:36 11/22/17 11:36 11/22/17 11:36 11/22/17 11:36 11/22/17 11:36 - Notes Notes: PHYSICAL EXAMINATION: GENERAL: Well-appearing, well-nourished and in no acute distress. HEAD: Atraumatic, normocephalic. EYES: Pupils equal round and reactive to light, extraocular movements intact, sclera anicteric, conjunctiva are normal. ENT: nares patent, oropharynx clear without exudates. Moist mucous membranes. NECK: Normal range of motion, supple without lymphadenopathy LUNGS: Breath sounds clear to auscultation bilaterally and equal. No wheezes rales or rhonchi. HEART: Regular rate and rhythm without murmurs ABDOMEN: Soft, nontender, normoactive bowel sounds. No guarding, no rebound. No masses appreciated. EXTREMITIES: Normal range of motion, no pitting or edema. No cyanosis. NEUROLOGICAL: Cranial nerves grossly intact. Normal speech, normal gait. Normal sensory and motor exams. PSYCH: Normal mood, normal affect. SKIN: Warm, Dry, normal turgor, no rashes or lesions noted. Course - Vital Signs Vital signs: Temp Pulse Resp BP Pulse Ox 99.1 F 62 16 102/61 92 11/22/17 11:36 11/22/17 11:36 11/22/17 11:36 11/22/17 11:36 11/22/17 11:36 Doctor's Discharge - Discharge Referrals: GILDA MELARA MD [Primary Care Provider] - Follow up as needed
[2017-11-22 13:11] LABS: ABSOLUTE LYMPHOCYTES (AUTO) 1.3 10^3/uL (0.5-4.7); ABSOLUTE MONOCYTES (AUTO) 1.5 10^3/uL (0.1-1.4); BASOPHILS % (AUTO) 0.2 % (0-2); EOSINOPHILS % (AUTO) 0.1 % (0-6); HEMATOCRIT 37.3 % (37.9-51.0); HEMOGLOBIN 12.5 g/dL (13.5-17.0); LYMPHOCYTES % (AUTO) 7.5 % (13-45); MEAN CORPUSCULAR HEMOGLOBIN 29.8 pg (27.0-33.4); MEAN CORPUSCULAR HGB CONC 33.4 g/dL (32.0-36.0); MEAN CORPUSCULAR VOLUME 89 fl (80-97); MONOCYTES % (AUTO) 9.2 % (3-13); PLATELET COUNT 261 10^3/uL (150-450); RED BLOOD COUNT 4.19 10^6/uL (4.35-5.55); RED CELL DISTRIBUTION WIDTH 13.8 % (11.5-14.0); TOTAL CELLS COUNTED % (AUTO) 100 %; WHITE BLOOD COUNT 16.8 10^3/uL (4.0-10.5)
--- NOTE | 2017-11-22 13:20 | RADIOLOGY REPORT (SQ) ---
EXAM DESCRIPTION: CHEST SINGLE VIEW COMPLETED DATE/TIME: 11/22/2017 1:06 pm REASON FOR STUDY: cough COMPARISON: 11/08/2017 EXAM PARAMETERS: NUMBER OF VIEWS: One view. TECHNIQUE: Single frontal radiographic view of the chest acquired. RADIATION DOSE: NA LIMITATIONS: None. FINDINGS: LUNGS AND PLEURA: Interval resolution of left basilar infiltrate. The lungs are clear. No pneumothorax or pleural effusion. MEDIASTINUM AND HILAR STRUCTURES: No masses. Contour normal. HEART AND VASCULAR STRUCTURES: Heart normal in size. Normal vasculature. BONES: No acute findings. HARDWARE: None in the chest. OTHER: Bilateral nipple rings. IMPRESSION: 1 nterval resolution of left basilar infiltrates since the prior study dated 11/08/2017. TECHNICAL DOCUMENTATION: JOB ID: [id number] [employer]- All Rights Reserved Reading location - IP/workstation name: [email or web address]
[2017-11-22 13:55] LABS: ALANINE AMINOTRANSFERASE 422 U/L (21-72); ALBUMIN 3.6 g/dL (3.5-5.0); ALKALINE PHOSPHATASE 127 U/L (38-126); ANION GAP 6 (5-19); ASPARTATE AMINO TRANSFERASE 268 U/L (17-59); BILIRUBIN,DIRECT 0.5 mg/dL (0.0-0.4); BLOOD UREA NITROGEN 29 mg/dL (7-20); CALCIUM 9.4 mg/dL (8.4-10.2); CARBON DIOXIDE 30 mmol/L (22-30); CHLORIDE 95 mmol/L (98-107); GLUCOSE 242 mg/dL (75-110); POTASSIUM 5.1 mmol/L (3.6-5.0); SODIUM 130.9 mmol/L (137-145); TOTAL PROTEIN 6.3 g/dL (6.3-8.2)
[2017-11-22 14:12] LABS: TROPONIN I 0.175 ng/mL
--- NOTE | 2017-11-22 14:36 | ER Document Report ---
ED General - General Chief Complaint: Shortness Of Breath Stated Complaint: PROBLEMS BREATHING Time Seen by Provider: 11/22/17 12:14 Mode of Arrival: Ambulatory Information source: Patient Notes: 52 yr old male presents with complaints of sob with exertion with recent history of admission for pneumonia with complaints of sob , ear pressure. pt denies any chest pain TRAVEL OUTSIDE OF THE [place] IN LAST 30 DAYS: No - HPI Onset: Yesterday Onset/Duration: Waxing and waning Quality of pain: No pain Severity: Mild Pain Level: Denies Associated symptoms: Nonproductive cough, Earache, Shortness of breath Exacerbated by: Denies Relieved by: Denies Similar symptoms previously: Yes Recently seen / treated by doctor: Yes - Related Data Allergies/Adverse Reactions: No Known Allergies Allergy (Verified 11/22/17 11:25) Past Medical History - Social History Smoking Status: Never Smoker Cigarette use (# per day): No Chew tobacco use (# tins/day): No Smoking Education Provided: No Frequency of alcohol use: Occasional Drug Abuse: None Family History: Reviewed & Not Pertinent Patient has suicidal ideation: No Patient has homicidal ideation: No - Past Medical History Cardiac Medical History: Reports: Hx Hypercholesterolemia, Hx Hypertension Denies: Hx Atrial Fibrillation, Hx Congestive Heart Failure, Hx Coronary Artery Disease, Hx Heart Attack, Hx Peripheral Vascular Disease, Hx Pulmonary Embolism, Hx Heart Murmur Pulmonary Medical History: Reports: Hx Asthma, Hx COPD, Hx Pneumonia, Hx Sleep Apnea Denies: Hx Bronchitis, Hx Respiratory Failure, Hx Tuberculosis Neurological Medical History: Denies: Hx Cerebrovascular Accident, Hx Seizures Endocrine Medical History: Reports: Hx Diabetes Mellitus Type 2. Denies: Hx Graves' Disease, Hx Hyperthyroidism, Hx Hypothyroidism Renal/ Medical History: Reports: Hx Benign Prostatic Hyperplasia - nocturia x 2-3/night. Denies: Hx End Stage Renal Disease, Hx Kidney Stones, Hx Peritoneal Dialysis Malignancy Medical History: Denies Hx Leukemia, Denies Hx Lung Cancer GI Medical History: Reports: Hx Gastroesophageal Reflux Disease. Denies: Hx Crohn's Disease, Hx Hiatal Hernia, Hx Irritable Bowel, Hx Liver Failure, Hx Pancreatitis, Hx Ulcer Musculoskeltal Medical History: Reports Hx Arthritis, Denies Hx Fibromyalgia, Denies Hx Multiple Sclerosis, Denies Hx Muscular Dystrophy Psychiatric Medical History: Denies: Hx Bipolar Disorder, Hx Dementia, Hx Depression, Hx Post Traumatic Stress Disorder, Hx Schizophrenia Traumatic Medical History: Denies: Hx Fractures Infectious Medical History: Denies: Hx HIV Past Surgical History: Reports: Hx Abdominal Surgery - hernia, Hx Orthopedic Surgery - Bilateral knee replacements. Recent repair of right knee. Denies: Hx Appendectomy, Hx Bowel Surgery, Hx Cholecystectomy, Hx Colostomy, Hx Coronary Artery Bypass Graft, Hx Gastric Bypass Surgery, Hx Herniorrhaphy, Hx Pacemaker, Hx Tonsillectomy - Immunizations Hx Diphtheria, Pertussis, Tetanus Vaccination: Yes Review of Systems - Review of Systems Notes: REVIEW OF SYSTEMS: CONSTITUTIONAL : Denies fever, chills, or sweats. Denies recent illness. EENT: admits to ear pressure CARDIOVASCULAR: Denies chest pain. Denies palpitations or racing or irregular heart beat. Denies ankle edema. RESPIRATORY: admits to sob GASTROINTESTINAL: Denies abdominal pain or distention. Denies nausea, vomiting , or diarrhea. Denies blood in vomitus, stools, or per rectum. Denies black, tarry stools. Denies constipation. GENITOURINARY: Denies difficulty urinating, painful urination, burning, frequency, blood in urine, or discharge. MUSCULOSKELETAL: Denies back or neck pain or stiffness. Denies joint pain or swelling. SKIN: Denies rash, lesions or sores. HEMATOLOGIC : Denies easy bruising or bleeding. LYMPHATIC: Denies swollen, enlarged glands. NEUROLOGICAL: Denies confusion or altered mental status. Denies passing out or loss of consciousness. Denies dizziness or lightheadedness. Denies headache. Denies weakness or paralysis or loss of use of either side. Denies problems with gait or speech. Denies sensory loss, numbness, or tingling. Denies seizures. PSYCHIATRIC: Denies anxiety or stress. Denies depression, suicidal ideation, or homicidal ideation. ALL OTHER SYSTEMS REVIEWED AND NEGATIVE. Dictation was performed using [employer] voice recognition software PHYSICAL EXAMINATION: GENERAL: Well-appearing, well-nourished and in no acute distress. HEAD: Atraumatic, normocephalic. EYES: Pupils equal round and reactive to light, extraocular movements intact, sclera anicteric, conjunctiva are normal. ENT: Nares patent, oropharynx clear without exudates. Moist mucous membranes. NECK: Normal range of motion, supple without lymphadenopathy LUNGS: Breath sounds clear to auscultation bilaterally and equal. No wheezes rales or rhonchi. HEART: Regular rate and rhythm without murmurs ABDOMEN: Soft, nontender, nondistended abdomen. No guarding, no rebound. No masses appreciated. Musculoskeletal: Normal range of motion, no pitting or edema. No cyanosis. NEUROLOGICAL: Cranial nerves grossly intact. Normal speech, normal gait. Normal sensory, motor exams PSYCH: Normal mood, normal affect. SKIN: Warm, Dry, normal turgor, no rashes or lesions noted. Physical Exam - Vital signs Vitals: Temp Pulse Resp BP Pulse Ox 99.1 F 62 16 102/61 92 11/22/17 11:36 11/22/17 11:36 11/22/17 11:36 11/22/17 11:36 11/22/17 11:36 Course - Re-evaluation Re-evalutation: Spoke with hospitalist who requests repeat troponin 11/22/17 14:[address] martinez who also states that patient does not need a diagnostic heart cath as he is not having chest pain 11/22/17 17:[address] Jeffrey who will speak with Dr Martinez regarding the decreasing troponin 11/22/17 17:35 Dr. Jeffrey will admit the patient to hospital service - Vital Signs Vital signs: Temp Pulse Resp BP Pulse Ox 99.1 F 62 16 102/61 92 11/22/17 11:36 11/22/17 11:36 11/22/17 11:36 11/22/17 11:36 11/22/17 11:36 - Laboratory Result Diagrams: 11/22/17 12:51 11/22/17 12:51 Laboratory results interpreted by me: 11/22/17 11/22/17 11/22/17 12:51 12:51 12:51 WBC 16.8 H RBC 4.19 L Hgb 12.5 L Hct 37.3 L Seg Neutrophils % 83.0 H Lymphocytes % 7.5 L Absolute Neutrophils 14.0 H Absolute Monocytes 1.5 H Sodium 130.9 L Potassium 5.1 H Chloride 95 L BUN 29 H Glucose 242 H Direct Bilirubin 0.5 H AST 268 H ALT 422 H Alkaline Phosphatase 127 H NT-Pro-B Natriuret Pep 1550 H - Diagnostic Test Radiology reviewed: Image reviewed, Reports reviewed - EKG Interpretation by Me EKG shows normal: Sinus rhythm, [place], Intervals, QRS Complexes Discharge - Discharge Clinical Impression: Elevated troponin, Shortness of breath Condition: Stable Disposition: ADMITTED OBSERVATION Admitting Provider: Hospitalist Unit Admitted: Telemetry Referrals: GILDA MELARA MD [Primary Care Provider] - Follow up as needed
[2017-11-22] MEDS ORDERED: METOCLOPRAMIDE HCL ORAL SOLN 10 MG/10 ML UDCUP PO ONE (14:48)
[2017-11-22] MEDS ORDERED: LIDOCAINE 2% VISCOUS SOLN 20 ML UDCUP PO ONE (14:48)
[2017-11-22] MEDS ORDERED: MAG HYDROX/AL HYDROX/SIMETH SUSP 30 ML UDCUP PO ONE (14:48)
[2017-11-22 17:21] LABS: CREATINE KINASE MB 1.58 ng/mL (<4.55); TROPONIN I 0.116 ng/mL
[2017-11-22] MEDS ORDERED: ONDANSETRON HCL INJ/PF 4 MG/2 ML SDV IV PRN (17:39)
[2017-11-22] MEDS ORDERED: LEVALBUTEROL HCL NEB 0.63 MG/3 ML AMPUL NEB PRN (17:39)
[2017-11-22] MEDS ORDERED: ONDANSETRON 4 MG TAB.RAPDIS PO PRN (17:39)
[2017-11-22] MEDS ORDERED: ACETAMINOPHEN 325 MG TABLET PO PRN (17:39)
[2017-11-22] MEDS ORDERED: (PENDING PHARMACY ID) (Diclofenac Sodium [Voltaren] 1 APPLIC) TP PRN (18:03)
[2017-11-22] MEDS ORDERED: DEXTROSE 40% GEL 15 GM TUBE PO PRN ×2 (18:05)
[2017-11-22] MEDS ORDERED: GLUCAGON,HUMAN RECOMB 1 MG INJ IM PRN (18:05)
[2017-11-22] MEDS ORDERED: DEXTROSE 50%-WATER 25 GM/50 ML DISP.SYRIN IV PRN ×2 (18:05)
[2017-11-22] MEDS ORDERED: OXYCODONE HCL IR 5 MG TABLET PO PRN (18:22)
--- NOTE | 2017-11-22 18:33 | PDOC H&P ---
History of Present Illness Admission Date/PCP: 11/22/17 17:43 GILDA MELARA MD Patient complains of: Dyspnea, cough, tinnitus History of Present Illness: DONNIE LEE SR is a 52 year old male with past medical history of COPD Diabetes, not insulin-dependent Hypertension Alcohol dependence Chronic back pain Opiate dependence continuous use Arthritis Hyperlipidemia Asthma GERD Obstructive sleep apnea not compliant with CPAP. Outpatient medications: Morphine ER 30 mg every 12 hours Oxycodone 15 mg every 6 hours as needed Metformin 500 mg twice a day Diazepam 5 mg 3 times a day as needed Baclofen 10 mg 3 times a day Meloxicam 15 mg daily Gabapentin 600 mg 3 times a day Voltaren gel as needed albuterol MDI as needed Atorvastatin 80 mg daily Omeprazole 20 mg daily Singulair 10 mg daily Telmisartan 80 mg PO QHS The patient had presented to the emergency room on November 08 with shortness of breath and had been admitted for COPD exacerbation and pneumonia. He was discharged on 11/10 with a prednisone taper was given a prescription for Advair and azithromycin. The patient presented back to the hospital today reporting no improvement in his symptoms with increasing shortness of breath cough ear fullness and pain and tinnitus. He went to his primary care's office today and was found to be hypoxic with sats in the 80s. Troponins were checked in the emergency room and were 0.17. Repeat troponin was 0.11. He reports no chest pain. EKG shows no acute ST segment or T-wave changes. Past Medical History Cardiac Medical History: Reports: Hyperlipidema, Hypertension Denies: Coronary Artery Disease Pulmonary Medical History: Reports: Asthma, Chronic Obstructive Pulmonary Disease (COPD), Pneumonia, Sleep Apnea Endocrine Medical History: Reports: Diabetes Mellitus Type 2 GI Medical History: Reports: Gastroesophageal Reflux Disease Musculoskeltal Medical History: Reports: Arthritis Past Surgical History Past Surgical History: Reports: Orthopedic Surgery - Bilateral knee replacements. Recent repair of right knee Social History Smoking Status: Former Smoker Frequency of Alcohol Use: Occasional Hx Recreational Drug Use: No Drugs: None Hx Prescription Drug Abuse: No Family History Family History: Hypertension Parental Family History Reviewed: Yes Children Family History Reviewed: Yes Sibling(s) Family History Reviewed.: Yes Medication/Allergy Home Medications: Albuterol Sulfate [Proair HFA] 2 puff IH Q4HP PRN 11/08/17 Atorvastatin Calcium [Lipitor 80 mg Tablet] 80 mg PO QHS 11/08/17 Baclofen [Baclofen 10 mg Tablet] 10 mg PO TID 11/08/17 Diazepam [Valium] 5 mg PO TIDP PRN 11/08/17 Diclofenac Sodium [Voltaren] 1 applic TP DAILYP PRN 11/08/17 Gabapentin [Neurontin] 600 mg PO Q8 11/08/17 Metformin HCl [Glucophage XR 500 mg Tablet] 500 mg PO BIDACBS 11/08/17 Montelukast Sodium [Singulair 10 mg Tablet] 10 mg PO QHS 11/08/17 Morphine Sulfate [Morphine Sulfate ER] 30 mg PO Q12 11/08/17 Omeprazole 20 mg PO QHS 11/08/17 Oxycodone HCl 15 mg PO Q6HP PRN 11/08/17 Telmisartan [Micardis 80 mg Tablet] 80 mg PO QHS 11/08/17 Fluticasone/Salmeterol [Advair 500-50 Diskus 28 Dose] 1 inh IH Q12H #1 inhaler 11/10/17 Meloxicam 15 mg PO DAILY 11/22/17 Allergies/Adverse Reactions: No Known Allergies Allergy (Verified 11/22/17 11:25) Review of Systems Constitutional: ABSENT: fever(s) Eyes: ABSENT: visual disturbances Ears: PRESENT: hearing changes, other - tinnitus Nose, Mouth, and Throat: ABSENT: sore throat Cardiovascular: ABSENT: chest pain, palpitations Respiratory: PRESENT: cough, dyspnea Gastrointestinal: PRESENT: bloating, constipation. ABSENT: abdominal pain, vomiting Musculoskeletal: ABSENT: joint swelling Integumentary: ABSENT: rash Neurological: ABSENT: focal weakness Psychiatric: ABSENT: hallucinations Endocrine: ABSENT: heat intolerance Hematologic/Lymphatic: ABSENT: easy bleeding Allergic/Immunologic: ABSENT: seasonal rhinorrhea Physical Exam Vital Signs: Temp Pulse Resp BP Pulse Ox 99.1 F 62 16 102/61 92 11/22/17 11:36 11/22/17 11:36 11/22/17 11:36 11/22/17 11:36 11/22/17 11:36 General appearance: PRESENT: well-developed, well-nourished Head exam: PRESENT: normocephalic Eye exam: PRESENT: PERRLA Ear exam: PRESENT: normal external ear exam, other - R TM retracted, no perforation, L TM fullness and middle ear fluid seen, no perforation Mouth exam: PRESENT: moist Throat exam: ABSENT: post pharyngeal erythema Neck exam: ABSENT: tracheal deviation Respiratory exam: PRESENT: rhonchi, symmetrical, wheezes Cardiovascular exam: PRESENT: RRR GI/Abdominal exam: PRESENT: distended, normal bowel sounds, soft. ABSENT: tenderness Rectal exam: PRESENT: deferred Gentrourinary exam: ABSENT: indwelling catheter Extremities exam: ABSENT: pedal edema Musculoskeletal exam: PRESENT: normal inspection Neurological exam: PRESENT: alert, awake, oriented to person, oriented to place , oriented to time, oriented to situation Psychiatric exam: PRESENT: appropriate affect Skin exam: ABSENT: rash Results Impressions: Chest X-Ray 11/22/17 12:18 IMPRESSION: 1 nterval resolution of left basilar infiltrates since the prior study dated 11/08/2017. Assessment & Plan - Diagnosis (1) COPD exacerbation Is this a current diagnosis for this admission?: Yes Plan: IV steroids, nebs, oxygen, advair, mucinex, spiriva, singulair, atrovent nasal spray (2) Acute respiratory failure with hypoxia Is this a current diagnosis for this admission?: Yes Plan: As above (3) Otitis media Qualifiers: Otitis media type: serous Laterality: bilateral Is this a current diagnosis for this admission?: Yes Plan: Augmentin, Ofloxacin ear drops, symptomatic treatment (4) Troponin level elevated Is this a current diagnosis for this admission?: Yes Plan: He does have risk factors for CAD No chest pain or EKG changes, tropnin trending down Monitor cardiac enzymes, telemetry Likely secondary to COPD exacerbation Plan for Echo to r/o RWMA and stress test in am (5) Diabetes Is this a current diagnosis for this admission?: Yes Plan: Hold Metformin, Insulin sliding scale (6) DVT prophylaxis Is this a current diagnosis for this admission?: Yes Plan: s/c Lovenox (7) Hypertension Qualifiers: Hypertension type: essential hypertension Qualified Code(s): I10 - Essential (primary) hypertension Is this a current diagnosis for this admission?: Yes Plan: Monitor closely, Telmisartan (8) Morbid obesity Is this a current diagnosis for this admission?: Yes (9) Opioid dependence Is this a current diagnosis for this admission?: Yes Plan: Continue outpatient meds (10) Chronic pain Is this a current diagnosis for this admission?: Yes Plan: As above - Time Time Spent: Greater than 70 Minutes
[2017-11-22] MEDS ORDERED: BISACODYL 5 MG TABEC PO ONE (19:00)
[2017-11-22] MEDS ORDERED: LACTOBACILLUS ACIDOPHILUS 250 MG TAB PO ONE (19:00)
[2017-11-22] MEDS ORDERED: METHYLPREDNISOLONE INJ 40 MG/1 ML SDV IV ONE (19:00)
[2017-11-22] MEDS ORDERED: BACLOFEN 10 MG TABLET PO ONE (19:00)
--- NOTE | 2017-11-22 19:31 | PDOC CONSULTATION ---
Consultation Consult Date: 11/22/17 Attending physician:: HAWK GEIGER Consult reason:: Positive troponin I History of Present Illness Admission Date/PCP: 11/22/17 17:43 GILDA MELARA MD Patient complains of: Shortness of breath and ringing in the ear. History of Present Illness: DONNIE LEE SR is a 52 year old male, had presented to the emergency room on November 08 with shortness of breath and had been admitted for COPD exacerbation and pneumonia. He was discharged on 11/10 with a prednisone taper was given a prescription for Advair and azithromycin. The patient presented back to the hospital today reporting no improvement in his symptoms with increasing shortness of breath cough ear fullness and pain and tinnitus. He went to his primary care's office today and was found to be hypoxic with sats in the 80s. Troponins were checked in the emergency room and were 0.17. Repeat troponin was 0.11. He reports no chest pain. EKG shows no acute ST segment or T-wave changes. This history obtained by the hospitalist was reviewed and confirmed with the patient. Patient denies any prior history of heart problems. He denied any chest, neck discomfort. Patient describes history of very mild diabetes which he claims his diet controlled. He is however quite obese. He has history of sleep apnea but could not tolerate CPAP therapy. Chest x-ray reviewed was negative for CHF. Twelve-lead EKG is reviewed and is negative for any acute ST-T wave changes. Past Medical History Cardiac Medical History: Reports: Hyperlipidema, Hypertension Denies: Atrial Fibrillation, Congestive Heart Failure, Coronary Artery Disease, Myocardial Infarction, Peripheral Vascular Disease, Pulmonary Embolism , Heart Murmur Pulmonary Medical History: Reports: Asthma, Chronic Obstructive Pulmonary Disease (COPD), Pneumonia, Sleep Apnea Denies: Bronchitis, Respiratory Failure, Tuberculosis Neurological Medical History: Denies: Seizures Endocrine Medical History: Reports: Diabetes Mellitus Type 2 Denies: Hyperthyroidism, Hypothyroidism Renal/ Medical History: Denies: End Stage Renal Disease Malignancy Medical History: Denies: Leukemia, Lung Cancer GI Medical History: Reports: Gastroesophageal Reflux Disease Denies: Crohn's Disease, Hiatal Hernia Musculoskeltal Medical History: Reports: Arthritis Denies: Fibromyalgia Psychiatric Medical History: Denies: Bipolar Disorder, Dementia, Depression, Post Traumatic Stress Disorder Infectious Medical History: Denies: HIV Past Surgical History Past Surgical History: Reports: Orthopedic Surgery - Bilateral knee replacements. Recent repair of right knee Denies: Appendectomy, Cholecystectomy, Colostomy, Coronary Artery Bypass Graft, Gastric Bypass Surgery, Herniorrhaphy, Pacemaker, Tonsillectomy Social History Information Source: Patient Smoking Status: Former Smoker Frequency of Alcohol Use: Occasional Hx Recreational Drug Use: No Drugs: None Hx Prescription Drug Abuse: No - Advance Directive Resuscitation Status: Full Code Family History Family History: Hypertension Parental Family History Reviewed: Yes Children Family History Reviewed: Yes Sibling(s) Family History Reviewed.: Yes Medication/Allergy Home Medications: Albuterol Sulfate [Proair HFA] 2 puff IH Q4HP PRN 11/08/17 Atorvastatin Calcium [Lipitor 80 mg Tablet] 80 mg PO QHS 11/08/17 Baclofen [Baclofen 10 mg Tablet] 10 mg PO TID 11/08/17 Diazepam [Valium] 5 mg PO TIDP PRN 11/08/17 Diclofenac Sodium [Voltaren] 1 applic TP DAILYP PRN 11/08/17 Gabapentin [Neurontin] 600 mg PO Q8 11/08/17 Metformin HCl [Glucophage XR 500 mg Tablet] 500 mg PO BIDACBS 11/08/17 Montelukast Sodium [Singulair 10 mg Tablet] 10 mg PO QHS 11/08/17 Morphine Sulfate [Morphine Sulfate ER] 30 mg PO Q12 11/08/17 Omeprazole 20 mg PO QHS 11/08/17 Oxycodone HCl 15 mg PO Q6HP PRN 11/08/17 Telmisartan [Micardis 80 mg Tablet] 80 mg PO QHS 11/08/17 Fluticasone/Salmeterol [Advair 500-50 Diskus 28 Dose] 1 inh IH Q12H #1 inhaler 11/10/17 Meloxicam 15 mg PO DAILY 11/22/17 Allergies/Adverse Reactions: No Known Allergies Allergy (Verified 11/22/17 11:25) Review of Systems Review of Systems: Please see history of present illness and past medical history as wall. Constitutional: No fever or chills reported. Head : No recent chronic headaches, recent head injury. Eyes: No recent eye pain, diplopia, redness, discharge, acute visual changes. Ears: No recent chronic ear pain, acute hearing loss, ear discharge. Oral cavity: No recent ulcerations, bleeding, oral cavity discomfort. Neck: No recent acute neck pain reported. Hematologic: No recent easy bruising or bleeding. Lymphatic: No recent lymph node enlargement reported. Cardiovascular system review: See history of present illness. Respiratory system review: No hemoptysis or blood clots in the lungs reported. Mild Shortness of breath on exertion Gastrointestinal system review: Negative for any recent acute hematemesis, melena. Genitourinary system review: No recent acute or chronic hematuria, flank pain, UTI etc. reported. Skin system review: Negative for any recent abnormal bruising, no rash, no pruritus reported. Neurologic: No prior history of strokes, mini strokes, seizure disorder. Psychologic: No history of major psychosis or major depression reported. Musculoskeletal: Minor aches and pains reported. No acute joint swelling reported. Endocrine: No recent polyuria, polydipsia, recent heat or cold intolerance. Physical Exam Vital Signs: Temp Pulse Resp BP Pulse Ox 99.1 F 62 16 102/61 92 11/22/17 11:36 11/22/17 11:36 11/22/17 11:36 11/22/17 11:36 11/22/17 11:36 Exam: GENERAL: well-nourished and in no acute distress. Alert and oriented x3 HEAD: Atraumatic, normocephalic. EYES: Pupils equal round and reactive to light, extraocular movements intact, sclera anicteric, conjunctiva are normal. ENT: TMs normal, nares patent, oropharynx clear without exudates. Moist mucous membranes. No oral ulcerations or bleeding gums noted NECK: supple without lymphadenopathy. Trachea is central. No cervical or axillary lymphadenopathy noted. Carotids are 2+, JVD WNL LUNGS: Respiration seems nonlabored, no significant accessory muscle action noted. Breath sounds clear to auscultation bilaterally and equal noted. No wheezes rales or rhonchi noted. No significant dullness noted on percussion. CHEST: Palpation of the chest wall shows no significant chest wall tenderness. 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 ABDOMEN: Soft, no significant tenderness appreciated, normoactive bowel sounds. No guarding, no rebound. No rigidity noted . No masses appreciated. EXTREMITIES: Pedal pulses are 1-2+, no calf tenderness noted. No clubbing or cyanosis. Trace to 1+ pedal edema noted NEUROLOGICAL: Focused neurological exam showed no significant neurologic deficit. Normal speech, no focal weakness appreciated. PSYCH: Normal mood, normal affect. Judgment and insight within normal limits. SKIN: No significant ecchymosis, skin is noted to be warm. MUSCULOSKELETAL EXAM: No significant acute joint swelling noted. Results EKG Comments: Sinus rhythm and is WNL Impressions: Chest X-Ray 11/22/17 12:18 IMPRESSION: 1 nterval resolution of left basilar infiltrates since the prior study dated 11/08/2017. 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: unspecified snf insulin use status Diabetes mellitus complication status : with unspecified complications Qualified Code(s): E11.8 - Type 2 diabetes mellitus with unspecified complications Is this a current diagnosis for this admission?: Yes (3) Otitis media Qualifiers: Otitis media type: serous Laterality: bilateral Is this a current diagnosis for this admission?: Yes (4) Shortness of breath Is this a current diagnosis for this admission?: Yes (5) COPD exacerbation Is this a current diagnosis for this admission?: Yes (6) Congestive heart failure Qualifiers: Heart failure type: right-sided Heart failure chronicity: acute on chronic Qualified Code(s): I50.813 - Acute on chronic right heart failure Is this a current diagnosis for this admission?: Yes (7) DALILA (obstructive sleep apnea) Is this a current diagnosis for this admission?: Yes - Notes Notes: Elevated troponin I: Most likely related to CHF. Patient has normal EKG and no chest pain. Patient scheduled for a 2D echocardiogram and a nuclear stress test. At this point will start patient on antiplatelet therapy. Plavix will be preferred since patient also on nonsteroidal anti-inflammatory medication. Diabetes: Continue with current management plans. Otitis media: Continue antibiotic therapy and other supportive measures. Dyspnea: Multifactorial. Possible CHF, COPD, obesity etc. COPD exacerbation: Continue current bronchodilator and steroid therapy. CHF: Patient felt to have right-sided CHF. Patient also noted to have elevated liver enzymes indicative of hepatic congestion. Will start patient on low-dose diuretics. Sleep apnea syndrome: Patient will benefit from reinstitution of CPAP therapy. I will be happy to follow patient regarding this. - Time Time Spent: 30 to 50 Minutes - CODE STATUS was discussed, patient remains full code. Multiple medical problems were addressed. More than 50% of the time spent coordinating care, discussing management plans with involved caregivers. Management plans discussed with involved personnels. Medical decision making was of moderate to high complexity, patient's has multiple comorbidities. Medications reviewed and adjusted accordingly: Yes
[2017-11-22] MEDS: MORPHINE SULFATE SR 15 MG TABLET PO SCH (19:51)
--- NOTE | 2017-11-22 20:00 | EKG REPORT ---
SEVERITY:- NORMAL ECG - SINUS RHYTHM : Confirmed by: Amaris Vick MD 22-Nov-2017 19:59:51
--- NOTE | 2017-11-22 20:22 | RADIOLOGY REPORT (SQ) ---
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 Images reviewed with lung, soft tissue and bone windows. Reconstructed coronal and sagittal MPR images reviewed. Additional 3 dimensional post-processing performed to develop Maximal Intensity Projection images (DE P). All images stored on PACS. All CT scanners at this facility use dose modulation, iterative reconstruction, and/or weight based d osing when appropriate to reduce radiation dose to as low as reasonably achievable (ALARA). [facility]: Dose Right [facility]: CareDose [facility]: Dose Right [facility]: Teradose 4D [facility]: Xenon Arc CONTRAST TYPE AND DOSE: contrast/concentration: Isovue 370.00 mg/ml; Total Contrast Delivered: 80.0 ml; Total Saline Delivered: 60.0 ml Contrast bolus not optimized for the pulmonary arteries. RENAL FUNCTION: Creatinine measures 1.01 RADIATION DOSE: CT Rad equipment meets quality standard of care and radiation dose reduction techniq ues were employed. CTDIvol: 24.8 - 33.6 mGy. DLP: 1274 mGy-cm. . LIMITATIONS: Limited evaluation of the pulmonary arteries due to timing of contrast bolus. FINDINGS: LUNGS AND PLEURA: Tree in bud and ground-glass opacities involving the right greater than left lower lobes. Lungs otherwise clear. No pleural effusion or pneumothorax. AORTA AND GREAT VESSELS: No aneurysm. Contrast bolus not optimized for the aorta. HEART: No pericardial effusion. No significant coronary artery calcifications. PULMONARY ARTERIES: Nondiagnostic evaluation. Unable to exclude pulmonary emboli. HILAR AND MEDIASTINAL STRUCTURES: No identified masses or abnormal nodes. HARDWARE: None in the chest. UPPER ABDOMEN: Possible inflammatory change involving the gallbladder. Partial visualization of a br ight fat containing lumbar hernia. THYROID AND OTHER SOFT TISSUES: No masses. No adenopathy. BONES: No acute or significant finding. 3D MIPS: Confirm above findings. OTHER: No other significant finding. IMPRESSION: NONDIAGNOSTIC EVALUATION OF THE PULMONARY ARTERIES. IF PERSISTENT CONCERN FOR PULMONARY EMBOLUS PATIENT WILL REQUIRE REPEAT IMAGING. NO ACUTE AORTIC INJURY OR ANEURYSM. RIGHT GREATER THAN LEFT LOWER LOBE AIRSPACE DISEASE ABOVE SUSPICIOUS FOR INFECTIOUS OR INFLAMMATOR Y PNEUMONITIS. POSSIBLE INFLAMMATION OF THE GALLBLADDER. CORRELATE WITH SYMPTOMS AND ULTRASOUND. COMMENT: Quality ID # [id number]: Final reports with documentation of one or more dose reduction techniques (e.g., Automated exposure control, adjustment of the mA and/or kV according to patient size, use of iterative reconstruction technique) TECHNICAL DOCUMENTATION: JOB ID: [id number] [employer]- All Rights Reserved Reading location - IP/workstation name: [email or web address]
[2017-11-22] MEDS: LEVALBUTEROL HCL NEB 1.25 MG/3 ML AMPUL NEB SCH (20:23)
[2017-11-22] MEDS ORDERED: FUROSEMIDE INJ/PF 20 MG/2 ML SDV IV ONE (20:30)
[2017-11-22] MEDS: AMOXICILLIN TR/POT CLAVULANATE 500-125 MG TAB PO SCH (21:28)
[2017-11-22] MEDS: FLUTICASONE/SALMETEROL DISKUS 500-50 MCG/DOSE IH SCH (21:28)
[2017-11-22] MEDS: ATORVASTATIN CALCIUM 80 MG TABLET PO SCH (21:28)
[2017-11-22] MEDS: GABAPENTIN 300 MG CAPSULE PO SCH (21:29)
[2017-11-22] MEDS: SENNOSIDES/DOCUSATE 8.6-50 MG 1 EACH TABLET PO SCH (21:29)
[2017-11-22] MEDS: LOSARTAN POTASSIUM 50 MG TABLET PO SCH (21:29)
[2017-11-22] MEDS: MONTELUKAST SODIUM 10 MG TABLET PO SCH (21:29)
[2017-11-22] MEDS ORDERED: TELMISARTAN 40 MG PO SCH (22:00)
[2017-11-22] MEDS ORDERED: LEVALBUTEROL HCL NEB 1.25 MG/3 ML AMPUL NEB SCH (22:00)
[2017-11-22] MEDS: CIPROFLOXACIN HCL 0.3% OPH SOLN 2.5 ML OP SCH (22:24)
[2017-11-22] MEDS: IPRATROPIUM BROMIDE 0.06% NASAL SPRAY 15 ML NASL SCH (22:25)
[2017-11-22 23:38] LABS: CREATINE KINASE MB 1.92 ng/mL (<4.55)
[2017-11-22 23:40] LABS: TROPONIN I 0.121 ng/mL
[2017-11-23] MEDS: INSULIN LISPRO 100 UNIT/ML 3 ML VIAL SUBCUT PRN ×4 (00:44→23:16)
[2017-11-23] MEDS: METHYLPREDNISOLONE INJ 40 MG/1 ML SDV IV SCH ×4 (02:35→23:18)
[2017-11-23] MEDS: GABAPENTIN 300 MG CAPSULE PO SCH ×3 (05:34→21:11)
[2017-11-23] MEDS: LANSOPRAZOLE 30 MG TAB.RAP.DR PO SCH (05:34)
[2017-11-23] MEDS: MORPHINE SULFATE SR 15 MG TABLET PO SCH ×2 (07:38→21:10)
[2017-11-23] MEDS: AMOXICILLIN TR/POT CLAVULANATE 500-125 MG TAB PO SCH ×3 (07:39→21:11)
[2017-11-23 07:40] LABS: ANION GAP 9 (5-19); BLOOD UREA NITROGEN 23 mg/dL (7-20); CARBON DIOXIDE 29 mmol/L (22-30); CHLORIDE 96 mmol/L (98-107); GLUCOSE 349 mg/dL (75-110); PHOSPHORUS 1.9 mg/dL (2.5-4.5); POTASSIUM 5.3 mmol/L (3.6-5.0); SODIUM 134.3 mmol/L (137-145)
[2017-11-23] MEDS: LEVALBUTEROL HCL NEB 1.25 MG/3 ML AMPUL NEB SCH ×4 (07:50→19:48)
--- NOTE | 2017-11-23 09:57 | EKG REPORT ---
SEVERITY:- DEFECTIVE ECG - SINUS RHYTHM WITH BASELINE ARTIFACT.PROBABLY NORMAL : Confirmed by: Amaris Vick MD 23-Nov-2017 09:57:24
[2017-11-23] MEDS ORDERED: ENOXAPARIN SODIUM INJ 40 MG/0.4 ML DISP.SYRIN SUBCUT SCH (10:00)
[2017-11-23] MEDS: DIAZEPAM 5 MG TABLET PO PRN (10:05)
[2017-11-23] MEDS: BACLOFEN 10 MG TABLET PO SCH ×3 (10:06→17:32)
[2017-11-23] MEDS: FLUTICASONE/SALMETEROL DISKUS 500-50 MCG/DOSE IH SCH ×2 (10:06→21:13)
[2017-11-23] MEDS: CIPROFLOXACIN HCL 0.3% OPH SOLN 2.5 ML OP SCH ×2 (10:06→21:13)
[2017-11-23] MEDS: IPRATROPIUM BROMIDE 0.06% NASAL SPRAY 15 ML NASL SCH ×2 (10:06→21:11)
[2017-11-23] MEDS: LACTOBACILLUS ACIDOPHILUS 250 MG TAB PO SCH ×2 (10:06→17:32)
[2017-11-23] MEDS: MELOXICAM 15 MG TABLET PO SCH (10:06)
[2017-11-23 12:41] LABS: ALANINE AMINOTRANSFERASE 379 U/L (21-72); ALBUMIN 3.7 g/dL (3.5-5.0); ALKALINE PHOSPHATASE 155 U/L (38-126); ASPARTATE AMINO TRANSFERASE 159 U/L (17-59); BILIRUBIN,DIRECT 0.5 mg/dL (0.0-0.4); BILIRUBIN,TOTAL 0.8 mg/dL (0.2-1.3); TOTAL PROTEIN 6.2 g/dL (6.3-8.2)
--- NOTE | 2017-11-23 13:49 | PDOC PROGRESS REPORT ---
Subjective Progress Note for:: 11/23/17 Subjective:: Patient upset about breakfast being delayed and not having been able to choose from the breakfast menu. His nuclear stress test was canceled because of some bump in troponin I from before but subsequently later on noted to be resuming a downward trend. Patient now complaining of leg edema. Patient seems to be doing better with gradual improvement. Pt is denying any chest arm or neck discomfort. Patient denying any PND, orthopnea. Patient denied any sustained palpitations, dizziness, syncope, near syncope. Patient denying any fever chills. Patient denying any other significant discomfort. Patient is maintaining sinus rhythm. Review of systems: Rest review of systems negative. Medications: Medications have been reviewed. Reason For Visit: COPD EXACERBATION, POSITIVE TROPONIN Physical Exam Vital Signs: Temp Pulse Resp BP Pulse Ox 99.3 F 74 18 135/72 H 97 11/22/17 20:23 11/23/17 11:39 11/23/17 11:39 11/22/17 20:23 11/23/17 11:39 Intake & Output 11/22/17 11/23/17 11/24/17 06:59 06:59 06:59 Intake Total 384 Balance 384 Weight 130.9 kg 130.9 kg Exam: GENERAL: well-nourished and in no acute distress. Alert and oriented x3 HEAD: Atraumatic, normocephalic. EYES: Pupils equal round and reactive to light, extraocular movements intact, sclera anicteric, conjunctiva are normal. ENT: TMs normal, nares patent, oropharynx clear without exudates. Moist mucous membranes. No oral ulcerations or bleeding gums noted NECK: supple without lymphadenopathy. Trachea is central. No cervical or axillary lymphadenopathy noted. Carotids are 2+, JVD WNL LUNGS: Respiration seems nonlabored, no significant accessory muscle action noted. Breath sounds clear to auscultation bilaterally and equal noted. No wheezes rales or rhonchi noted. No significant dullness noted on percussion. CHEST: Palpation of the chest wall shows no significant chest wall tenderness. 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 ABDOMEN: Soft, no significant tenderness appreciated, normoactive bowel sounds. No guarding, no rebound. No rigidity noted . No masses appreciated. EXTREMITIES: Pedal pulses are 1-2+, no calf tenderness noted. No clubbing or cyanosis. 1+ pedal edema noted NEUROLOGICAL: Focused neurological exam showed no significant neurologic deficit. Normal speech, no focal weakness appreciated. PSYCH: Normal mood, normal affect. Judgment and insight within normal limits. SKIN: No significant ecchymosis, skin is noted to be warm. MUSCULOSKELETAL EXAM: No significant acute joint swelling noted. Results Laboratory Results: 11/23/17 06:49 11/23/17 11/23/17 06:49 06:49 Sodium 134.3 L Potassium 5.3 H Chloride 96 L Carbon Dioxide 29 Anion Gap 9 BUN 23 H Creatinine 0.72 Est GFR ( Amer) > 60 Est GFR (Non-Af Amer) > 60 Glucose 349 H Calcium 10.0 Phosphorus 1.9 L Magnesium 1.8 Total Bilirubin 0.8 AST 159 H ALT 379 H Alkaline Phosphatase 155 H Total Protein 6.2 L Albumin 3.7 11/22/17 11/23/17 11/23/17 22:45 06:49 08:23 CK-MB (CK-2) 1.92 Troponin I 0.121 0.073 NT-Pro-B Natriuret Pep 472 Impressions: Chest X-Ray 11/22/17 12:18 IMPRESSION: 1 nterval resolution of left basilar infiltrates since the prior study dated 11/08/2017. Chest/Abdomen CTA 11/22/17 19:20 IMPRESSION: NONDIAGNOSTIC EVALUATION OF THE PULMONARY ARTERIES. IF PERSISTENT CONCERN FOR PULMONARY EMBOLUS PATIENT WILL REQUIRE REPEAT IMAGING. NO ACUTE AORTIC INJURY OR ANEURYSM. RIGHT GREATER THAN LEFT LOWER LOBE AIRSPACE DISEASE ABOVE SUSPICIOUS FOR INFECTIOUS OR INFLAMMATORY PNEUMONITIS. POSSIBLE INFLAMMATION OF THE GALLBLADDER. CORRELATE WITH SYMPTOMS AND ULTRASOUND. 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 Diabetes mellitus complication status : with unspecified complications Qualified Code(s): E11.8 - Type 2 diabetes mellitus with unspecified complications Is this a current diagnosis for this admission?: Yes (3) Otitis media Qualifiers: Otitis media type: serous Laterality: bilateral Is this a current diagnosis for this admission?: Yes (4) Shortness of breath Is this a current diagnosis for this admission?: Yes (5) COPD exacerbation Is this a current diagnosis for this admission?: Yes (6) Congestive heart failure Qualifiers: Heart failure type: right-sided Heart failure chronicity: acute on chronic Qualified Code(s): I50.813 - Acute on chronic right heart failure Is this a current diagnosis for this admission?: Yes (7) DALILA (obstructive sleep apnea) Is this a current diagnosis for this admission?: Yes - Notes Notes: Patient rescheduled for nuclear stress test for tomorrow. 2D echocardiogram pending. Patient feels better after IV Lasix. Will start patient on p.o. Lasix. Elevated troponin I: Most likely related to CHF. Patient has normal EKG and no chest pain. Patient scheduled for a 2D echocardiogram and a nuclear stress test. At this point will start patient on antiplatelet therapy. Plavix will be preferred since patient also on nonsteroidal anti-inflammatory medication. Diabetes: Continue with current management plans. Otitis media: Continue antibiotic therapy and other supportive measures. Dyspnea: Multifactorial. Possible CHF, COPD, obesity etc. COPD exacerbation: Continue current bronchodilator and steroid therapy. CHF: Patient felt to have right-sided CHF. Patient also noted to have elevated liver enzymes indicative of hepatic congestion. Will start patient on low-dose diuretics. Sleep apnea syndrome: Patient will benefit from reinstitution of CPAP therapy. I will be happy to follow patient regarding this. Currently patient is not inclined to even try CPAP therapy. - Time Time with patient: Greater than 35 minutes - More than 50% of the time spent coordinating care, discussing management plans with involved caregivers. Management plans discussed with involved personnels. Medical decision making was of moderate to high complexity, patient's has multiple comorbidities. Medications reviewed and adjusted accordingly: Yes
[2017-11-23] MEDS ORDERED: FUROSEMIDE 40 MG TABLET PO ONE (14:45)
--- NOTE | 2017-11-23 14:48 | PDOC PROGRESS REPORT ---
Subjective Progress Note for:: 11/23/17 Subjective:: Feels bettertoday, ear pain tinnitus, cough improved. Troponins were transiently upterending, therefore there was a hold placed on Stress test to get a repeat troponin, but patient got extremely upset about being NPO and the test got cancelled. He is agreeable to getting the stress test done tomorrow morning. Reason For Visit: COPD EXACERBATION, POSITIVE TROPONIN Physical Exam Vital Signs: Temp Pulse Resp BP Pulse Ox 99.3 F 74 18 135/72 H 97 11/22/17 20:23 11/23/17 11:39 11/23/17 11:39 11/22/17 20:23 11/23/17 11:39 Intake & Output 11/22/17 11/23/17 11/24/17 06:59 06:59 06:59 Intake Total 384 Balance 384 Weight 130.9 kg 130.9 kg General appearance: PRESENT: no acute distress, obese Eye exam: ABSENT: scleral icterus Ear exam: PRESENT: normal external ear exam Mouth exam: PRESENT: moist, neck supple Respiratory exam: PRESENT: rhonchi, symmetrical, unlabored Cardiovascular exam: PRESENT: RRR. ABSENT: systolic murmur GI/Abdominal exam: PRESENT: normal bowel sounds, soft. ABSENT: tenderness Rectal exam: PRESENT: deferred Gentrourinary exam: ABSENT: indwelling catheter Extremities exam: ABSENT: pedal edema Neurological exam: PRESENT: alert, awake, oriented to person, oriented to place , oriented to time, oriented to situation Psychiatric exam: PRESENT: appropriate affect Skin exam: ABSENT: rash Results Laboratory Results: 11/23/17 06:49 11/23/17 11/23/17 06:49 06:49 Sodium 134.3 L Potassium 5.3 H Chloride 96 L Carbon Dioxide 29 Anion Gap 9 BUN 23 H Creatinine 0.72 Est GFR ( Amer) > 60 Est GFR (Non-Af Amer) > 60 Glucose 349 H Calcium 10.0 Phosphorus 1.9 L Magnesium 1.8 Total Bilirubin 0.8 AST 159 H ALT 379 H Alkaline Phosphatase 155 H Total Protein 6.2 L Albumin 3.7 11/22/17 11/23/17 11/23/17 22:45 06:49 08:23 CK-MB (CK-2) 1.92 Troponin I 0.121 0.073 NT-Pro-B Natriuret Pep 472 Impressions: Chest X-Ray 11/22/17 12:18 IMPRESSION: 1 nterval resolution of left basilar infiltrates since the prior study dated 11/08/2017. Chest/Abdomen CTA 11/22/17 19:20 IMPRESSION: NONDIAGNOSTIC EVALUATION OF THE PULMONARY ARTERIES. IF PERSISTENT CONCERN FOR PULMONARY EMBOLUS PATIENT WILL REQUIRE REPEAT IMAGING. NO ACUTE AORTIC INJURY OR ANEURYSM. RIGHT GREATER THAN LEFT LOWER LOBE AIRSPACE DISEASE ABOVE SUSPICIOUS FOR INFECTIOUS OR INFLAMMATORY PNEUMONITIS. POSSIBLE INFLAMMATION OF THE GALLBLADDER. CORRELATE WITH SYMPTOMS AND ULTRASOUND. Assessment & Plan - Diagnosis (1) COPD exacerbation Is this a current diagnosis for this admission?: Yes Plan: IV steroids- taper slowly, nebs, oxygen, advair, mucinex, spiriva, singulair, atrovent nasal spray (2) Acute respiratory failure with hypoxia Is this a current diagnosis for this admission?: Yes Plan: As above (3) Otitis media Qualifiers: Otitis media type: serous Laterality: bilateral Is this a current diagnosis for this admission?: Yes Plan: Day 2 Augmentin, Ofloxacin ear drops, symptomatic treatment (4) Troponin level elevated Is this a current diagnosis for this admission?: Yes Plan: He does have risk factors for CAD No chest pain or EKG changes, tropnin trending down Monitor cardiac enzymes, telemetry Likely secondary to COPD exacerbation Stress test in am (5) Diabetes Qualifiers: Diabetes mellitus type: type 2 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 Will add Lantus for better glucose control (6) DVT prophylaxis Is this a current diagnosis for this admission?: Yes Plan: s/c Lovenox (7) Hypertension Qualifiers: Hypertension type: essential hypertension Qualified Code(s): I10 - Essential (primary) hypertension Is this a current diagnosis for this admission?: Yes Plan: Monitor closely, Telmisartan (8) Morbid obesity Is this a current diagnosis for this admission?: Yes (9) Opioid dependence Is this a current diagnosis for this admission?: Yes Plan: Continue outpatient meds (10) Chronic pain Is this a current diagnosis for this admission?: Yes Plan: As above - Time Time Spent with patient: 25-34 minutes
[2017-11-23] MEDS ORDERED: INSULIN GLARGINE,HUM.REC.ANLOG 1,000 UNIT/10 ML UNIT SUBCUT ONE (15:30)
[2017-11-23] MEDS ORDERED: CLOPIDOGREL BISULFATE 300 MG TABLET PO ONE (20:30)
[2017-11-23] MEDS: LOSARTAN POTASSIUM 50 MG TABLET PO SCH (21:11)
[2017-11-23] MEDS: MONTELUKAST SODIUM 10 MG TABLET PO SCH (21:11)
[2017-11-23] MEDS: ATORVASTATIN CALCIUM 80 MG TABLET PO SCH (21:11)
[2017-11-23] MEDS: SENNOSIDES/DOCUSATE 8.6-50 MG 1 EACH TABLET PO SCH (21:11)
[2017-11-24] MEDS: GABAPENTIN 300 MG CAPSULE PO SCH ×2 (06:25→15:03)
[2017-11-24] MEDS: LANSOPRAZOLE 30 MG TAB.RAP.DR PO SCH (06:25)
[2017-11-24] MEDS: MORPHINE SULFATE SR 15 MG TABLET PO SCH (06:55)
[2017-11-24] MEDS: AMOXICILLIN TR/POT CLAVULANATE 500-125 MG TAB PO SCH ×2 (06:55→15:03)
--- NOTE | 2017-11-24 07:30 | RADIOLOGY REPORT (SQ) ---
EXAM DESCRIPTION: US ABDOMEN LIMITED CLINICAL HISTORY: 52 years Male, Abnormal LFTs Comparison: CTA chest, two days prior. LIMITATIONS: Body habitus. FINDINGS: Gallbladder sludge, small pericholecystic fluid, 0.7 cm gallbladder wall thickness, negative sonographic Jones's test, 21.0 cm hepatomegaly, a 0.4-cm diameter common bile duct, no intrahepatic ductal dilation, 10-cm right kidney, partially obscured pancreas, visualized vasculature/abdominal aorta, and no significant ascites appear otherwise unremarkable. IMPRESSION: 1. Gallbladder sludge, gallbladder wall thickening, and small pericholecystic fluid. Negative sonographic Jones's test. Differential diagnosis includes chronic cholecystitis. 2. Hepatomegaly.
[2017-11-24 08:00] LABS: ANION GAP 7 (5-19); BLOOD UREA NITROGEN 25 mg/dL (7-20); CARBON DIOXIDE 30 mmol/L (22-30); CHLORIDE 98 mmol/L (98-107); GLUCOSE 286 mg/dL (75-110); PHOSPHORUS 2.9 mg/dL (2.5-4.5); POTASSIUM 4.7 mmol/L (3.6-5.0); SODIUM 135.4 mmol/L (137-145)
[2017-11-24] MEDS: DIAZEPAM 5 MG TABLET PO PRN (08:00)
[2017-11-24] MEDS: LEVALBUTEROL HCL NEB 1.25 MG/3 ML AMPUL NEB SCH ×3 (08:11→16:39)
[2017-11-24] MEDS ORDERED: METHYLPREDNISOLONE INJ 40 MG/1 ML SDV IV SCH (10:00)
[2017-11-24] MEDS ORDERED: FUROSEMIDE 40 MG TABLET PO SCH (10:00)
[2017-11-24] MEDS ORDERED: MAGNESIUM OXIDE 400 MG TABLET PO SCH (10:00)
[2017-11-24] MEDS: LACTOBACILLUS ACIDOPHILUS 250 MG TAB PO SCH (10:57)
[2017-11-24] MEDS: MELOXICAM 15 MG TABLET PO SCH (10:58)
[2017-11-24] MEDS: BACLOFEN 10 MG TABLET PO SCH ×2 (10:58→15:02)
[2017-11-24] MEDS: FLUTICASONE/SALMETEROL DISKUS 500-50 MCG/DOSE IH SCH (10:59)
[2017-11-24] MEDS: IPRATROPIUM BROMIDE 0.06% NASAL SPRAY 15 ML NASL SCH (11:00)
[2017-11-24] MEDS ORDERED: MAG HYDROX/AL HYDROX/SIMETH SUSP 30 ML UDCUP PO PRN (11:01)
[2017-11-24] MEDS: CIPROFLOXACIN HCL 0.3% OPH SOLN 2.5 ML OP SCH (11:01)
[2017-11-24] MEDS ORDERED: LANSOPRAZOLE 30 MG TAB.RAP.DR PO ONE (12:00)
[2017-11-24] MEDS: INSULIN LISPRO 100 UNIT/ML 3 ML VIAL SUBCUT PRN (12:32)
--- NOTE | 2017-11-24 13:05 | DRAGON STRESS TEST REPORT ---
INTRAVENOUS LEXISCAN CARDIOLITE STRESS TEST USING SINGLE PHOTON EMMISION COMPUTERIZED TOMOGRAPHIC. DATE OF PROCEDURE: November 24, 2017, INDICATION : Abnormal troponin I and shortness of breath CARDIAC RISK FACTORS: Diabetes, hypertension, dyslipidemia RESTING EKG: Sinus rhythm, no acute ST-T wave changes noted STRESS EKG: No significant ST segment changes noted with LexiScan bolus REASON FOR TERMINATION: Protocol. PROCEDURE REPORT: Baseline heart rate 90 beats per minute with blood pressure of 152/67. Patient had no significant complaints. Patient was bolused with Lexiscan 0.4 mg intravenously followed by saline bolus. Heart rate at 2 minutes post bolus 101 with a blood pressure of 133/61. 3 minutes post bolus heart rate 101 with blood pressure of 153/62. No significant EKG changes were noted. Patient had no significant complaints during the procedure or postprocedure. CONCLUSIONS: Normal EKG and hemodynamic response to IV LexiScan. NUCLEAR DATA: At rest the patient was given 15.7 millicuries of technetium 99 sestamibi injected intravenously. As per protocol rest gated SPECT images were obtained. On day of stress test, the patient was given intravenous LexiScan at a dose of 0.4 mg in 5 mL intravenously, followed by flush with normal saline. Subsequently the stress dose of 46.7 millicuries of technetium 99 sestamibi was injected intravenously. As per protocol stress gated images were obtained. NUCLEAR INTERPRETATION: Both raw and processed data were used for interpretation. Visual, qualitative, computer-generated quantitative data was used. There was good myocardial uptake of technetium compound. Motion artifact and soft tissue attenuations were noted. Marked increased liver uptake was also noted. Marked diaphragmatic attenuation also noted. This caused difficulty in interpretation of the inferior wall perfusion. No definitive areas of transient perfusion defect noted, No definitive areas of fixed perfusion defect or scars noted. EKG gated imaging showed LV EF at 55 %, rest and stress gated EF similar visually. Basal and mid inferior wall hypokinesia noted. T. I D. ratio was 1.31, but visually felt to be normal. Lung heart ratio noted to be within normal limits 0.42. No significant extracardiac and abnormal radiotracer activities were noted. RV free wall uptake was noted to be WNL. IMPRESSION: Also refer to comments under nuclear interpretation. Also test results needs to be interpreted in the context of pretest probability. Please note that because of marked increased liver uptake and also attenuation artifact due to patient's body habitus, there was significant difficulty in interpreting inferior wall perfusion. 1. No definitive areas of transient perfusion defect noted. 2. Predominantly moderate fixed defect noted involving the inferior wall with probable minimal surrounding transient perfusion defect however SDS is just 1 therefore not significant. 3. EKG gated imaging shows left ventricular ejection fraction of approx. 55 %. Basal and mid inferior wall hypokinesia noted. 4. Clinical correlation requested as occasionally worse disease or balanced ischemia could be missed. In approximately 10% of the cases Lexiscan may not cause adequate vasodilatory stress. RECOMMENDATIONS: Aggressive risk factor modification and medical management. Further evaluation may be needed if continued symptoms or other high risk indicators are noted on clinical evaluation. No threshold for heart catheterization if recurrent symptoms and if patient fails medical management. Close cardiology follow-up is also recommended. Clinical correlation with echocardiogram derived ejection fraction. Inability to exercise by itself can lead to increased cardiovascular event risks. Consider cardiology consultation and or follow-up if clinically indicated. I am available for cardiology evaluation and consultation if requested by the habilitation assistant, unless patient already has a director account management. ROBERT
[2017-11-24] MEDS ORDERED: REGADENOSON INJ 0.4 MG/5 ML DISP.SYRIN IV ONE (14:27)
--- NOTE | 2017-11-24 16:49 | PDOC DISCHARGE SUMMARY ---
General - Admit/Disc Date/PCP Admission Date/Primary Care Provider: 11/22/17 17:43 GILDA MELARA MD Discharge Date: 11/24/17 - Discharge Diagnosis (1) COPD exacerbation Is this a current diagnosis for this admission?: Yes (2) Acute respiratory failure with hypoxia Is this a current diagnosis for this admission?: Yes (3) Otitis media Is this a current diagnosis for this admission?: Yes (4) Troponin level elevated Is this a current diagnosis for this admission?: Yes (5) Diabetes Is this a current diagnosis for this admission?: Yes (6) DVT prophylaxis Is this a current diagnosis for this admission?: Yes (7) Hypertension Is this a current diagnosis for this admission?: Yes (8) Morbid obesity Is this a current diagnosis for this admission?: Yes (9) Opioid dependence Is this a current diagnosis for this admission?: Yes (10) Chronic pain Is this a current diagnosis for this admission?: Yes (11) Chronic cholecystitis Is this a current diagnosis for this admission?: Yes Summary: Follow up as outpatient - Additional Information Resuscitation Status: Full Code Discharge Activity: Activity As Tolerated Prescriptions: Amox Tr/Potassium Clavulanate [Augmentin "500" Tablet] 1 tab PO Q8 5 Days #15 tablet Ciprofloxacin HCl [Ciloxan 0.3% Oph Soln 2.5 ml] 2 drop OP Q12 5 Days #1 bottle Lactobacillus Acidophilus [Bacid 250 mg Tablet] 500 mg PO DAILY 7 Days #7 tab Prednisone [Deltasone 20 mg Tablet] 60 mg PO DAILY #13 tablet Home Medications: Albuterol Sulfate [Ventolin 0.083% Neb 2.5 mg/3 mL Ampul] 3 ml NEB Q6 11/23/17 Atorvastatin Calcium [Lipitor 80 mg Tablet] 80 mg PO QHS 11/23/17 Baclofen [Baclofen 10 mg Tablet] 10 mg PO Q8 11/23/17 Diazepam [Valium 5 mg Tablet] 5 mg PO Q8HP PRN 11/23/17 Gabapentin [Neurontin] 60 mg PO Q8 11/23/17 Meloxicam [Mobic] 15 mg PO DAILY 11/23/17 Metformin HCl [Metformin HCl ER] 50 mg PO BID 11/23/17 Montelukast Sodium [Singulair 10 mg Tablet] 10 mg PO QHS 11/23/17 Morphine Sulfate [Morphine Sulfate ER] 30 mg PO Q12 11/23/17 Omeprazole 20 mg PO ACBRKFST 11/23/17 Oxycodone HCl 15 mg PO Q6HP PRN 11/23/17 Telmisartan [Micardis 80 mg Tablet] 80 mg PO DAILY 11/23/17 Amox Tr/Potassium Clavulanate [Augmentin "500" Tablet] 1 tab PO Q8 5 Days #15 tablet 11/24/17 Atorvastatin Calcium [Lipitor 80 mg Tablet] 80 mg PO QHS tablet 11/24/17 Baclofen [Baclofen 10 mg Tablet] 10 mg PO TID tablet 11/24/17 Ciprofloxacin HCl [Ciloxan 0.3% Oph Soln 2.5 ml] 2 drop OP Q12 5 Days #1 bottle 11/24/17 Diazepam [Valium 5 mg Tablet] 5 mg PO TIDP PRN tablet 11/24/17 Diclofenac Sodium [Voltaren] 1 applic TP .DAILYP PRN 11/24/17 Fluticasone/Salmeterol [Advair 500-50 Diskus 14 Dose/Diskus] 1 inh IH Q12 inhaler 11/24/17 Gabapentin [Neurontin 300 mg Capsule] 600 mg PO Q8 capsule 11/24/17 Lactobacillus Acidophilus [Bacid 250 mg Tablet] 500 mg PO DAILY 7 Days #7 tab Meloxicam [Mobic 15 mg Tablet] 15 mg PO DAILY tablet 11/24/17 Montelukast Sodium [Singulair 10 mg Tablet] 10 mg PO QHS tablet 11/24/17 Morphine Sulfate [Ms-Contin Sr 15 mg Tablet] 30 mg PO Q12@0700,1900 tablet.sa 11/24/17 Oxycodone HCl [Oxy-Ir 5 mg Tablet] 15 mg PO Q6HP PRN tablet 11/24/17 Prednisone [Deltasone 20 mg Tablet] 60 mg PO DAILY #13 tablet 11/24/17 History of Present Illness History of Present Illness: DONNIE LEE SR is a 52 year old male with past medical history of COPD Diabetes, not insulin-dependent Hypertension Alcohol dependence Chronic back pain Opiate dependence continuous use Arthritis Hyperlipidemia Asthma GERD Obstructive sleep apnea not compliant with CPAP. Outpatient medications: Morphine ER 30 mg every 12 hours Oxycodone 15 mg every 6 hours as needed Metformin 500 mg twice a day Diazepam 5 mg 3 times a day as needed Baclofen 10 mg 3 times a day Meloxicam 15 mg daily Gabapentin 600 mg 3 times a day Voltaren gel as needed albuterol MDI as needed Atorvastatin 80 mg daily Omeprazole 20 mg daily Singulair 10 mg daily Telmisartan 80 mg PO QHS The patient had presented to the emergency room on November 08 with shortness of breath and had been admitted for COPD exacerbation and pneumonia. He was discharged on 11/10 with a prednisone taper was given a prescription for Advair and azithromycin. The patient presented back to the hospital today reporting no improvement in his symptoms with increasing shortness of breath cough ear fullness and pain and tinnitus. He went to his primary care's office today and was found to be hypoxic with sats in the 80s. Troponins were checked in the emergency room and were 0.17. Repeat troponin was 0.11. He reported no chest pain. EKG showed no acute ST segment or T-wave changes. He was treated with steroids, antibiotics and Cipro ear drops for his pneumonia and COPD exacerbation and suspected otitis media with no TM perforation. Stress test was normal and he was evaluated by the cardiology service. Echocardiogram will be done as an outpatient. LFTs were abnormal. Patient complained of a lot of heartburn with meals. Ultrasound of the abdomen showed small amount of pericholecystic fluid with some sludge suggestive of chronic cholecystitis. The patient is to follow-up with his primary care physician and with cardiology as an outpatient. He is stable and ready for discharge. Hospital Course Hospital Course: As above Physical Exam Vital Signs: Temp Pulse Resp BP Pulse Ox 97.3 F 65 20 160/77 H 100 11/24/17 15:07 11/24/17 15:07 11/24/17 15:07 11/24/17 15:07 11/24/17 15:07 Intake & Output 11/23/17 11/24/17 11/25/17 06:59 06:59 06:59 Intake Total 384 2080 Balance 384 2080 Weight 130.9 kg 131.1 kg General appearance: PRESENT: no acute distress, obese Respiratory exam: PRESENT: symmetrical, unlabored. ABSENT: wheezes GI/Abdominal exam: PRESENT: normal bowel sounds, soft. ABSENT: Jones's sign, tenderness Neurological exam: PRESENT: alert, awake Results Laboratory Results: 11/24/17 07:25 11/24/17 07:25 Sodium 135.4 L Potassium 4.7 Chloride 98 Carbon Dioxide 30 Anion Gap 7 BUN 25 H Creatinine 0.59 Est GFR ( Amer) > 60 Est GFR (Non-Af Amer) > 60 Glucose 286 H Calcium 10.0 Phosphorus 2.9 Magnesium 1.7 11/22/17 11/23/17 11/23/17 22:45 06:49 08:23 CK-MB (CK-2) 1.92 Troponin I 0.121 0.073 NT-Pro-B Natriuret Pep 472 Impressions: Chest X-Ray 11/22/17 12:18 IMPRESSION: 1 nterval resolution of left basilar infiltrates since the prior study dated 11/08/2017. Chest/Abdomen CTA 11/22/17 19:20 IMPRESSION: NONDIAGNOSTIC EVALUATION OF THE PULMONARY ARTERIES. IF PERSISTENT CONCERN FOR PULMONARY EMBOLUS PATIENT WILL REQUIRE REPEAT IMAGING. NO ACUTE AORTIC INJURY OR ANEURYSM. RIGHT GREATER THAN LEFT LOWER LOBE AIRSPACE DISEASE ABOVE SUSPICIOUS FOR INFECTIOUS OR INFLAMMATORY PNEUMONITIS. POSSIBLE INFLAMMATION OF THE GALLBLADDER. CORRELATE WITH SYMPTOMS AND ULTRASOUND. Abdomen Ultrasound 11/24/17 00:00 IMPRESSION: 1. Gallbladder sludge, gallbladder wall thickening, and small pericholecystic fluid. Negative sonographic Jones's test. Differential diagnosis includes chronic cholecystitis. 2. Hepatomegaly. Status: Imported from PACS Qualifiers - * PATIENT BEING DISCHARGED WITH ANY OF THE FOLLOWING DIAGNOSIS: No
[2017-11-24 17:16] VITALS: BP 153/79
--- NOTE | 2017-11-24 19:34 | XCELERA REPORT ---
[address] [address] Transthoracic Echocardiogram Report Name: DONNIE LEE SR Age: 52 yrs Gender: Male : 1965 Patient Status: Inpatient Patient Location: [address] [place] [address] Study Date: 11/24/2017 03:39 PM Height: 66 in Weight: 288 lb BSA: 2.3 m2 Procedure: A complete two-dimensional transthoracic echocardiogram was performed (2D, M-mode, spectral and color flow Doppler). The study was technically difficult with many images being suboptimal in quality. Reason For Study: Positive troponin, dyspnea, r/o RWMA Ordering Physician: HAWK GEIGER Performed By: Peggy Stanley Interpretation Summary Left ventricular systolic function is low normal. Doppler measurements suggest pseudonormalized left ventricular relaxation, which is associated with grade II/IV or mild to moderate diastolic dysfunction There is mild concentric left ventricular hypertrophy. The left ventricle is grossly normal size. There is basal inferior wall mild hypokinesis The right ventricle is mild to moderately dilated. The right ventricular systolic function is normal. Borderline left atrial enlargement. The right atrium is normal in size There is a trace amount of mitral regurgitation There is no mitral valve stenosis. There is no aortic valve stenosis No aortic regurgitation is present. There is a mild amount of tricuspid regurgitation There is moderate pulmonary hypertension by echo Right ventricular systolic pressure is estimated to be elevated at 50- 60mmHg. The aortic root is not well visualized but is probably normal size. The inferior vena cava appeared normal and decreased < 50% with respiration (RAP 10-15 mmHg) There is no pericardial effusion. MMode/2D Measurements & Calculations IVSd: 1.0 cm LVIDd: 6.2 cm FS: 35.2 % Ao root diam: 3.3 cm LVIDs: 4.0 cm EDV(Teich): 190.8 ml LVPWd: 1.0 cm ESV(Teich): 69.4 ml Ao root area: 8.3 cm2 EF(Teich): 63.6 % LA dimension: 3.7 cm Doppler Measurements & Calculations MV E max randy: MV P1/2t max randy: Ao V2 max: PA V2 max: 111.1 cm/sec 112.0 cm/sec 200.9 cm/sec 130.8 cm/sec MV A max randy: MV P1/2t: 52.5 msec Ao max PG: PA max P.2 cm/sec 16.1 mmHg 6.8 mmHg MV E/A: 1.1 MVA(P1/2t): 4.2 cm2 MV dec slope: 625.2 cm/sec2 MV dec time: 0.18 sec TR max randy: 314.9 cm/sec TR max P.7 mmHg Left Ventricle The left ventricle is grossly normal size. There is mild concentric left ventricular hypertrophy. Left ventricular systolic function is low normal. Doppler measurements suggest pseudonormalized left ventricular relaxation, which is associated with grade II/IV or mild to moderate diastolic dysfunction. There is basal inferior wall mild hypokinesis. Right Ventricle The right ventricle is mild to moderately dilated. There is normal right ventricular wall thickness. The right ventricular systolic function is normal. Atria The right atrium is normal in size. Borderline left atrial enlargement. Interarterial septum not well visualized and not well dopplered. Cannot comment on ASD/PFO presence. Mitral Valve The mitral valve is grossly normal. There is no mitral valve stenosis. There is a trace amount of mitral regurgitation. Aortic Valve The aortic valve is not well visualized secondary to technical limitations. There is no aortic valve stenosis. No aortic regurgitation is present. Tricuspid Valve The tricuspid valve is not well visualized secondary to technical limitations. There is no tricuspid stenosis. There is a mild amount of tricuspid regurgitation. There is moderate pulmonary hypertension by echo. Right ventricular systolic pressure is estimated to be elevated at 50- 60mmHg. Pulmonic Valve The pulmonic valve is not well visualized. Great Vessels The aortic root is not well visualized but is probably normal size. The inferior vena cava appeared normal and decreased < 50% with respiration (RAP 10-15 mmHg). Effusions There is no pericardial effusion. : JUANJO, OCTOBER > Zheng Martinez
--- NOTE | 2017-11-24 19:50 | PDOC PROGRESS REPORT ---
Subjective Progress Note for:: 11/24/17 Subjective:: Patient seen multiple times. He was somewhat upset yesterday but today he is better. Patient underwent nuclear stress test without any complications. Patient currently waiting for 2D echocardiogram to be performed. Nuclear stress test results were reviewed. Patient seems to be doing better with gradual improvement. Pt is denying any chest arm or neck discomfort. Patient denying any PND, orthopnea. Patient denied any sustained palpitations, dizziness, syncope, near syncope. Patient denying any fever chills. Patient denying any other significant discomfort. Patient is maintaining sinus rhythm. Review of systems: Rest review of systems negative. Medications: Medications have been reviewed. Reason For Visit: COPD EXACERBATION, POSITIVE TROPONIN Physical Exam Vital Signs: Temp Pulse Resp BP Pulse Ox 97.3 F 65 20 153/79 H 100 11/24/17 17:27 11/24/17 17:27 11/24/17 17:27 11/24/17 17:27 11/24/17 17:27 Intake & Output 11/23/17 11/24/17 11/25/17 06:59 06:59 06:59 Intake Total 384 2080 Balance 384 2080 Weight 130.9 kg 131.1 kg Exam: GENERAL: well-nourished and in no acute distress. Alert and oriented x3 HEAD: Atraumatic, normocephalic. EYES: Pupils equal round and reactive to light, extraocular movements intact, sclera anicteric, conjunctiva are normal. ENT: TMs normal, nares patent, oropharynx clear without exudates. Moist mucous membranes. No oral ulcerations or bleeding gums noted NECK: supple without lymphadenopathy. Trachea is central. No cervical or axillary lymphadenopathy noted. Carotids are 2+, JVD WNL LUNGS: Respiration seems nonlabored, no significant accessory muscle action noted. Breath sounds clear to auscultation bilaterally and equal noted. No wheezes rales or rhonchi noted. No significant dullness noted on percussion. CHEST: Palpation of the chest wall shows no significant chest wall tenderness. 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 ABDOMEN: Soft, no significant tenderness appreciated, normoactive bowel sounds. No guarding, no rebound. No rigidity noted . No masses appreciated. EXTREMITIES: Pedal pulses are 1-2+, no calf tenderness noted. No clubbing or cyanosis. 1+ pedal edema noted NEUROLOGICAL: Focused neurological exam showed no significant neurologic deficit. Normal speech, no focal weakness appreciated. PSYCH: Normal mood, normal affect. Judgment and insight within normal limits. SKIN: No significant ecchymosis, skin is noted to be warm. MUSCULOSKELETAL EXAM: No significant acute joint swelling noted. Results Laboratory Results: 11/24/17 07:25 11/24/17 07:25 Sodium 135.4 L Potassium 4.7 Chloride 98 Carbon Dioxide 30 Anion Gap 7 BUN 25 H Creatinine 0.59 Est GFR ( Amer) > 60 Est GFR (Non-Af Amer) > 60 Glucose 286 H Calcium 10.0 Phosphorus 2.9 Magnesium 1.7 11/22/17 11/23/17 11/23/17 22:45 06:49 08:23 CK-MB (CK-2) 1.92 Troponin I 0.121 0.073 NT-Pro-B Natriuret Pep 472 EKG Comments: Telemetry strips showed sinus rhythm without any sustained tachycardia or bradycardia. Impressions: Chest X-Ray 11/22/17 12:18 IMPRESSION: 1 nterval resolution of left basilar infiltrates since the prior study dated 11/08/2017. Chest/Abdomen CTA 11/22/17 19:20 IMPRESSION: NONDIAGNOSTIC EVALUATION OF THE PULMONARY ARTERIES. IF PERSISTENT CONCERN FOR PULMONARY EMBOLUS PATIENT WILL REQUIRE REPEAT IMAGING. NO ACUTE AORTIC INJURY OR ANEURYSM. RIGHT GREATER THAN LEFT LOWER LOBE AIRSPACE DISEASE ABOVE SUSPICIOUS FOR INFECTIOUS OR INFLAMMATORY PNEUMONITIS. POSSIBLE INFLAMMATION OF THE GALLBLADDER. CORRELATE WITH SYMPTOMS AND ULTRASOUND. Abdomen Ultrasound 11/24/17 00:00 IMPRESSION: 1. Gallbladder sludge, gallbladder wall thickening, and small pericholecystic fluid. Negative sonographic Jones's test. Differential diagnosis includes chronic cholecystitis. 2. Hepatomegaly. Assessment & Plan - Diagnosis (1) Troponin level elevated Is this a current diagnosis for this admission?: Yes (2) Diabetes Qualifiers: Diabetes mellitus type: type 2 Diabetes mellitus intermediate frame tender insulin use: unspecified intermediate frame tender insulin use status Diabetes mellitus complication status : with unspecified complications Qualified Code(s): E11.8 - Type 2 diabetes mellitus with unspecified complications Is this a current diagnosis for this admission?: Yes (3) Otitis media Qualifiers: Otitis media type: serous Laterality: bilateral Is this a current diagnosis for this admission?: Yes (4) Shortness of breath Is this a current diagnosis for this admission?: Yes (5) COPD exacerbation Is this a current diagnosis for this admission?: Yes (6) Congestive heart failure Qualifiers: Heart failure type: right-sided Heart failure chronicity: acute on chronic Qualified Code(s): I50.813 - Acute on chronic right heart failure Is this a current diagnosis for this admission?: Yes (7) DALILA (obstructive sleep apnea) Is this a current diagnosis for this admission?: Yes - Notes Notes: Elevated troponin I: Most likely related to CHF. Patient has normal EKG and no chest pain. Patient underwent stress test without any complications. Patient was noted to have predominantly inferior wall fixed defect involving basal and mid inferior wall with minimal surrounding ischemia. These results were reviewed with the patient. At this point medical management is being recommended but discussed that if he continues with significant shortness of breath, recurrence of chest pain etc. then heart catheterization will become indicated. Patient understands this and wishes to follow-up with me. A 2D echocardiogram was pending at the time when I talked with the patient. 2D echocardiogram was later on reviewed. It showed low normal LVEF with basal inferior wall hypokinesia. RV was noted to be mildly dilated with moderate pulmonary hypertension. Patient will benefit from reinstitution of CPAP therapy and possible nocturnal oxygen supplementation based on the echo report. Patient does have a follow-up appointment during which time this will be pursued. These evaluation can be carried out through my office. Diabetes: Continue with current management plans. Otitis media: Continue antibiotic therapy and other supportive measures. Dyspnea: Multifactorial. Possible CHF, COPD, obesity etc. COPD exacerbation: Continue current bronchodilator and steroid therapy. CHF: Patient felt to have right-sided CHF. Patient also noted to have elevated liver enzymes indicative of hepatic congestion. Will start patient on low-dose diuretics. Patient to be continued on diuretic therapy as an outpatient. Follow BNP levels. Patient will now benefit from nocturnal oxygen supplementation for which he will be qualified through my office if he wishes. Sleep apnea syndrome: Patient will benefit from reinstitution of CPAP therapy. I will be happy to follow patient regarding this. Currently patient is not inclined to even try CPAP therapy. - Time Time with patient: Greater than 35 minutes - Patient was seen multiple times. Total time exceeds 40 minutes. In the morning nuclear stress test procedure, risks benefits, alternatives were discussed. Patient seen during the stress test. Patient also seen after stress test when results were discussed with the patient in detail. Patient's questions were answered. Nuclear stress test results were discussed with the patient. Patient was informed that no definitive evidence of pharmacologic stress-induced ischemia noted. Basal and mid inferior wall fixed defect was noted. Patient informed that occasionally significant single vessel disease or balanced ischemia could be missed. However based on the current study results, would recommend aggressive risk factor modification and medical therapy. It may also be worthwhile to consider evaluation or empiric management of other causes of chest pain. Should no other cause be found and if persistent in having chest pain, then cardiac catheterization should be considered. Right now, recommendations are for aggressive risk factor modification and medical management. Other aggressive risk factor modification methods were discussed. Medications reviewed and adjusted accordingly: Yes
== END 2017-11-24 17:45 | disposition home or self-care (01) | DRG 190 ==
LOC: ER 11:23 → OBSVTOIN 17:43 → EH 17:43 → 5 20:13
PROVIDERS: ADMIT Internal Medicine; ATTEND Internal Medicine
PROC: 3E0F73Z Introduction of Anti-inflammatory into Respiratory Tract, Via Natural or Artificial Opening (ICD-10-PCS; principal; 2017-11-22)
DX: J44.1 Chronic obstructive pulmonary disease with (acute) exacerbation (principal); J96.01 Acute respiratory failure with hypoxia; Z68.42 Body mass index [BMI] 45.0-49.9, adult; F11.20 Opioid dependence, uncomplicated; I50.813 Acute on chronic right heart failure; I11.0 Hypertensive heart disease with heart failure; E11.9 Type 2 diabetes mellitus without complications; E78.5 Hyperlipidemia, unspecified; Z96.653 Presence of artificial knee joint, bilateral; H65.03 Acute serous otitis media, bilateral; G47.33 Obstructive sleep apnea (adult) (pediatric); F10.20 Alcohol dependence, uncomplicated; G89.29 Other chronic pain; M54.9 Dorsalgia, unspecified; M19.90 Unspecified osteoarthritis, unspecified site; K21.9 Gastro-esophageal reflux disease without esophagitis; R74.8 Abnormal levels of other serum enzymes; E66.01 Morbid (severe) obesity due to excess calories; K81.1 Chronic cholecystitis; Z87.891 Personal history of nicotine dependence; Z79.84 Long term (current) use of oral hypoglycemic drugs; Z79.899 Other long term (current) drug therapy; Z82.49 Family history of ischemic heart disease and other diseases of the circulatory system
CPT/HCPCS: 36415; 71045; 71275; 76705; 78452; 80048; 80076; 82550; 82553; 82962; 83605; 83735; 83880; 84100; 84484; 85025; 93005; 93010; 93017; 93306; 94640; 99285; A9500; J1650; J1815; J1940; J2785; J2920; J3490; J7620; Q9969; S0119

== ENCOUNTER → 2017-12-01 | Outpatient (CLI) | payer MEDICARE, MEDICAID ==
[2017-12-01 12:16] LABS: ALANINE AMINOTRANSFERASE 63 U/L (21-72); ALBUMIN 3.7 g/dL (3.5-5.0); ALKALINE PHOSPHATASE 96 U/L (38-126); ANION GAP 8 (5-19); ASPARTATE AMINO TRANSFERASE 29 U/L (17-59); BILIRUBIN,DIRECT 0.4 mg/dL (0.0-0.4); BILIRUBIN,TOTAL 0.4 mg/dL (0.2-1.3); BLOOD UREA NITROGEN 19 mg/dL (7-20); CALCIUM 9.5 mg/dL (8.4-10.2); CARBON DIOXIDE 34 mmol/L (22-30); CHLORIDE 95 mmol/L (98-107); GLUCOSE 186 mg/dL (75-110); SODIUM 137.1 mmol/L (137-145); TOTAL PROTEIN 6.3 g/dL (6.3-8.2)
== END ==
LOC: OD 10:51
PROVIDERS: ATTEND Physician Assistant Medical
DX: R06.02 Shortness of breath (principal); I10 Essential (primary) hypertension
CPT/HCPCS: 36415; 80053

== ENCOUNTER 2017-12-20 12:01 | Emergency (ER) | payer MEDICARE, MEDICAID ==
[2017-12-20] MEDS ORDERED: METHYLPREDNISOLONE INJ 125 MG/2 ML SDV IV ONE (12:29)
[2017-12-20] MEDS ORDERED: IPRATROPIUM/ALBUTEROL 0.5-2.5 MG/3 ML AMPUL NEB ONE (12:29)
--- NOTE | 2017-12-20 12:30 | ER Document Report ---
ED Medical Screen (RME) - General Chief Complaint: Shortness Of Breath Stated Complaint: RESPITORY ISSUE Time Seen by Provider: 12/20/17 12:17 Mode of Arrival: Ambulatory Information source: Patient Notes: 52 yr old male hx copd presents with complaitns of sob sent in from pcp office pt recently admitted for pneumonia I have greeted and performed a rapid initial assessment of this patient. A comprehensive ED assessment and evaluation of the patient, analysis of test results and completion of the medical decision making process will be conducted by additional ED providers. PHYSICAL EXAMINATION: GENERAL: Well-appearing, well-nourished and in no acute distress. HEAD: Atraumatic, normocephalic. EYES: Pupils equal round extraocular movements intact, conjunctiva are normal. ENT: Nares patent NECK: Normal range of motion LUNGS: No respiratory distress Musculoskeletal: Normal range of motion NEUROLOGICAL: Normal speech, normal gait. PSYCH: Normal mood, normal affect. SKIN: Warm, Dry, normal turgor, no rashes or lesions noted. TRAVEL OUTSIDE OF THE [place] IN LAST 30 DAYS: No - Related Data Allergies/Adverse Reactions: No Known Allergies Allergy (Verified 11/22/17 11:25) Past Medical History - Social History Chew tobacco use (# tins/day): No Frequency of alcohol use: Occasional Drug Abuse: Marijuana - Past Medical History Cardiac Medical History: Reports: Hx Hypercholesterolemia, Hx Hypertension Denies: Hx Atrial Fibrillation, Hx Congestive Heart Failure, Hx Coronary Artery Disease, Hx Heart Attack, Hx Peripheral Vascular Disease, Hx Pulmonary Embolism, Hx Heart Murmur Pulmonary Medical History: Reports: Hx Asthma, Hx COPD, Hx Pneumonia, Hx Sleep Apnea Denies: Hx Bronchitis, Hx Respiratory Failure, Hx Tuberculosis Neurological Medical History: Denies: Hx Cerebrovascular Accident, Hx Seizures Endocrine Medical History: Reports: Hx Diabetes Mellitus Type 2. Denies: Hx Graves' Disease, Hx Hyperthyroidism, Hx Hypothyroidism Renal/ Medical History: Reports: Hx Benign Prostatic Hyperplasia - nocturia x 2-3/night. Denies: Hx End Stage Renal Disease, Hx Kidney Stones, Hx Peritoneal Dialysis Malignancy Medical History: Denies Hx Leukemia, Denies Hx Lung Cancer GI Medical History: Reports: Hx Gastroesophageal Reflux Disease. Denies: Hx Crohn's Disease, Hx Hiatal Hernia, Hx Irritable Bowel, Hx Liver Failure, Hx Pancreatitis, Hx Ulcer Musculoskeltal Medical History: Reports Hx Arthritis, Denies Hx Fibromyalgia, Denies Hx Multiple Sclerosis, Denies Hx Muscular Dystrophy Psychiatric Medical History: Denies: Hx Bipolar Disorder, Hx Dementia, Hx Depression, Hx Post Traumatic Stress Disorder, Hx Schizophrenia Traumatic Medical History: Denies: Hx Fractures Infectious Medical History: Denies: Hx HIV Past Surgical History: Reports: Hx Abdominal Surgery - hernia, Hx Orthopedic Surgery - Bilateral knee replacements. Recent repair of right knee. Denies: Hx Appendectomy, Hx Bowel Surgery, Hx Cholecystectomy, Hx Colostomy, Hx Coronary Artery Bypass Graft, Hx Gastric Bypass Surgery, Hx Herniorrhaphy, Hx Pacemaker, Hx Tonsillectomy - Immunizations Hx Diphtheria, Pertussis, Tetanus Vaccination: Yes History of Influenza Vaccine for 03/2017 - 08/2017 Season: Yes Influenza Administration Date for 03/2017 - 08/2017 Season: 03/21/17 Physical Exam - Vital signs Vitals: Temp Pulse Resp BP Pulse Ox 98.2 F 61 24 H 163/77 H 97 12/20/17 12:09 12/20/17 12:09 12/20/17 12:12/20/17 12:12/20/17 12:09 Course - Vital Signs Vital signs: Temp Pulse Resp BP Pulse Ox 98.2 F 61 24 H 163/77 H 97 12/20/17 12:09 12/20/17 12:09 12/20/17 12:09 12/20/17 12:09 12/20/17 12:09 Doctor's Discharge - Discharge Referrals: GILDA MELARA MD [Primary Care Provider] - Follow up as needed
--- NOTE | 2017-12-20 13:03 | RADIOLOGY REPORT (SQ) ---
EXAM DESCRIPTION: CHEST 2 VIEWS COMPLETED DATE/TIME: 12/20/2017 12:52 pm REASON FOR STUDY: cough, copd COMPARISON: CT angio chest 11/22/2017 Chest films 11/22/2017, 11/08/2017 EXAM PARAMETERS: NUMBER OF VIEWS: two views TECHNIQUE: Digital Frontal and Lateral radiographic views of the chest acquired. RADIATION DOSE: NA LIMITATIONS: none FINDINGS: LUNGS AND PLEURA: No opacities, masses or pneumothorax. No pleural effusion. MEDIASTINUM AND HILAR STRUCTURES: No masses or contour abnormalities. HEART AND VASCULAR STRUCTURES: Heart normal size. No evidence for failure. BONES: No acute findings. HARDWARE: None in the chest. OTHER: No other significant finding. IMPRESSION: NO ACUTE RADIOGRAPHIC FINDING IN THE CHEST. TECHNICAL DOCUMENTATION: JOB ID: [id number] [employer]- All Rights Reserved Reading location - IP/workstation name: [email or web address]
--- NOTE | 2017-12-20 13:06 | ER Document Report ---
ED Respiratory Problem - General Chief Complaint: Shortness Of Breath Stated Complaint: RESPITORY ISSUE Time Seen by Provider: 12/20/17 12:17 Mode of Arrival: Ambulatory Information source: Patient TRAVEL OUTSIDE OF THE [place] IN LAST 30 DAYS: No - HPI Patient complains to provider of: Short of breath Onset: Other - 3 DAYS Duration: Continuous, Intermittent episodes Initiating Event: No: Allergy, Aspiration/Choking, Exposure to chemicals, Exposure to dust, Exposure to fumes, Exposure to mold, Exposure to smoke, URI Quality of pain: Other - SORENESS W/ COUGH Severity: Moderate Context: Hx asthma. denies: DVT, Factor V Leiden, Hx CHF, Hx COPD, Malignancy, , Recent cardiac event, Recent foreign travel, Recent long distance trvl , Recent immobilization, Recent surgery, Smoker Short of Breath: Mild Chest pain/discomfort: Center Cough: Nonproductive Sputum amount: None At home treatment: Bronchodilators Associated symptoms: Ankle/leg swelling - CHRONIC, BILATERAL, Short of breath. denies: Chest pain/discomfort, Chills, Fever, Heart racing Similar symptoms previously: Yes Recently seen / treated by doctor: Yes - PCP, NOT IMPROVING - Related Data Allergies/Adverse Reactions: No Known Allergies Allergy (Verified 11/22/17 11:25) Past Medical History - General Information source: Patient - Social History Smoking Status: Never Smoker Chew tobacco use (# tins/day): No Frequency of alcohol use: Occasional Drug Abuse: Marijuana Lives with: Family Family History: Hypertension Patient has suicidal ideation: No Patient has homicidal ideation: No - Past Medical History Cardiac Medical History: Reports: Hx Hypercholesterolemia, Hx Hypertension Denies: Hx Atrial Fibrillation, Hx Congestive Heart Failure, Hx Coronary Artery Disease, Hx Heart Attack, Hx Peripheral Vascular Disease, Hx Pulmonary Embolism, Hx Heart Murmur Pulmonary Medical History: Reports: Hx Asthma, Hx COPD, Hx Pneumonia, Hx Sleep Apnea Denies: Hx Bronchitis, Hx Respiratory Failure, Hx Tuberculosis Neurological Medical History: Reports: None. Denies: Hx Cerebrovascular Accident, Hx Seizures Endocrine Medical History: Reports: Hx Diabetes Mellitus Type 2. Denies: Hx Graves' Disease, Hx Hyperthyroidism, Hx Hypothyroidism Renal/ Medical History: Reports: Hx Benign Prostatic Hyperplasia - nocturia x 2-3/night. Denies: Hx End Stage Renal Disease, Hx Kidney Stones, Hx Peritoneal Dialysis Malignancy Medical History: Reports None, Denies Hx Leukemia, Denies Hx Lung Cancer GI Medical History: Reports: Hx Gastroesophageal Reflux Disease. Denies: Hx Crohn's Disease, Hx Hiatal Hernia, Hx Irritable Bowel, Hx Liver Failure, Hx Pancreatitis, Hx Ulcer Musculoskeltal Medical History: Reports Hx Arthritis, Denies Hx Fibromyalgia, Denies Hx Multiple Sclerosis, Denies Hx Muscular Dystrophy Psychiatric Medical History: Reports: None Denies: Hx Bipolar Disorder, Hx Dementia, Hx Depression, Hx Post Traumatic Stress Disorder, Hx Schizophrenia Traumatic Medical History: Reports: None. Denies: Hx Fractures Infectious Medical History: Denies: Hx HIV Past Surgical History: Reports: Hx Abdominal Surgery - hernia, Hx Orthopedic Surgery - Bilateral knee replacements. Recent repair of right knee. Denies: Hx Appendectomy, Hx Bowel Surgery, Hx Cholecystectomy, Hx Colostomy, Hx Coronary Artery Bypass Graft, Hx Gastric Bypass Surgery, Hx Herniorrhaphy, Hx Pacemaker, Hx Tonsillectomy - Immunizations Hx Diphtheria, Pertussis, Tetanus Vaccination: Yes Review of Systems - Review of Systems Constitutional: No symptoms reported. denies: Chills, Diaphoresis, Fever EENT: No symptoms reported Cardiovascular: No symptoms reported Respiratory: See HPI Gastrointestinal: No symptoms reported Genitourinary: No symptoms reported Musculoskeletal: No symptoms reported Skin: No symptoms reported Neurological/Psychological: No symptoms reported Physical Exam - Vital signs Vitals: Temp Pulse Resp BP Pulse Ox 98.2 F 61 24 H 163/77 H 97 12/20/17 12:09 12/20/17 12:09 12/20/17 12:09 12/20/17 12:09 12/20/17 12:09 Interpretation: Hypertensive, Tachypneic. No: Tachycardic, Hypoxic - General General appearance: Appears well, Alert In distress: None - HEENT Head: Normocephalic Eyes: Normal Conjunctiva: Normal Ears: Normal Nasal: Normal Mouth/Lips: Normal Mucous membranes: Normal - Respiratory Respiratory status: No respiratory distress Breath sounds: Wheezing - RARE END EXP., BILATERAL - Cardiovascular Rhythm: Regular Heart sounds: Normal auscultation - Abdominal Inspection: Obese - Back Back: Normal - Extremities General upper extremity: Normal inspection General lower extremity: Edema - 1+, BILAT. - Neurological Neuro grossly intact: Yes Cognition: Normal Orientation: AAOx4 - Psychological Associated symptoms: Normal affect, Normal mood - Skin Skin Temperature: Warm Skin Moisture: Dry Skin Color: Normal Skin Turgor: Elastic Course - Vital Signs Vital signs: Temp Pulse Resp BP Pulse Ox 97.5 F 59 L 16 150/84 H 96 12/20/17 16:13 12/20/17 16:13 12/20/17 16:13 12/20/17 16:13 12/20/17 16:13 - Laboratory Result Diagrams: 12/20/17 13:12 12/20/17 13:12 Laboratory results interpreted by me: 12/20/17 12/20/17 12/20/17 13:12 13:12 13:12 WBC 13.8 H RBC 3.86 L Hgb 11.6 L Hct 34.6 L RDW 14.3 H Seg Neutrophils % 81.9 H Lymphocytes % 11.3 L Absolute Neutrophils 11.3 H Glucose 150 H Direct Bilirubin 0.5 H AST 68 H ALT 114 H NT-Pro-B Natriuret Pep 2760 H Total Protein 6.2 L Discharge - Discharge Clinical Impression: COPD exacerbation, Morbid obesity Congestive heart failure Qualifiers: Heart failure type: unspecified Heart failure chronicity: chronic Qualified Code(s): I50.9 - Heart failure, unspecified Condition: Stable Disposition: HOME, SELF-CARE Instructions: Chronic Obstructive Lung Disease ([facility]), Congestive Heart Failure ([facility]), Corticosteroid Medication ([facility]) Additional Instructions: TAKE PREDNISONE DIRECTED, BEGINNING TOMORROW (WEDNESDAY). CONTINUE ALL OF YOUR OTHER MEDICATIONS USUAL. KEEP YOUR FEET & LEGS ELEVATED MUCH POSSIBLE. AVOID ALL SALT IN YOUR DIET. FOLLOW UP WITH DR. MELARA LATER THIS WEEK, CALL FOR APPOINTMENT. RETURN TO E.R. IF PROBLEMS. Prescriptions: Prednisone 20 mg PO TID #10 tablet Referrals: GILDA MELARA MD [Primary Care Provider] - Follow up in 3-5 days
[2017-12-20 13:31] LABS: ABSOLUTE LYMPHOCYTES (AUTO) 1.6 10^3/uL (0.5-4.7); ABSOLUTE MONOCYTES (AUTO) 0.9 10^3/uL (0.1-1.4); ABSOLUTE NEUT (AUTO) 11.3 10^3/uL (1.7-8.2); BASOPHILS % (AUTO) 0.2 % (0-2); EOSINOPHILS % (AUTO) 0.1 % (0-6); HEMATOCRIT 34.6 % (37.9-51.0); HEMOGLOBIN 11.6 g/dL (13.5-17.0); LYMPHOCYTES % (AUTO) 11.3 % (13-45); MEAN CORPUSCULAR HGB CONC 33.4 g/dL (32.0-36.0); MEAN CORPUSCULAR VOLUME 90 fl (80-97); MONOCYTES % (AUTO) 6.5 % (3-13); PLATELET COUNT 355 10^3/uL (150-450); RED BLOOD COUNT 3.86 10^6/uL (4.35-5.55); RED CELL DISTRIBUTION WIDTH 14.3 % (11.5-14.0); SEGMENTED NEUTROPHILS % (AUTO) 81.9 % (42-78); TOTAL CELLS COUNTED % (AUTO) 100 %; WHITE BLOOD COUNT 13.8 10^3/uL (4.0-10.5)
[2017-12-20 13:51] LABS: ALBUMIN 3.8 g/dL (3.5-5.0); ANION GAP 12 (5-19); BLOOD UREA NITROGEN 9 mg/dL (7-20); CARBON DIOXIDE 27 mmol/L (22-30); CHLORIDE 103 mmol/L (98-107); GLUCOSE 150 mg/dL (75-110); POTASSIUM 4.6 mmol/L (3.6-5.0); SODIUM 142.4 mmol/L (137-145); TOTAL PROTEIN 6.2 g/dL (6.3-8.2)
[2017-12-20 13:52] LABS: ALANINE AMINOTRANSFERASE 114 U/L (21-72); ALKALINE PHOSPHATASE 120 U/L (38-126); ASPARTATE AMINO TRANSFERASE 68 U/L (17-59); BILIRUBIN,DIRECT 0.5 mg/dL (0.0-0.4); BILIRUBIN,TOTAL 0.6 mg/dL (0.2-1.3)
--- NOTE | 2017-12-20 17:40 | RADIOLOGY REPORT (SQ) ---
EXAM DESCRIPTION: CTA CHEST COMPLETED DATE/TIME: 12/20/2017 3:43 pm REASON FOR STUDY: DYSPNEA COMPARISON: Chest x-ray 12/20/2017 CTA chest 11/22/2017 TECHNIQUE: CT scan of the chest performed using helical scanning technique with dynamic intravenous contrast injection. Images reviewed with lung, soft tissue and bone windows. Reconstructed coronal and sagittal MPR images reviewed. Additional 3 dimensional post-processing performed to develop Maximal Intensity Projection images (IN P). All images stored on PACS. All CT scanners at this facility use dose modulation, iterative reconstruction, and/or weight based d osing when appropriate to reduce radiation dose to as low as reasonably achievable (ALARA). [facility]: Dose Right [facility]: CareDose [facility]: Dose Right [facility]: Teradose 4D [facility]: Andigilog CONTRAST TYPE AND DOSE: 87 mL Isovue 370- low osmolar. Contrast bolus optimized for the pulmonary arteries. Not diagnostic for the aorta. RENAL FUNCTION: Not recorded. RADIATION DOSE: . LIMITATIONS: Pulsation artifact. FINDINGS: LUNGS AND PLEURA: No masses, infiltrates, or pneumothorax. No pleural effusions or pleura l calcifications. AORTA AND GREAT VESSELS: No aneurysm. Contrast bolus not optimized for the aorta. HEART: No pericardial effusion. No significant coronary artery calcifications. PULMONARY ARTERIES: No emboli visualized in the main pulmonary arteries or the major segmental branch es. HILAR AND MEDIASTINAL STRUCTURES: No identified masses or abnormal nodes. HARDWARE: None in the chest. UPPER ABDOMEN: Small amount of ascites around the liver. THYROID AND OTHER SOFT TISSUES: No masses. No adenopathy. BONES: No acute or significant finding. 3D MIPS: Confirm above findings. OTHER: No other significant finding. IMPRESSION: 1. No evidence of pulmonary emboli. The study is slightly limited. 2. There is a small amount of ascites around the liver. COMMENT: Quality ID # [id number]: Final reports with documentation of one or more dose reduction techniques (e.g., Automated exposure control, adjustment of the mA and/or kV according to patient size, use of iterative reconstruction technique) TECHNICAL DOCUMENTATION: JOB ID: [id number] [employer]- All Rights Reserved Reading location - IP/workstation name: [email or web address]
[2017-12-20] MEDS ORDERED: FUROSEMIDE 20 MG TABLET PO ONE (17:56)
[2017-12-20] MEDS ORDERED: ALBUTEROL SULFATE 0.083% NEB 2.5 MG/3 ML AMPUL NEB ONE (17:56)
[2017-12-20 18:59] LABS: CREATINE KINASE MB 1.17 ng/mL (<4.55)
[2017-12-20 19:20] LABS: TROPONIN I 0.116 ng/mL
[2017-12-20 19:44] VITALS: BP 160/87
== END 2017-12-20 19:46 | disposition home or self-care (01) ==
LOC: ER 12:01
DX: J44.1 Chronic obstructive pulmonary disease with (acute) exacerbation (principal); I11.0 Hypertensive heart disease with heart failure; I50.9 Heart failure, unspecified; E66.01 Morbid (severe) obesity due to excess calories; Z68.42 Body mass index [BMI] 45.0-49.9, adult; R06.02 Shortness of breath; E11.9 Type 2 diabetes mellitus without complications; R60.0 Localized edema
CPT/HCPCS: 94640 ×2; 99285; 96374; 36415; 82553; 82550; 85025; 80053; 84484; 83880; 71046; 71275; A9270 ×3; J2930; J7620